=== PATIENT | female | born 1940 | race Hispanic/Latino ===

== ENCOUNTER 2017-07-02 14:25 | Inpatient (IN) | payer MEDICARE, BC ==
--- NOTE | 2017-07-02 15:01 | ED PDOC ---
Arrival/HPI - General Time Seen by Provider: 07/02/17 14:26 Historian: Patient, Family (brother), Caregiver - History of Present Illness Narrative History of Present Illness (Text): 07/02/17 14:45 Palma Oglesby is a 76 year old female, whose past medical history includes, CVA, COPD, diabetes, spinal stenosis, vascular dementia, and pulmonary sarcoidosis, presents to the emergency department, accompanied by visiting nurse and brother, with complaints of chest pain on the left side that radiates to the middle and has been intermittent. Caregiver reports that patient is currently on 2.5 liters of oxygen at home, but patient still feels shortness of breath and has mild coughing. Brother also reports patient needs support when ambulating due to her diabetes neuropathy. Patient denies headache, fever, chills, nausea, vomiting, diarrhea, diaphoresis, jaw pain, back pain, or other complaints. PMD: Dr. Walker Remedial Reading Teacher: Dr. Flores Symptom Onset: Sudden Symptom Course: Intermittent Modifying Factors (Text): chest pain is worse with deep breaths Context: Home Associated Symptoms (Text): shortness of breath and coughing Past Medical History - Provider Review Nursing Documentation Reviewed: Yes - Infectious Disease Hx of Infectious Diseases: None - Cardiac Hx Cardiac Disorders: Yes Hx Hypertension: Yes - Pulmonary Hx Chronic Obstructive Pulmonary Disease (COPD): Yes - Neurological HX Cerebrovascular Accident: Yes - HEENT Hx HEENT Disorder: Yes Hx Deafness: Yes Hx Macular Degeneration: Yes - Renal Hx Renal Disorder: No - Endocrine/Metabolic Hx Diabetes Mellitus Type 2: Yes - Hematological/Oncological Hx Blood Disorders: No - Integumentary Hx Dermatological Disorder: Yes (MASD UNDER THE BREAST FOLDS AND ABDOMINAL AREA) Hx Basal Cell Carcinoma: Yes Other/Comment: SARCOIDOSIS - Musculoskeletal/Rheumatological Hx Falls: Yes - Gastrointestinal Hx Gastrointestinal Disorders: Yes (GERD,RECTO VAGINAL FISTULA) - Genitourinary/Gynecological Hx Genitourinary Disorders: Yes (HYSTERECTOMY) Other/Comment: vaginal rectal fistula - Psychiatric Hx Psychophysiologic Disorder: Yes (INSOMNIA. H/O OF SMOKING CIGARETTES 2 PPD QUIT) Hx Anxiety: Yes Hx Depression: Yes Hx Substance Use: No - Surgical History Hx Hysterectomy: Yes Other/Comment: laparoscopic sx for sarcoidosis, pt was sched for sx to remove small growth to chin tomorrow - Anesthesia Hx Anesthesia: Yes Hx Anesthesia Reactions: No Hx Malignant Hyperthermia: No - Suicidal Assessment Feels Threatened In Home Enviroment: No Family/Social History - Physician Review Nursing Documentation Reviewed: Yes Family/Social History: Unknown Family HX Smoking Status: Never Smoked Hx Alcohol Use: No Hx Substance Use: No Hx Substance Use Treatment: No Allergies/Home Meds Allergies/Adverse Reactions: Allergies No Known Allergies Allergy (Verified 01/05/17 13:28) Home Medications: Home Meds Medication Instructions Recorded Confirmed Mirtazapine [Remeron] 30 mg PO HS 04/10/16 07/02/17 Zolpidem [Ambien] 10 mg PO HS 04/10/16 07/02/17 Gabapentin [Neurontin] 300 mg PO BID 08/21/16 07/02/17 Sitagliptin Phos/Metformin HCl 1 mg PO BID 08/21/16 07/02/17 [Janumet 50-500 mg Tablet] Albuterol HFA [Ventolin HFA 90 2 puff NEB Q4 PRN 01/05/17 07/02/17 mcg/actuation (8 g)] Aspirin [Aspirin EC] 325 mg PO DAILY 01/05/17 07/02/17 Acetaminophen [Tylenol 325mg tab] 325 mg PO QID PRN 07/02/17 07/02/17 Ergocalciferol (Vitamin D2) 125 mg PO QWK 07/02/17 07/02/17 [Vitamin D2] Fluticasone/Salmeterol 250/50 1 puff IH Q12 07/02/17 07/02/17 [Advair Diskus] LORazepam [Ativan] 1 mg PO TID 07/02/17 07/02/17 Lidocaine 5% [Lidoderm] 1 patch TOP DAILY 07/02/17 07/02/17 [place]-3/Dha/Epa/Fish Oil [Fish Oil 500 mg PO BID 07/02/17 07/02/17 500 mg Softgel] traMADol [Ultram] 50 mg PO DAILY 07/02/17 07/02/17 Review of Systems - Physician Review All systems were reviewed & negative as marked: Yes - Review of Systems Systems not reviewed;Unavailable: Dementia Constitutional: absent: Fevers 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) Respiratory: SOB, Cough Cardiovascular: Chest Pain Gastrointestinal: absent: Abdominal Pain Musculoskeletal: absent: Neck Pain Physical Exam Vital Signs Temp Pulse Pulse Resp BP BP Pulse Ox 07/02/17 18:16 98 H 26 H 150/77 86 L 07/02/17 18:13 150/77 07/02/17 15:42 85 137/71 07/02/17 14:26 98.6 F 90 17 137/71 89 L Temperature: Afebrile Blood Pressure: Normal Pulse: Regular Respiratory Rate: Normal Appearance: Positive for: Well-Appearing, Non-Toxic, Comfortable Pain Distress: None Mental Status: Positive for: other (Alert and Oriented X 2) - Systems Exam Head: Present: Atraumatic, Normocephalic Pupils: Present: PERRL Extroacular Muscles: Present: EOMI Conjunctiva: Present: Normal Mouth: Present: Moist Mucous Membranes Neck: Present: Normal Range of Motion Respiratory/Chest: Present: Other (crackles at base). No: Accessory Muscle Use Cardiovascular: Present: Regular Rate and Rhythm, Normal S1, S2. No: Murmurs Abdomen: Present: Normal Bowel Sounds. No: Tenderness, Distention, Peritoneal Signs Back: Present: Normal Inspection Upper Extremity: Present: Normal Inspection. No: Cyanosis, Edema Lower Extremity: Present: Other (Left leg is 4/5 strength ). No: Edema Neurological: Present: GCS=15, CN II-XII Intact, Speech Normal Skin: Present: Warm, Dry, Normal Color. No: Rashes Psychiatric: Present: Alert, Oriented x 3, Normal Insight, Normal Concentration Medical Decision Making ED Course and Treatment: 07/02/17 14:45 Impression: 76 year old female with chest pain and shortness of breath. Differential Diagnosis included but are not limited to: Plan: -- EKG -- Chest X-ray -- CT Chest -- Ultrasound -- Labs -- Urinalysis -- Xopenex, Atrovent, and Solumedrol -- Reassess and disposition Progress Notes: EKG: Ordered, reviewed, and independently interpreted the EKG. Rate : 97 BPM Rhythm : NSR Interpretation : No ST-segment elevations or depressions, no T-wave inversions, normal intervals, normal axis. 07/02/17 15:30 Chest X-ray: Creator: Kali Singh MD COMPARISON:01/09/2017 FINDINGS: LUNGS: Mild vascular and interstitial congestion unchanged PLEURA: No significant pleural effusion identified, no pneumothorax apparent. CARDIOVASCULAR: Normal. OSSEOUS STRUCTURES: No significant abnormalities. VISUALIZED UPPER ABDOMEN: Normal. OTHER FINDINGS: None. IMPRESSION: Mild vascular and interstitial congestion unchanged 07/02/17 16:24 Elderly patient with chest pain - will need further observation for cardiac assessment. Case was discussed with Dr. Moreno. 07/02/17 20:27 CTA of the chest showing no PE. - Lab Interpretations Lab Results: 07/02/17 15:30 07/02/17 15:30 Lab Results 07/02/17 15:30: Sodium 139, Potassium 4.1, Chloride 99, Carbon Dioxide 28, Anion Gap 16, BUN 22 H, Creatinine 0.9, Est GFR ( Amer) > 60, Est GFR ( Non-Af Amer) > 60, Random Glucose 146 H, Calcium 10.2, Magnesium 1.7, Total Bilirubin 0.5, AST 37, ALT 40, Alkaline Phosphatase 183 H, Lactate Dehydrogenase 468, Total Creatine Kinase 84, Troponin I < 0.01, NT-Pro-B Natriuret Pep 58.9, Total Protein 7.8, Albumin 4.1, Globulin 3.6, Albumin/ Globulin Ratio 1.1, Lipase 107 07/02/17 15:30: PT 11.4, INR 1.06, APTT 26.8, D-Dimer, Quantitative 1.42 H 07/02/17 15:30: WBC 9.5 D, RBC 4.46, Hgb 12.7, Hct 38.8, MCV 87.0, MCH 28.5, MCHC 32.7, RDW 15.4 H, Plt Count 311, MPV 9.8, Gran % 67.0, Lymph % (Auto) 21.0 L, [place] % (Auto) 8.3 H, Eos % (Auto) 3.4, Baso % (Auto) 0.3, Gran # 6.34, Lymph # 2.0, [place] # 0.8 H, Eos # 0.3, Baso # 0.03 I have reviewed the lab results: Yes - RAD Interpretation Radiology Orders: 07/02/17 15:00 CHEST PORTABLE [RAD] Stat Nurse School: Radiologist - EKG Interpretation Interpreted by ED Physician: Yes Type: 12 lead EKG - Medication Orders Current Medication Orders: Albuterol Sulfate (Albuterol 0.083% Inhal [place] (2.5 Mg/3 Ml) Ud) 2.5 mg IH [id number] PRN PRN Reason: COPD Albuterol/Ipratropium (Duoneb 3 Mg/0.5 Mg (3 Ml) Ud) 3 ml IH Q2H PRN PRN Reason: Shortness of Breath Albuterol/Ipratropium (Duoneb 3 Mg/0.5 Mg (3 Ml) Ud) 3 ml IH [id number] [facility] Last Admin: 07/02/17 20:15 Dose: 3 ml Amlodipine Besylate (Norvasc) 10 mg PO DAILY [facility] Arformoterol Tartrate (Brovana) 15 mcg IH [id number] [facility] Last Admin: 07/02/17 20:15 Dose: 15 mcg Aspirin (Ecotrin) 325 mg PO DAILY [facility] Atorvastatin Calcium (Lipitor) 40 mg PO HS [facility] Budesonide (Pulmicort Respules) 0.5 mg IH [id number] [facility] Last Admin: 07/02/17 20:15 Dose: 0.5 mg Gabapentin (Neurontin) 300 mg PO BID [facility] PRN Reason: Protocol Insulin Human Lispro (Humalog Med) 0 units SC ACHS [facility] PRN Reason: Protocol Lidocaine (Lidoderm) 1 ea TD DAILY [facility] Lorazepam (Ativan) 1 mg PO Q8H PRN; Protocol PRN Reason: Anxiety Mirtazapine (Remeron) 30 mg PO HS [facility] Tramadol HCl (Ultram) 25 mg PO Q12H PRN PRN Reason: Pain, moderate (4-7) Zolpidem Tartrate (Ambien) 10 mg PO HS [facility] PRN Reason: Protocol Discontinued Medications Albuterol (Ventolin Hfa 90 Mcg/Actuation (8 G)) 2 puff IH Q4 PRN PRN Reason: Shortness of Breath Aspirin (Aspirin Chewable) 324 mg PO STAT [facility] Stop: 07/02/17 16:22 Last Admin: 07/02/17 18:25 Dose: Furosemide (Lasix) 40 mg IVP STAT STA Stop: 07/02/17 17:47 Last Admin: 07/02/17 18:13 Dose: 40 mg Iohexol (Omnipaque 350 100 Ml) Confirm Administered Dose 350 mg .ROUTE .STK-MED ONE Stop: 07/02/17 18:59 Ipratropium Cooks (Atrovent) 0.5 mg IH STAT STA Stop: 07/02/17 15:06 Last Admin: 07/02/17 15:49 Dose: 0.5 mg Levalbuterol HCl (Xopenex) 1.25 mg IH STAT STA Stop: 07/02/17 15:06 Last Admin: 07/02/17 15:49 Dose: 1.25 mg Methylprednisolone (Solu-Medrol) 125 mg IVP STAT STA Stop: 07/02/17 15:06 Last Admin: 07/02/17 15:49 Dose: 125 mg Fluticasone/Salmeterol (Advair Diskus 250/50) 1 puff IH Q12 [facility] - Scribe Statement The provider has reviewed the documentation as recorded by the Scribe 07/02/2017 Tina Izquierdo Attestation: All medical record entries made by the Scribe were at my direction and personally dictated by me. I have reviewed the chart and agree that the record accurately reflects my personal performance of the history, physical exam, medical decision making, and the department course for this patient. I have also personally directed, reviewed, and agree with the discharge instructions and disposition. Disposition/Present on Arrival - Present on Arrival Any Indicators Present on Arrival: No History of DVT/PE: No History of Uncontrolled Diabetes: No Urinary Catheter: No History Surgical Site Infection Following: None - Disposition Have Diagnosis and Disposition been Completed?: Yes Diagnosis: Chest pain Disposition: HOSPITALIZED Disposition Time: 16:24 Patient Plan: Observation, Telemetry Condition: FAIR
[2017-07-02] MEDS ORDERED: Ipratropium 0.02% Inhal Soln (0.5 mg/2.5 ml) UD IH STA (15:05)
[2017-07-02] MEDS ORDERED: Levalbuterol 1.25 MG/3 ML Inhal Soln UD IH STA (15:05)
--- NOTE | 2017-07-02 15:26 | RAD ---
HISTORY: chest pain COMPARISON: 01/09/2017 FINDINGS: LUNGS: Mild vascular and interstitial congestion unchanged PLEURA: No significant pleural effusion identified, no pneumothorax apparent. CARDIOVASCULAR: Normal. OSSEOUS STRUCTURES: No significant abnormalities. VISUALIZED UPPER ABDOMEN: Normal. OTHER FINDINGS: None. IMPRESSION: Mild vascular and interstitial congestion unchanged
[2017-07-02 16:03] LABS: BASO # 0.03 K/mm3 (0.0-2.0); BASO % 0.3 % (0.0-3.0); EOS # 0.3 (0.0-0.7); EOS % 3.4 % (1.5-5.0); GRAN # 6.34 (1.4-6.5); HEMOGLOBIN 12.7 gm/dL (12.0-16.0); MEAN CORPUSCULAR HEMOGLOBIN 28.5 pg (25.0-35.0); MEAN CORPUSCULAR HGB CONC 32.7 g/dl (31.0-37.0); MEAN PLATELET VOLUME 9.8 fl (7.0-11.0); MONO # 0.8 (0.1-0.6); MONO % 8.3 % (1.0-6.0); PLATELET COUNT 311 10^3/uL (120.0-450.0); RBC 4.46 10^6/uL (3.5-6.1); RED CELL DISTRIBUTION WIDTH 15.4 % (11.5-14.5); WHITE BLOOD COUNT 9.5 10^3/ul (4.5-11.0)
[2017-07-02 16:06] LABS: ALB/GLOB RATIO 1.1 (1.1-1.8); ALBUMIN 4.1 g/dL (3.0-4.8); ALT/SGPT 40 U/L (7-56); AST/SGOT 37 U/L (15-39); BLOOD UREA NITROGEN 22 mg/dL (7-21); CALCIUM 10.2 mg/dL (8.4-10.5); GFR AFRICAN-AMERICAN > 60; GFR NON-AFRICAN AMERICAN > 60; LIPASE 107 U/L (23-300); MAGNESIUM 1.7 mg/dL (1.7-2.2)
[2017-07-02 16:16] LABS: B-TYPE NATRIURETIC PEPTIDE 58.9 pg/mL (0-450)
[2017-07-02 16:17] LABS: TROPONIN I < 0.01 ng/mL
[2017-07-02 16:50] LABS: INR 1.06 (0.93-1.08); PARTIAL THROMBOPLASTIN TIME 26.8 Seconds (23.7-30.8); PROTHROMBIN TIME 11.4 Seconds (9.9-11.8)
[2017-07-02 16:53] LABS: D DIMER 1.42 mg/L FEU (0-0.50)
[2017-07-02 17:24] LABS: PH,URINE 6.5 (4.7-8.0); URINE BILIRUBIN NEGATIVE (NEGATIVE); URINE BLOOD NEGATIVE (NEGATIVE); URINE GLUCOSE (UA) NEGATIVE (NEGATIVE); URINE LEUKOCYTE ESTERASE SMALL Leu/uL (NEGATIVE); URINE NITRATE NEGATIVE (NEGATIVE); URINE PROTEIN NEGATIVE mg/dL (<30 mg/dL); URINE UROBILINOGEN 0.2 E.U./dL (<1 E.U./dL)
[2017-07-02 17:26] LABS: URINE APPEARANCE CLEAR (CLEAR); URINE COLOR YELLOW (YELLOW)
[2017-07-02] MEDS ORDERED: Albuterol HFA 90 mcg/actuation (8 g) IH PRN (18:22)
[2017-07-02] MEDS ORDERED: Albuterol-Ipratrop 3 mg / 0.5 (3 ml) UD IH PRN (18:29)
[2017-07-02] MEDS ORDERED: Albuterol 0.083% Inhal Sol (2.5 mg/3 mL) UD IH PRN (18:41)
[2017-07-02] MEDS ORDERED: Iohexol 350 MG/100 ML VIAL ONE (18:58)
--- NOTE | 2017-07-02 19:49 | CP.PCM.HP ---
<Bennett Kumari - Last Filed: 07/02/17 20:23> History of Present Illness - History of Present Illness History of Present Illness: CC: Chest pain Patient is a 76 year old female with past medical history of CVA x2 in 1996, 2013, DM2, pulmonary sarcoidosis, COPD, multiple admissions for pneumonia, spinal stenosis and dementia who presents with chest pain for the past week. The patient is a poor historian as she reports varying time lengths of chest pain and reason for admission. She reports that over the past week she has developed progressively worsening chest pain. She indicates the pain is located at her left breast without radiation and described as a pressure sensation. She reports initial episodes of chest pain lasting 1 minute but in the past 24 hours the patient reports feeling more of a constant pain. She indicates the pain is without pattern occurring at rest and with exertion. The patient denies any previous episodes of chest pain. In the emergency department a chest xray was done showing mild vasuclar and interstitial congestion unchanged from previous xrays. An ekg was preformed showing normal sinus rhythm without ST elevation or depression or any T wave inversions. An initial troponin was negative. Patient does report shortness of breath for which she has a chronic history. She wears 2L NC O2 at night. She reports pain in her left leg for which she states is chronic and related to her neuropathy. A D-Dimer was done and noted to be elevated at 1.42. The patient is planned for a CT angiogram and doppler ultrasound of her lower extremities. PMH: CVA, PNA, DM2, Pulmonary sarcoidosis, depression, anxiety, neuropathy, spinal stenosis, arthritis, dementia PSH: Back surgery for pinched nerve, Hysterectomy FMH: - Mom: Heart disease with pacemaker placement, at 87 - Dad: ALS SocHx: Tobacco: former with 30 pack year history, EtOH: none, Drugs: none, Lives at home with a healthcare consultant. Ambulates with cane Meds: - Glimepiride 1mg - Janumet 50/500mg - Fish oil pearls 500mg - Tramadol 50mg Daily - Acetaminophen 325 Q4H prn - Albuterol 2 puff Q4H - Aspirin 325mg Daily - Atorvastatin 40mg - Fluticasone 1 puff BID - Lorazepam 1mg TID - Mirtazapine 30mg QHS - Norvasc 10mg QHS - Gabapentin 300 mg BID - Ambien 10mg QHS - Lidocaine 5% patches for feet - Vitamin D2 PCP: Dr. Manny Walker Pulm: Dr. Guevara Apartment Leasing Agent: None Present on Admission - Present on Admission Any Indicators Present on Admission: No History of DVT/PE: No History of Uncontrolled Diabetes: No Urinary Catheter: No Review of Systems - Constitutional Constitutional: Headache. absent: Chills, Fever, Night Sweats - Cardiovascular Cardiovascular: Chest Pain, Dyspnea. absent: Leg Edema, Orthopnea, Pedal Edema - Respiratory Respiratory: Dyspnea. absent: Cough, Hemoptysis, Dyspnea on Exertion, Wheezing - Gastrointestinal Gastrointestinal: absent: Abdominal Pain, Constipation, Diarrhea - Musculoskeletal Musculoskeletal: absent: Numbness - Neurological Neurological: absent: Dizziness, Focal Weakness - Psychiatric Psychiatric: As Per HPI Past Patient History - Infectious Disease Hx of Infectious Diseases: None - Past Social History Smoking Status: Never Smoked - CARDIAC Hx Cardiac Disorders: Yes Hx Hypertension: Yes - PULMONARY Hx Chronic Obstructive Pulmonary Disease (COPD): Yes - NEUROLOGICAL HX Cerebrovascular Accident: Yes - HEENT Hx HEENT Problems: Yes Hx Deafness: Yes Hx Macular Degeneration: Yes - RENAL Hx Chronic Kidney Disease: No - ENDOCRINE/METABOLIC Hx Diabetes Mellitus Type 2: Yes - HEMATOLOGICAL/ONCOLOGICAL Hx Blood Disorders: No - INTEGUMENTARY Hx Dermatological Problems: Yes (MASD UNDER THE BREAST FOLDS AND ABDOMINAL AREA) Hx Basil Cell: Yes Other/Comment: SARCOIDOSIS - MUSCULOSKELETAL/RHEUMATOLOGICAL Hx Falls: Yes - GASTROINTESTINAL Hx Gastrointestinal Disorders: Yes (GERD,RECTO VAGINAL FISTULA) - GENITOURINARY/GYNECOLOGICAL Hx Genitourinary Disorders: Yes (HYSTERECTOMY) Other/Comment: vaginal rectal fistula - PSYCHIATRIC Hx Psychophysiologic Disorder: Yes (INSOMNIA. H/O OF SMOKING CIGARETTES 2 PPD QUIT) Hx Anxiety: Yes Hx Depression: Yes Hx Substance Use: No - SURGICAL HISTORY Hx Hysterectomy: Yes Other/Comment: laparoscopic sx for sarcoidosis, pt was sched for sx to remove small growth to chin tomorrow - ANESTHESIA Hx Anesthesia: Yes Hx Anesthesia Reactions: No Hx Malignant Hyperthermia: No Meds Allergies/Adverse Reactions: Allergies Allergy/AdvReac Type Severity Reaction Status Date / Time No Known Allergies Allergy Verified 01/05/17 13:28 Physical Exam - Constitutional Appears: Well, No Acute Distress - Head Exam Head Exam: ATRAUMATIC, NORMAL INSPECTION - Eye Exam Eye Exam: EOMI, PERRL - ENT Exam ENT Exam: Mucous Membranes Moist, Normal Exam - Neck Exam Neck exam: Positive for: Normal Inspection - Respiratory Exam Additional comments: Crackles bilateral base with L>R - Cardiovascular Exam Cardiovascular Exam: REGULAR RHYTHM, +S1, +S2 - GI/Abdominal Exam GI & Abdominal Exam: Normal Bowel Sounds, Soft - Extremities Exam Extremities exam: Positive for: full ROM, normal inspection, tenderness (left side most likely 2/2 chronic pain). Negative for: pedal edema - Neurological Exam Neurological exam: Alert, CN II-XII Intact, Oriented x3 - Psychiatric Exam Psychiatric exam: Normal Affect, Normal Mood - Skin Skin Exam: Dry, Normal Color Results - Vital Signs Recent Vital Signs: Last Vital Signs Temp 98.6 F 07/02/17 14:26 Pulse 98 H 07/02/17 18:16 Resp 26 H 07/02/17 18:16 BP 150/77 07/02/17 18:16 Pulse Ox 86 L 07/02/17 18:16 - Labs Result Diagrams: 07/02/17 15:30 07/02/17 15:30 Labs: Laboratory Results - last 24 hr 07/02/17 17:15 Urine Color Yellow Urine Appearance Clear Urine pH 6.5 Ur Specific [place] 1.010 Urine Protein Negative Urine Glucose (UA) Negative Urine Ketones Negative Urine Blood Negative Urine Nitrate Negative Urine Bilirubin Negative Urine Urobilinogen 0.2 Ur Leukocyte Esterase Small H Urine RBC TEST NOT PERFORMED Urine WBC 5 - 10 Ur Epithelial Cells 6 - 8 Assessment & Plan - Assessment and Plan (Free Text) Assessment: Patient is a 76 year old female with past medical history of COPD, Pulmonary sarcoidosis, CVAx2 1996, 2013, history of multiple hospitilizations for pneumonia in recent past, spinal stenosis, DM2 who presents with chest pain for the past week. Plan: 1. Atypical Chest pain - EKG with no ST elevation or depression, No T wave inversion - Chest xray showing mild vascular and interstitial congestion unchanged from previous cxr - Initial troponin negative, plan for 2 more troponin level - Aspirin 325mg given today already, plan to continue - Atorvastatin 40mg, Norvasc 10mg - O2 NC 2L at home, continue during stay with pulse ox goal of >92% - Cardiology consult Dr. Bryson - Admit to telemetry for observation - Lipid panel - TSH 2. Elevated D-Dimer r/o DVT vs. PE - D-Dimer in ED noted to be elevated at 1.42 - CT angiogram of chest - Doppler U/S of lower extremity rule out DVT 3. Diabetes Mellitus type 2 - Humalog with ISS - ACHS accucheck 4. Hx of CVA - Aspirin - Atorvastatin 5. GI DVT ppx - Lovenox - Protonix 6. Hx of neuropathy - lidocaine - gabapentin 7. Hx of COPD - Duoneb Q2prn Q6 reggie - no wheezing, will reassess - O2 NC 2L 8. Hx of Insomnia - Ambien HS prn 9. Anxiety - Lorazepam TID PRN Seen, reviewed and discussed with attending - Date & Time Date: 07/02/17 Time: 20:27 <Michael Moreno - Last Filed: 07/03/17 06:55> Results - Vital Signs Recent Vital Signs: Last Vital Signs Temp 97.7 F 07/03/17 05:26 Pulse 105 H 07/03/17 05:26 Resp 19 07/03/17 05:26 BP 156/74 H 07/03/17 05:26 Pulse Ox 95 07/03/17 05:26 - Labs Result Diagrams: 07/03/17 05:10 07/03/17 05:10 Labs: Laboratory Results - last 24 hr 07/02/17 07/02/17 07/02/17 17:15 20:56 22:10 WBC RBC Hgb Hct MCV MCH MCHC RDW Plt Count MPV Gran % Lymph % (Auto) [place] % (Auto) Eos % (Auto) Baso % (Auto) Gran # Lymph # [place] # Eos # Baso # Sodium Potassium Chloride Carbon Dioxide Anion Gap BUN Creatinine Est GFR ( Amer) Est GFR (Non-Af Amer) POC Glucose (mg/dL) 281 H Random Glucose Calcium Total Bilirubin AST ALT Alkaline Phosphatase Lactate Dehydrogenase 465 Total Creatine Kinase 88 Troponin I < 0.01 Total Protein Albumin Globulin Albumin/Globulin Ratio Triglycerides 76 Cholesterol 109 L LDL Cholesterol Direct 46 HDL Cholesterol 37 TSH 3rd Generation Urine Color Yellow Urine Appearance Clear Urine pH 6.5 Ur Specific [place] 1.010 Urine Protein Negative Urine Glucose (UA) Negative Urine Ketones Negative Urine Blood Negative Urine Nitrate Negative Urine Bilirubin Negative Urine Urobilinogen 0.2 Ur Leukocyte Esterase Small H Urine RBC TEST NOT PERFORMED Urine WBC 5 - 10 Ur Epithelial Cells 6 - 8 0807/03/17 07/03/17 22:10 05:10 05:10 WBC 15.0 H D RBC 4.70 Hgb 13.3 Hct 40.4 MCV 86.0 MCH 28.3 MCHC 32.9 RDW 15.6 H Plt Count 339 MPV 9.7 Gran % 89.5 H Lymph % (Auto) 9.4 L [place] % (Auto) 1.1 Eos % (Auto) 0.0 L Baso % (Auto) 0.0 Gran # 13.41 H Lymph # 1.4 [place] # 0.2 Eos # 0.0 Baso # 0.00 Sodium 139 Potassium 4.4 Chloride 96 L Carbon Dioxide 23 Anion Gap 24 H BUN 29 H Creatinine 1.2 Est GFR ( Amer) 53 Est GFR (Non-Af Amer) 43 POC Glucose (mg/dL) Random Glucose 373 H* D Calcium 10.8 H Total Bilirubin 0.5 AST 36 ALT 39 Alkaline Phosphatase 187 H Lactate Dehydrogenase 413 Total Creatine Kinase 94 Troponin I < 0.01 Total Protein 8.1 Albumin 4.4 Globulin 3.7 Albumin/Globulin Ratio 1.2 Triglycerides Cholesterol LDL Cholesterol Direct HDL Cholesterol TSH 3rd Generation 4.02 Urine Color Urine Appearance Urine pH Ur Specific [place] Urine Protein Urine Glucose (UA) Urine Ketones Urine Blood Urine Nitrate Urine Bilirubin Urine Urobilinogen Ur Leukocyte Esterase Urine RBC Urine WBC Ur Epithelial Cells Attending/Attestation - Attestation I have personally seen and examined this patient.: Yes I have fully participated in the care of the patient.: Yes I have reviewed all pertinent clinical information: Yes Notes (Text): 07/02/17 76 year old female with past medical history of COPD, pulmonary sarcoidosis, diabetes, CVA and chronic back pain who presents with complaint of chest pain. Also reports chronic dyspnea, back pain and left leg pain. She was found to have elevated D-dimer and CXR findings showing mild vascular and interstitial congestion which is unchanged from prior study. Initial troponin was negative and pbnp is normal. She was given iv steroids in the ER. Will give dose of lasix as well. CT angio is ordered to rule out PE and LE dopplers to rule out DVT. Cardiology and pulmonary evaluation are requested. Brother is at bedside and questions were answered. Michael Moreno MD Hospitalist.
[2017-07-02] MEDS: Albuterol-Ipratrop 3 mg / 0.5 (3 ml) UD IH SCH ×2 (20:15→23:55)
[2017-07-02] MEDS: Budesonide 0.5 mg/2 ml Inhal Susp UD IH SCH (20:15)
[2017-07-02] MEDS: Arformoterol 15 mcg/2 ml Inh Sol IH SCH (20:15)
[2017-07-02 20:56] VITALS: BMI 26.4
[2017-07-02] MEDS ORDERED: Pneumococcal 23-Valent Vaccine IM ONE (20:57)
[2017-07-02] MEDS ORDERED: MIRTAZAPINE 30 MG PO SCH (22:00)
[2017-07-02] MEDS ORDERED: Fluticasone-Salmeterol 250-50mcg Diskus IH SCH (22:00)
[2017-07-02] MEDS: Insulin Lispro (humaLOG) MEDIUM Coverage SC SCH (22:25)
[2017-07-02 22:31] LABS: HDL CHOLESTEROL 37 mg/dL (29-60)
[2017-07-02 22:42] LABS: LDL CHOLESTEROL 46 mg/dL (0-129)
[2017-07-02 22:47] LABS: TROPONIN I < 0.01 ng/mL
[2017-07-03] MEDS: Albuterol-Ipratrop 3 mg / 0.5 (3 ml) UD IH SCH ×3 (04:30→11:27)
[2017-07-03 05:47] LABS: GRAN # 13.41 (1.4-6.5); GRAN % 89.5 % (50.0-68.0); HEMOGLOBIN 13.3 gm/dL (12.0-16.0); LYMPH # 1.4 (1.2-3.4); LYMPH % 9.4 % (22.0-35.0); MEAN CORPUSCULAR HEMOGLOBIN 28.3 pg (25.0-35.0); MEAN CORPUSCULAR HGB CONC 32.9 g/dl (31.0-37.0); MEAN PLATELET VOLUME 9.7 fl (7.0-11.0); MONO # 0.2 (0.1-0.6); MONO % 1.1 % (1.0-6.0); PLATELET COUNT 339 10^3/uL (120.0-450.0); RED CELL DISTRIBUTION WIDTH 15.6 % (11.5-14.5)
[2017-07-03 05:55] LABS: ALB/GLOB RATIO 1.2 (1.1-1.8); ALBUMIN 4.4 g/dL (3.0-4.8); ALT/SGPT 39 U/L (7-56); AST/SGOT 36 U/L (15-39); BLOOD UREA NITROGEN 29 mg/dL (7-21); CALCIUM 10.8 mg/dL (8.4-10.5); GFR AFRICAN-AMERICAN 53; GFR NON-AFRICAN AMERICAN 43
[2017-07-03 06:09] LABS: TROPONIN I < 0.01 ng/mL
--- NOTE | 2017-07-03 07:36 | CT ---
PROCEDURE: CT Chest with contrast (Pulmonary Angiogram) HISTORY: cp, sob COMPARISON: 01/06/2017 TECHNIQUE: Axial computed tomography images were obtained of the chest in the pulmonary arterial phase of enhancement. Coronal and sagittal reformatted images were created and reviewed. Intravenous contrast dose: 94 mL Omnipaque 350 Radiation dose: Total exam DLP = 711.16 mGy-cm. This CT exam was performed using one or more of the following dose reduction techniques: Automated exposure control, adjustment of the mA and/or kV according to patient size, and/or use of iterative reconstruction technique. FINDINGS: PULMONARY ARTERIES: Unremarkable. No pulmonary embolism. AORTA: No acute findings. No thoracic aortic aneurysm. LUNGS: Diffuse mosaic attenuation common nonspecific. This may represent air trapping but is not specific. Mild centrilobular pulmonary emphysema. Apical scarring and bronchiectasis. Probable tracheal malacia. No pulmonary infiltrate. Comparison to prior examination is limited due to the extensive motion artifact on the prior examination. PLEURAL SPACES: Unremarkable. No effusion or pneuomothorax. HEART: Unremarkable. No cardiomegaly. No significant pericardial effusion. LYMPH NODES: Mild mediastinal lymphadenopathy, without change from prior examination. Probable mild bilateral hilar lymphadenopathy. BONES, CHEST WALL: Unremarkable. No fracture or destructive lesion OTHER FINDINGS: Unremarkable. IMPRESSION: No evidence of pulmonary embolism. Centrilobular pulmonary emphysema. Mosaic attenuation of the lungs common nonspecific. Differential diagnosis includes chronic thromboembolism, air trapping, parenchymal disease, small airways disease. Mild mediastinal and bilateral hilar lymphadenopathy, nonspecific. No pulmonary infiltrate. Preliminary interpretation of this examination was reported by AC Holdco at 8:14 p.m. on 07/02/2017. There is concurrence of this report with the preliminary interpretation.
[2017-07-03] MEDS: Insulin Lispro (humaLOG) MEDIUM Coverage SC SCH ×4 (07:44→21:32)
[2017-07-03] MEDS: Arformoterol 15 mcg/2 ml Inh Sol IH SCH (07:44)
[2017-07-03] MEDS: Budesonide 0.5 mg/2 ml Inhal Susp UD IH SCH ×2 (07:44→20:33)
--- NOTE | 2017-07-03 07:52 | CON ---
DATE: 07/03/2017 REASON FOR CONSULTATION: Chronic obstructive pulmonary disease. REFERRING PHYSICIAN: Dr. Moreno. History is obtained via extensive discussion with the night nurse. The patient does not appear to be an adequate historian. HISTORY OF PRESENT ILLNESS: The patient is a chronically-ill 76-year-old female, with past medical history significant for advanced chronic obstructive pulmonary disease (on home oxygen), advanced interstitial lung disease (sarcoidosis), cerebrovascular accident in the past, diabetes mellitus, hypertension, who presents to [facility] with left-sided chest pain "on and off" for the past week. The patient is not short of breath at rest. She does have chronic dyspnea on exertion-which is not changed. There is no history of significant cough or sputum production. There is no history of coughing up of blood. There is no history of chest pain-made worse with deep respirations. There is no history of temperatures, chills or infectious exposure. There is no history of night sweats, weight loss or appetite change prior to the above events. No history of calf pains. No history of syncope or diaphoresis. No history of recent travel or trauma. REVIEW OF SYSTEMS: No history of nausea, vomiting or diarrhea. No acute urinary symptoms. No new neurological or musculoskeletal complaints. Rest of the review of systems is negative. ALLERGIES: NO KNOWN ALLERGIES. SOCIAL HISTORY: Positive for tobacco. Negative for alcohol. FAMILY HISTORY: No inheritable diseases. HOME MEDICATIONS: Include Ultram, Norvasc, Ambien, Janumet, Remeron, Ativan, Neurontin, Advair, Lipitor, aspirin. PHYSICAL EXAMINATION: GENERAL: The patient is not short of breath at rest. She is not using accessory muscles for breathing. VITALS: Temperature is 97.7, pulse on the monitor is 98, respiratory rate 19, blood pressure 156/74. Oxygen saturation on nasal cannula is 95%. HEENT: Normocephalic, atraumatic. No JVD. CARDIOVASCULAR: Systolic ejection murmur at the lower left sternal border. No S3 gallop. LUNGS: Chronic crackles at the bases. Minimal rhonchi. No wheezing. EXTREMITIES: No clubbing, cyanosis, or edema. Calves are nontender to palpation. GASTROINTESTINAL: Abdomen is soft, nontender, nondistended. Bowel sounds are positive. SKIN: No acute rash. NEUROLOGIC: Limited at the present time. CURRENT LABORATORY DATA: CAT scan of the chest was done yesterday as an angiogram protocol. There is no evidence of pulmonary embolism. There is significant interstitial lung disease and bronchiectasis noted-unchanged from the previous study. There is also mild mediastinal and bilateral hilar adenopathy-not significantly changed from the previous study. There are no official results on the chart as of yet. CBC: White count 15.0, hemoglobin 13.3, hematocrit 40.0, platelets of 339. Initial white count-9.5. Complete metabolic profile: Chloride 96, anion gap 24, BUN 29, glucose 373, calcium 10.8, alkaline phosphatase 187. Rest of the metabolic profiles are within normal limits. IMPRESSION: 1. Chest pain. 2. Advanced chronic obstructive pulmonary disease-on home oxygen. 3. Advanced interstitial lung disease-sarcoidosis. 4. Diabetes mellitus. PLAN: Again, I did discuss the case with the night nurse at length. The patient presents to [facility] with a one week history of left-sided chest pain "on and off" for the past week. There are no other new or significant pulmonary symptoms reported. On physical exam, there is only minimal bronchospasm noted. In addition, the oxygen saturation on nasal cannula is 95%. I will continue the current nebulizer treatments and inhaled steroids for now. I did review the CAT scan of the chest-as above. Again noted :there is extensive interstitial lung disease and bronchiectasis. These findings are not changed from the previous CAT scan. The patient does state to feeling better this morning, and denies chest pain. Cardiology evaluation of Dr. Ramon has been ordered. Additional pulmonary intervention will be based on the clinical status of the patient. I will discuss the above with Dr. Moreno. Thank you very much for this pulmonary consultation. Meet Alcaraz MD ADÁN
--- NOTE | 2017-07-03 08:31 | US ---
HISTORY: Leg pain and swelling. Evaluate for DVT PHYSICIAN(S): Andrae Rojas MD. TECHNIQUE: Duplex sonography and color-flow Doppler with graded compression were used to evaluate the deep venous systems of both lower extremities. FINDINGS: The visualized deep venous systems of both lower extremities are sonographically normal and compressible. Normal wave forms and augmentation are seen. There is no sonographic evidence for deep venous thrombosis in the visualized segments of both lower extremities. IMPRESSION: No sonographic evidence for deep venous thrombosis in the visualized segments of both lower extremities.
[2017-07-03] MEDS: Aspirin 325 mg EC Tablets PO SCH (09:35)
[2017-07-03] MEDS: Lidocaine 5% Patch TD SCH (09:36)
--- NOTE | 2017-07-03 09:49 | CARD ---
APPROVED REPORT EKG Measurement Heart [id number] <Conclusion> Normal sinus rhythm No change
--- NOTE | 2017-07-03 13:41 | CP.PCM.PN ---
Addendum entered and electronically signed by Jessika Arreola DO 07/03/17 18:19: Assessment: 76 year old female with past medical history of HTN, COPD, sarcoidosis, CVAx2 1996, 2013, history of multiple hospitilizations for pneumonia in recent past, spinal stenosis, DM2, Anxiety/depression who presents with chest pain for the past week. Original Note: <Jessika Arreola - Last Filed: 07/03/17 17:32> Subjective - Date & Time of Evaluation Date of Evaluation: 07/03/17 Time of Evaluation: 07:15 - Subjective Subjective: Patient seen and examined at bedside. Per nursing no acute events overnight. Patient c/o left foot pain which is chronic in nature. Chest pain has resolved. Patient is short of breath at baseline, reports no changes in breathing status. Denies headaches, dizziness, CP, abdominal pain, urinary symptoms, changes in bowel habit. Objective - Vital Signs/Intake and Output Vital Signs (last 24 hours): Temp Pulse Resp BP Pulse Ox 97.2 F L 120 H 22 171/78 H 95 07/03/17 12:00 07/03/17 12:00 07/03/17 12:00 07/03/17 12:00 07/03/17 05:26 Intake and Output: 07/03/17 07/03/17 06:59 18:59 Intake Total 240 Balance 240 - Medications Medications: Current Medications Albuterol Sulfate (Albuterol 0.083% Inhal Dolores (2.5 Mg/3 Ml) Ud) 2.5 mg IH [id number] PRN PRN Reason: COPD Albuterol/Ipratropium (Duoneb 3 Mg/0.5 Mg (3 Ml) Ud) 3 ml IH Q2H PRN PRN Reason: Shortness of Breath Albuterol/Ipratropium (Duoneb 3 Mg/0.5 Mg (3 Ml) Ud) 3 ml IH [id number] [facility] Last Admin: 07/03/17 11:27 Dose: 3 ml Amlodipine Besylate (Norvasc) 10 mg PO DAILY [facility] Last Admin: 07/03/17 09:35 Dose: 10 mg Arformoterol Tartrate (Brovana) 15 mcg IH [id number] [facility] Last Admin: 07/03/17 07:44 Dose: 15 mcg Aspirin (Ecotrin) 325 mg PO DAILY [facility] Last Admin: 07/03/17 09:35 Dose: 325 mg Atorvastatin Calcium (Lipitor) 40 mg PO HS [facility] Last Admin: 07/02/17 22:22 Dose: 40 mg Budesonide (Pulmicort Respules) 0.5 mg IH [id number] [facility] Last Admin: 07/03/17 07:44 Dose: 0.5 mg Enoxaparin Sodium (Lovenox) 30 mg SC DAILY [facility] PRN Reason: Protocol Gabapentin (Neurontin) 300 mg PO BID [facility] PRN Reason: Protocol Last Admin: 07/03/17 09:36 Dose: 300 mg Insulin Human Lispro (Humalog Med) 0 units SC ACHS [facility] PRN Reason: Protocol Last Admin: 07/03/17 11:47 Dose: 8 units Lidocaine (Lidoderm) 1 ea TD DAILY [facility] Last Admin: 07/03/17 09:36 Dose: 1 ea Lorazepam (Ativan) 1 mg PO Q8H PRN; Protocol PRN Reason: Anxiety Last Admin: 07/03/17 01:39 Dose: 1 mg Mirtazapine (Remeron) 30 mg PO HS [facility] Last Admin: 07/02/17 22:22 Dose: 30 mg Tramadol HCl (Ultram) 25 mg PO Q12H PRN PRN Reason: Pain, moderate (4-7) Last Admin: 07/02/17 22:23 Dose: 25 mg Zolpidem Tartrate (Ambien) 10 mg PO HS [facility] PRN Reason: Protocol Last Admin: 07/02/17 22:24 Dose: 10 mg - Labs Labs: 07/03/17 05:10 07/03/17 05:10 PT 11.4 Seconds (9.9-11.8) 07/02/17 15:30 INR 1.06 (0.93-1.08) 07/02/17 15:30 APTT 26.8 Seconds (23.7-30.8) 07/02/17 15:30 - Constitutional Appears: Non-toxic, No Acute Distress, Older Than Stated Age - Head Exam Head Exam: ATRAUMATIC, NORMAL INSPECTION - Eye Exam Eye Exam: EOMI, Normal appearance Pupil Exam: NORMAL ACCOMODATION - ENT Exam ENT Exam: Mucous Membranes Moist - Neck Exam Neck Exam: Full ROM - Respiratory Exam Respiratory Exam: Decreased Breath Sounds, Rhonchi. absent: Rales, Wheezes - Cardiovascular Exam Cardiovascular Exam: REGULAR RHYTHM, +S1, +S2 - GI/Abdominal Exam GI & Abdominal Exam: Soft, Normal Bowel Sounds. absent: Guarding, Rigid, Tenderness - Extremities Exam Extremities Exam: Full ROM, Normal Inspection - Back Exam Back Exam: NORMAL INSPECTION - Neurological Exam Neurological Exam: Alert, Awake, Oriented x3 - Psychiatric Exam Psychiatric exam: Normal Affect, Normal Mood - Skin Skin Exam: Normal Color, Warm Assessment and Plan - Assessment and Plan (Free Text) Assessment: Plan: 1. Atypical Chest pain, r/o ACS - Stable, afebrile - Monitor on Telemetry - EKG with no ST elevation or depression, No T wave inversion - Chest xray showing mild vascular and interstitial congestion unchanged from previous cxr - Troponin negative x 3 - Continue ASA, Atorvastatin 40mg - O2 NC 2L at home, continue during stay with pulse ox goal of >92% - Cardiology consult Dr. Bryson, f/u recommendations 2. Elevated D-Dimer, DVT and PE ruled out - D-Dimer in ED noted to be elevated at 1.42 - CT angiogram of chest- no evidence of PE, Centrilobular pulmonary emphysema. Mosaic attenuation of the lungs common nonspecific. Differential diagnosis includes chronic thromboembolism, air trapping, parenchymal disease, small airway disease. Mild mediastinal and bilateral hilar lymphadenopathy, non specific. No pulmonary infiltrate - Discussed patient status with transportation security screener who reviewed the CT chest, reports that patient has end stage sarcoidosis with chronic dyspnea; pt is not suffering from pulmonary embolic disease - LE Doppler negative for DVT 3. Diabetes Mellitus type 2, uncontrolled - CBGs ranging from 280-396 - F/U HgA1c - Added Sitagliptin 25mg PO BID and Glimeperide 1mg daily - Continue Medium dose ISS - ACHS accucheck 4. Leukocytosis - WBC 15 today likely 2/2 steroid administration - No overt signs of infections, afebrile - Will continue to monitor 5. Hypertension - BPs ranging from 150-171/71-87 - May be secondary to pain - Will continue Norvasc 10mg daily - Add Clonidine prn for BPs > 180 systolic - Continue to monitor 6. Hx of CVA - Continue Aspirin 325mg - Continue Atorvastatin 40mg 7. Hx of COPD, Hx of Sarcoidosis - Patient previously on duonebs, will switch to Xopenex as patient is tachycardic - Xopenex Q4H MARLEE, Xopenex Q4H prn SOB, O2 NC 2L - Received one dose of steroids in ED - Pulmonary on consult, f/u recommendations - Talked to patients brother at the bedside, reports that patients breathing status is at baseline - Due to end stage pulmonary disease Palliative care consulted to discuss code status with patient and family, will f/u recommendations 8. Hx of spinal stenosis and neuropathy - Lidocaine - Continue Gabapentin - Tramadol prn pain 9. Hx of Insomnia - Ambien HS prn 10. Anxiety/Depression - Lorazepam TID PRN - Continue Mirtazapine 11. GI DVT ppx - Lovenox - Protonix <Michael Moreno - Last Filed: 07/04/17 08:01> Objective - Vital Signs/Intake and Output Vital Signs (last 24 hours): Temp Pulse Resp BP Pulse Ox 98 F 101 H 20 144/77 96 07/03/17 22:25 07/03/17 22:25 07/03/17 22:25 07/03/17 22:25 07/03/17 22:25 Intake and Output: 07/04/17 07/04/17 06:59 18:59 Intake Total 120 Balance 120 - Medications Medications: Current Medications Amlodipine Besylate (Norvasc) 10 mg PO DAILY [facility] Last Admin: 07/03/17 09:35 Dose: 10 mg Aspirin (Ecotrin) 325 mg PO DAILY [facility] Last Admin: 07/03/17 09:35 Dose: 325 mg Atorvastatin Calcium (Lipitor) 40 mg PO HS [facility] Last Admin: 07/03/17 21:12 Dose: 40 mg Budesonide (Pulmicort Respules) 0.5 mg IH [id number] [facility] Last Admin: 07/03/17 20:33 Dose: 0.5 mg Docusate Sodium (Colace) 100 mg PO BID [facility] Last Admin: 07/03/17 19:19 Dose: 100 mg Enoxaparin Sodium (Lovenox) 30 mg SC DAILY [facility] PRN Reason: Protocol Last Admin: 07/03/17 14:12 Dose: 30 mg Gabapentin (Neurontin) 300 mg PO BID [facility] PRN Reason: Protocol Last Admin: 07/03/17 18:25 Dose: 300 mg Glimepiride (Amaryl) 1 mg PO DAILY [facility] Insulin Human Lispro (Humalog Med) 0 units SC ACHS [facility] PRN Reason: Protocol Last Admin: 07/03/17 21:32 Dose: Not Given Levalbuterol HCl (Xopenex) 0.63 mg IH [id number] [facility] Last Admin: 07/04/17 04:07 Dose: 0.63 mg Lidocaine (Lidoderm) 1 ea TD DAILY [facility] Last Admin: 07/03/17 09:36 Dose: 1 ea Lorazepam (Ativan) 1 mg PO Q8H PRN; Protocol PRN Reason: Anxiety Last Admin: 07/03/17 01:39 Dose: 1 mg Mirtazapine (Remeron) 30 mg PO HS [facility] Last Admin: 07/03/17 21:12 Dose: 30 mg Sitagliptin Phosphate (Januvia) 25 mg PO DAILY [facility] Tramadol HCl (Ultram) 25 mg PO Q12H PRN PRN Reason: Pain, moderate (4-7) Last Admin: 07/02/17 22:23 Dose: 25 mg Zolpidem Tartrate (Ambien) 10 mg PO HS [facility] PRN Reason: Protocol Last Admin: 07/03/17 21:12 Dose: 10 mg - Labs Labs: 07/04/17 06:15 07/04/17 06:15 PT 11.4 Seconds (9.9-11.8) 07/02/17 15:30 INR 1.06 (0.93-1.08) 07/02/17 15:30 APTT 26.8 Seconds (23.7-30.8) 07/02/17 15:30 Attending/Attestation - Attestation I have personally seen and examined this patient.: Yes I have fully participated in the care of the patient.: Yes I have reviewed all pertinent clinical information, including history, physical exam and plan: Yes Notes (Text): 07/03/17 76 year old female with past medical history of COPD, sarcoidosis, diabetes and chronic back pain who presented with complaint of chest pain, chronic dyspnea, back pain and left leg pain. Serial cardiac enzymes were negative and ACS has been ruled out. Cardiology evaluation was appreciated. She was also found to have elevated D dimer. LE doppler was negative. CT chest was negative for acute PE, showed centrilobular pulmonary emphysema, mosaic attenuation of the lungs common nonspecific. Findings were discussed with pulmonary. She is on xopenex and pulmicort. Continue with oxygen supplementation. Palliative care evaluation is requested. Continue with insulin ss, januvia and glimeperide for diabetes. Continue with norvasc for hypertension. Continue with aspirin and statin for history of CVA. For history of spinal stenosis and neuropathy she is on lidocaine, gabapentin and tramadol prn. PT evaluation was requested and pending. Michael Moreno MD Hospitalist.
[2017-07-03] MEDS ORDERED: Levalbuterol 0.63 MG/3 ML Inhal Soln UD IH PRN (14:11)
[2017-07-03] MEDS: Enoxaparin 30 mg Syringe SC SCH (14:12)
[2017-07-03] MEDS: Levalbuterol 0.63 MG/3 ML Inhal Soln UD IH SCH ×3 (14:48→23:39)
--- NOTE | 2017-07-03 22:23 | CON ---
REASON FOR CONSULTATION: Chest pain. HISTORY OF PRESENT ILLNESS: The patient is a 76-year-old white female, who has a history of chronic obstructive lung disease, on nasal O2 at home, has a history of pulmonary sarcoidosis, hypertension, diabetes mellitus, history of 2 strokes in the past. She was brought in by the caregiver because of chest pain on the left side. The patient denies any productive cough and is not aware of any fever or chills. Neither the patient nor the insulation board head saw operator are aware of any past cardiac history of a heart attack or coronary intervention. SOCIAL HISTORY: The patient is a former smoker. MEDICATIONS: Albuterol inhaler 2.5 mg p.r.n. q. 6 hours, Ambien 10 mg at bedtime, Ativan 1 mg p.o. q. 8 hours, Brovana 15 mcg inhalation q. 12 hours, aspirin 325 mg once a day, Lipitor 40 mg once a day, Neurontin 300 mg twice a day, amlodipine 10 mg once a day, Remeron 30 mg p.o. at bedtime, Ultram 25 mg p.o. q. 12 hours. REVIEW OF SYSTEMS: The patient is being bothered by left foot and left lower leg pain. PHYSICAL EXAMINATION: GENERAL: The patient is an elderly female who does not appear to be in acute distress. VITAL SIGNS: Blood pressure *------*, heart rate 120, temperature 97.2, respiration 22. HEENT: No pallor or icterus. NECK: No JVD. CHEST: Dry right basilar crackles and absent breath sounds over the left base. HEART: S1 and S2 regular. ABDOMEN: Soft. EXTREMITIES: No pedal edema. Good posterior tibial pulses. LABORATORY DATA: CBC: WBC is 15, hemoglobin 15.3, hematocrit 40.4, platelet count 339,000. SMA-7, Sodium 139, potassium 4.4, chloride 96, CO2 23, glucose 373, BUN 29, creatinine 1.2. Troponins are negative. Total cholesterol is 109. The rest of the lipid profile is within normal limits. TSH level is within normal limits. EKG revealed normal sinus rhythm at the rate of 97. Echocardiographic study performed in 01/2017 revealed [id number] concentric LVH with normal systolic function and reduced SSRI compliance, mild pulmonary hypertension. CT angio of the chest revealed no evidence of pulmonary embolus, centrilobular pulmonary emphysema. Possibility of chronic thromboembolism, air trapping, parenchymal disease, small airway disease should be considered. No pulmonary infiltrate. Venous Doppler of lower extremities, no DVT in the visualized segments. ASSESSMENT: 1. Chest pain, myocardial infarction ruled out. 2. Chronic obstructive lung disease. 3. Rule out pulmonary fibrosis or advanced interstitial lung disease. 4. Mild pulmonary hypertension. 5. Uncontrolled diabetes mellitus. 6. Uncontrolled systemic hypertension. 7. Consider peripheral diabetic neuropathy. CONDITIONS: Continue current bronchodilators. Continue aspirin 325 mg once a day, Lipitor at 40 mg once a day, Norvasc at 10 mg once a day. Start Pepcid at 20 mg p.o. twice a day and subcutaneous Lovenox at 30 mg once a day. Brady Ramon MD
[2017-07-04] MEDS: Levalbuterol 0.63 MG/3 ML Inhal Soln UD IH SCH ×4 (04:07→15:25)
[2017-07-04 07:03] LABS: BASO # 0.04 K/mm3 (0.0-2.0); BASO % 0.2 % (0.0-3.0); EOS # 0.3 (0.0-0.7); EOS % 1.6 % (1.5-5.0); GRAN % 73.5 % (50.0-68.0); HEMOGLOBIN 13.4 gm/dL (12.0-16.0); LYMPH % 16.7 % (22.0-35.0); MEAN CELL VOLUME 86.4 fL (80.0-105.0); MEAN CORPUSCULAR HGB CONC 32.4 g/dl (31.0-37.0); MEAN PLATELET VOLUME 10.1 fl (7.0-11.0); MONO # 1.4 (0.1-0.6); PLATELET COUNT 332 10^3/uL (120.0-450.0); RBC 4.78 10^6/uL (3.5-6.1); RED CELL DISTRIBUTION WIDTH 16.2 % (11.5-14.5)
[2017-07-04 07:36] LABS: ALB/GLOB RATIO 1.3 (1.1-1.8); ALBUMIN 4.4 g/dL (3.0-4.8); CALCIUM 9.7 mg/dL (8.4-10.5); MAGNESIUM 1.9 mg/dL (1.7-2.2)
[2017-07-04] MEDS: Budesonide 0.5 mg/2 ml Inhal Susp UD IH SCH (08:06)
--- NOTE | 2017-07-04 08:14 | RAD ---
HISTORY: SOB COMPARISON: 07/02/2017. FINDINGS: LUNGS: There is interval mild worsening of pulmonary venous congestion and interstitial pulmonary edema. There are confluent opacities in both lower lobes. PLEURA: Suspect small left pleural effusion. No large right pleural effusion. No pneumothorax CARDIOVASCULAR: Stable. OSSEOUS STRUCTURES: No significant abnormalities. VISUALIZED UPPER ABDOMEN: Normal. OTHER FINDINGS: None. IMPRESSION: Worsening congestive heart failure. Bibasilar atelectasis.
--- NOTE | 2017-07-04 11:03 | PN ---
PULMONARY PROGRESS NOTE DATE: 07/04/2017 SUBJECTIVE: The patient appears comfortable at rest. She is not short of breath. She does appear very anxious. PHYSICAL EXAMINATION VITAL SIGNS: Temperature is 98.0, pulse is 88, respirations are 18, and blood pressure is 144/77. Oxygen saturation on nasal cannula is 95%. HEENT: Normocephalic and atraumatic. NECK: No JVD. CARDIOVASCULAR: Systolic ejection murmur at the lower left sternal border. No S3 gallop. LUNGS: Chronic crackles at the bases. Minimal rhonchi. No wheezing. EXTREMITIES: No clubbing, cyanosis, or edema. Calves are nontender to palpation GASTROINTESTINAL: Abdomen is soft, nontender, and nondistended. Bowel sounds are positive. SKIN: No acute rash. NEUROLOGIC: Exam is limited at the present time. IMPRESSION: 1. Chest pain - resolved. 2. Advanced chronic obstructive pulmonary disease - on home oxygen. 3. Advanced interstitial lung diseases - sarcoidosis. 4. Diabetes mellitus. PLAN: The patient appears comfortable this morning. She is not short of breath at rest. She has no chest pain. She does state she is feeling much better overall and is asking to go home. On physical exam, there is no significant bronchospasm. In addition, there is no significant alveolar- arterial. I will continue with the current nebulizer treatments and inhaled steroids for now. Input by Dr. Ramon (cardiology) is noted. At this point in time, there is no evidence of acute myocardial infarction. Clinical status of the patient is improved. However, again, the overall status/prognosis of this patient - with advanced lung disease -- does remain guarded. I will discuss the above with Dr. Moreno this morning. . Meet Alcaraz MD MTDD
[2017-07-04] MEDS: Insulin Lispro (humaLOG) MEDIUM Coverage SC SCH ×2 (12:02→12:17)
[2017-07-04] MEDS: Lidocaine 5% Patch TD SCH (12:03)
[2017-07-04] MEDS: Enoxaparin 30 mg Syringe SC SCH (12:04)
[2017-07-04] MEDS: Aspirin 325 mg EC Tablets PO SCH (12:11)
--- NOTE | 2017-07-04 13:19 | CP.PCM.CON ---
History of Present Illness - History of Present Illness History of Present Illness: Palliative consult requested by Dr Salud Moreno Reason: Goals of care/advance care planning 76 years old female who presented with intermittent left sided chest pain, shortness of breath and non productive cough. She is oxygen dependent at home. She denied fever, chills, nausea, vomiting, jaw pain or diaphoresis. EKG was normal. CT of chest showed no evidence of PE, there is pulmonary emphysema,no pulmonary infiltrates, non specific mild mediastinal and bilateral hilar lymphadenopathy. PMHx: Vascular dementia, COPD,CVA X2, DM, spinal stenosis, pulmonary sarcoidosis, pneumonia, anxiety/depression. Social History:Former heavy smoker, no alcohol or drug use. Lives with stage settings painter care takers. Advance Care Planning: The patient has and advanced directive. Her brother Bhavin Edgar is health care proxy. She is DNR/DNI. Review of Systems: As per HPI, the patient is altered and poor historian, unable to answer questions. Past Patient History - Infectious Disease Hx of Infectious Diseases: None - Past Social History Smoking Status: Former Smoker - CARDIAC Hx Cardiac Disorders: Yes Hx Congestive Heart Failure: Yes Hx Hypercholesterolemia: Yes Hx Hypertension: Yes Hx Peripheral Vascular Disease: Yes - PULMONARY Hx Respiratory Disorders: (sarcoidosis, pulmonary fibrosis, home o2) Hx Chronic Obstructive Pulmonary Disease (COPD): Yes Hx Pneumonia: Yes - NEUROLOGICAL Hx Neurological Disorder: Yes (diabetic neuropathy feet lower legs) HX Cerebrovascular Accident: Yes Hx Migraine: Yes - HEENT Hx HEENT Problems: Yes Hx Deafness: Yes ([place]) Hx Macular Degeneration: Yes - RENAL Hx Chronic Kidney Disease: No - ENDOCRINE/METABOLIC Hx Diabetes Mellitus Type 2: Yes - HEMATOLOGICAL/ONCOLOGICAL Hx Blood Disorders: No - INTEGUMENTARY Hx Dermatological Problems: Yes Hx Basil Cell: Yes Other/Comment: SARCOIDOSIS - MUSCULOSKELETAL/RHEUMATOLOGICAL Hx Arthritis: Yes Hx Falls: Yes (past) Hx Herniated Disk: Yes (L4 L5 S1) Hx Osteoarthritis: Yes Hx Osteoporosis: Yes Hx Rhabdomyolysis: Yes Hx Unsteady Gait: (cane when out) - GASTROINTESTINAL Hx Gastrointestinal Disorders: Yes Hx Gastroesophageal Reflux: Yes - GENITOURINARY/GYNECOLOGICAL Hx Genitourinary Disorders: Yes (HYSTERECTOMY) Hx Incontinence: Yes (and uses bedpan) Other/Comment: vaginal rectal fistula repair - PSYCHIATRIC Hx Psychophysiologic Disorder: Yes (INSOMNIA. H/O OF SMOKING CIGARETTES 2 PPD QUIT) Hx Anxiety: Yes Hx Depression: Yes Hx Substance Use: No - SURGICAL HISTORY Hx Hysterectomy: Yes Other/Comment: laparoscopic sx for sarcoidosis, pt was sched for sx to remove small growth to chin - ANESTHESIA Hx Anesthesia: Yes Hx Anesthesia Reactions: No Hx Malignant Hyperthermia: No Meds Allergies/Adverse Reactions: Allergies Allergy/AdvReac Type Severity Reaction Status Date / Time No Known Allergies Allergy Verified 01/05/17 13:28 - Medications Medications: Current Medications Amlodipine Besylate (Norvasc) 10 mg PO DAILY [facility] Last Admin: 07/04/17 12:05 Dose: 10 mg Aspirin (Ecotrin) 325 mg PO DAILY [facility] Last Admin: 07/04/17 12:11 Dose: 325 mg Atorvastatin Calcium (Lipitor) 40 mg PO HS [facility] Last Admin: 07/03/17 21:12 Dose: 40 mg Budesonide (Pulmicort Respules) 0.5 mg IH [id number] [facility] Last Admin: 07/04/17 08:06 Dose: 0.5 mg Docusate Sodium (Colace) 100 mg PO BID [facility] Last Admin: 07/04/17 12:01 Dose: 100 mg Enoxaparin Sodium (Lovenox) 30 mg SC DAILY [facility] PRN Reason: Protocol Last Admin: 07/04/17 12:04 Dose: 30 mg Furosemide (Lasix) 40 mg IVP DAILY [facility] Gabapentin (Neurontin) 300 mg PO BID [facility] PRN Reason: Protocol Last Admin: 07/04/17 12:05 Dose: 300 mg Glimepiride (Amaryl) 1 mg PO DAILY [facility] Last Admin: 07/04/17 12:00 Dose: 1 mg Ciprofloxacin (Cipro 400mg/200ml Dsw) 400 mg in 200 mls @ 133.3 mls/hr IVPB Q12 [facility] PRN Reason: Protocol Stop: 07/04/17 23:31 Insulin Human Lispro (Humalog Med) 0 units SC ACHS [facility] PRN Reason: Protocol Last Admin: 07/04/17 12:17 Dose: 1 units Levalbuterol HCl (Xopenex) 0.63 mg IH [id number] [facility] Last Admin: 07/04/17 11:51 Dose: 0.63 mg Lidocaine (Lidoderm) 1 ea TD DAILY [facility] Last Admin: 07/04/17 12:03 Dose: 1 ea Lorazepam (Ativan) 1 mg PO Q8H PRN; Protocol PRN Reason: Anxiety Last Admin: 07/04/17 12:10 Dose: 1 mg Mirtazapine (Remeron) 30 mg PO HS [facility] Last Admin: 07/03/17 21:12 Dose: 30 mg Sitagliptin Phosphate (Januvia) 25 mg PO DAILY [facility] Last Admin: 07/04/17 12:03 Dose: 25 mg Tramadol HCl (Ultram) 25 mg PO Q12H PRN PRN Reason: Pain, moderate (4-7) Last Admin: 07/02/17 22:23 Dose: 25 mg Zolpidem Tartrate (Ambien) 10 mg PO HS [facility] PRN Reason: Protocol Last Admin: 07/03/17 21:12 Dose: 10 mg Physical Exam - Constitutional Appears: Chronically Ill - Head Exam Head Exam: NORMOCEPHALIC - Eye Exam Eye Exam: Normal appearance, PERRL - ENT Exam ENT Exam: Mucous Membranes Moist, Normal Oropharynx - Neck Exam Neck exam: Positive for: Normal Inspection - Respiratory Exam Respiratory Exam: Decreased Breath Sounds, Rhonchi Additional comments: dyspnea on exertion - Cardiovascular Exam Cardiovascular Exam: REGULAR RHYTHM, +S1, +S2 - GI/Abdominal Exam GI & Abdominal Exam: Distended, Normal Bowel Sounds - Extremities Exam Extremities exam: Positive for: pedal edema, pedal pulses present - Back Exam Back exam: vertebral tenderness - Neurological Exam Neurological exam: Altered - Skin Skin Exam: Dry, Pallor - Additional Findings Additional findings: Palliative performance scale rating 40 % Results - Vital Signs Recent Vital Signs: Last Vital Signs Temp 97.8 F 07/04/17 08:00 Pulse 97 H 07/04/17 08:00 Resp 24 07/04/17 08:00 BP 163/87 H 07/04/17 12:05 Pulse Ox 94 L 07/04/17 08:00 - Labs Result Diagrams: 07/04/17 06:15 07/04/17 06:15 Labs: Laboratory Results - last 24 hr 07/03/17 07/04/17 07/04/17 21:07 06:15 06:15 WBC 18.0 H RBC 4.78 Hgb 13.4 Hct 41.3 MCV 86.4 MCH 28.0 MCHC 32.4 RDW 16.2 H Plt Count 332 MPV 10.1 Gran % 73.5 H Lymph % (Auto) 16.7 L [place] % (Auto) 8.0 H Eos % (Auto) 1.6 Baso % (Auto) 0.2 Gran # 13.20 H Lymph # 3.0 [place] # 1.4 H Eos # 0.3 Baso # 0.04 Sodium 144 Potassium 4.1 Chloride 103 Carbon Dioxide 28 Anion Gap 17 BUN 31 H Creatinine 1.1 Est GFR ( Amer) 58 Est GFR (Non-Af Amer) 48 POC Glucose (mg/dL) 241 H Random Glucose 193 H Calcium 9.7 Phosphorus 3.0 Magnesium 1.9 Total Bilirubin 0.6 AST 41 H ALT 40 Alkaline Phosphatase 182 H Total Protein 7.8 Albumin 4.4 Globulin 3.4 Albumin/Globulin Ratio 1.3 Assessment & Plan - Assessment and Plan (Free Text) Assessment: 76 year old female with history of sarcoidosis, advanced COPD and vascular dementia who was admitted with chest pain, COPD exacerbation and leukocytosis. Patient is alert, confused.She is extremely anxious. She is oxygen dependent. She needs assistance with all ADL's. She has stage settings painter caretakers. They report no change in activity or appetite. She is always dyspneic on exertion. Patient brother at bedside. W He indicated that the patient has a Living Will and is DNR/DNI. I explained purpose of POLST. Brother is agreeable to completed POLST:DNR/DNI. Future goals of care discussed. Option for hospice care offered. The brother understands that his sister's lung disease is advanced will continue to worsen. Brother feels that patient is not ready for hospice at this time. Psychosocial support given. Time spent in discussion with brother regarding advance care planning and goals of care, 40 minutes Plan: POLST :DNR/DNI Advanced care planning
--- NOTE | 2017-07-04 14:59 | PN ---
DATE: SUBJECTIVE: The patient is experiencing mild shortness of breath and cough. She denies any associated chest pain. PHYSICAL EXAMINATION: VITAL SIGNS: Blood pressure 163/87, heart rate 97, temperature is 97.8, respiration 24. HEENT: Normocephalic. CHEST: Bilateral rhonchi and absent breath sounds over the left base. HEART: S1, S2 regular. ABDOMEN: Benign. EXTREMITIES: No edema. LABORATORY DATA: Hemoglobin and hematocrit are 13.4 and 41.3, white count and platelet count are 18.0 and 332,000. SMA-7 is within normal limits except for the glucose 193 and BUN of 31. ASSESSMENT: 1. Chest pain, myocardial infarction ruled out. 2. Exacerbation of chronic obstructive lung disease. 3. Consider underlying interstitial lung disease. 4. Mild pulmonary hypertension. 5. Systemic hypertension, diabetes mellitus. CONDITIONS: Continue current IV Cipro at 400 mg q. 12 hours. Change aspirin to 81 mg once a day. Change Lasix to 40 mg p.o. once a day. Continue Lipitor 40 mg once a day, subcutaneous Lovenox at 30 mg once a day, Norvasc 10 mg once a day. Brady Ramon MD
--- NOTE | 2017-07-04 16:06 | CP.PCM.DIS ---
<Jessika Arreola - Last Filed: 07/06/17 15:45> Provider - Provider Date of Admission: 07/03/17 17:46 Attending physician: Michael Moreno MD Primary care physician: Omer Walker MD Time Spent in preparation of Discharge (in minutes): 32 Diagnosis - Discharge Diagnosis (1) Chest pain Status: Acute (2) Hypoxia Status: Acute (3) Sarcoidosis Status: Acute (4) Chronic obstructive pulmonary disease Status: Chronic Priority: Medium (5) Dementia Status: Chronic Priority: Low Hospital Course - Lab Results Lab Results: Most Recent Lab Values WBC 18.0 10^3/ul (4.5-11.0) H 07/04/17 06:15 RBC 4.78 10^6/uL (3.5-6.1) 07/04/17 06:15 Hgb 13.4 gm/dL (12.0-16.0) 07/04/17 06:15 Hct 41.3 % (36.0-48.0) 07/04/17 06:15 MCV 86.4 fL (80.0-105.0) 07/04/17 06:15 MCH 28.0 pg (25.0-35.0) 07/04/17 06:15 MCHC 32.4 g/dl (31.0-37.0) 07/04/17 06:15 RDW 16.2 % (11.5-14.5) H 07/04/17 06:15 Plt Count 332 10^3/uL (120.0-450.0) 07/04/17 06:15 MPV 10.1 fl (7.0-11.0) 07/04/17 06:15 Gran % 73.5 % (50.0-68.0) H 07/04/17 06:15 Lymph % (Auto) 16.7 % (22.0-35.0) L 07/04/17 06:15 [place] % (Auto) 8.0 % (1.0-6.0) H 07/04/17 06:15 Eos % (Auto) 1.6 % (1.5-5.0) 07/04/17 06:15 Baso % (Auto) 0.2 % (0.0-3.0) 07/04/17 06:15 Gran # 13.20 (1.4-6.5) H 07/04/17 06:15 Lymph # 3.0 (1.2-3.4) 07/04/17 06:15 [place] # 1.4 (0.1-0.6) H 07/04/17 06:15 Eos # 0.3 (0.0-0.7) 07/04/17 06:15 Baso # 0.04 K/mm3 (0.0-2.0) 07/04/17 06:15 PT 11.4 Seconds (9.9-11.8) 07/02/17 15:30 INR 1.06 (0.93-1.08) 07/02/17 15:30 APTT 26.8 Seconds (23.7-30.8) 07/02/17 15:30 D-Dimer, Quantitative 1.42 mg/L FEU (0-0.50) H 07/02/17 15:30 Sodium 144 mmol/L (132-148) 07/04/17 06:15 Potassium 4.1 mmol/L (3.6-5.0) 07/04/17 06:15 Chloride 103 mmol/L (98-107) 07/04/17 06:15 Carbon Dioxide 28 mmol/L (21-33) 07/04/17 06:15 Anion Gap 17 (10-20) 07/04/17 06:15 BUN 31 mg/dL (7-21) H 07/04/17 06:15 Creatinine 1.1 mg/dL (0.5-1.4) 07/04/17 06:15 Est GFR ( Amer) 58 07/04/17 06:15 Est GFR (Non-Af Amer) 48 07/04/17 06:15 POC Glucose (mg/dL) 294 mg/dL (65-110) H 07/04/17 12:17 Random Glucose 193 mg/dL (70-110) H 07/04/17 06:15 Hemoglobin A1c 7.0 % (4.2-6.5) H 07/03/17 13:43 Calcium 9.7 mg/dL (8.4-10.5) 07/04/17 06:15 Phosphorus 3.0 mg/dL (2.5-4.5) 07/04/17 06:15 Magnesium 1.9 mg/dL (1.7-2.2) 07/04/17 06:15 Total Bilirubin 0.6 mg/dL (0.2-1.3) 07/04/17 06:15 AST 41 U/L (15-39) H 07/04/17 06:15 ALT 40 U/L (7-56) 07/04/17 06:15 Alkaline Phosphatase 182 U/L (38-133) H 07/04/17 06:15 Lactate Dehydrogenase 413 U/L (333-699) 07/03/17 05:10 Total Creatine Kinase 94 U/L (35-230) 07/03/17 05:10 Troponin I < 0.01 ng/mL 07/03/17 05:10 NT-Pro-B Natriuret Pep 58.9 pg/mL (0-450) 07/02/17 15:30 Total Protein 7.8 g/dL (5.8-8.3) 07/04/17 06:15 Albumin 4.4 g/dL (3.0-4.8) 07/04/17 06:15 Globulin 3.4 gm/dL 07/04/17 06:15 Albumin/Globulin Ratio 1.3 (1.1-1.8) 07/04/17 06:15 Triglycerides 76 mg/dL (35-160) 07/02/17 22:10 Cholesterol 109 mg/dL (130-200) L 07/02/17 22:10 LDL Cholesterol Direct 46 mg/dL (0-129) 07/02/17 22:10 HDL Cholesterol 37 mg/dL (29-60) 07/02/17 22:10 Lipase 107 U/L (23-300) 07/02/17 15:30 TSH 3rd Generation 4.02 mIU/mL (0.46-4.68) 07/02/17 22:10 Urine Color Yellow (YELLOW) 07/02/17 17:15 Urine Appearance Clear (CLEAR) 07/02/17 17:15 Urine pH 6.5 (4.7-8.0) 07/02/17 17:15 Ur Specific [place] 1.010 (1.005-1.035) 07/02/17 17:15 Urine Protein Negative mg/dL (<30 mg/dL) 07/02/17 17:15 Urine Glucose (UA) Negative mg/dL (NEGATIVE) 07/02/17 17:15 Urine Ketones Negative mg/dL (NEGATIVE) 07/02/17 17:15 Urine Blood Negative (NEGATIVE) 07/02/17 17:15 Urine Nitrate Negative (NEGATIVE) 07/02/17 17:15 Urine Bilirubin Negative (NEGATIVE) 07/02/17 17:15 Urine Urobilinogen 0.2 E.U./dL (<1 E.U./dL) 07/02/17 17:15 Ur Leukocyte Esterase Small Janes/uL (NEGATIVE) H 07/02/17 17:15 Urine RBC TEST NOT PERFORMED 07/02/17 17:15 Urine WBC 5 - 10 /hpf (0-6) 07/02/17 17:15 Ur Epithelial Cells 6 - 8 /hpf (0-5) 07/02/17 17:15 - Hospital Course Hospital Course: 76 year old female with past medical history of CVA x2 in 1996, 2013, DM2, pulmonary sarcoidosis, COPD, multiple admissions for pneumonia, spinal stenosis and dementia who presents with chest pain for the past week. The patient is a poor historian as she reports varying time lengths of chest pain and reason for admission. She reports that over the past week she has developed progressively worsening chest pain. She indicates the pain is located at her left breast without radiation and described as a pressure sensation. She reports initial episodes of chest pain lasting 1 minute but in the past 24 hours the patient reports feeling more of a constant pain. She indicates the pain is without pattern occurring at rest and with exertion. The patient denies any previous episodes of chest pain. In the emergency department a chest xray was done showing mild vasuclar and interstitial congestion unchanged from previous xrays. An ekg was preformed showing normal sinus rhythm without ST elevation or depression or any T wave inversions. An initial troponin was negative. Patient does report shortness of breath for which she has a chronic history. She wears 2L NC O2 at night. She reports pain in her left leg for which she states is chronic and related to her neuropathy. A D-Dimer was done and noted to be elevated at 1.42. The patient is planned for a CT angiogram and doppler ultrasound of her lower extremities. Patient was admitted for chest pain r/o ACS/PE. Patient was monitored on telemetry. LE dopplers were negative for DVT. Pulmonary was also consulted and on the case. CT chest showed no evidence of PE, centrilobular pulmonary emphysema, mosaic attenuation of the lungs common nonspecific. These findings were d/w pulm. Per pulm, patients sob was at baseline. For COPD patient was started on xopenex for breathing treatment with continued oxygen supplementation. CXR was repeated and showed worsening of congestive heart failure. Due to patients end-stage pulmonary disease, hospice was consulted. Patient was made DNR/DNI. Family did not wish to proceed with hospice at this time. Trops were negative x 3. Cardiology was consulted and on the case. Myocardial infarction was ruled out. Urine cx showed gram negative rods, patient was started on IV ciprofloxacin for the UTI. Patient was started on Januvia, Glimeperide, ISS for hx of diabetes, blood sugars were monitored. Patient also has a history of spinal stenosis and neuropathy, continued gabapentin, lidocain and tramadol prn. Patient was seen by PT who recommend HWS /AHMET. Patient was medically stable prior to discharge. Instructed to follow up with PMD, cardiology, pulmonology within 1 week. Patient was discharged with Levaquin and medrol dosepak. All questions and concerns were addressed. Discharge Exam - Head Exam Head Exam: ATRAUMATIC, NORMOCEPHALIC - Eye Exam Eye Exam: EOMI, Normal appearance Pupil Exam: NORMAL ACCOMODATION - ENT Exam ENT Exam: Mucous Membranes Moist - Neck Exam Neck exam: Full Rom - Respiratory Exam Respiratory Exam: Decreased Breath Sounds, Rhonchi, NORMAL BREATHING PATTERN. absent: Rales, Wheezes - Cardiovascular Exam Cardiovascular Exam: REGULAR RHYTHM, +S1, +S2 - GI/Abdominal Exam GI & Abdominal Exam: Normal Bowel Sounds, Soft. absent: Firm, Guarding, Tenderness - Extremities Exam Extremities exam: normal inspection, pedal pulses present - Neurological Exam Neurological exam: Alert, Altered - Psychiatric Exam Psychiatric exam: Normal Affect, Normal Mood - Skin Skin Exam: Normal Color, Warm Discharge Plan - Discharge Medications Prescriptions: Levofloxacin [Levaquin] 500 mg PO DAILY #10 tablet Methylprednisolone [Medrol Dose Pack (21 tabs)] 4 mg PO DAILY #21 mg - Follow Up Plan Condition: FAIR Disposition: HOME/ ROUTINE Instructions: Chest Pain (DC), Chest Pain (GEN), Dementia (GEN), Diabetes Mellitus Type 2 in Adults (DC), COPD (Chronic Obstructive Pulmonary Disease) (DC ), Chronic Hypertension (DC), Fall Prevention (DC) Additional Instructions: Discharge patient to home today. Follow up with Dr. Walker in the office next week. Report to the ED if your symptoms worsen. Referrals: Omer Walker MD [Primary Care Provider] - <Michael Moreno - Last Filed: 07/07/17 08:32> Provider - Provider Date of Admission: 07/03/17 17:46 Attending physician: Michael Moreno MD Primary care physician: Omer Walker MD Time Spent in preparation of Discharge (in minutes): 35 Hospital Course - Lab Results Lab Results: Most Recent Lab Values WBC 18.0 10^3/ul (4.5-11.0) H 07/04/17 06:15 RBC 4.78 10^6/uL (3.5-6.1) 07/04/17 06:15 Hgb 13.4 gm/dL (12.0-16.0) 07/04/17 06:15 Hct 41.3 % (36.0-48.0) 07/04/17 06:15 MCV 86.4 fL (80.0-105.0) 07/04/17 06:15 MCH 28.0 pg (25.0-35.0) 07/04/17 06:15 MCHC 32.4 g/dl (31.0-37.0) 07/04/17 06:15 RDW 16.2 % (11.5-14.5) H 07/04/17 06:15 Plt Count 332 10^3/uL (120.0-450.0) 07/04/17 06:15 MPV 10.1 fl (7.0-11.0) 07/04/17 06:15 Gran % 73.5 % (50.0-68.0) H 07/04/17 06:15 Lymph % (Auto) 16.7 % (22.0-35.0) L 07/04/17 06:15 [place] % (Auto) 8.0 % (1.0-6.0) H 07/04/17 06:15 Eos % (Auto) 1.6 % (1.5-5.0) 07/04/17 06:15 Baso % (Auto) 0.2 % (0.0-3.0) 07/04/17 06:15 Gran # 13.20 (1.4-6.5) H 07/04/17 06:15 Lymph # 3.0 (1.2-3.4) 07/04/17 06:15 [place] # 1.4 (0.1-0.6) H 07/04/17 06:15 Eos # 0.3 (0.0-0.7) 07/04/17 06:15 Baso # 0.04 K/mm3 (0.0-2.0) 07/04/17 06:15 PT 11.4 Seconds (9.9-11.8) 07/02/17 15:30 INR 1.06 (0.93-1.08) 07/02/17 15:30 APTT 26.8 Seconds (23.7-30.8) 07/02/17 15:30 D-Dimer, Quantitative 1.42 mg/L FEU (0-0.50) H 07/02/17 15:30 Sodium 144 mmol/L (132-148) 07/04/17 06:15 Potassium 4.1 mmol/L (3.6-5.0) 07/04/17 06:15 Chloride 103 mmol/L (98-107) 07/04/17 06:15 Carbon Dioxide 28 mmol/L (21-33) 07/04/17 06:15 Anion Gap 17 (10-20) 07/04/17 06:15 BUN 31 mg/dL (7-21) H 07/04/17 06:15 Creatinine 1.1 mg/dL (0.5-1.4) 07/04/17 06:15 Est GFR ( Amer) 58 07/04/17 06:15 Est GFR (Non-Af Amer) 48 07/04/17 06:15 POC Glucose (mg/dL) 155 mg/dL (65-110) H 07/04/17 16:24 Random Glucose 193 mg/dL (70-110) H 07/04/17 06:15 Hemoglobin A1c 7.0 % (4.2-6.5) H 07/03/17 13:43 Calcium 9.7 mg/dL (8.4-10.5) 07/04/17 06:15 Phosphorus 3.0 mg/dL (2.5-4.5) 07/04/17 06:15 Magnesium 1.9 mg/dL (1.7-2.2) 07/04/17 06:15 Total Bilirubin 0.6 mg/dL (0.2-1.3) 07/04/17 06:15 AST 41 U/L (15-39) H 07/04/17 06:15 ALT 40 U/L (7-56) 07/04/17 06:15 Alkaline Phosphatase 182 U/L (38-133) H 07/04/17 06:15 Lactate Dehydrogenase 413 U/L (333-699) 07/03/17 05:10 Total Creatine Kinase 94 U/L (35-230) 07/03/17 05:10 Troponin I < 0.01 ng/mL 07/03/17 05:10 NT-Pro-B Natriuret Pep 58.9 pg/mL (0-450) 07/02/17 15:30 Total Protein 7.8 g/dL (5.8-8.3) 07/04/17 06:15 Albumin 4.4 g/dL (3.0-4.8) 07/04/17 06:15 Globulin 3.4 gm/dL 07/04/17 06:15 Albumin/Globulin Ratio 1.3 (1.1-1.8) 07/04/17 06:15 Triglycerides 76 mg/dL (35-160) 07/02/17 22:10 Cholesterol 109 mg/dL (130-200) L 07/02/17 22:10 LDL Cholesterol Direct 46 mg/dL (0-129) 07/02/17 22:10 HDL Cholesterol 37 mg/dL (29-60) 07/02/17 22:10 Lipase 107 U/L (23-300) 07/02/17 15:30 TSH 3rd Generation 4.02 mIU/mL (0.46-4.68) 07/02/17 22:10 Urine Color Yellow (YELLOW) 07/02/17 17:15 Urine Appearance Clear (CLEAR) 07/02/17 17:15 Urine pH 6.5 (4.7-8.0) 07/02/17 17:15 Ur Specific [place] 1.010 (1.005-1.035) 07/02/17 17:15 Urine Protein Negative mg/dL (<30 mg/dL) 08/02/17 17:15 Urine Glucose (UA) Negative mg/dL (NEGATIVE) 07/02/17 17:15 Urine Ketones Negative mg/dL (NEGATIVE) 07/02/17 17:15 Urine Blood Negative (NEGATIVE) 07/02/17 17:15 Urine Nitrate Negative (NEGATIVE) 07/02/17 17:15 Urine Bilirubin Negative (NEGATIVE) 07/02/17 17:15 Urine Urobilinogen 0.2 E.U./dL (<1 E.U./dL) 07/02/17 17:15 Ur Leukocyte Esterase [place] Janes/uL (NEGATIVE) H 07/02/17 17:15 Urine RBC TEST NOT PERFORMED 07/02/17 17:15 Urine WBC 5 - 10 /hpf (0-6) 07/02/17 17:15 Ur Epithelial Cells 6 - 8 /hpf (0-5) 07/02/17 17:15 Attending/Attestation - Attestation I have personally seen and examined this patient.: Yes I have fully participated in the care of the patient.: Yes I have reviewed all pertinent clinical information, including history, physical exam and plan: Yes Notes (Text): 07/07/17 08:29 D/C summary for 07/04/17 76 year old female with past medical history of COPD, sarcoidosis, diabetes and chronic back pain who presented with complaint of chest pain, chronic dyspnea, back pain and left leg pain. Serial cardiac enzymes were negative and ACS has been ruled out. She was also found to have elevated D dimer. LE doppler was negative. CT chest was negative for acute PE, showed centrilobular pulmonary emphysema, mosaic attenuation of the lungs common nonspecific. CT and repeat CT findings were discussed with pulmonary who recommended medrol dosepack and antibiotics. She was also seen by palliative care services and cardiology. She was started on antibiotics for UTI. Continue with home medications for hypertension and diabetes. Overall her symptoms have improved. She and family are requesting to go home today. Patient is discharged home today to follow up with her pmd. 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 Michael Moreno MD Hospitalist.
[2017-07-04 16:20] VITALS: BP 156/81; PULSE 105; RESP 20; TEMP 97.7; O2SAT 97
[2017-07-04] MEDS ORDERED: Ciprofloxacin 400mg/200ml D5W 400 MG/200 ML BAG IVPB SCH (22:00)
--- NOTE | 2017-07-07 14:59 | PQF CHF ---
07/07/17 Dr. Moreno, Discharge summary documents "repeat chest x-ray shows worsening congestive heart failure." Please indicate type and severity of CHF, as listed below. Thank you. Clarification of your documentation is requested to better reflect the severity of illness and intensity of treatment of your patient. Indicators present [] Diagnosis of CHF and/or history of CHF [] BNP > 200 [] Imaging Finding of Pulmonary Edema /Pleural Effusions [] Fluid/Volume Overload [] Pitting edema [] Ejection Fraction < 40% (Indicative of Systolic Heart Failure) [] Ejection Fraction > 40% (Indicative of Diastolic Heart Failure) [] Dyspnea / Orthopenea / Paroxysmal Nocturnal Dyspnea [] Other: Location in the medical record that reflects the above clinical findings: [] Treatment Provided: [] PHYSICIAN'S RESPONSE Based on your medical judgment of the clinical indicators outlined above, are you treating this patient for a known or suspected: [] Acute CHF [] Systolic [] Diastolic [] Combined [] Chronic CHF [] Systolic [] Diastolic [] Combined [] Acute on Chronic CHF []Systolic [] Diastolic [] Combined [] CHF due hypertension [] Acute systolic []Chronic systolic [] Acute/ chronic systolic [x] Other, please indicate: [] chronic lung findings on exam and in comparison to prior CXR/CT [] If Unable to Determine, please check the box, sign and date. Present On Admission (POA) Indicator: [x] Present at the time of admission [] Not present at the time of admission [] Clinically Undetermined In responding to this query, please exercise your independent professional judgment. The fact that a question is asked does not imply that any particular answer is desired or expected. Thank you for your clarification on this documentation. If you have any questions please call:[ ] * Thank you, [ ] director payer ADÁN
== END 2017-07-04 18:49 | disposition home or self-care (01) | DRG 191 ==
LOC: ED 14:25 → ERH 16:24 → 2RSO 19:59 → OBSVTOIN 07-03 17:46 → 5RNO 07-03 22:23
PROVIDERS: ADMIT Internal Medicine; ATTEND Internal Medicine
DX: J44.1 Chronic obstructive pulmonary disease with (acute) exacerbation (principal); N39.0 Urinary tract infection, site not specified; I27.2 Other secondary pulmonary hypertension; I11.0 Hypertensive heart disease with heart failure; E11.41 Type 2 diabetes mellitus with diabetic mononeuropathy; E11.65 Type 2 diabetes mellitus with hyperglycemia; I50.9 Heart failure, unspecified; R07.89 Other chest pain; D86.9 Sarcoidosis, unspecified; E78.00 Pure hypercholesterolemia, unspecified; F01.50 Vascular dementia, unspecified severity, without behavioral disturbance, psychotic disturbance, mood disturbance, and anxiety; H35.30 Unspecified macular degeneration; H91.90 Unspecified hearing loss, unspecified ear; I73.9 Peripheral vascular disease, unspecified; J84.10 Pulmonary fibrosis, unspecified; K21.9 Gastro-esophageal reflux disease without esophagitis; M81.0 Age-related osteoporosis without current pathological fracture; R09.02 Hypoxemia; Z66 Do not resuscitate; Z79.82 Long term (current) use of aspirin; Z79.899 Other long term (current) drug therapy; Z82.49 Family history of ischemic heart disease and other diseases of the circulatory system; Z85.828 Personal history of other malignant neoplasm of skin; Z86.73 Personal history of transient ischemic attack (TIA), and cerebral infarction without residual deficits; Z87.01 Personal history of pneumonia (recurrent); Z87.891 Personal history of nicotine dependence; Z90.710 Acquired absence of both cervix and uterus; Z99.81 Dependence on supplemental oxygen; M48.00 Spinal stenosis, site unspecified; F32.89 Other specified depressive episodes; F41.9 Anxiety disorder, unspecified; G47.00 Insomnia, unspecified; M19.90 Unspecified osteoarthritis, unspecified site; R26.81 Unsteadiness on feet; R32 Unspecified urinary incontinence; Z87.39 Personal history of other diseases of the musculoskeletal system and connective tissue; B96.1 Klebsiella pneumoniae [K. pneumoniae] as the cause of diseases classified elsewhere

== ENCOUNTER 2018-02-26 14:58 | Inpatient (IN) | payer MEDICARE, BC ==
--- NOTE | 2018-02-26 15:37 | ED PDOC ---
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 Patient accompanied by brother who reports he has noticed increased cough and congestion for "two weeks". Patient reports intermittent chest discomfort. Denies headache. Denies hemoptysis. Denies abdominal pain. Denies vomiting or diarrhea. Time/Duration: Prior to Arrival Symptom Onset: Gradual Past Medical History - Infectious Disease Hx of Infectious Diseases: None - Cardiac Hx Cardiac Disorders: Yes Hx Congestive Heart Failure: Yes Hx Hypertension: Yes Hx Peripheral Vascular Disease: Yes - Pulmonary Hx Respiratory Disorders: (sarcoidosis, pulmonary fibrosis, home o2) Hx Chronic Obstructive Pulmonary Disease (COPD): Yes Hx Pneumonia: Yes - Neurological Hx Neurological Disorder: Yes (diabetic neuropathy feet lower legs) HX Cerebrovascular Accident: Yes Hx Migraine: Yes - HEENT Hx HEENT Disorder: Yes Hx Deafness: Yes ([place]) Hx Macular Degeneration: Yes - Renal Hx Renal Disorder: No - Endocrine/Metabolic Hx Diabetes Mellitus Type 2: Yes - Hematological/Oncological Hx Blood Disorders: No - Integumentary Hx Dermatological Disorder: Yes Hx Basal Cell Carcinoma: Yes Other/Comment: SARCOIDOSIS - Musculoskeletal/Rheumatological Hx Arthritis: Yes Hx Falls: Yes (past) Hx Herniated Disk: Yes (L4 L5 S1) Hx Osteoarthritis: Yes Hx Osteoporosis: Yes Hx Rhabdomyolysis: Yes Hx Unsteady Gait: (cane when out) - Gastrointestinal Hx Gastrointestinal Disorders: Yes Hx Gastroesophageal Reflux: Yes - Genitourinary/Gynecological Hx Genitourinary Disorders: Yes (HYSTERECTOMY) Hx Incontinence: Yes (and uses bedpan) Other/Comment: vaginal rectal fistula repair - Psychiatric Hx Psychophysiologic Disorder: Yes (INSOMNIA. H/O OF SMOKING CIGARETTES 2 PPD QUIT) Hx Anxiety: Yes Hx Depression: Yes Hx Substance Use: No - Surgical History Hx Hysterectomy: Yes Other/Comment: laparoscopic sx for sarcoidosis, pt was sched for sx to remove small growth to chin - Anesthesia Hx Anesthesia: Yes Hx Anesthesia Reactions: No Hx Malignant Hyperthermia: No - Suicidal Assessment Feels Threatened In Home Enviroment: No Family/Social History Family/Social History: Unknown Family HX Smoking Status: Former Smoker Hx Alcohol Use: No Hx Substance Use: No Hx Substance Use Treatment: No Allergies/Home Meds Allergies/Adverse Reactions: Allergies No Known Allergies Allergy (Verified 02/26/18 14:59) Home Medications: Home Meds Medication Instructions Recorded Confirmed Mirtazapine [Remeron] 30 mg PO HS 04/10/16 02/26/18 Zolpidem [Ambien] 10 mg PO HS 04/10/16 02/26/18 Gabapentin [Neurontin] 300 mg PO BID 08/21/16 02/26/18 Sitagliptin Phos/Metformin HCl 1 mg PO BID 08/21/16 02/26/18 [Janumet 50-500 mg Tablet] Albuterol HFA [Ventolin HFA 90 2 puff NEB Q4 PRN 01/05/17 02/26/18 mcg/actuation (8 g)] Aspirin [Aspirin EC] 325 mg PO DAILY 01/05/17 02/26/18 Acetaminophen [Tylenol 325mg tab] 325 mg PO QID PRN 07/02/17 02/26/18 Ergocalciferol (Vitamin D2) 125 mg PO QWK 07/02/17 02/26/18 [Vitamin D2] Fluticasone/Salmeterol 250/50 1 puff IH Q12 07/02/17 02/26/18 [Advair Diskus] LORazepam [Ativan] 1 mg PO TID 07/02/17 02/26/18 [place]-3/Dha/Epa/Fish Oil [Fish Oil 500 mg PO BID 07/02/17 02/26/18 500 mg Softgel] traMADol [Ultram] 50 mg PO DAILY 07/02/17 02/26/18 Review of Systems - Review of Systems Constitutional: Fatigue. absent: Fevers Eyes: absent: Vision Changes, Photophobia ENT: absent: Hearing Changes Respiratory: SOB, Cough, Wheezing. absent: Sputum Cardiovascular: MCKEON. absent: Chest Pain, Palpitations, Edema, Calf Pain, Orthopnea, Syncope Gastrointestinal: absent: Abdominal Pain, Diarrhea, Nausea, Vomiting Genitourinary Female: absent: Dysuria, Frequency, Hematuria Musculoskeletal: absent: Back Pain, Neck Pain Skin: absent: Rash Neurological: Other (prior history of stroke). absent: Headache Endocrine: absent: Polyuria Physical Exam Vital Signs Reviewed: Yes Vital Signs Temp Pulse Resp BP Pulse Ox 02/26/18 15:57 18 98 02/26/18 15:13 98.1 F 90 17 144/76 97 Temperature: Afebrile Respiratory Rate: Tachypneic Appearance: Positive for: Ill-Appearing Pain Distress: Moderate Mental Status: Positive for: other (at baseline) - Systems Exam Head: Present: Atraumatic, Normocephalic Extroacular Muscles: Present: EOMI Conjunctiva: No: Injected Ears: No: Erythema Mouth: Present: Moist Mucous Membranes Pharnyx: No: ERYTHEMA Neck: Present: Normal Range of Motion. No: Meningeal Signs Respiratory/Chest: Present: Wheezes, Decreased Breath Sounds, Rhonchi, Tachypneic. No: Tender to Palpation Cardiovascular: Present: Regular Rate and Rhythm, Murmurs Abdomen: No: Tenderness, Distention Back: No: CVA Tenderness Lower Extremity: Present: Edema, Neurovascularly Intact. No: CALF TENDERNESS Neurological: Present: Other (motor and sensory at baseline as per brother and county director welfare at bedside) Skin: Present: Warm Psychiatric: Present: Alert. No: Oriented x 3, Normal Insight, Normal Concentration Medical Decision Making ED Course and Treatment: 02/26/18 15:59 Patient seen and evaluated with brother at bedside. Patient reportedly on home oxygen nasal cannula. Has prior history of stroke. Reportedly brother states her breathing is near her baseline, slightly worse over past several days. Duonebs ordered. Solumedrol ordered. CXR, ekg, labs ordered. Initial treatment plan reviewed with patient and family. 02/26/18 19:05 On reexamination after multiple nebulizers, wheezing persistent. CXR interpretation by radiologist reviewed. Interstitial changes noted. No leg edema noted. BNP unremarkable. I communicated with patient's pulmonolgy team, Dr. Lissa north. ABG reviewed as well as exam. Will admit to telemetry for copd exacerbation, hypoxia, requiring multiple nebulizers. WBC elevated but afebrile. BP stable. Will initiate iv antibitoics. Requested wordpress developer consultation given persistent wheezing. Treatment plan reviewed with patient and family. Patient accepted for admission by hospitalist service. 02/26/18 20:00 Awaiting wordpress developer consultation. 02/26/18 20:10 Repeat lactate elevated. As WBC elevated with elevated lactate, code sepsis called. At this time blood pressure stable. Will continue iv antibiotics, at this time will review hydration with wordpress developer as possible component of chf as well. 02/26/18 20:18 - Lab Interpretations Lab Results: 02/26/18 15:48 02/26/18 15:48 Lab Results 02/26/18 16:30: Urine Color Light yellow, Urine Appearance Sl cloudy, Urine pH 7.5, Ur Specific [place] 1.015, Urine Protein 30 H, Urine Glucose (UA) Negative , Urine Ketones Negative, Urine Blood Trace-intact H, Urine Nitrate Negative, Urine Bilirubin Negative, Urine Urobilinogen 0.2, Ur Leukocyte Esterase Large H , Urine RBC 0 - 2, Urine WBC 20 - 25, Ur Epithelial Cells 0 - 2, Urine Bacteria Few 02/26/18 16:05: pCO2 35, pO2 53.0 L, HCO3 26.7, ABG pH 7.49 H, ABG Total CO2 27.8, ABG O2 Saturation 91.4 L, ABG Base Excess 3.5 H, ABG Potassium 4.0, Sodium 139.0, Chloride 105.0, Glucose 88, Lactate 2.2 H, FiO2 21.0, Arterial Blood Potassium 4.0 02/26/18 16:02: Influenza Typ A,B (EIA) Negative for flu a/b 02/26/18 15:48: Phosphorus 3.2, Magnesium 1.8 02/26/18 15:48: Sodium 142, Chloride 102, Potassium 4.2, Carbon Dioxide 26, Anion Gap 18, BUN 18, Creatinine 0.8, Est GFR ( Amer) > 60, Est GFR (Non- Af Amer) > 60, Random Glucose 93, Calcium 10.2, Total Bilirubin 0.3, AST 30, ALT 38, Alkaline Phosphatase 186 H, Lactate Dehydrogenase 506, Total Creatine Kinase 84, Troponin I < 0.01, NT-Pro-B Natriuret Pep 110, Total Protein 7.7, Albumin 4.1, Globulin 3.6, Albumin/Globulin Ratio 1.2 02/26/18 15:48: pO2 114 H, VBG pH 7.37, VBG pCO2 49.0, VBG HCO3 28.3 H, VBG Total CO2 29.8 H, VBG O2 Sat (Calc) 99.2 H, VBG Base Excess 2.2 H, VBG Potassium 4.2, Sodium 138.0, Chloride 105.0, Glucose 90, Lactate 2.5 H, FiO2 21.0, Venous Blood Potassium 4.2 02/26/18 15:48: PT 11.5, INR 1.01, APTT 31.6 02/26/18 15:48: WBC 14.1 H, RBC 4.68, Hgb 12.7, Hct 40.4, MCV 86.3, MCH 27.1, MCHC 31.4, RDW 17.5 H, Plt Count 355, MPV 9.7, Gran % 72.3 H, Lymph % (Auto) 18.3 L, [place] % (Auto) 6.7 H, Eos % (Auto) 2.3, Baso % (Auto) 0.4, Gran # 10.19 H , Lymph # (Auto) 2.6, [place] # (Auto) 0.9 H, Eos # (Auto) 0.3, Baso # (Auto) 0.05 02/26/18 15:34: POC Glucose (mg/dL) 97 - RAD Interpretation Radiology Orders: 02/26/18 15:19 CHEST PORTABLE [RAD] Stat - Medication Orders Current Medication Orders: Albuterol/Ipratropium (Duoneb 3 Mg/0.5 Mg (3 Ml) Ud) 3 ml IH [id number] [facility] Last Admin: 02/27/18 04:32 Dose: 3 ml Amlodipine Besylate (Norvasc) 10 mg PO DAILY [facility] Aspirin (Ecotrin) 325 mg PO DAILY [facility] Atorvastatin Calcium (Lipitor) 40 mg PO HS [facility] Budesonide (Pulmicort Respules) 0.5 mg IH [id number] [facility] Gabapentin (Neurontin) 300 mg PO BID [facility] PRN Reason: Protocol Heparin Sodium (Porcine) (Heparin) 5,000 units SC Q8 [facility] PRN Reason: Protocol Last Admin: 02/27/18 06:28 Dose: 5,000 units Subcutaneous Administrations Document 02/27/18 06:28 CHRISTIANE (Rec: 02/27/18 06:28 [id number] Injection Site MAR Injection Site Right Abdomen Charges for Administration # of Subcutaneous Administrations 1 Ceftriaxone Sodium (Rocephin 2 Gm Ivpb) 2 gm in 100 mls @ 100 mls/hr IVPB DAILY [facility] PRN Reason: Protocol Azithromycin (Zithromax 500mg In Ns) 500 mg in 250 mls @ 167 mls/hr IVPB DAILY [facility] PRN Reason: Protocol Insulin Human Regular (Humulin R High) 0 units SC ACHS [facility] PRN Reason: Protocol Methylprednisolone (Solu-Medrol) 40 mg IVP Q12 [facility] Ondansetron HCl (Zofran Inj) 4 mg IVP Q4H PRN PRN Reason: Nausea/Vomiting Pantoprazole Sodium (Protonix Ec Tab) 40 mg PO 0600 [facility] Last Admin: 02/27/18 06:28 Dose: 40 mg Discontinued Medications Albuterol/Ipratropium (Duoneb 3 Mg/0.5 Mg (3 Ml) Ud) 3 ml IH Q15M MARLEE Stop: 02/26/18 16:01 Last Admin: 02/26/18 16:15 Dose: 3 ml Ceftriaxone Sodium (Rocephin 1 Gram Ivpb) 1 gm in 100 mls @ 200 mls/hr IVPB ONCE STA PRN Reason: Protocol Stop: 02/26/18 18:54 Last Admin: 02/26/18 18:43 Dose: 200 mls/hr eMAR Start Stop Document 02/26/18 18:43 MS (Rec: 02/26/18 18:44 [id number]) Intravenous Solution Start Date 02/26/18 Start Time 18:44 End Date 02/26/18 End time 19:14 Total Infusion Time 30 Azithromycin (Zithromax 500mg In Ns) 500 mg in 250 mls @ 166.667 mls/hr IVPB STAT STA PRN Reason: Protocol Stop: 02/26/18 21:50 Last Admin: 02/26/18 20:36 Dose: 166.667 mls/hr eMAR Start Stop Document 02/26/18 20:36 MS (Rec: 02/26/18 20:36 MS [id number]) Intravenous Solution Start Date 02/26/18 Start Time 20:36 End Date 02/26/18 End time 22:06 Total Infusion Time 90 Lorazepam (Ativan) 1 mg PO ONCE ONE PRN Reason: Protocol Stop: 02/26/18 18:25 Last Admin: 02/26/18 18:39 Dose: 1 mg Methylprednisolone (Solu-Medrol) 125 mg IVP STAT STA Stop: 02/26/18 15:22 Last Admin: 02/26/18 15:48 Dose: 125 mg IVP Administration Document 02/26/18 15:48 MS (Rec: 02/26/18 15:55 MS [facility] [place] [facility] [id number] Charges for Administration # of IVP Administrations 1 Disposition/Present on Arrival - Present on Arrival Any Indicators Present on Arrival: No History of DVT/PE: No History of Uncontrolled Diabetes: No Urinary Catheter: No History of Decub. Ulcer: No History Surgical Site Infection Following: None - Disposition Have Diagnosis and Disposition been Completed?: Yes Diagnosis: COPD exacerbation, Leukocytosis, UTI (urinary tract infection), Sepsis Disposition: HOSPITALIZED Disposition Time: 17:00 Patient Plan: Admission, Telemetry Patient Problems: Current Active Problems Problem Status Onset COPD exacerbation Acute Leukocytosis Acute Sepsis Acute UTI (urinary tract infection) Acute Condition: SERIOUS
[2018-02-26] MEDS: Albuterol-Ipratrop 3 mg / 0.5 (3 ml) UD IH SCH ×3 (15:47→16:15)
--- NOTE | 2018-02-26 15:47 | RAD ---
HISTORY: sob COMPARISON: 07/04/2017 FINDINGS: LUNGS: No active pulmonary disease. PLEURA: No significant pleural effusion identified, no pneumothorax apparent. CARDIOVASCULAR: There is mild cardiomegaly and mild vascular congestion. There is no focal consolidation OSSEOUS STRUCTURES: No significant abnormalities. VISUALIZED UPPER ABDOMEN: Normal. OTHER FINDINGS: None. IMPRESSION: There is mild cardiomegaly and mild vascular congestion. There is no focal consolidation
[2018-02-26 16:07] LABS: VENOUS BLOOD GAS BASE EXCESS 2.2 mmol/L (0.0-2.0); VENOUS BLOOD GAS PO2 114 mm/Hg (30-55); VENOUS BLOOD PH 7.37 (7.32-7.43)
[2018-02-26 16:12] LABS: BASO # 0.05 K/mm3 (0.0-2.0); BASO % 0.4 % (0.0-3.0); EOS # 0.3 (0.0-0.7); EOS % 2.3 % (1.5-5.0); GRAN # 10.19 (1.4-6.5); GRAN % 72.3 % (50.0-68.0); HEMOGLOBIN 12.7 g/dL (12.0-16.0); LYMPH # 2.6 (1.2-3.4); LYMPH % 18.3 % (22.0-35.0); MEAN CELL VOLUME 86.3 fl (80.0-105.0); MEAN CORPUSCULAR HEMOGLOBIN 27.1 pg (25.0-35.0); MEAN CORPUSCULAR HGB CONC 31.4 g/dl (31.0-37.0); MEAN PLATELET VOLUME 9.7 fl (7.0-11.0); MONO # 0.9 (0.1-0.6); MONO % 6.7 % (1.0-6.0); RBC 4.68 10^6/uL (3.5-6.1); RED CELL DISTRIBUTION WIDTH 17.5 % (11.5-14.5); WHITE BLOOD COUNT 14.1 10^3/ul (4.5-11.0)
[2018-02-26 16:12] LABS: ARTERIAL BLOOD GAS HCO3 26.7 mmol/L (21-28); ARTERIAL BLOOD GAS O2 SAT 91.4 % (95-98); ARTERIAL BLOOD GAS PCO2 35 mm/Hg (35-45); ARTERIAL BLOOD GAS PH 7.49 (7.35-7.45); ARTERIAL BLOOD GAS TCO2 27.8 mmol.L (22-28)
[2018-02-26 16:18] LABS: ALB/GLOB RATIO 1.2 (1.1-1.8); ALBUMIN 4.1 g/dL (3.0-4.8); ALT/SGPT 38 U/L (7-56); AST/SGOT 30 U/L (14-36); BLOOD UREA NITROGEN 18 mg/dL (7-21); CALCIUM 10.2 mg/dL (8.4-10.5); GFR AFRICAN-AMERICAN > 60; GFR NON-AFRICAN AMERICAN > 60; INR 1.01 (0.93-1.08); PARTIAL THROMBOPLASTIN TIME 31.6 Seconds (25.1-36.5); PROTHROMBIN TIME 11.5 SECONDS (9.4-12.5)
[2018-02-26 16:30] LABS: B-TYPE NATRIURETIC PEPTIDE 110 pg/mL (0-450); TROPONIN I < 0.01 ng/mL
[2018-02-26 16:45] LABS: PH,URINE 7.5 (4.7-8.0); URINE BILIRUBIN NEGATIVE (NEGATIVE); URINE BLOOD TRACE-INTACT (NEGATIVE); URINE GLUCOSE (UA) NEGATIVE (NEGATIVE); URINE LEUKOCYTE ESTERASE LARGE Leu/uL (NEGATIVE); URINE PROTEIN 30 mg/dL (<30 mg/dL); URINE UROBILINOGEN 0.2 E.U./dL (<1 E.U./dL)
[2018-02-26 16:46] LABS: URINE APPEARANCE SL CLOUDY (CLEAR); URINE COLOR LIGHT YELLOW (YELLOW)
[2018-02-26 16:56] LABS: URINE BACTERIA FEW (NEG); URINE EPITHELIAL CELLS 0 - 2 /hpf (0-5); URINE RBC 0 - 2 /hpf (0-2); URINE WBC 20 - 25 /hpf (0-6)
--- NOTE | 2018-02-26 18:11 | CARD ---
APPROVED REPORT EKG Measurement Heart [id number] <Conclusion> Normal sinus rhythm Normal ECG
[2018-02-26] MEDS ORDERED: cefTRIAXone 1 gm 1 GM/100 ML BAG IVPB STA (18:25)
[2018-02-26 20:00] LABS: VENOUS BLOOD GAS BASE EXCESS -0.7 mmol/L (0.0-2.0); VENOUS BLOOD GAS PO2 115 mm/Hg (30-55); VENOUS BLOOD PH 7.42 (7.32-7.43)
[2018-02-26] MEDS ORDERED: levoFLOXacin 750 mg in D5W 750 MG/150 ML BAG IVPB STA (20:12)
[2018-02-26] MEDS ORDERED: Azithromycin 500MG/NS 250ml 500 MG/250 ML BAG IVPB STA (20:21)
[2018-02-26] MEDS ORDERED: Iohexol 350 MG/100 ML VIAL ONE (21:36)
--- NOTE | 2018-02-26 23:02 | CT ---
EXAM: CT Angiography Chest With Intravenous Contrast EXAM DATE/TIME: 02/26/2018 8:56 PM CLINICAL HISTORY: 77 years old, female; Signs and symptoms; Shortness of breath; Prior surgery; Surgery type: Laparoscopic SX for sarcoidosis; Additional info: SOB TECHNIQUE: Axial computed tomographic angiography images of the chest with intravenous contrast using pulmonary embolism protocol. All CT scans at this facility use one or more dose reduction techniques, viz.: automated exposure control; ma/kV adjustment per patient size (including targeted exams where dose is matched to indication; i.e. head); or iterative reconstruction technique. MIP reconstructed images were created and reviewed. Coronal and sagittal reformatted images were created and reviewed. CONTRAST: 94 mL of OMNI 350 administered intravenously. COMPARISON: CT - ANGIO CHEST PE PROTOCOL 2017-07-02 19:14 FINDINGS: No pulmonary embolism. There are atherosclerotic changes of the aorta. No aortic dissection or aneurysm. No pleural or pericardial effussions. Again seen are mediastinal lymph nodes not significantly changed. Again seen is mosaic attenuation of the lungs bilaterally. Again seen is centrilobular emphysema. Again seen are blebs, bronchiectasis, scarring in the apices. IMPRESSION: Findings similar to prior study consisting of diffuse bilateral mosaic attenuation, emphysema, mediastinal lymph nodes. Possible etiologies for the mosaic attenuation include obstructive small airway disease, occlusive vascular disease, parenchymal disease.
--- NOTE | 2018-02-26 23:40 | CP.PCM.HP ---
<JulienmickiLevon - Last Filed: 02/26/18 23:34> History of Present Illness - History of Present Illness History of Present Illness: 77 year old female with past medical history of CVA, PNA, DM2, Pulmonary sarcoidosis, depression, anxiety, neuropathy, spinal stenosis, arthritis, dementia presents to the hospital for shortness of breath. Patient is accompanied by her brother at bedside who provides medical history. Patient is a poor historian due to severe dementia. Patient began having increased cough and congestion over the last 2 weeks. Patient had minimal sputum production. Patient also had intermittent, nonradiating chest pain during this time. Patient went to her bed maker, Dr. Guevara, and and he advised her to come to the hospital for further medical care. Patient denies current chest pain , nausea, vomiting, diarrhea, fever, syncope, dysuria. PMD: Dr. Walker Pulm: Dr. Guevara PMH: CVA, PNA, DM2, Pulmonary sarcoidosis, depression, anxiety, neuropathy, spinal stenosis, arthritis, dementia PSH: Back surgery for pinched nerve, Hysterectomy FMH: CAD, ALS SocHx: Tobacco: former with 30 pack year history, Denies alcohol or illicit drug use. Meds: Reviewed, as per MAR Present on Admission - Present on Admission Any Indicators Present on Admission: No Review of Systems - Review of Systems Systems not reviewed;Unavailable: Dementia Past Patient History - Infectious Disease Hx of Infectious Diseases: None - Past Social History Smoking Status: Former Smoker - CARDIAC Hx Cardiac Disorders: Yes Hx Congestive Heart Failure: Yes Hx Hypertension: Yes Hx Peripheral Vascular Disease: Yes - PULMONARY Hx Respiratory Disorders: (sarcoidosis, pulmonary fibrosis, home o2) Hx Chronic Obstructive Pulmonary Disease (COPD): Yes Hx Pneumonia: Yes - NEUROLOGICAL Hx Neurological Disorder: Yes (diabetic neuropathy feet lower legs) HX Cerebrovascular Accident: Yes Hx Migraine: Yes - HEENT Hx HEENT Problems: Yes Hx Deafness: Yes ([place]) Hx Macular Degeneration: Yes - RENAL Hx Chronic Kidney Disease: No - ENDOCRINE/METABOLIC Hx Diabetes Mellitus Type 2: Yes - HEMATOLOGICAL/ONCOLOGICAL Hx Blood Disorders: No - INTEGUMENTARY Hx Dermatological Problems: Yes Hx Basil Cell: Yes Other/Comment: SARCOIDOSIS - MUSCULOSKELETAL/RHEUMATOLOGICAL Hx Arthritis: Yes Hx Falls: Yes (past) Hx Herniated Disk: Yes (L4 L5 S1) Hx Osteoarthritis: Yes Hx Osteoporosis: Yes Hx Rhabdomyolysis: Yes Hx Unsteady Gait: (cane when out) - GASTROINTESTINAL Hx Gastrointestinal Disorders: Yes Hx Gastroesophageal Reflux: Yes - GENITOURINARY/GYNECOLOGICAL Hx Genitourinary Disorders: Yes (HYSTERECTOMY) Hx Incontinence: Yes (and uses bedpan) Other/Comment: vaginal rectal fistula repair - PSYCHIATRIC Hx Psychophysiologic Disorder: Yes (INSOMNIA. H/O OF SMOKING CIGARETTES 2 PPD QUIT) Hx Anxiety: Yes Hx Depression: Yes Hx Substance Use: No - SURGICAL HISTORY Hx Hysterectomy: Yes Other/Comment: laparoscopic sx for sarcoidosis, pt was sched for sx to remove small growth to chin - ANESTHESIA Hx Anesthesia: Yes Hx Anesthesia Reactions: No Hx Malignant Hyperthermia: No Meds Allergies/Adverse Reactions: Allergies Allergy/AdvReac Type Severity Reaction Status Date / Time No Known Allergies Allergy Verified 02/26/18 14:59 Physical Exam - Constitutional Appears: Non-toxic, No Acute Distress - Head Exam Head Exam: ATRAUMATIC, NORMAL INSPECTION, NORMOCEPHALIC - ENT Exam ENT Exam: Mucous Membranes Dry - Respiratory Exam Respiratory Exam: Decreased Breath Sounds, Rales. absent: Rhonchi, Wheezes - Cardiovascular Exam Cardiovascular Exam: Tachycardia, +S1, +S2 - GI/Abdominal Exam GI & Abdominal Exam: Normal Bowel Sounds, Soft. absent: Tenderness - Extremities Exam Extremities exam: Positive for: normal inspection. Negative for: calf tenderness, pedal edema - Neurological Exam Neurological exam: Alert - Skin Skin Exam: Dry, Normal Color, Warm Results - Vital Signs Recent Vital Signs: Last Vital Signs Temp 98.1 F 02/26/18 15:13 Pulse 90 02/26/18 15:13 Resp 18 02/26/18 15:57 BP 144/76 02/26/18 15:13 Pulse Ox 98 02/26/18 15:57 - Labs Result Diagrams: 02/26/18 15:48 02/26/18 15:48 Labs: Laboratory Results - last 24 hr 02/26/18 19:25 pO2 115 H VBG pH 7.42 VBG pCO2 36.0 L VBG HCO3 23.4 VBG Total CO2 24.5 VBG O2 Sat (Calc) 99.7 H VBG Base Excess -0.7 L VBG Potassium 4.0 Sodium 140.0 Chloride 104.0 Glucose 256 H Lactate 2.9 H FiO2 21.0 Venous Blood Potassium 4.0 Assessment & Plan - Assessment and Plan (Free Text) Plan: 77 year old female with past medical history of CVA, PNA, DM2, Pulmonary sarcoidosis, depression, anxiety, neuropathy, spinal stenosis, arthritis, dementia presents with COPD exacerbation in the setting of community acquired pneumonia. Patient will be started on broad spectrum antibiotics along with steroids. We will consult pulmonology and follow closely. Neuro: Alert Hx of dementia Cardio: Hemodynamically stable Maintain MAP > 65 Continue antihypertensives Pulm: Maintain O2 sat >90% Solumedrol 40 q12 Azithromycin and Rocephin Renal: Rocephin for UTI Replenish electrolytes as needed Maintain euvolemia GI: Protonix CCD Endo: ISS HgA1c Maintain euglycemia Heme/ID: Afebrile, leukocytosis Azithromycin and Rocephin Procal Follow cultures Heparin for DVT PPX Gus, PGY-2 <Yecenia POWELL,Dony - Last Filed: 02/27/18 10:11> Results - Vital Signs Recent Vital Signs: Last Vital Signs Temp 98.0 F 02/27/18 06:00 Pulse 96 H 02/27/18 08:39 Resp 17 02/27/18 06:00 BP 153/75 H 02/27/18 08:39 Pulse Ox 94 L 02/27/18 08:39 - Labs Result Diagrams: 02/27/18 05:30 02/27/18 05:30 Labs: Laboratory Results - last 24 hr 02/26/18 02/27/18 02/27/18 19:25 04:44 05:30 WBC 15.1 H RBC 4.66 Hgb 12.5 Hct 38.9 MCV 83.5 MCH 26.8 MCHC 32.1 RDW 17.5 H Plt Count 357 MPV 9.9 pCO2 27 L pO2 115 H 61.0 L HCO3 22.6 ABG pH 7.53 H ABG Total CO2 23.4 ABG O2 Saturation 95.2 ABG O2 Content 15.8 ABG Base Excess 0.9 ABG Hemoglobin 12.1 ABG Carboxyhemoglobin 1.9 H POC ABG HHb (Measured) 4.7 ABG Methemoglobin 0.8 ABG O2 Capacity 16.6 VBG pH 7.42 VBG pCO2 36.0 L VBG HCO3 23.4 VBG Total CO2 24.5 VBG O2 Sat (Calc) 99.7 H VBG Base Excess -0.7 L VBG Potassium 4.0 Hgb O2 Saturation 92.6 L Sodium 140.0 Chloride 104.0 Glucose 256 H Lactate 2.9 H FiO2 21.0 40.0 Potassium Carbon Dioxide Anion Gap BUN Creatinine Est GFR ( Amer) Est GFR (Non-Af Amer) Random Glucose Calcium Total Bilirubin AST ALT Alkaline Phosphatase Total Protein Albumin Globulin Albumin/Globulin Ratio Venous Blood Potassium 4.0 02/27/18 05:30 WBC RBC Hgb Hct MCV MCH MCHC RDW Plt Count MPV pCO2 pO2 HCO3 ABG pH ABG Total CO2 ABG O2 Saturation ABG O2 Content ABG Base Excess ABG Hemoglobin ABG Carboxyhemoglobin POC ABG HHb (Measured) ABG Methemoglobin ABG O2 Capacity VBG pH VBG pCO2 VBG HCO3 VBG Total CO2 VBG O2 Sat (Calc) VBG Base Excess VBG Potassium Hgb O2 Saturation Sodium 142 Chloride 104 Glucose Lactate FiO2 Potassium 4.3 Carbon Dioxide 24 Anion Gap 18 BUN 16 Creatinine 0.7 Est GFR ( Amer) > 60 Est GFR (Non-Af Amer) > 60 Random Glucose 286 H Calcium 10.0 Total Bilirubin 0.3 AST 24 ALT 37 Alkaline Phosphatase 183 H Total Protein 7.0 Albumin 3.8 Globulin 3.2 Albumin/Globulin Ratio 1.2 Venous Blood Potassium Attending/Attestation - Attestation I have personally seen and examined this patient.: Yes I have fully participated in the care of the patient.: Yes I have reviewed all pertinent clinical information: Yes Notes (Text): -I agree with the above H&P completed by the resident physician with the following additions and/or changes: -The patient is a 77 year old woman with a 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 Although the initial plan was for patient to be observed in the ICU overnight, she was quickly downgraded overnight to telemetry after several hours of stable vital signs and after it was revealed ( by her family via phone) that she is DNR/DNI. She will receive Duo-nebs, IV Steroids, O2 via NC to keep sats > 90% and empiric antibiotics for treatment of CAP. Will check repeat ABG with AM labs. Pulmonary has already by consulted by the ED physician. CT-PA has ruled out acute PE.
--- NOTE | 2018-02-27 01:12 | PCM.SEPTIC ---
<Bennett Zavala - Last Filed: 02/27/18 01:11> Sepsis Progress Note - Reassessment Type Date of Evaluation: 02/27/18 Time of Evaluation: 01:12 Reassessment Type: Non-invasive reassessment - Non Invasive Reassessment Were the most recent vital sign reviewed: Yes Vital Sign (Latest): Temp Pulse Resp BP Pulse Ox 97.9 F 100 H 18 130/77 91 L 02/26/18 23:39 02/26/18 23:39 02/26/18 23:39 02/26/18 23:39 02/26/18 23:39 Cardiovascular: Yes: Regular Rate, Rhythm. No: Edema, Gallop, Murmur, Irregularly Irregular Respiratory: Yes: Normal Breath Sounds. No: Crackles, Rales, Rhonchi, Wheezing Capillary Refill: Normal (Less than 2 sec) Pulses: Normal Radial, Normal Dorsalis Pedis, Normal Posterior Tibialis Skin: Normal Color, Warm, Dry - Invasive Reassessment (complete 2 of 4) Was a Central Venous Pressure Measurement obtained within 6 Hours after the presentation of septic shock: No Was a central venous oxygen measurement obtained within 6 hours after the presentation of septic shock: No Was a bedside cardiovascular ultrasound performed within 6 hours after the presentation of septic shock: No Was a passive leg raise performed or was a fluid challenge performed within 6 hrs of the initial fluid bolus: No <Lai Martin - Last Filed: 03/05/18 05:30> Sepsis Progress Note - Non Invasive Reassessment Vital Sign (Latest): Temp Pulse Resp BP Pulse Ox 98 F 93 H 20 159/86 H 98 03/02/18 14:00 03/02/18 14:00 03/02/18 14:00 03/02/18 14:00 03/02/18 14:00 Attending/Attestation - Attestation I have personally seen and examined this patient.: No I have fully participated in the care of the patient.: Yes I have reviewed all pertinent clinical information, including history, physical exam and plan: Yes Notes (Text): 03/05/18 05:29 Agree with note.
[2018-02-27 01:25] VITALS: BMI 25.7
[2018-02-27] MEDS: Albuterol-Ipratrop 3 mg / 0.5 (3 ml) UD IH SCH ×6 (04:32→23:59)
[2018-02-27 04:47] LABS: ARTERIAL BLOOD GAS HCO3 22.6 mmol/L (21-28); ARTERIAL BLOOD GAS HEMOGLOBIN 12.1 g/dL (11.7-17.4); ARTERIAL BLOOD GAS O2 CAPACITY 16.6 mL/dl (16-24); ARTERIAL BLOOD GAS O2 CONTENT 15.8 ML/dl (15-23); ARTERIAL BLOOD GAS O2 SAT 95.2 % (95-98); ARTERIAL BLOOD GAS PCO2 27 mm/Hg (35-45); ARTERIAL BLOOD GAS PH 7.53 (7.35-7.45); ARTERIAL BLOOD GAS TCO2 23.4 mmol.L (22-28)
[2018-02-27 06:27] LABS: HEMOGLOBIN 12.5 g/dL (12.0-16.0); MEAN CELL VOLUME 83.5 fl (80.0-105.0); MEAN CORPUSCULAR HEMOGLOBIN 26.8 pg (25.0-35.0); MEAN CORPUSCULAR HGB CONC 32.1 g/dl (31.0-37.0); MEAN PLATELET VOLUME 9.9 fl (7.0-11.0); RBC 4.66 10^6/uL (3.5-6.1); RED CELL DISTRIBUTION WIDTH 17.5 % (11.5-14.5); WHITE BLOOD COUNT 15.1 10^3/ul (4.5-11.0)
[2018-02-27] MEDS: Pantoprazole 40 mg EC Tab PO SCH (06:28)
[2018-02-27 06:55] LABS: ALB/GLOB RATIO 1.2 (1.1-1.8); ALBUMIN 3.8 g/dL (3.0-4.8); ALT/SGPT 37 U/L (7-56); AST/SGOT 24 U/L (14-36); BLOOD UREA NITROGEN 16 mg/dL (7-21); GFR AFRICAN-AMERICAN > 60; GFR NON-AFRICAN AMERICAN > 60
--- NOTE | 2018-02-27 07:58 | CON ---
obstructive pulmonary disease. REFERRING PHYSICIAN: Dr. Pinedo. 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 There is no history of chest pain, coughing up of blood, or chest pain - made worse with deep respirations. There is no history of temperatures, chills or infectious exposure. There is no history of night sweats, weight loss or appetite change prior to the above events. No history of leg or calf pains. No history of syncope or diaphoresis. No history of recent travel or trauma. REVIEW OF SYSTEMS No history of nausea, vomiting or diarrhea. No acute urinary symptoms. No new neurologic or musculoskeletal complaints. Rest of the review of systems is negative. ALLERGIES: NO KNOWN ALLERGIES. SOCIAL HISTORY: Positive for tobacco and negative for alcohol. FAMILY HISTORY No inheritable diseases. HOME MEDICATIONS: Include Advair, albuterol, Tylenol, Ativan, Neurontin, Lipitor, Remeron, Medrol, Norvasc, Ambien, Janumet, Ultram. PHYSICAL EXAMINATION GENERAL: The patient appears comfortable this morning. She is not short of breath at rest. She is not using accessory muscles for breathing. VITAL SIGNS: Temperature is 98, pulse 95, respirations 17, blood pressure 151/76. Oxygen saturation on nasal cannula is 95%. HEENT: Normocephalic, atraumatic. NECK: No JVD. CARDIOVASCULAR: Systolic ejection murmur at the lower left sternal border. No S3 gallop. LUNGS: Chronic crackles at both bases. Mild bilateral rhonchi. A few wheezes also appreciated. EXTREMITIES: Mild edema. No cyanosis or clubbing. Calves are nontender to palpation. GASTROINTESTINAL: Abdomen is soft, nontender and nondistended. Bowel sounds are positive. SKIN: No acute rash. NEUROLOGIC: Exam limited at the present time. PERTINENT LABORATORY DATA: Chest x-ray was done this morning and reviewed. It is not significantly changed from the previous films. CAT scan of the chest was also done-- as an angiogram protocol. There is no pulmonary embolism seen. There are chronic extensive changes noted - similar to previous CT scans. CBC: White count 15.1, hemoglobin 12.5, hematocrit 38.9, platelets of 357,000. Arterial blood gas was done on nasal cannula. Results are pH 7.53, pCO2 27, pO2 of 61. IMPRESSION 1. Recurrent bronchitis. 2. Advanced chronic obstructive pulmonary disease - on home oxygen. 3. 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 4. Hypoxemia. 5. Diabetes mellitus. PLAN: The patient presents to [facility] with a 10-day history of worsening pulmonary symptoms. I did review the chest x-ray ---as above. There are no new significant changes from the previous films. I have also reviewed the present/previous CAT scans - as above. On physical exam, there is [id number] bronchospasm noted. I will continue with the DuoNeb treatments and add inhaled Pulmicort this morning. The patient is also on low-dose intravenous steroids, which I will continue for now. The patient has also been placed on antibiotic therapy. There are no temperatures noted. There is a mild leukocytosis. Keep in mind, the patient is on Medrol as an outpatient.. Procalcitonin has been ordered. The patient does feel better and is clinically improved this morning. Additional pulmonary intervention will be based on the clinical status of the patient. I will discuss the above with the attending physician this morning. Thank you very much for this pulmonary consultation. Meet Alcaraz MD ADÁN
[2018-02-27] MEDS: Insulin Reg-HIGH-Coverage SC SCH ×4 (08:37→22:00)
[2018-02-27] MEDS: Budesonide 0.5 mg/2 ml Inhal Susp UD IH SCH ×2 (08:58→19:19)
--- NOTE | 2018-02-27 09:21 | RAD ---
HISTORY: Acute COPD exacerbation COMPARISON: February 26, 2018. Single-view chest. February 26, 2018. CT pulmonary angiogram FINDINGS: LUNGS: Stable pulmonary parenchymal findings/infiltrates. PLEURA: Stable apical pleural thickening. CARDIOVASCULAR: Normal. OSSEOUS STRUCTURES: No significant abnormalities. VISUALIZED UPPER ABDOMEN: Normal. OTHER FINDINGS: None. IMPRESSION: No significant interval change compared to the prior examination(s).
[2018-02-27] MEDS: Azithromycin 500MG/NS 250ml 500 MG/250 ML BAG IVPB SCH (10:14)
[2018-02-27] MEDS: Aspirin 325 mg EC Tablets PO SCH (10:14)
[2018-02-27] MEDS: MethylPREDNISolone 40 mg Vial IVP SCH ×2 (10:14→21:48)
[2018-02-27] MEDS: cefTRIAXone 2 GM IN NS 2 GM/100 ML BAG IVPB SCH (12:03)
--- NOTE | 2018-02-27 17:12 | CP.PCM.PN ---
<StantonMatthew - Last Filed: 02/27/18 17:09> Subjective - Date & Time of Evaluation Date of Evaluation: 02/27/18 Time of Evaluation: 17:09 - Subjective Subjective: Medicine progress note: Dr. Luanne Pinedo Patient seen and examined at bedside. Patient's photo finisher is by bedside. Patient herself states that she feels a little anxious but does not comment on worsening shortness of breath. Clinical Team Lead states that she takes ativan at home, twice a day. Patient denies any new complaints Objective - Vital Signs/Intake and Output Vital Signs (last 24 hours): Temp Pulse Resp BP Pulse Ox 98.2 F 99 H 18 134/72 94 L 02/27/18 12:00 02/27/18 14:00 02/27/18 12:00 02/27/18 12:00 02/27/18 08:39 Intake and Output: 02/27/18 02/27/18 06:59 18:59 Intake Total 50 720 Output Total 500 600 Balance -450 120 - Medications Medications: Current Medications Albuterol/Ipratropium (Duoneb 3 Mg/0.5 Mg (3 Ml) Ud) 3 ml IH [id number] [facility] Last Admin: 02/27/18 11:52 Dose: 3 ml Amlodipine Besylate (Norvasc) 10 mg PO DAILY [facility] Last Admin: 02/27/18 10:13 Dose: 10 mg Aspirin (Ecotrin) 325 mg PO DAILY [facility] Last Admin: 02/27/18 10:14 Dose: 325 mg Atorvastatin Calcium (Lipitor) 40 mg PO HS [facility] Budesonide (Pulmicort Respules) 0.5 mg IH [id number] [facility] Last Admin: 02/27/18 08:58 Dose: 0.5 mg Gabapentin (Neurontin) 300 mg PO BID [facility] PRN Reason: Protocol Last Admin: 02/27/18 10:13 Dose: 300 mg Heparin Sodium (Porcine) (Heparin) 5,000 units SC Q8 [facility] PRN Reason: Protocol Last Admin: 02/27/18 14:15 Dose: 5,000 units Ceftriaxone Sodium (Rocephin 2 Gm Ivpb) 2 gm in 100 mls @ 100 mls/hr IVPB DAILY [facility] PRN Reason: Protocol Last Admin: 02/27/18 12:03 Dose: 100 mls/hr Azithromycin (Zithromax 500mg In Ns) 500 mg in 250 mls @ 167 mls/hr IVPB DAILY [facility] PRN Reason: Protocol Last Admin: 02/27/18 10:14 Dose: 167 mls/hr Insulin Human Regular (Humulin R High) 0 units SC ACHS [facility] PRN Reason: Protocol Last Admin: 02/27/18 12:03 Dose: 4 units Lorazepam (Ativan) 1 mg PO TID PRN; Protocol PRN Reason: Anxiety Last Admin: 02/27/18 12:04 Dose: 1 mg Methylprednisolone (Solu-Medrol) 40 mg IVP Q12 [facility] Last Admin: 02/27/18 10:14 Dose: 40 mg Mirtazapine (Remeron) 30 mg PO HS [facility] Ondansetron HCl (Zofran Inj) 4 mg IVP Q4H PRN PRN Reason: Nausea/Vomiting Pantoprazole Sodium (Protonix Ec Tab) 40 mg PO 0600 [facility] Last Admin: 02/27/18 06:28 Dose: 40 mg Tramadol HCl (Ultram) 50 mg PO DAILY PRN PRN Reason: Pain, moderate (4-7) Zolpidem Tartrate (Ambien) 5 mg PO HS [facility] - Labs Labs: 02/27/18 05:30 02/27/18 05:30 PT 11.5 SECONDS (9.4-12.5) 02/26/18 15:48 INR 1.01 (0.93-1.08) 02/26/18 15:48 APTT 31.6 Seconds (25.1-36.5) 02/26/18 15:48 - Constitutional Appears: Non-toxic, No Acute Distress, Chronically Ill - Head Exam Head Exam: ATRAUMATIC, NORMAL INSPECTION, NORMOCEPHALIC - Eye Exam Eye Exam: EOMI, Normal appearance, PERRL Pupil Exam: NORMAL ACCOMODATION, PERRL - ENT Exam ENT Exam: Mucous Membranes Moist, Normal Exam - Neck Exam Neck Exam: Full ROM, Normal Inspection. absent: Lymphadenopathy - Respiratory Exam Respiratory Exam: Clear to Ausculation Bilateral, NORMAL BREATHING PATTERN - Cardiovascular Exam Cardiovascular Exam: REGULAR RHYTHM, +S1, +S2. absent: Murmur - GI/Abdominal Exam GI & Abdominal Exam: Soft, Normal Bowel Sounds. absent: Tenderness - Extremities Exam Extremities Exam: Full ROM, Normal Capillary Refill, Normal Inspection. absent : Joint Swelling, Pedal Edema - Back Exam Back Exam: NORMAL INSPECTION - Neurological Exam Neurological Exam: Alert, Awake, CN II-XII Intact, Normal Gait, Oriented x3 - Psychiatric Exam Psychiatric exam: Normal Affect, Normal Mood - Skin Skin Exam: Dry, Intact, Normal Color, Warm Assessment and Plan - Assessment and Plan (Free Text) Assessment: Assessment and Plan Patient is a 76 year old female with past medical history of COPD, Pulmonary sarcoidosis, CVAx2 1996, 2013, history of multiple hospitilizations for pneumonia in recent past, spinal stenosis, and DM2 who presents with shortness of breath from [employer]. Possible Severe Urosepsis - Patient has tachycardia and leukocytosis with an elevated lactate, but apparently leukocytosis is chronic for her - Solumedrol, Azithromycin, Rocephin - Procal negative - Blood cultures: negative; Urine cultures: Gram Negative Jeremy Dyspnea, likely 2/2 COPD Exacerbation - Most likely not Pneumonia - Solumedrol 40 q12; keep O2 sats > 90% - Azithro and Rocephin - Duoneb HTN - Norvasc UTI - Rocephin - Replenish electrolytes as needed Diabetes Mellitus type 2 - Humalog with ISS - high - ACHS accucheck Hx of CVA - Aspirin - Atorvastatin Hx of neuropathy - Gabapentin Hx of COPD - Duoneb Q2prn Q6 reggie - no wheezing, will reassess - O2 NC 2L Hx of Insomnia - Ambien HS [facility] Anxiety - Lorazepam TID PRN GI DVT ppx - Lovenox - Protonix <Valerie Pinedo - Last Filed: 02/28/18 18:43> Objective - Vital Signs/Intake and Output Vital Signs (last 24 hours): Temp Pulse Resp BP Pulse Ox 97.6 F 102 H 102 H 148/70 95 02/28/18 14:00 02/28/18 14:00 02/28/18 14:00 02/28/18 14:00 02/28/18 14:00 Intake and Output: 02/28/18 02/28/18 06:59 18:59 Intake Total 120 240 Output Total 500 Balance -380 240 - Medications Medications: Current Medications Albuterol/Ipratropium (Duoneb 3 Mg/0.5 Mg (3 Ml) Ud) 3 ml IH [id number] [facility] Last Admin: 02/28/18 11:47 Dose: 3 ml Amlodipine Besylate (Norvasc) 10 mg PO DAILY [facility] Last Admin: 02/28/18 11:03 Dose: 10 mg Aspirin (Ecotrin) 325 mg PO DAILY [facility] Last Admin: 02/28/18 11:02 Dose: 325 mg Atorvastatin Calcium (Lipitor) 40 mg PO HS [facility] Last Admin: 02/27/18 21:47 Dose: 40 mg Budesonide (Pulmicort Respules) 0.5 mg IH [id number] [facility] Last Admin: 02/28/18 08:21 Dose: 0.5 mg Gabapentin (Neurontin) 300 mg PO BID [facility] PRN Reason: Protocol Last Admin: 02/28/18 11:03 Dose: 300 mg Heparin Sodium (Porcine) (Heparin) 5,000 units SC Q8 [facility] PRN Reason: Protocol Last Admin: 02/28/18 05:49 Dose: 5,000 units Levofloxacin/Dextrose (Levaquin 500mg) 500 mg in 100 mls @ 100 mls/hr IVPB DAILY [facility] PRN Reason: Protocol Insulin Human Regular (Humulin R High) 0 units SC ACHS [facility] PRN Reason: Protocol Last Admin: 02/28/18 08:32 Dose: 7 units Insulin Human Regular (Humulin R Low) 0 units SC ACHS [facility] PRN Reason: Protocol Lorazepam (Ativan) 1 mg PO TID PRN; Protocol PRN Reason: Anxiety Last Admin: 02/27/18 21:59 Dose: 1 mg Metformin HCl (Glucophage) 500 mg PO BID [facility] Methylprednisolone (Solu-Medrol) 30 mg IVP Q12 [facility] Last Admin: 02/28/18 11:07 Dose: 30 mg Mirtazapine (Remeron) 30 mg PO HS [facility] Last Admin: 02/27/18 21:47 Dose: 30 mg Mupirocin (Bactroban Ointment) 0 gm NS BID [facility] Stop: 03/05/18 10:01 Ondansetron HCl (Zofran Inj) 4 mg IVP Q4H PRN PRN Reason: Nausea/Vomiting Pantoprazole Sodium (Protonix Ec Tab) 40 mg PO 0600 [facility] Last Admin: 02/28/18 05:51 Dose: 40 mg Sitagliptin Phosphate (Januvia) 50 mg PO BID [facility] Tramadol HCl (Ultram) 50 mg PO DAILY PRN PRN Reason: Pain, moderate (4-7) Zolpidem Tartrate (Ambien) 5 mg PO HS [facility] Last Admin: 02/27/18 21:47 Dose: 5 mg - Labs Labs: 02/28/18 05:30 02/28/18 05:30 PT 11.5 SECONDS (9.4-12.5) 02/26/18 15:48 INR 1.01 (0.93-1.08) 02/26/18 15:48 APTT 31.6 Seconds (25.1-36.5) 02/26/18 15:48 Attending/Attestation - Attestation I have personally seen and examined this patient.: Yes I have fully participated in the care of the patient.: Yes I have reviewed all pertinent clinical information, including history, physical exam and plan: Yes Notes (Text): I have seen and examined the patient at bedside. Agree with the above note with the following additions/ exceptions: Briefly this is 76 year old female with past medical history of COPD, Pulmonary sarcoidosis, CVAx2, history of multiple hospitilizations for pneumonia in recent past, spinal stenosis, and DM2 who was sent from pulmonologists office for evaluation of dyspnea due to COPD exacerbation. Continue solumedrol, duonebs and antibiotics. She also has UTI. Urine cultures are growing GNR. Blood cultures are pending. Continue ISS. Patients photo finisher is at the bedside. Patient needs assistance at home with ADLs and IADL's. She walks at home with walker. Patient appears very anxious however she does not have dyspnea. Will give her home dose of ativan. Patient is DNR/ DNI. Upon discharge patient will follow up with Dr Keenan. Dr Valerie Pinedo
[2018-02-27] MEDS ORDERED: MIRTAZAPINE 30 MG PO SCH (22:00)
[2018-02-28] MEDS: Pantoprazole 40 mg EC Tab PO SCH (05:51)
[2018-02-28 06:33] LABS: HEMOGLOBIN 12.5 g/dL (12.0-16.0); MEAN CELL VOLUME 84.4 fl (80.0-105.0); MEAN CORPUSCULAR HEMOGLOBIN 27.1 pg (25.0-35.0); MEAN CORPUSCULAR HGB CONC 32.1 g/dl (31.0-37.0); MEAN PLATELET VOLUME 10.1 fl (7.0-11.0); RBC 4.62 10^6/uL (3.5-6.1); RED CELL DISTRIBUTION WIDTH 17.8 % (11.5-14.5); WHITE BLOOD COUNT 23.3 10^3/ul (4.5-11.0)
[2018-02-28 06:59] LABS: ALB/GLOB RATIO 1.1 (1.1-1.8); ALBUMIN 3.9 g/dL (3.0-4.8); ALT/SGPT 38 U/L (7-56); AST/SGOT 29 U/L (14-36); BLOOD UREA NITROGEN 28 mg/dL (7-21); CALCIUM 9.7 mg/dL (8.4-10.5); GFR AFRICAN-AMERICAN > 60; GFR NON-AFRICAN AMERICAN > 60
--- NOTE | 2018-02-28 07:54 | PN ---
DATE: 02/28/2018 PULMONARY NOTE SUBJECTIVE: The patient appears comfortable this morning. She is not short of breath at rest. PHYSICAL EXAMINATION VITALS: Temperature is 98.5, pulse 93, respirations 18, blood pressure 151/85. Oxygen saturation on nasal cannula is 97-99%. HEENT: Normocephalic, atraumatic. No JVD. CARDIOVASCULAR: Systolic ejection murmur at the lower left sternal border. No S3 gallop. LUNGS: Chronic crackles at both bases. Less rhonchi. No wheezing this morning. EXTREMITIES: Mild edema. No cyanosis, no clubbing. Calves are nontender to palpation. GI: Abdomen is soft, nontender and nondistended. Bowel sounds are positive. SKIN: No acute rash. NEUROLOGIC: Limited at the present time. IMPRESSION: 1. Recurrent bronchitis. 2. Advanced chronic obstructive pulmonary disease. 3. 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 4. Hypoxemia. 5. Diabetes mellitus. PLAN: The patient appears very comfortable this morning. She is not short of breath at rest. She does state to feeling much better overall. On physical exam, her bronchospasm is certainly less. In addition, the oxygen saturation on nasal cannula is now 97-99%. I will continue the current nebulizer treatments and decrease the intravenous steroids this morning. The patient remains on intravenous antibiotics. Procalcitonin is negative. We can probably taper down the antibiotic coverage at this point in time. Repeat a.m. labs are pending. Clinical status of the patient is certainly improved - compared to the initial presentation. However, her future status/prognosis remains very guarded at best. I will discuss the above with the Medical team this morning. Meet Alcaraz MD ADÁN
[2018-02-28] MEDS: Albuterol-Ipratrop 3 mg / 0.5 (3 ml) UD IH SCH ×4 (08:21→22:54)
[2018-02-28] MEDS: Budesonide 0.5 mg/2 ml Inhal Susp UD IH SCH ×2 (08:21→22:54)
[2018-02-28] MEDS: Insulin Reg-HIGH-Coverage SC SCH ×4 (08:32→21:33)
[2018-02-28] MEDS: Aspirin 325 mg EC Tablets PO SCH (11:02)
[2018-02-28] MEDS: MethylPREDNISolone 40 mg Vial IVP SCH ×2 (11:07→21:33)
[2018-02-28] MEDS: cefTRIAXone 2 GM IN NS 2 GM/100 ML BAG IVPB SCH (11:07)
[2018-02-28] MEDS: Azithromycin 500MG/NS 250ml 500 MG/250 ML BAG IVPB SCH (11:08)
--- NOTE | 2018-02-28 13:39 | CP.PCM.PN ---
<Matthew Eid Alex - Last Filed: 02/28/18 14:24> Subjective - Date & Time of Evaluation Date of Evaluation: 02/28/18 Time of Evaluation: 13:39 - Subjective Subjective: Medicine progress note: Dr. Luanne Pinedo Patient seen and examined at bedside. No acute complaints right now. 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 Objective - Vital Signs/Intake and Output Vital Signs (last 24 hours): Temp Pulse Resp BP Pulse Ox 98.5 F 93 H 18 136/68 97 02/28/18 06:00 02/28/18 06:00 02/28/18 06:00 02/28/18 11:03 02/28/18 06:00 Intake and Output: 02/28/18 02/28/18 06:59 18:59 Intake Total 120 Output Total 500 Balance -380 - Medications Medications: Current Medications Albuterol/Ipratropium (Duoneb 3 Mg/0.5 Mg (3 Ml) Ud) 3 ml IH [id number] [facility] Last Admin: 02/28/18 11:47 Dose: 3 ml Amlodipine Besylate (Norvasc) 10 mg PO DAILY [facility] Last Admin: 02/28/18 11:03 Dose: 10 mg Aspirin (Ecotrin) 325 mg PO DAILY [facility] Last Admin: 02/28/18 11:02 Dose: 325 mg Atorvastatin Calcium (Lipitor) 40 mg PO HS [facility] Last Admin: 02/27/18 21:47 Dose: 40 mg Budesonide (Pulmicort Respules) 0.5 mg IH [id number] [facility] Last Admin: 02/28/18 08:21 Dose: 0.5 mg Gabapentin (Neurontin) 300 mg PO BID [facility] PRN Reason: Protocol Last Admin: 02/28/18 11:03 Dose: 300 mg Heparin Sodium (Porcine) (Heparin) 5,000 units SC Q8 [facility] PRN Reason: Protocol Last Admin: 02/28/18 05:49 Dose: 5,000 units Ceftriaxone Sodium (Rocephin 2 Gm Ivpb) 2 gm in 100 mls @ 100 mls/hr IVPB DAILY [facility] PRN Reason: Protocol Last Admin: 02/28/18 11:07 Dose: 100 mls/hr Azithromycin (Zithromax 500mg In Ns) 500 mg in 250 mls @ 167 mls/hr IVPB DAILY [facility] PRN Reason: Protocol Last Admin: 02/28/18 11:08 Dose: 167 mls/hr Insulin Human Regular (Humulin R High) 0 units SC ACHS [facility] PRN Reason: Protocol Last Admin: 02/28/18 08:32 Dose: 7 units Insulin Human Regular (Humulin R Low) 0 units SC ACHS [facility] PRN Reason: Protocol Lorazepam (Ativan) 1 mg PO TID PRN; Protocol PRN Reason: Anxiety Last Admin: 02/27/18 21:59 Dose: 1 mg Metformin HCl (Glucophage) 1,000 mg PO BID [facility] Methylprednisolone (Solu-Medrol) 30 mg IVP Q12 [facility] Last Admin: 02/28/18 11:07 Dose: 30 mg Mirtazapine (Remeron) 30 mg PO HS [facility] Last Admin: 02/27/18 21:47 Dose: 30 mg Mupirocin (Bactroban Ointment) 0 gm NS BID [facility] Stop: 03/05/18 10:01 Ondansetron HCl (Zofran Inj) 4 mg IVP Q4H PRN PRN Reason: Nausea/Vomiting Pantoprazole Sodium (Protonix Ec Tab) 40 mg PO 0600 [facility] Last Admin: 02/28/18 05:51 Dose: 40 mg Sitagliptin Phosphate (Januvia) 100 mg PO DAILY [facility] Tramadol HCl (Ultram) 50 mg PO DAILY PRN PRN Reason: Pain, moderate (4-7) Zolpidem Tartrate (Ambien) 5 mg PO HS [facility] Last Admin: 02/27/18 21:47 Dose: 5 mg - Labs Labs: 02/28/18 05:30 02/28/18 05:30 PT 11.5 SECONDS (9.4-12.5) 02/26/18 15:48 INR 1.01 (0.93-1.08) 02/26/18 15:48 APTT 31.6 Seconds (25.1-36.5) 02/26/18 15:48 - Constitutional Appears: Well - Head Exam Head Exam: ATRAUMATIC, NORMAL INSPECTION, NORMOCEPHALIC - Eye Exam Eye Exam: EOMI, Normal appearance, PERRL Pupil Exam: NORMAL ACCOMODATION, PERRL - ENT Exam ENT Exam: Mucous Membranes Moist, Normal Exam - Neck Exam Neck Exam: Full ROM, Normal Inspection. absent: Lymphadenopathy - Respiratory Exam Respiratory Exam: Clear to Ausculation Bilateral, NORMAL BREATHING PATTERN - Cardiovascular Exam Cardiovascular Exam: REGULAR RHYTHM, +S1, +S2. absent: Murmur - GI/Abdominal Exam GI & Abdominal Exam: Soft, Normal Bowel Sounds. absent: Tenderness - Extremities Exam Extremities Exam: Full ROM, Normal Capillary Refill, Normal Inspection. absent : Joint Swelling, Pedal Edema - Back Exam Back Exam: NORMAL INSPECTION - Neurological Exam Neurological Exam: Alert, Awake, CN II-XII Intact, Normal Gait, Oriented x3 - Psychiatric Exam Psychiatric exam: Normal Affect, Normal Mood - Skin Skin Exam: Dry, Intact, Normal Color, Warm Assessment and Plan - Assessment and Plan (Free Text) Assessment: Assessment and Plan Patient is a 76 year old female with past medical history of COPD, Pulmonary sarcoidosis, CVAx2 1996, 2013, history of multiple hospitalizations for pneumonia in recent past, spinal stenosis, and DM2 who presents with shortness of breath from senior drafter office. Possible Severe Urosepsis - Patient has tachycardia and leukocytosis with an elevated lactate, but apparently leukocytosis is chronic for her - Solumedrol, Levaquin - Procal negative - Blood cultures: negative; Urine cultures: Proteus, sensitive to Cipro - PT Eval appreciated: Patient will benefit from PT while here, has impaired gait and decreased endurance with functional activities Infection of Nares (MRSA) - Bactroban - Isolation precautions Dyspnea, likely 2/2 COPD Exacerbation - Most likely not Pneumonia - Solumedrol tapered to 30 q12 - Azithro and Rocephin - Duoneb HTN - Norvasc UTI - Levaquin - Replenish electrolytes as needed Diabetes Mellitus type 2 - Humalog with ISS - high - ACHS accucheck - Starting tomorrow, patient will commence home regimen Januvia: 50 bid Metformin: 500 bid For coverage, will start on RISS - low Hx of CVA - Aspirin - Atorvastatin Hx of neuropathy - Gabapentin Hx of COPD - Duoneb Q2prn Q6 reggie - no wheezing, will reassess - O2 NC 2L Hx of Insomnia - Ambien HS [facility] Anxiety - Lorazepam TID PRN GI DVT ppx - Lovenox - Protonix <Valerie Pinedo B - Last Filed: 02/28/18 18:52> Objective - Vital Signs/Intake and Output Vital Signs (last 24 hours): Temp Pulse Resp BP Pulse Ox 97.6 F 102 H 102 H 148/70 95 02/28/18 14:00 02/28/18 14:00 02/28/18 14:00 02/28/18 14:00 02/28/18 14:00 Intake and Output: 02/28/18 02/28/18 06:59 18:59 Intake Total 120 240 Output Total 500 Balance -380 240 - Medications Medications: Current Medications Albuterol/Ipratropium (Duoneb 3 Mg/0.5 Mg (3 Ml) Ud) 3 ml IH [id number] [facility] Last Admin: 02/28/18 11:47 Dose: 3 ml Amlodipine Besylate (Norvasc) 10 mg PO DAILY [facility] Last Admin: 02/28/18 11:03 Dose: 10 mg Aspirin (Ecotrin) 325 mg PO DAILY [facility] Last Admin: 02/28/18 11:02 Dose: 325 mg Atorvastatin Calcium (Lipitor) 40 mg PO HS [facility] Last Admin: 02/27/18 21:47 Dose: 40 mg Budesonide (Pulmicort Respules) 0.5 mg IH [id number] [facility] Last Admin: 02/28/18 08:21 Dose: 0.5 mg Gabapentin (Neurontin) 300 mg PO BID [facility] PRN Reason: Protocol Last Admin: 02/28/18 11:03 Dose: 300 mg Heparin Sodium (Porcine) (Heparin) 5,000 units SC Q8 [facility] PRN Reason: Protocol Last Admin: 02/28/18 05:49 Dose: 5,000 units Levofloxacin/Dextrose (Levaquin 500mg) 500 mg in 100 mls @ 100 mls/hr IVPB DAILY [facility] PRN Reason: Protocol Insulin Human Regular (Humulin R High) 0 units SC ACHS [facility] PRN Reason: Protocol Last Admin: 02/28/18 08:32 Dose: 7 units Insulin Human Regular (Humulin R Low) 0 units SC ACHS [facility] PRN Reason: Protocol Lorazepam (Ativan) 1 mg PO TID PRN; Protocol PRN Reason: Anxiety Last Admin: 02/27/18 21:59 Dose: 1 mg Metformin HCl (Glucophage) 500 mg PO BID [facility] Methylprednisolone (Solu-Medrol) 30 mg IVP Q12 [facility] Last Admin: 02/28/18 11:07 Dose: 30 mg Mirtazapine (Remeron) 30 mg PO HS [facility] Last Admin: 02/27/18 21:47 Dose: 30 mg Mupirocin (Bactroban Ointment) 0 gm NS BID [facility] Stop: 03/05/18 10:01 Ondansetron HCl (Zofran Inj) 4 mg IVP Q4H PRN PRN Reason: Nausea/Vomiting Pantoprazole Sodium (Protonix Ec Tab) 40 mg PO 0600 [facility] Last Admin: 02/28/18 05:51 Dose: 40 mg Sitagliptin Phosphate (Januvia) 50 mg PO BID [facility] Tramadol HCl (Ultram) 50 mg PO DAILY PRN PRN Reason: Pain, moderate (4-7) Zolpidem Tartrate (Ambien) 5 mg PO [facility] Last Admin: 02/27/18 21:47 Dose: 5 mg - Labs Labs: 02/28/18 05:30 02/28/18 05:30 PT 11.5 SECONDS (9.4-12.5) 02/26/18 15:48 INR 1.01 (0.93-1.08) 02/26/18 15:48 APTT 31.6 Seconds (25.1-36.5) 02/26/18 15:48 Attending/Attestation - Attestation I have personally seen and examined this patient.: Yes I have fully participated in the care of the patient.: Yes I have reviewed all pertinent clinical information, including history, physical exam and plan: Yes Notes (Text): I have seen and examined the patient at bedside. Agree with the above note with the following additions/ exceptions: Briefly this is 76 year old female with past medical history of COPD, Pulmonary sarcoidosis, CVAx2, history of multiple hospitalizations for pneumonia in recent past, spinal stenosis, and DM2 who was sent from pulmonologists office for evaluation of dyspnea due to COPD exacerbation. She feels much better today. Continue solumedrol taper, duonebs and antibiotics. She also has UTI. Urine cultures are growing proteus. Blood cultures are negative. Continue ISS and start janumet. Patient needs assistance at home with ADLs and IADL's. She walks at home with walker. PT eval pending. Patient is DNR/ DNI. Upon discharge patient will follow up with Dr Keenan. Dr Valerie Pinedo
[2018-02-28] MEDS: levoFLOXacin 500 mg in D5W 500 MG/100 ML BAG IVPB SCH (17:33)
[2018-03-01] MEDS: Albuterol-Ipratrop 3 mg / 0.5 (3 ml) UD IH SCH ×6 (03:10→21:05)
[2018-03-01] MEDS: Pantoprazole 40 mg EC Tab PO SCH (06:06)
[2018-03-01 08:10] LABS: HEMOGLOBIN 12.9 g/dL (12.0-16.0); MEAN CORPUSCULAR HEMOGLOBIN 27.2 pg (25.0-35.0); MEAN PLATELET VOLUME 10.3 fl (7.0-11.0); RBC 4.74 10^6/uL (3.5-6.1); RED CELL DISTRIBUTION WIDTH 17.5 % (11.5-14.5); WHITE BLOOD COUNT 21.2 10^3/ul (4.5-11.0)
[2018-03-01 08:13] LABS: ALB/GLOB RATIO 1.1 (1.1-1.8); ALBUMIN 3.8 g/dL (3.0-4.8); ALT/SGPT 34 U/L (7-56); AST/SGOT 26 U/L (14-36); BLOOD UREA NITROGEN 29 mg/dL (7-21); CALCIUM 9.5 mg/dL (8.4-10.5); GFR AFRICAN-AMERICAN > 60; GFR NON-AFRICAN AMERICAN > 60
[2018-03-01] MEDS: Budesonide 0.5 mg/2 ml Inhal Susp UD IH SCH ×2 (08:35→21:05)
[2018-03-01] MEDS: Insulin Reg-LOW-Coverage SC SCH ×4 (08:43→21:21)
[2018-03-01] MEDS: Aspirin 325 mg EC Tablets PO SCH (09:51)
[2018-03-01] MEDS: levoFLOXacin 500 mg in D5W 500 MG/100 ML BAG IVPB SCH (09:52)
[2018-03-01] MEDS: Insulin Reg-HIGH-Coverage SC SCH ×4 (09:52→21:22)
[2018-03-01] MEDS: MethylPREDNISolone 40 mg Vial IVP SCH (09:56)
--- NOTE | 2018-03-01 12:32 | PN ---
DATE: 03/01/2018 PULMONARY PROGRESS NOTE SUBJECTIVE: The patient was seen and examined. She is sitting on the edge of the bed. She is not in respiratory distress. She is receiving currently her inhalation therapy viz. DuoNeb and added budesonide. PHYSICAL EXAMINATION VITAL SIGNS: Her temperature is 98, pulse 84, respirations 20, pulse oximetry is 98 on nasal cannula, blood pressure 130/78. HEAD, EARS, NOSE, AND THROAT: Within normal limits. NECK: Supple with no jugular vein distention. CHEST: Symmetrical. HEART: S1 and S2. No S3. Regular. LUNGS: Diffuse crackles, a few rhonchi, no wheezing. GASTROINTESTINAL: Soft, nontender. No organomegaly. EXTREMITIES: No pedal edema. SKIN: No acute skin rash. NEUROLOGIC: Limited at the present time. LABORATORY DATA: I reviewed her laboratory data. WBC is elevated at 21,000, blood sugar is elevated between 328 and 282 and her electrolytes are normal. IMPRESSION 1. Recurrent bronchitis. 2. Advanced chronic obstructive pulmonary disease. 3. 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 4. Hypoxia. PLAN: The patient continues to improve. I discussed her condition with hospitalist. We can switch from intravenous steroids to oral steroids in preparation for the patient's discharge. Her procalcitonin is negative. She is ready for discharge and she has home oxygen. Jann Sanchez MD
--- NOTE | 2018-03-01 18:36 | CP.PCM.PN ---
Subjective - Date & Time of Evaluation Date of Evaluation: 03/01/18 Time of Evaluation: 18:30 - Subjective Subjective: Medicine progress note: Dr. Luanne Pinedo Patient seen and examined at bedside. Patient denies any new complaints and there were no acute events overnight. Patient would like to go home. Objective - Vital Signs/Intake and Output Vital Signs (last 24 hours): Temp Pulse Resp BP Pulse Ox 97.3 F L 108 H 22 172/74 H 96 03/01/18 14:00 03/01/18 14:00 03/01/18 14:00 03/01/18 14:00 03/01/18 14:00 Intake and Output: 03/01/18 03/01/18 06:59 18:59 Intake Total 460 480 Balance 460 480 - Medications Medications: Current Medications Albuterol/Ipratropium (Duoneb 3 Mg/0.5 Mg (3 Ml) Ud) 3 ml IH [id number] [facility] Last Admin: 03/01/18 16:37 Dose: Not Given Amlodipine Besylate (Norvasc) 10 mg PO DAILY [facility] Last Admin: 03/01/18 09:55 Dose: 10 mg Aspirin (Ecotrin) 325 mg PO DAILY [facility] Last Admin: 03/01/18 09:51 Dose: 325 mg Atorvastatin Calcium (Lipitor) 40 mg PO HS [facility] Last Admin: 02/28/18 21:34 Dose: 40 mg Budesonide (Pulmicort Respules) 0.5 mg IH [id number] [facility] Last Admin: 03/01/18 08:35 Dose: 0.5 mg Gabapentin (Neurontin) 300 mg PO BID [facility] PRN Reason: Protocol Last Admin: 03/01/18 18:02 Dose: 300 mg Heparin Sodium (Porcine) (Heparin) 5,000 units SC Q8 [facility] PRN Reason: Protocol Last Admin: 03/01/18 15:38 Dose: 5,000 units Levofloxacin/Dextrose (Levaquin 500mg) 500 mg in 100 mls @ 100 mls/hr IVPB DAILY [facility] PRN Reason: Protocol Last Admin: 03/01/18 09:52 Dose: 100 mls/hr Insulin Human Regular (Humulin R High) 0 units SC ACHS [facility] PRN Reason: Protocol Last Admin: 03/01/18 18:01 Dose: Not Given Insulin Human Regular (Humulin R Low) 0 units SC ACHS [facility] PRN Reason: Protocol Last Admin: 03/01/18 18:02 Dose: 3 units Lorazepam (Ativan) 1 mg PO TID PRN; Protocol PRN Reason: Anxiety Last Admin: 03/01/18 15:38 Dose: 1 mg Metformin HCl (Glucophage) 500 mg PO BID [facility] Last Admin: 03/01/18 18:01 Dose: 500 mg Methylprednisolone (Solu-Medrol) 30 mg IVP Q12 [facility] Last Admin: 03/01/18 09:56 Dose: 30 mg Mirtazapine (Remeron) 30 mg PO [facility] Last Admin: 02/28/18 21:33 Dose: 30 mg Mupirocin (Bactroban Ointment) 0 gm NS BID [facility] Stop: 03/05/18 10:01 Last Admin: 03/01/18 18:01 Dose: 1 applic Ondansetron HCl (Zofran Inj) 4 mg IVP Q4H PRN PRN Reason: Nausea/Vomiting Pantoprazole Sodium (Protonix Ec Tab) 40 mg PO 0600 [facility] Last Admin: 03/01/18 06:06 Dose: 40 mg Sitagliptin Phosphate (Januvia) 50 mg PO BID [facility] Last Admin: 03/01/18 18:02 Dose: 50 mg Tramadol HCl (Ultram) 50 mg PO DAILY PRN PRN Reason: Pain, moderate (4-7) Zolpidem Tartrate (Ambien) 5 mg PO [facility] Last Admin: 02/28/18 21:34 Dose: 5 mg - Labs Labs: 03/01/18 07:00 03/01/18 07:00 PT 11.5 SECONDS (9.4-12.5) 02/26/18 15:48 INR 1.01 (0.93-1.08) 02/26/18 15:48 APTT 31.6 Seconds (25.1-36.5) 02/26/18 15:48 - Constitutional Appears: Well - Head Exam Head Exam: ATRAUMATIC, NORMAL INSPECTION, NORMOCEPHALIC - Eye Exam Eye Exam: EOMI, Normal appearance, PERRL Pupil Exam: NORMAL ACCOMODATION, PERRL - ENT Exam ENT Exam: Mucous Membranes Moist, Normal Exam - Neck Exam Neck Exam: Full ROM, Normal Inspection. absent: Lymphadenopathy - Respiratory Exam Respiratory Exam: Clear to Ausculation Bilateral, NORMAL BREATHING PATTERN - Cardiovascular Exam Cardiovascular Exam: REGULAR RHYTHM, +S1, +S2. absent: Murmur - GI/Abdominal Exam GI & Abdominal Exam: Soft, Normal Bowel Sounds. absent: Tenderness - Extremities Exam Extremities Exam: Full ROM, Normal Capillary Refill, Normal Inspection. absent : Joint Swelling, Pedal Edema - Back Exam Back Exam: NORMAL INSPECTION - Neurological Exam Neurological Exam: Alert, Awake, CN II-XII Intact, Normal Gait, Oriented x3 - Psychiatric Exam Psychiatric exam: Normal Affect, Normal Mood - Skin Skin Exam: Dry, Intact, Normal Color, Warm Assessment and Plan - Assessment and Plan (Free Text) Assessment: Assessment and Plan Patient is a 76 year old female with past medical history of COPD, Pulmonary sarcoidosis, CVAx2 1996, 2013, history of multiple hospitalizations for pneumonia in recent past, spinal stenosis, and DM2 who presents with shortness of breath from service attendant office. Possible Severe Urosepsis - Patient has tachycardia and leukocytosis with an elevated lactate, but apparently leukocytosis is chronic for her - Solumedrol, Levaquin - Procal negative - Blood cultures: negative; Urine cultures: Proteus, sensitive to Cipro - PT Eval appreciated: Patient will benefit from PT while here, has impaired gait and decreased endurance with functional activities Patient will need further PT before discharge Infection of Nares (MRSA) - Bactroban - Isolation precautions Dyspnea, likely 2/2 COPD Exacerbation - Most likely not Pneumonia - Solumedrol tapered to 20 q12 - Azithro and Rocephin - Duoneb HTN - Norvasc UTI - Levaquin - Replenish electrolytes as needed Diabetes Mellitus type 2 Januvia: 50 bid Metformin: 500 bid For coverage, will start on RISS - low Hx of CVA - Aspirin - Atorvastatin Hx of neuropathy - Gabapentin Hx of COPD - Duoneb Q2prn Q6 reggie - no wheezing, will reassess - O2 NC 2L Hx of Insomnia - Ambien HS [facility] Anxiety - Lorazepam TID PRN GI DVT ppx - Lovenox - Protonix Dispo: Patient will need further PT before discharge. Will discuss PT services at home with SW tomorrow.
[2018-03-01 21:56] VITALS: RESP 20
[2018-03-01] MEDS ORDERED: MethylPREDNISolone 40 mg Vial IVP SCH (22:00)
[2018-03-02] MEDS: Albuterol-Ipratrop 3 mg / 0.5 (3 ml) UD IH SCH ×5 (01:50→15:44)
[2018-03-02] MEDS: Pantoprazole 40 mg EC Tab PO SCH (05:47)
[2018-03-02] MEDS: Budesonide 0.5 mg/2 ml Inhal Susp UD IH SCH (07:39)
[2018-03-02] MEDS ORDERED: MethylPREDNISolone 40 mg Vial IVP SCH (07:53)
[2018-03-02] MEDS: Insulin Reg-LOW-Coverage SC SCH ×3 (08:12→16:30)
--- NOTE | 2018-03-02 08:46 | PN ---
DATE: 03/02/2018 PULMONARY NOTE SUBJECTIVE: The patient appears comfortable this morning. She is not short of breath at rest. PHYSICAL EXAMINATION: VITAL SIGNS: Last temperature recorded is 97.2, pulse this morning is approximately 88, respiratory rate 18, blood pressure 129/70. Oxygen saturation on nasal cannula is 95-96%. HEENT: Normocephalic, atraumatic. No JVD. CARDIOVASCULAR: Systolic ejection murmur at the lower left sternal border. No S3 gallop. LUNGS: Chronic crackles at both bases. Much less rhonchi. No wheezing. EXTREMITIES: Mild edema. No cyanosis. No clubbing. Calves are nontender to palpation. GI: Abdomen is soft, nontender and nondistended. Bowel sounds are positive. SKIN: No acute rash. NEUROLOGIC: Limited at the present time. IMPRESSION: 1. Recurrent bronchitis. 2. Advanced chronic obstructive pulmonary disease. 3. 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 4. Hypoxemia - resolving. 5. Diabetes mellitus. PLAN: The patient appears comfortable this morning. She is not short of breath at rest. She does state to feeling much, much better overall. On physical exam, her bronchospasm continues to resolve. In addition, the alveolar arterial gradient also continues to resolve. I will continue with the current nebulizer treatments and low-dose intravenous steroids (decreased yesterday) for now. The patient remains on antibiotic therapy. There are no temperatures noted. There is a leukocytosis - which is at least partly due to the steroids. The clinical status of this patient is significantly improved - compared to the initial presentation. However, her future status/prognosis remains very guarded at best/poor. I will discuss the above with the attending physician. Meet Alcaraz MD ADÁN
[2018-03-02] MEDS: Aspirin 325 mg EC Tablets PO SCH (10:07)
[2018-03-02] MEDS: levoFLOXacin 500 mg in D5W 500 MG/100 ML BAG IVPB SCH (10:09)
--- NOTE | 2018-03-02 13:18 | PQF SEPSIS ---
This form is a permanent part of the medical record Dr. Pinedo/Dr. Eid, This query is addressed to you as co-signer of Progress Notes by Dr. Eid on 02/28/18: Please clarify use of the term "urosepsis" to indicate systemic infection ( sepsis) vs localized UTI. Clarification of your documentation is requested to better reflect the severity of illness and intensity of treatment of your patient. Indicators present [] Temp < 96.8 or > 100.4 [x] WBC count > 12,000/mm3 or <000/mm3 or 10% immature neutrophils [x] Heart Rate > 90 [x] Respiratory Rate > 20 [] Fever or hypothermia [] Chills [] Positive blood cultures [] Hypotension [] Metabolic acidosis (Elevated lactate level, anion gap or reduced blood pH) [] Acute confusion /Altered Mental Status [] Shock [] Other: [] Location in the medical record that reflects the above clinical findings: [] Treatment Provided: [] PHYSICIAN'S RESPONSE Based on your medical judgment of the clinical indicators outlined above, are you treating this patient for a known or suspected: [X] Sepsis / Septicemia Please specify organism if known [] [] SIRS (Systemic Inflammatory Response Syndrome) [] Severe Sepsis (Sepsis with Associated Organ Dysfunction) [] Fever of Unknown Origin [] Other, please indicate: [] [] If Unable to Determine, please check the box, sign and date. Present On Admission (POA) Indicator: [X] Present at the time of admission [] Not present at the time of admission [] Clinically Undetermined In response to the inquiry - Patient was admitted with leukocytosis, tachycardia , tachypnea, hypoxia, elevated lactate, positive urine culture. Even without the leukocytosis, the patient still had two sirs criteria with a UTI (source of infection), which met the criteria of sepsis. She further had an elevated lactate which met the criteria of severe sepsis. She also had a code sepsis called in the ER. Therefore, this patient was treated as having severe sepsis secondary to a UTI. In responding to this query, please exercise your independent professional judgment. The fact that a question is asked does not imply that any particular answer is desired or expected. Thank you for your clarification on this documentation. If you have any questions please call:[ ] * Thank you, [ ]Ulysses Ruiz CDS #[id number] editor book ADÁN
[2018-03-02] MEDS: Insulin Reg-HIGH-Coverage SC SCH (14:26)
--- NOTE | 2018-03-02 14:33 | CP.PCM.DIS ---
<Matthew Eid - Last Filed: 03/02/18 18:32> Provider - Provider Date of Admission: 02/26/18 17:53 Attending physician: Ha Sterling MD Primary care physician: Omer Walker MD Time Spent in preparation of Discharge (in minutes): 45 Hospital Course - Lab Results Lab Results: Micro Results 02/27/18 02:40 Naris MRSA Culture (Admit) - Final MRSA DETECTED Most Recent Lab Values WBC 21.2 10^3/ul (4.5-11.0) H 03/01/18 07:00 RBC 4.74 10^6/uL (3.5-6.1) 03/01/18 07:00 Hgb 12.9 g/dL (12.0-16.0) 03/01/18 07:00 Hct 40.3 % (36.0-48.0) 03/01/18 07:00 MCV 85.0 fl (80.0-105.0) 03/01/18 07:00 MCH 27.2 pg (25.0-35.0) 03/01/18 07:00 MCHC 32.0 g/dl (31.0-37.0) 03/01/18 07:00 RDW 17.5 % (11.5-14.5) H 03/01/18 07:00 Plt Count 371 10^3/uL (120.0-450.0) 03/01/18 07:00 MPV 10.3 fl (7.0-11.0) 03/01/18 07:00 Gran % 72.3 % (50.0-68.0) H 02/26/18 15:48 Lymph % (Auto) 18.3 % (22.0-35.0) L 02/26/18 15:48 [place] % (Auto) 6.7 % (1.0-6.0) H 02/26/18 15:48 Eos % (Auto) 2.3 % (1.5-5.0) 02/26/18 15:48 Baso % (Auto) 0.4 % (0.0-3.0) 02/26/18 15:48 Gran # 10.19 (1.4-6.5) H 02/26/18 15:48 Lymph # (Auto) 2.6 (1.2-3.4) 02/26/18 15:48 [place] # (Auto) 0.9 (0.1-0.6) H 02/26/18 15:48 Eos # (Auto) 0.3 (0.0-0.7) 02/26/18 15:48 Baso # (Auto) 0.05 K/mm3 (0.0-2.0) 02/26/18 15:48 PT 11.5 SECONDS (9.4-12.5) 02/26/18 15:48 INR 1.01 (0.93-1.08) 02/26/18 15:48 APTT 31.6 Seconds (25.1-36.5) 02/26/18 15:48 pCO2 27 mm/Hg (35-45) L 02/27/18 04:44 pO2 61.0 mm/Hg (80-100) L 02/27/18 04:44 HCO3 22.6 mmol/L (21-28) 02/27/18 04:44 ABG pH 7.53 (7.35-7.45) H 02/27/18 04:44 ABG Total CO2 23.4 mmol.L (22-28) 02/27/18 04:44 ABG O2 Saturation 95.2 % (95-98) 02/27/18 04:44 ABG O2 Content 15.8 ML/dl (15-23) 02/27/18 04:44 ABG Base Excess 0.9 mmol/L (-2.0-3.0) 02/27/18 04:44 ABG Hemoglobin 12.1 g/dL (11.7-17.4) 02/27/18 04:44 ABG Carboxyhemoglobin 1.9 % (0.5-1.5) H 02/27/18 04:44 POC ABG HHb (Measured) 4.7 % (0-5) 02/27/18 04:44 ABG Methemoglobin 0.8 % (0.0-3.0) 02/27/18 04:44 ABG O2 Capacity 16.6 mL/dl (16-24) 02/27/18 04:44 ABG Potassium 4.0 mmol/L (3.6-5.2) 02/26/18 16:05 VBG pH 7.42 (7.32-7.43) 02/26/18 19:25 VBG pCO2 36.0 (40-60) L 02/26/18 19:25 VBG HCO3 23.4 mmol/l (21-28) 02/26/18 19:25 VBG Total CO2 24.5 mmol.L (22-28) 02/26/18 19:25 VBG O2 Sat (Calc) 99.7 % (40-65) H 02/26/18 19:25 VBG Base Excess -0.7 mmol/L (0.0-2.0) L 02/26/18 19:25 VBG Potassium 4.0 mmol/L (3.6-5.2) 02/26/18 19:25 Hgb O2 Saturation 92.6 % (95.0-98.0) L 02/27/18 04:44 Sodium 140.0 mmol/L (132-148) 02/26/18 19:25 Chloride 104.0 mmol/L (98-107) 02/26/18 19:25 Glucose 256 mg/dl (65-105) H 02/26/18 19:25 Lactate 2.9 mmol/L (0.7-2.1) H 02/26/18 19:25 FiO2 40.0 % 02/27/18 04:44 Sodium 142 mmol/L (132-148) 03/01/18 07:00 Potassium 4.3 mmol/L (3.6-5.0) 03/01/18 07:00 Chloride 106 mmol/L (98-107) 03/01/18 07:00 Carbon Dioxide 23 mmol/L (21-33) 03/01/18 07:00 Anion Gap 18 (10-20) 03/01/18 07:00 BUN 29 mg/dL (7-21) H 03/01/18 07:00 Creatinine 0.8 mg/dl (0.7-1.2) 03/01/18 07:00 Est GFR ( Amer) > 60 03/01/18 07:00 Est GFR (Non-Af Amer) > 60 03/01/18 07:00 POC Glucose (mg/dL) 281 mg/dL (65-110) H 03/02/18 11:27 Random Glucose 307 mg/dL (70-110) H* 03/01/18 07:00 Calcium 9.5 mg/dL (8.4-10.5) 03/01/18 07:00 Phosphorus 3.2 mg/dL (2.5-4.5) 02/26/18 15:48 Magnesium 1.8 mg/dL (1.7-2.2) 02/26/18 15:48 Total Bilirubin 0.3 mg/dL (0.2-1.3) 03/01/18 07:00 AST 26 U/L (14-36) 03/01/18 07:00 ALT 34 U/L (7-56) 03/01/18 07:00 Alkaline Phosphatase 159 U/L (38-126) H 03/01/18 07:00 Lactate Dehydrogenase 506 U/L (333-699) 02/26/18 15:48 Total Creatine Kinase 84 U/L (35-230) 02/26/18 15:48 Troponin I < 0.01 ng/mL 02/26/18 15:48 NT-Pro-B Natriuret Pep 110 pg/mL (0-450) 02/26/18 15:48 Total Protein 7.2 g/dL (5.8-8.3) 03/01/18 07:00 Albumin 3.8 g/dL (3.0-4.8) 03/01/18 07:00 Globulin 3.4 gm/dL 03/01/18 07:00 Albumin/Globulin Ratio 1.1 (1.1-1.8) 03/01/18 07:00 Procalcitonin < 0.05 NG/ML (0.19-0.49) L 02/26/18 15:18 Arterial Blood Potassium 4.0 mmol/L (3.6-5.2) 02/26/18 16:05 Venous Blood Potassium 4.0 mmol/L (3.6-5.2) 02/26/18 19:25 Urine Color Light yellow (YELLOW) 02/26/18 16:30 Urine Appearance Sl cloudy (CLEAR) 02/26/18 16:30 Urine pH 7.5 (4.7-8.0) 02/26/18 16:30 Ur Specific [place] 1.015 (1.005-1.035) 02/26/18 16:30 Urine Protein 30 mg/dL (<30 mg/dL) H 02/26/18 16:30 Urine Glucose (UA) Negative mg/dL (NEGATIVE) 02/26/18 16:30 Urine Ketones Negative mg/dL (NEGATIVE) 02/26/18 16:30 Urine Blood Trace-intact (NEGATIVE) H 02/26/18 16:30 Urine Nitrate Negative (NEGATIVE) 02/26/18 16:30 Urine Bilirubin Negative (NEGATIVE) 02/26/18 16:30 Urine Urobilinogen 0.2 E.U./dL (<1 E.U./dL) 02/26/18 16:30 Ur Leukocyte Esterase Large Janes/uL (NEGATIVE) H 02/26/18 16:30 Urine RBC 0 - 2 /hpf (0-2) 02/26/18 16:30 Urine WBC 20 - 25 /hpf (0-6) 02/26/18 16:30 Ur Epithelial Cells 0 - 2 /hpf (0-5) 02/26/18 16:30 Urine Bacteria Few (NEG) 02/26/18 16:30 Influenza Typ A,B (EIA) Negative for flu a/b (NEGATIVE) 02/26/18 16:02 - Hospital Course Hospital Course: 77 year old female with past medical history of CVA, PNA, DM2, Pulmonary sarcoidosis, depression, anxiety, neuropathy, spinal stenosis, arthritis, dementia presents to the hospital for shortness of breath. Patient is accompanied by her brother at bedside who provides medical history. Patient is a poor historian due to severe dementia. Patient began having increased cough and congestion over the last 2 weeks. Patient had minimal sputum production. Patient also had intermittent, nonradiating chest pain during this time. Patient went to her driller's offsider, Dr. Guevara, and and he advised her to come to the hospital for further medical care. Patient denies current chest pain , nausea, vomiting, diarrhea, fever, syncope, dysuria. Throughout her course in the hospital, patient was started on steroids and prophylactically on azithro/rocephin initially, then put on just levaquin for her UTI. Patient was slowly tapered off steroids. 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 Upon discharge, patient was provided home with PT services and was discharged on a tapering dose of steroids, bactroban, and Vantin. Discharge Exam - Head Exam Head Exam: ATRAUMATIC, NORMAL INSPECTION, NORMOCEPHALIC - Eye Exam Eye Exam: EOMI, Normal appearance, PERRL Pupil Exam: NORMAL ACCOMODATION, PERRL - Respiratory Exam Respiratory Exam: Clear to PA & Lateral, NORMAL BREATHING PATTERN, UNREMARKABLE - Cardiovascular Exam Cardiovascular Exam: REGULAR RHYTHM - GI/Abdominal Exam GI & Abdominal Exam: Normal Bowel Sounds - Neurological Exam Neurological exam: Alert, CN II-XII Intact, Normal Gait, Oriented x3, Reflexes Normal - Psychiatric Exam Psychiatric exam: Normal Affect, Normal Mood - Skin Skin Exam: Dry, Intact, Normal Color, Warm Discharge Plan - Discharge Medications Prescriptions: Cefpodoxime [Vantin] 100 mg PO BID #20 tab predniSONE [Prednisone] 10 mg PO DAILY #3 tab predniSONE [Prednisone] 20 mg PO DAILY #3 tab - Follow Up Plan Condition: SERIOUS Disposition: HOME/ ROUTINE Instructions: Sepsis in Adults, Methicillin-Resistant Staphylococcus aureus ( MRSA), Exacerbation of COPD (DC), Urinary Tract Infection in Women (DC), Leukocytosis (DC), Dysuria (GEN) Additional Instructions: Please take your medications as prescribed: you will take 20 mg of the steroids by mouth today, tomorrow, and the day after; you will then take the 10 mg tablets for three days starting on 03/05/2018, with the last dose being on 03/07/18 If your symptoms persist please return to the ED [facility] Please follow up with your primary care doctor, Dr. Walker Referrals: Omer Walker MD [Primary Care Provider] - <Ha Sterling - Last Filed: 03/03/18 07:42> Provider - Provider Date of Admission: 02/26/18 17:53 Attending physician: Ha Sterling MD Primary care physician: Omer Walker MD Hospital Course - Lab Results Lab Results: Micro Results 02/27/18 02:40 Naris MRSA Culture (Admit) - Final MRSA DETECTED Most Recent Lab Values WBC 21.2 10^3/ul (4.5-11.0) H 03/01/18 07:00 RBC 4.74 10^6/uL (3.5-6.1) 03/01/18 07:00 Hgb 12.9 g/dL (12.0-16.0) 03/01/18 07:00 Hct 40.3 % (36.0-48.0) 03/01/18 07:00 MCV 85.0 fl (80.0-105.0) 03/01/18 07:00 MCH 27.2 pg (25.0-35.0) 03/01/18 07:00 MCHC 32.0 g/dl (31.0-37.0) 03/01/18 07:00 RDW 17.5 % (11.5-14.5) H 03/01/18 07:00 Plt Count 371 10^3/uL (120.0-450.0) 03/01/18 07:00 MPV 10.3 fl (7.0-11.0) 03/01/18 07:00 Gran % 72.3 % (50.0-68.0) H 02/26/18 15:48 Lymph % (Auto) 18.3 % (22.0-35.0) L 02/26/18 15:48 [place] % (Auto) 6.7 % (1.0-6.0) H 02/26/18 15:48 Eos % (Auto) 2.3 % (1.5-5.0) 02/26/18 15:48 Baso % (Auto) 0.4 % (0.0-3.0) 02/26/18 15:48 Gran # 10.19 (1.4-6.5) H 02/26/18 15:48 Lymph # (Auto) 2.6 (1.2-3.4) 02/26/18 15:48 [place] # (Auto) 0.9 (0.1-0.6) H 02/26/18 15:48 Eos # (Auto) 0.3 (0.0-0.7) 02/26/18 15:48 Baso # (Auto) 0.05 K/mm3 (0.0-2.0) 02/26/18 15:48 PT 11.5 SECONDS (9.4-12.5) 02/26/18 15:48 INR 1.01 (0.93-1.08) 02/26/18 15:48 APTT 31.6 Seconds (25.1-36.5) 02/26/18 15:48 pCO2 27 mm/Hg (35-45) L 02/27/18 04:44 pO2 61.0 mm/Hg (80-100) L 02/27/18 04:44 HCO3 22.6 mmol/L (21-28) 02/27/18 04:44 ABG pH 7.53 (7.35-7.45) H 02/27/18 04:44 ABG Total CO2 23.4 mmol.L (22-28) 02/27/18 04:44 ABG O2 Saturation 95.2 % (95-98) 02/27/18 04:44 ABG O2 Content 15.8 ML/dl (15-23) 02/27/18 04:44 ABG Base Excess 0.9 mmol/L (-2.0-3.0) 02/27/18 04:44 ABG Hemoglobin 12.1 g/dL (11.7-17.4) 02/27/18 04:44 ABG Carboxyhemoglobin 1.9 % (0.5-1.5) H 02/27/18 04:44 POC ABG HHb (Measured) 4.7 % (0-5) 02/27/18 04:44 ABG Methemoglobin 0.8 % (0.0-3.0) 02/27/18 04:44 ABG O2 Capacity 16.6 mL/dl (16-24) 02/27/18 04:44 ABG Potassium 4.0 mmol/L (3.6-5.2) 02/26/18 16:05 VBG pH 7.42 (7.32-7.43) 02/26/18 19:25 VBG pCO2 36.0 (40-60) L 02/26/18 19:25 VBG HCO3 23.4 mmol/l (21-28) 02/26/18 19:25 VBG Total CO2 24.5 mmol.L (22-28) 02/26/18 19:25 VBG O2 Sat (Calc) 99.7 % (40-65) H 02/26/18 19:25 VBG Base Excess -0.7 mmol/L (0.0-2.0) L 02/26/18 19:25 VBG Potassium 4.0 mmol/L (3.6-5.2) 02/26/18 19:25 Hgb O2 Saturation 92.6 % (95.0-98.0) L 02/27/18 04:44 Sodium 140.0 mmol/L (132-148) 02/26/18 19:25 Chloride 104.0 mmol/L (98-107) 02/26/18 19:25 Glucose 256 mg/dl (65-105) H 02/26/18 19:25 Lactate 2.9 mmol/L (0.7-2.1) H 02/26/18 19:25 FiO2 40.0 % 02/27/18 04:44 Sodium 142 mmol/L (132-148) 03/01/18 07:00 Potassium 4.3 mmol/L (3.6-5.0) 03/01/18 07:00 Chloride 106 mmol/L (98-107) 03/01/18 07:00 Carbon Dioxide 23 mmol/L (21-33) 03/01/18 07:00 Anion Gap 18 (10-20) 03/01/18 07:00 BUN 29 mg/dL (7-21) H 03/01/18 07:00 Creatinine 0.8 mg/dl (0.7-1.2) 03/01/18 07:00 Est GFR ( Amer) > 60 03/01/18 07:00 Est GFR (Non-Af Amer) > 60 03/01/18 07:00 POC Glucose (mg/dL) 101 mg/dL (65-110) 03/02/18 16:28 Random Glucose 307 mg/dL (70-110) H* 03/01/18 07:00 Calcium 9.5 mg/dL (8.4-10.5) 03/01/18 07:00 Phosphorus 3.2 mg/dL (2.5-4.5) 02/26/18 15:48 Magnesium 1.8 mg/dL (1.7-2.2) 02/26/18 15:48 Total Bilirubin 0.3 mg/dL (0.2-1.3) 03/01/18 07:00 AST 26 U/L (14-36) 03/01/18 07:00 ALT 34 U/L (7-56) 03/01/18 07:00 Alkaline Phosphatase 159 U/L (38-126) H 03/01/18 07:00 Lactate Dehydrogenase 506 U/L (333-699) 03/29/18 15:48 Total Creatine Kinase 84 U/L (35-230) 02/26/18 15:48 Troponin I < 0.01 ng/mL 02/26/18 15:48 NT-Pro-B Natriuret Pep 110 pg/mL (0-450) 02/26/18 15:48 Total Protein 7.2 g/dL (5.8-8.3) 03/01/18 07:00 Albumin 3.8 g/dL (3.0-4.8) 03/01/18 07:00 Globulin 3.4 gm/dL 03/01/18 07:00 Albumin/Globulin Ratio 1.1 (1.1-1.8) 03/01/18 07:00 Procalcitonin < 0.05 NG/ML (0.19-0.49) L 02/26/18 15:18 Arterial Blood Potassium 4.0 mmol/L (3.6-5.2) 02/26/18 16:05 Venous Blood Potassium 4.0 mmol/L (3.6-5.2) 02/26/18 19:25 Urine Color Light yellow (YELLOW) 02/26/18 16:30 Urine Appearance Sl cloudy (CLEAR) 02/26/18 16:30 Urine pH 7.5 (4.7-8.0) 02/26/18 16:30 Ur Specific [place] 1.015 (1.005-1.035) 02/26/18 16:30 Urine Protein 30 mg/dL (<30 mg/dL) H 02/26/18 16:30 Urine Glucose (UA) Negative mg/dL (NEGATIVE) 02/26/18 16:30 Urine Ketones Negative mg/dL (NEGATIVE) 02/26/18 16:30 Urine Blood Trace-intact (NEGATIVE) H 02/26/18 16:30 Urine Nitrate Negative (NEGATIVE) 02/26/18 16:30 Urine Bilirubin Negative (NEGATIVE) 02/26/18 16:30 Urine Urobilinogen 0.2 E.U./dL (<1 E.U./dL) 02/26/18 16:30 Ur Leukocyte Esterase Large Janes/uL (NEGATIVE) H 02/26/18 16:30 Urine RBC 0 - 2 /hpf (0-2) 02/26/18 16:30 Urine WBC 20 - 25 /hpf (0-6) 02/26/18 16:30 Ur Epithelial Cells 0 - 2 /hpf (0-5) 02/26/18 16:30 Urine Bacteria Few (NEG) 02/26/18 16:30 Influenza Typ A,B (EIA) Negative for flu a/b (NEGATIVE) 02/26/18 16:02 Attending/Attestation - Attestation I have personally seen and examined this patient.: Yes I have fully participated in the care of the patient.: Yes I have reviewed all pertinent clinical information, including history, physical exam and plan: Yes Notes (Text): 03/03/18 07:36 Attending note; Patient seen and examined with resident. Patient is a 76 year old female with past medical history of COPD, Pulmonary sarcoidosis, CVA, history of multiple hospitalizations for pneumonia in recent past, spinal stenosis, and DM2 who was sent from pulmonologists office for evaluation of dyspnea due to COPD exacerbation. She feels much better today. Treated with solumedrol taper, duonebs and antibiotics. Patient is on home oxygen . Patient has 24 hour care . Proteus UTI ; treated with IV levofloxacin. Blood cultures are negative. Patient needs assistance at home with ADLs and IADL's. She walks at home with walker. PT evaluation appreciated. Home services arranged. Patient was cleared by pulmonology for discharge. Patient is DNR/ DNI. Upon discharge patient will follow up with Dr Keenan and pulmonary . Diagnosis; COPD exacerbation Pulmonary sarcoidosis Oxygen dependent History of CVA UTI
[2018-03-02 16:33] VITALS: BP 159/86; PULSE 93; TEMP 98; O2SAT 98
== END 2018-03-02 17:34 | disposition home health service (06) | DRG 872 ==
LOC: ED 14:58 → ERH 17:53 → ICU 23:32 → 2RNO 02-27 03:26 → 5RSO 02-28 09:00
PROVIDERS: ADMIT Hospitalist; ATTEND Internal Medicine
DX: A41.9 Sepsis, unspecified organism (principal); J44.1 Chronic obstructive pulmonary disease with (acute) exacerbation; N39.0 Urinary tract infection, site not specified; R65.20 Severe sepsis without septic shock; F41.9 Anxiety disorder, unspecified; G47.00 Insomnia, unspecified; D86.0 Sarcoidosis of lung; M48.00 Spinal stenosis, site unspecified; J84.10 Pulmonary fibrosis, unspecified; Z66 Do not resuscitate; R09.02 Hypoxemia; B96.4 Proteus (mirabilis) (morganii) as the cause of diseases classified elsewhere; I11.0 Hypertensive heart disease with heart failure; I50.9 Heart failure, unspecified; E11.40 Type 2 diabetes mellitus with diabetic neuropathy, unspecified; F03.90 Unspecified dementia, unspecified severity, without behavioral disturbance, psychotic disturbance, mood disturbance, and anxiety; E11.51 Type 2 diabetes mellitus with diabetic peripheral angiopathy without gangrene; H35.30 Unspecified macular degeneration; Z87.01 Personal history of pneumonia (recurrent); Z99.81 Dependence on supplemental oxygen; Z87.891 Personal history of nicotine dependence; Z79.84 Long term (current) use of oral hypoglycemic drugs; Z86.73 Personal history of transient ischemic attack (TIA), and cerebral infarction without residual deficits; Z22.322 Carrier or suspected carrier of Methicillin resistant Staphylococcus aureus

== ENCOUNTER 2018-03-05 11:43 | Emergency (ER) | payer MEDICARE, BC ==
[2018-03-05 11:44] VITALS: BMI 25.7
[2018-03-05 12:00] VITALS: RESP 18; TEMP 98.2
[2018-03-05] MEDS ORDERED: Albuterol-Ipratrop 3 mg / 0.5 (3 ml) UD IH STA (12:29)
--- NOTE | 2018-03-05 12:39 | ED PDOC ---
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 Patient was recently discharged from hospital after treatment for UTI. Patient's family member reports patient's shortness of breath is baseline, however according to viscosity inspector it was worse last night than usual. Patient normally takes 3 L of O2 23/06, oxygen level 95 at baseline. Here in the ER, patient's level is now 91 with 2 L of O2. Patient notes feeling mucous build up in nostrils and also experiencing sore throat. Also, viscosity inspector mentions patient was not eating yesterday and witnessed patient experiencing weakness and difficulty ambulating last night. Patient denies any fever, diarrhea, dysuria, hematuria, or any other complaints at this time. PMD: Dr. Walker Pulmonolgist: Dr. Conklin Past Medical History - Provider Review Nursing Documentation Reviewed: Yes - Infectious Disease Hx of Infectious Diseases: None - Cardiac Hx Cardiac Disorders: Yes Hx Congestive Heart Failure: Yes Hx Hypertension: Yes Hx Peripheral Vascular Disease: Yes - Pulmonary Hx Respiratory Disorders: Yes (sarcoidosis, pulmonary fibrosis, home o2) Hx Chronic Obstructive Pulmonary Disease (COPD): Yes Hx Pneumonia: Yes - Neurological Hx Neurological Disorder: Yes HX Cerebrovascular Accident: Yes - HEENT Hx HEENT Disorder: Yes Hx Deafness: Yes ([place]) Hx Macular Degeneration: Yes - Renal Hx Renal Disorder: No - Endocrine/Metabolic Hx Endocrine Disorders: Yes Hx Diabetes Mellitus Type 2: Yes - Hematological/Oncological Hx Blood Disorders: No - Integumentary Hx Dermatological Disorder: Yes Hx Basal Cell Carcinoma: Yes Other/Comment: SARCOIDOSIS - Musculoskeletal/Rheumatological Hx Arthritis: Yes Hx Falls: Yes Hx Herniated Disk: Yes (L4 L5 S1) Hx Osteoarthritis: Yes Hx Osteoporosis: Yes Hx Rhabdomyolysis: Yes Hx Unsteady Gait: (cane when out) - Gastrointestinal Hx Gastrointestinal Disorders: Yes Hx Gastroesophageal Reflux: Yes - Genitourinary/Gynecological Hx Genitourinary Disorders: Yes (HYSTERECTOMY) Hx Incontinence: Yes Other/Comment: vaginal rectal fistula repair - Psychiatric Hx Psychophysiologic Disorder: Yes Hx Anxiety: Yes Hx Depression: Yes Hx Substance Use: No - Surgical History Hx Hysterectomy: Yes - Anesthesia Hx Anesthesia: Yes Hx Anesthesia Reactions: No Hx Malignant Hyperthermia: No - Suicidal Assessment Feels Threatened In Home Enviroment: No Family/Social History - Physician Review Nursing Documentation Reviewed: Yes Family/Social History: No Known Family HX Smoking Status: Former Smoker Hx Alcohol Use: No Hx Substance Use: No Hx Substance Use Treatment: No Allergies/Home Meds Allergies/Adverse Reactions: Allergies No Known Allergies Allergy (Verified 03/05/18 11:51) Home Medications: Home Meds Medication Instructions Recorded Confirmed Mirtazapine [Remeron] 30 mg PO HS 04/10/16 03/05/18 Zolpidem [Ambien] 10 mg PO HS 04/10/16 03/05/18 Gabapentin [Neurontin] 300 mg PO BID 08/21/16 03/05/18 Sitagliptin Phos/Metformin HCl 1 mg PO BID 08/21/16 03/05/18 [Janumet 50-500 mg Tablet] Albuterol HFA [Ventolin HFA 90 2 puff NEB Q4 PRN 01/05/17 03/05/18 mcg/actuation (8 g)] Aspirin [Aspirin EC] 325 mg PO DAILY 01/05/17 03/05/18 Acetaminophen [Tylenol 325mg tab] 325 mg PO QID PRN 07/02/17 03/05/18 Fluticasone/Salmeterol 250/50 1 puff IH Q12 07/02/17 03/05/18 [Advair Diskus 250/50] LORazepam [Ativan] 1 mg PO TID 07/02/17 03/05/18 [place]-3/Dha/Epa/Fish Oil [Fish Oil 500 mg PO BID 07/02/17 03/05/18 500 mg Softgel] traMADol [Ultram] 50 mg PO DAILY 07/02/17 03/05/18 Review of Systems - Physician Review All systems were reviewed & negative as marked: Yes - Review of Systems Constitutional: Other (weakness). absent: Fevers ENT: Sore Throat Respiratory: SOB (baseline however last night was worse than usual) Gastrointestinal: absent: Diarrhea Genitourinary Female: absent: Dysuria, Hematuria Physical Exam Vital Signs Reviewed: Yes Vital Signs Temp Pulse Resp BP Pulse Ox 03/05/18 13:07 86 18 121/68 98 03/05/18 12:29 20 03/05/18 11:52 98.2 F 97 H 18 119/66 94 L Temperature: Afebrile Blood Pressure: Normal Pulse: Regular Respiratory Rate: Normal Appearance: Positive for: Well-Appearing Pain Distress: None Mental Status: Positive for: Alert and Oriented X 3 - Systems Exam Head: Present: Atraumatic, Normocephalic Pupils: Present: PERRL Extroacular Muscles: Present: EOMI Conjunctiva: Present: Normal Ears: Present: Normal, NORMAL TM Mouth: Present: Moist Mucous Membranes Pharnyx: Present: Normal. No: ERYTHEMA, EXUDATE Nose (External): Present: Atraumatic Nose (Internal): Present: Normal Inspection, Moist Neck: Present: Normal Range of Motion. No: JVD Respiratory/Chest: Present: Clear to Auscultation, Accessory Muscle Use, Retracting. No: Good Air Exchange, Respiratory Distress, Wheezes, Decreased Breath Sounds, Rales, Rhonchi Cardiovascular: Present: Regular Rate and Rhythm, Normal S1, S2. No: Murmurs Abdomen: No: Tenderness, Distention, Peritoneal Signs Back: Present: Normal Inspection Upper Extremity: Present: Normal Inspection. No: Cyanosis, Edema Lower Extremity: Present: Normal Inspection. No: Edema Neurological: Present: GCS=15, CN II-XII Intact, Speech Normal Skin: Present: Warm, Dry, Normal Color. No: Rashes Psychiatric: Present: Alert, Oriented x 3, Normal Insight, Normal Concentration Medical Decision Making ED Course and Treatment: 03/05/18 12:29 Impression: 77 year old female with shortness of breath r/o COPD exacerbation r/ o PNA Plan: -- EKG -- Chest X-ray -- Labs -- Duoneb -- SOLU-Medrol -- Blood Culture -- Urine Culture -- Venous Blood Gas -- Urinalysis -- Nasal Cannula O2 -- Reassess and disposition Prior Visits: Notes and results from previous visits were reviewed. Patient was last seen in the emergency department on 02/26/2018 for cough and worsening shortness of breath. Patient was admitted. Progress Notes: 03/05/2018 13:19 Chest X-ray IMPRESSION: Chronic perihilar infiltrates. Dictator: Kali Weber MD 03/05/18 14:58 Lab and Chest X-ray results discussed with patient, , and viscosity inspector. CXR unchanged from previous. WBC elevated at same level as several lab results previously. Patient's lungs are clear, patient is still tachypneic but breathing is patient's baseline as per pt, and viscosity inspector. O2 stat is currently at 88%, which viscosity inspector and state is because patient was exercising her legs and thats when this happens but it goes right back up. Patient, , and viscosity inspector do not want to remain in hospital. States patient is still taking antibiotic Vantin, which patient will continue to take. Will return if condition worsens. Patient and state they will sign for AMA. 03/05/18 15:04 Leaving Against Medical Advice (AMA): The patient is choosing to leave against medical advice. I have personally explained to the patient that choosing to do so may result in permanent bodily harm or . I have discussed at great length that without further evaluation and monitoring there may be unforeseen circumstances and/or deterioration causing permanent bodily harm or as a result of their choice. The patient is alert, oriented, and shows the mental capacity to make clear decisions regarding the patients health care at this time. The patient continues to wish to leave against medical advice. In light of the patients decision to leave against medical advice, follow-up has been arranged and the patient is aware of the importance to following up as instructed. The patient has been advised that they should return to the emergency room immediately if they change their mind at any time, or if their condition begins to change or worsen in any way. - Lab Interpretations Lab Results: 03/05/18 12:50 03/05/18 12:50 Lab Results 03/05/18 12:50: Sodium 136, Chloride 100, Potassium 4.1, Carbon Dioxide 26, Anion Gap 14, BUN 18, Creatinine 0.7, Est GFR ( Amer) > 60, Est GFR (Non- Af Amer) > 60, Random Glucose 249 H, Calcium 9.5, Lactate Dehydrogenase 424, Total Creatine Kinase 33 L, Troponin I < 0.01, NT-Pro-B Natriuret Pep 158 03/05/18 12:50: pO2 36, VBG pH 7.38, VBG pCO2 42.0, VBG HCO3 24.8, VBG Total CO2 26.1, VBG O2 Sat (Calc) 73.9 H, VBG Base Excess -0.4 L, VBG Potassium 4.3, Sodium 135.0, Chloride 101.0, Glucose 275 H, Lactate 2.1, FiO2 21.0, Venous Blood Potassium 4.3 03/05/18 12:50: WBC 20.2 H, RBC 4.50, Hgb 12.3, Hct 38.4, MCV 85.3, MCH 27.3, MCHC 32.0, RDW 17.7 H, Plt Count 224, MPV 10.1, Gran % 85.4 H, Lymph % (Auto) 7.2 L, [place] % (Auto) 6.5 H, Eos % (Auto) 0.8 L, Baso % (Auto) 0.1, Gran # 17.23 H, Lymph # (Auto) 1.5, [place] # (Auto) 1.3 H, Eos # (Auto) 0.2, Baso # (Auto) 0.02 I have reviewed the lab results: Yes - RAD Interpretation Radiology Orders: 03/05/18 12:29 CHEST PORTABLE [RAD] Stat - Medication Orders Current Medication Orders: Discontinued Medications Albuterol/Ipratropium (Duoneb 3 Mg/0.5 Mg (3 Ml) Ud) 3 ml IH STAT STA Stop: 03/05/18 12:30 Last Admin: 03/05/18 12:30 Dose: 3 ml Methylprednisolone (Solu-Medrol) 125 mg IVP STAT STA Stop: 03/05/18 12:30 Last Admin: 03/05/18 12:50 Dose: 125 mg IVP Administration Document 03/05/18 12:50 HI (Rec: 03/05/18 13:47 HI [id number]) Charges for Administration # of IVP Administrations 1 - Scribe Statement The provider has reviewed the documentation as recorded by the Scribe Zara Bernal Provider Scribe Attestation: All medical record entries made by the Scribe were at my direction and personally dictated by me. I have reviewed the chart and agree that the record accurately reflects my personal performance of the history, physical exam, medical decision making, and the department course for this patient. I have also personally directed, reviewed, and agree with the discharge instructions and disposition. Disposition/Present on Arrival - Present on Arrival Any Indicators Present on Arrival: Yes History of DVT/PE: No History of Uncontrolled Diabetes: Yes Urinary Catheter: No History of Decub. Ulcer: No History Surgical Site Infection Following: None - Disposition Have Diagnosis and Disposition been Completed?: Yes Diagnosis: COPD (chronic obstructive pulmonary disease), Weakness Disposition: AGAINST MEDICAL ADVICE Disposition Time: 15:30 Patient Plan: Discharge Condition: IMPROVED Discharge Instructions (ExitCare): Chronic Obstructive Pulmonary Disease (COPD) , Including Emphysema, Weakness (ED) Additional Instructions: Ms Juarez, thank you for letting us take care of you today. Your provider was Dr. Dorsey. You were treated for COPD, Leukocytosis. The emergency medical care you received today was directed at your acute symptoms. If you were prescribed any medication, please fill it and take as directed. It may take several days for your symptoms to resolve. Return to the Emergency Department if your symptoms worsen, do not improve, or if you have any other problems. Please contact your doctor or call one of the physicians/clinics you have been referred to that are listed on the Patient Visit Information form that is included in your discharge packet. Bring any paperwork you were given at discharge with you along with any medications you are taking to your follow up visit. Our treatment cannot replace ongoing medical care by a primary care provider (PCP) outside of the emergency department. Thank you for allowing the [facility] team to be part of your care today. If you had an X-Ray or CT scan: A Radiologist will review the ED reading if any change in treatment is needed we will contact you. If you had a blood, urine, or wound culture: It will take several days for the results, if any change in treatment is needed we will contact you. If you had an STI test: It will take 48 hours for the results. Please call after 1 week if you have not heard back. Prescriptions: predniSONE [predniSONE Tab] 40 mg PO DAILY #8 tab Referrals: Juan Carlos Guevara MD [Staff Provider] - Follow up with primary Omer Walker MD [Staff Provider] - Follow up with primary Forms: [employer] (Macedonian)
[2018-03-05 13:08] VITALS: BP 121/68; PULSE 86; O2SAT 98
--- NOTE | 2018-03-05 13:20 | RAD ---
HISTORY: sob COMPARISON: 02/27/2018 FINDINGS: LUNGS: Chronic perihilar infiltrates PLEURA: No significant pleural effusion identified, no pneumothorax apparent. CARDIOVASCULAR: Normal. OSSEOUS STRUCTURES: No significant abnormalities. VISUALIZED UPPER ABDOMEN: Normal. OTHER FINDINGS: None. IMPRESSION: Chronic perihilar infiltrates
[2018-03-05 13:29] LABS: VENOUS BLOOD GAS BASE EXCESS -0.4 mmol/L (0.0-2.0); VENOUS BLOOD GAS PO2 36 mm/Hg (30-55); VENOUS BLOOD PH 7.38 (7.32-7.43)
[2018-03-05 13:33] LABS: BASO # 0.02 K/mm3 (0.0-2.0); BASO % 0.1 % (0.0-3.0); EOS # 0.2 (0.0-0.7); EOS % 0.8 % (1.5-5.0); GRAN # 17.23 (1.4-6.5); GRAN % 85.4 % (50.0-68.0); HEMOGLOBIN 12.3 g/dL (12.0-16.0); LYMPH # 1.5 (1.2-3.4); LYMPH % 7.2 % (22.0-35.0); MEAN CELL VOLUME 85.3 fl (80.0-105.0); MEAN CORPUSCULAR HEMOGLOBIN 27.3 pg (25.0-35.0); MEAN PLATELET VOLUME 10.1 fl (7.0-11.0); MONO # 1.3 (0.1-0.6); MONO % 6.5 % (1.0-6.0); RBC 4.5 10^6/uL (3.5-6.1); RED CELL DISTRIBUTION WIDTH 17.7 % (11.5-14.5); WHITE BLOOD COUNT 20.2 10^3/ul (4.5-11.0)
[2018-03-05 13:38] LABS: BLOOD UREA NITROGEN 18 mg/dL (7-21); CALCIUM 9.5 mg/dL (8.4-10.5); GFR AFRICAN-AMERICAN > 60; GFR NON-AFRICAN AMERICAN > 60
[2018-03-05 13:48] LABS: B-TYPE NATRIURETIC PEPTIDE 158 pg/mL (0-450); TROPONIN I < 0.01 ng/mL
--- NOTE | 2018-03-05 19:11 | CARD ---
APPROVED REPORT EKG Measurement Heart [id number] <Conclusion> Normal sinus rhythm Nonspecific ST and T wave abnormality Abnormal ECG
== END 2018-03-05 15:30 | disposition left against medical advice (07) ==
LOC: ED 11:43
DX: J44.9 Chronic obstructive pulmonary disease, unspecified (principal); R53.1 Weakness; I11.0 Hypertensive heart disease with heart failure; I50.9 Heart failure, unspecified; E11.9 Type 2 diabetes mellitus without complications; K21.9 Gastro-esophageal reflux disease without esophagitis; Z86.73 Personal history of transient ischemic attack (TIA), and cerebral infarction without residual deficits; Z87.891 Personal history of nicotine dependence
CPT/HCPCS: 71045; 80048; 82550; 82803; 83615; 83880; 84484; 85025; 87040; 93005; 94640; 96374; 99285; J2930

== ENCOUNTER 2018-08-27 11:01 | Inpatient (IN) | payer MEDICARE, BC ==
[2018-08-27] MEDS ORDERED: Albuterol-Ipratrop 3 mg / 0.5 (3 ml) UD IH STA ×2 (11:25→12:50)
--- NOTE | 2018-08-27 11:41 | ED PDOC ---
Arrival/HPI - General Time Seen by Provider: 08/27/18 11:06 Historian: Patient - History of Present Illness Narrative History of Present Illness (Text): 08/27/18 11:24 77 year old female with past medical history of CVA with residual right eye blindness, DM2, pulmonary sarcoidosis, depression, anxiety, neuropathy, spinal stenosis, arthritis, and dementia presents to the Emergency Department accompanied by brother complaining of non-productive cough, nasal congestion and transient episodes of shortness of breath since 1 week. Patient informs visiting her PMD Dr. Walker on Friday who started her on antibiotics, and had a chest X-ray performed yesterday with positive findings for increasing pneumonia. Dr. Walker subsequently referred her to the Emergency Department for further medical intervention for pneumonia. Patient states she is currently on 3L home oxygen and nebulizer treatment, however her oxygen saturation has been in the high 80%s for the past 2-3 months. Patient informs taking her nebulizer treatments with improvement to symptoms. Patient informs associated intermittent chest pain ongoing for past 2-3 months but none currently. Patient denies any fever, chills, nausea, vomiting, diarrhea, abdominal pain, leg swelling, neck pain, back pain, headache, dizziness or any other complaints. Patient informs compliance with diet and her medications. PMD: Dr. Walker Time/Duration: 1 week Symptom Onset: Gradual Symptom Course: Unchanged Activities at Onset: Light Context: Other (Referred by Dr. Walker) Past Medical History - Provider Review Nursing Documentation Reviewed: Yes - Infectious Disease Hx of Infectious Diseases: None - Cardiac Hx Cardiac Disorders: Yes Hx Congestive Heart Failure: Yes Hx Hypertension: Yes Hx Peripheral Vascular Disease: Yes - Pulmonary Hx Respiratory Disorders: Yes (sarcoidosis, pulmonary fibrosis, home o2) Hx Chronic Obstructive Pulmonary Disease (COPD): Yes Hx Pneumonia: Yes - Neurological Hx Neurological Disorder: Yes HX Cerebrovascular Accident: Yes - HEENT Hx HEENT Disorder: Yes Hx Deafness: Yes ([place]) Hx Macular Degeneration: Yes - Renal Hx Renal Disorder: No - Endocrine/Metabolic Hx Endocrine Disorders: Yes Hx Diabetes Mellitus Type 2: Yes - Hematological/Oncological Hx Blood Disorders: No - Integumentary Hx Dermatological Disorder: Yes Hx Basal Cell Carcinoma: Yes Other/Comment: SARCOIDOSIS - Musculoskeletal/Rheumatological Hx Arthritis: Yes Hx Falls: Yes Hx Herniated Disk: Yes (L4 L5 S1) Hx Osteoarthritis: Yes Hx Osteoporosis: Yes Hx Rhabdomyolysis: Yes Hx Unsteady Gait: (cane when out) - Gastrointestinal Hx Gastrointestinal Disorders: Yes Hx Gastroesophageal Reflux: Yes - Genitourinary/Gynecological Hx Genitourinary Disorders: Yes (HYSTERECTOMY) Hx Incontinence: Yes Other/Comment: vaginal rectal fistula repair - Psychiatric Hx Psychophysiologic Disorder: Yes Hx Anxiety: Yes Hx Depression: Yes Hx Substance Use: No - Surgical History Hx Hysterectomy: Yes - Anesthesia Hx Anesthesia: Yes Hx Anesthesia Reactions: No Hx Malignant Hyperthermia: No - Suicidal Assessment Feels Threatened In Home Enviroment: No Family/Social History - Physician Review Nursing Documentation Reviewed: Yes Family/Social History: No Known Family HX Smoking Status: Former Smoker Hx Alcohol Use: No Hx Substance Use: No Hx Substance Use Treatment: No Allergies/Home Meds Allergies/Adverse Reactions: Allergies No Known Allergies Allergy (Verified 08/27/18 11:24) Home Medications: Home Meds Medication Instructions Recorded Confirmed Mirtazapine [Remeron] 30 mg PO HS 04/10/16 03/05/18 Zolpidem [Ambien] 10 mg PO HS 04/10/16 03/05/18 Gabapentin [Neurontin] 300 mg PO BID 08/21/16 03/05/18 Sitagliptin Phos/Metformin HCl 1 mg PO BID 08/21/16 03/05/18 [Janumet 50-500 mg Tablet] Albuterol HFA [Ventolin HFA 90 2 puff NEB Q4 PRN 01/05/17 03/05/18 mcg/actuation (8 g)] Aspirin [Aspirin EC] 325 mg PO DAILY 01/05/17 03/05/18 Acetaminophen [Tylenol 325mg tab] 325 mg PO QID PRN 07/02/17 03/05/18 Fluticasone/Salmeterol 250/50 1 puff IH Q12 07/02/17 03/05/18 [Advair Diskus 250/50] LORazepam [Ativan] 1 mg PO TID 07/02/17 03/05/18 [place]-3/Dha/Epa/Fish Oil [Fish Oil 500 mg PO BID 07/02/17 03/05/18 500 mg Softgel] traMADol [Ultram] 50 mg PO DAILY 07/02/17 03/05/18 Review of Systems - Physician Review All systems were reviewed & negative as marked: Yes - Review of Systems Constitutional: absent: Fevers ENT: Sinus Congestion. absent: Sore Throat Respiratory: SOB, Cough Cardiovascular: absent: Chest Pain Gastrointestinal: absent: Abdominal Pain, Diarrhea, Nausea, Vomiting Musculoskeletal: absent: Back Pain, Neck Pain Neurological: absent: Headache, Dizziness Physical Exam Vital Signs Reviewed: Yes Temperature: Afebrile Blood Pressure: Normal Pulse: Regular Respiratory Rate: Normal Appearance: Positive for: Well-Appearing, Non-Toxic, Comfortable Pain Distress: None Mental Status: Positive for: Alert and Oriented X 3 - Systems Exam Head: Present: Atraumatic, Normocephalic Pupils: Present: PERRL Extroacular Muscles: Present: EOMI Conjunctiva: Present: Normal Mouth: Present: Moist Mucous Membranes Neck: Present: Normal Range of Motion Respiratory/Chest: Present: Rhonchi (bilaterally in all lung glass), Tachypneic (mild). No: Respiratory Distress, Accessory Muscle Use Cardiovascular: Present: Regular Rate and Rhythm, Normal S1, S2. No: Murmurs Abdomen: No: Tenderness, Distention, Peritoneal Signs Back: Present: Normal Inspection Upper Extremity: Present: Normal Inspection. No: Cyanosis, Edema Lower Extremity: Present: Normal Inspection. No: Edema Neurological: Present: GCS=15, CN II-XII Intact, Speech Normal Skin: Present: Warm, Dry, Normal Color. No: Rashes Psychiatric: Present: Alert, Oriented x 3, Normal Insight, Normal Concentration Medical Decision Making ED Course and Treatment: 08/27/18 11:30 Impression: 77 year old female presents to the Emergency Department for evaluation of pneumonia. Differential Diagnosis included but are not limited to: Pneumonia Plan: -- VBG -- EKG -- Labs -- Chest X-ray -- Albuterol -- Solumedrol -- Blood Culture -- UA -- Procalcitonin -- Reassess and disposition Prior Visits: Notes and results from previous visits were reviewed. Progress Notes: 08/27/18 11:40 Patient's Chest X-ray performed on 08/26/18 reviewed, showed " Progressive/worsening consolidative changes bilaterally." 08/27/18 11:59 EKG: Ordered, reviewed, and independently interpreted the EKG. Rate : 86 BPM Rhythm : NSR Interpretation : No ST-segment elevations or depressions, no T-wave inversions, normal intervals. 08/27/18 12:04 Chest X-ray reviewed by radiologist, shows: IMPRESSION: Bilateral multifocal infiltrates. Interstitial prominence may reflect infection or edema. Bilateral pleural thickening. Emphysema. Cardiomegaly. 08/27/18 12:48 CODE SEPSIS ACTIVATED. Treated with Cefepime IV. 08/27/18 13:[address] Moreno, who is aware and agrees with Emergency Department, accepts patient admission to Telemetry since patient has multiple comorbidites with oxygen saturation of 87% on 3L oxygen. Placed consult for Dr. Guevara, patient's Prize Fighter. - Critical Care Critical Care Minutes: 30 minutes - EKG Interpretation Interpreted by ED Physician: Yes Type: 12 lead EKG - Scribe Statement The provider has reviewed the documentation as recorded by the Scribe Nathan Yu. All medical record entries made by the Scribe were at my direction and personally dictated by me. I have reviewed the chart and agree that the record accurately reflects my personal performance of the history, physical exam, medical decision making, and the department course for this patient. I have also personally directed, reviewed, and agree with the discharge instructions and disposition. Disposition/Present on Arrival - Present on Arrival Any Indicators Present on Arrival: Yes History of DVT/PE: No History of Uncontrolled Diabetes: Yes Urinary Catheter: No History Surgical Site Infection Following: None - Disposition Have Diagnosis and Disposition been Completed?: Yes Diagnosis: COPD exacerbation, Pneumonia Disposition Time: 13:17 Patient Plan: Admission Condition: GUARDED Discharge Instructions (ExitCare): Pneumonia in Adults, Chronic Obstructive Pulmonary Disease (COPD), Including Emphysema Referrals: Omer Walker MD [Primary Care Provider] - Follow up with primary
--- NOTE | 2018-08-27 11:59 | RAD ---
HISTORY: Sepsis Patient COMPARISON: Chest x-ray performed 08/26/18 TECHNIQUE: Chest, one view. FINDINGS: Examination limited by habitus. The patient's chin obscures evaluation of the right lung apex. LUNGS: Bilateral multifocal infiltrates. Interstitial prominence may reflect infection or edema. Bilateral pleural thickening. Increased lucencies especially within the bilateral upper lung glass compatible with underlying emphysema. Please note that chest x-ray has limited sensitivity for the detection of pulmonary masses. PLEURA: No significant pleural effusion identified. No definite pneumothorax . CARDIOVASCULAR: Cardiomegaly. OSSEOUS STRUCTURES: Degenerative changes. Osseous demineralization. VISUALIZED UPPER ABDOMEN: Unremarkable. OTHER FINDINGS: None. IMPRESSION: Bilateral multifocal infiltrates. Interstitial prominence may reflect infection or edema. Bilateral pleural thickening. Emphysema. Cardiomegaly.
[2018-08-27] MEDS ORDERED: Cefepime IV 2 gm in NS 2 GM/100 ML BAG IVPB STA (12:18)
[2018-08-27 12:29] LABS: VENOUS BLOOD GAS BASE EXCESS 1.5 mmol/L (0.0-2.0); VENOUS BLOOD GAS PO2 57 mm/Hg (30-55); VENOUS BLOOD PH 7.38 (7.32-7.43)
[2018-08-27 12:38] LABS: ALB/GLOB RATIO 1.2 (1.1-1.8); ALBUMIN 4.1 g/dL (3.0-4.8); ALT/SGPT 31 U/L (7-56); AST/SGOT 32 U/L (14-36); BLOOD UREA NITROGEN 19 mg/dL (7-21); GFR NON-AFRICAN AMERICAN > 60
[2018-08-27 12:41] LABS: BASO # 0.03 K/mm3 (0.0-2.0); BASO % 0.2 % (0.0-3.0); EOS # 0.2 (0.0-0.7); EOS % 1.4 % (1.5-5.0); GRAN # 12.36 (1.4-6.5); LYMPH # 2.6 (1.2-3.4); LYMPH % 15.5 % (22.0-35.0); MEAN CORPUSCULAR HEMOGLOBIN 24.3 pg (25.0-35.0); MEAN PLATELET VOLUME 9.7 fl (7.0-11.0); MONO # 1.5 (0.1-0.6); MONO % 8.9 % (1.0-6.0); RBC 4.53 10^6/uL (3.5-6.1); RED CELL DISTRIBUTION WIDTH 17.3 % (11.5-14.5); WHITE BLOOD COUNT 16.7 10^3/ul (4.5-11.0)
[2018-08-27 12:45] LABS: INR 1.01; PARTIAL THROMBOPLASTIN TIME 24.7 Seconds (25.1-36.5); PROTHROMBIN TIME 11.6 SECONDS (9.4-12.5)
[2018-08-27 12:50] LABS: B-TYPE NATRIURETIC PEPTIDE 178 pg/mL (0-450); TROPONIN I < 0.01 ng/mL
[2018-08-27 13:50] LABS: PH,URINE 6.5 (4.7-8.0); URINE BILIRUBIN NEGATIVE (NEGATIVE); URINE BLOOD NEGATIVE (NEGATIVE); URINE GLUCOSE (UA) NEGATIVE (NEGATIVE); URINE LEUKOCYTE ESTERASE TRACE Leu/uL (NEGATIVE); URINE PROTEIN TRACE mg/dL (<30 mg/dL); URINE UROBILINOGEN 0.2 E.U./dL (<1 E.U./dL)
[2018-08-27 13:51] LABS: URINE APPEARANCE CLEAR (CLEAR); URINE COLOR YELLOW (YELLOW)
[2018-08-27] MEDS ORDERED: Dextrose 50% SYRINGE Inj (50 ml) IV PRN (14:14)
[2018-08-27 14:15] LABS: URINE BACTERIA FEW (NEG); URINE RBC 0 - 2 /hpf (0-2)
--- NOTE | 2018-08-27 15:19 | CARD ---
APPROVED REPORT Date of service: 08/27/2018 EKG Measurement Heart [id number] <Conclusion> Normal sinus rhythm PRWP LVH by voltage NSSTW changes
--- NOTE | 2018-08-27 16:47 | CP.PCM.HP ---
<Radha Gao - Last Filed: 08/27/18 18:08> History of Present Illness - History of Present Illness History of Present Illness: PGY-1 Radha Gao D.O. H&P for Dr. 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 Patient is accompanied by her brother and at-homebirth midwife who help provide the history as well. Patient saw her PCP Dr. Walker on Friday who sent her for an outpatient CXR and started her on Cefuroxime 500mg twice a day and Tessalon perles. Patient had the CXR yesterday, and received a call with the results advising her to go to the ED for further evaluation and treatment. This CXR showed worsening b/l infiltrates suggestive of infectious/inflammatory etiology. Patient denies chest pain, fevers, chills, abdominal pain, nausea, vomiting, diarrhea, headaches, dysuria. She complains of shortness of breath and nasal congestion, which is chronic, and bilateral leg pain secondary to peripheral neuropathy, also chronic. Per brother, patient has 4 episodes of pneumonia in the past 5 years. 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 Aide does not note any significant change of patient's health/condition. She uses a cane to ambulate when she leaves home. While in the ED, code sepsis was called. The patient was given cefepime IV 2 gm. 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 Walker Counter Tender: Dr. Guevara Neurologist: Dr. Wright Present on Admission - Present on Admission Any Indicators Present on Admission: No History of DVT/PE: No History of Uncontrolled Diabetes: No Urinary Catheter: No Decubitus Ulcer Present: No History Surgical Site Infection Following: None Review of Systems - Constitutional Constitutional: absent: Chills, Fever, Frequent Falls, Headache - EENT Eyes: Other (chronic poor vision of right eye). absent: Change in Vision Ears: Decreased Hearing (chronic) Nose/Mouth/Throat: Nasal Congestion, Nasal Discharge. absent: Sinus Pain, Sore Throat - Cardiovascular Cardiovascular: Dyspnea (chronic). absent: Chest Pain, Palpitations, Pedal Edema - Respiratory Respiratory: Cough, Dyspnea (chronic), Chest Congestion. absent: Hemoptysis, Wheezing, Stridor - Gastrointestinal Gastrointestinal: absent: Abdominal Pain, Constipation, Diarrhea, Nausea, Vomiting - Genitourinary Genitourinary: absent: Difficulty Urinating, Dysuria, Hematuria - Reproductive: Female Reproductive:Female: S/P Hysterectomy, Post Menopausal - Menstruation Menstruation: S/P Hysterectomy, Post Menopausal - Musculoskeletal Musculoskeletal: Arthralgias (chronic) - Integumentary Integumentary: absent: Lesions, Rash - Neurological Neurological: Paresthesias (chronic- LE peripheral neuropathy). absent: Dizziness, Tremor - Psychiatric Psychiatric: Anxiety, Depression - Endocrine Endocrine: Fatigue. absent: Palpitations - Hematologic/Lymphatic Hematologic: absent: Easy Bleeding, Easy Bruising, Lymphadenopathy Past Patient History - Infectious Disease Hx of Infectious Diseases: None - Tetanus Immunizations Tetanus Immunization: Unknown - Past Medical History & Family History Past Medical History?: Yes Past Family History: Reviewed and not pertinent - Past Social History Smoking Status: Former Smoker Chewing Tobacco Use: No Cigar Use: No Alcohol: None Drugs: Denies Home Situation {Lives}: Other (with home health aide) - CARDIAC Hx Cardiac Disorders: Yes Hx Congestive Heart Failure: Yes Hx Hypertension: Yes Hx Peripheral Vascular Disease: Yes - PULMONARY Hx Respiratory Disorders: Yes (sarcoidosis, pulmonary fibrosis, home o2) Hx Chronic Obstructive Pulmonary Disease (COPD): Yes Hx Pneumonia: Yes - NEUROLOGICAL Hx Neurological Disorder: Yes HX Cerebrovascular Accident: Yes - HEENT Hx HEENT Problems: Yes Hx Deafness: Yes (ute) Hx Macular Degeneration: Yes - RENAL Hx Chronic Kidney Disease: No - ENDOCRINE/METABOLIC Hx Endocrine Disorders: Yes Hx Diabetes Mellitus Type 2: Yes - HEMATOLOGICAL/ONCOLOGICAL Hx Blood Disorders: No - INTEGUMENTARY Hx Dermatological Problems: Yes Hx Basil Cell: Yes Other/Comment: SARCOIDOSIS - MUSCULOSKELETAL/RHEUMATOLOGICAL Hx Arthritis: Yes Hx Falls: Yes Hx Herniated Disk: Yes (L4 L5 S1) Hx Osteoarthritis: Yes Hx Osteoporosis: Yes Hx Rhabdomyolysis: Yes Hx Unsteady Gait: (cane when out) - GASTROINTESTINAL Hx Gastrointestinal Disorders: Yes Hx Gastroesophageal Reflux: Yes - GENITOURINARY/GYNECOLOGICAL Hx Genitourinary Disorders: Yes (HYSTERECTOMY) Hx Incontinence: Yes Other/Comment: vaginal rectal fistula repair - PSYCHIATRIC Hx Psychophysiologic Disorder: Yes Hx Anxiety: Yes Hx Depression: Yes Hx Substance Use: No - SURGICAL HISTORY Hx Hysterectomy: Yes - ANESTHESIA Hx Anesthesia: Yes Hx Anesthesia Reactions: No Hx Malignant Hyperthermia: No Meds Allergies/Adverse Reactions: Allergies Allergy/AdvReac Type Severity Reaction Status Date / Time No Known Allergies Allergy Verified 08/27/18 11:24 Physical Exam - Head Exam Head Exam: ATRAUMATIC, NORMAL INSPECTION - Eye Exam Eye Exam: EOMI, Normal appearance, PERRL - ENT Exam ENT Exam: Mucous Membranes Moist, Normal Exam, Normal Oropharynx - Neck Exam Neck exam: Positive for: Normal Inspection. Negative for: Lymphadenopathy - Respiratory Exam Respiratory Exam: Decreased Breath Sounds, Wheezes. absent: Accessory Muscle Use, Respiratory Distress, Stridor Additional comments: NC O2 @ 3L - Cardiovascular Exam Cardiovascular Exam: REGULAR RHYTHM, +S1, +S2 - GI/Abdominal Exam GI & Abdominal Exam: Normal Bowel Sounds, Soft. absent: Tenderness - Rectal Exam Rectal Exam: Deferred - Extremities Exam Extremities exam: Positive for: normal inspection, pedal pulses present. Negati ve for: pedal edema - Back Exam Back exam: NORMAL INSPECTION - Neurological Exam Neurological exam: Alert, CN II-XII Intact, Oriented x3 - Psychiatric Exam Psychiatric exam: Normal Affect, Normal Mood - Skin Skin Exam: Dry, Intact, Normal Color, Warm Results - Vital Signs Recent Vital Signs: Last Vital Signs Temp 98.5 F 08/27/18 15:12 Pulse 86 08/27/18 15:54 Resp 18 08/27/18 15:54 BP 134/70 08/27/18 15:54 Pulse Ox 92 L 08/27/18 15:54 - Labs Result Diagrams: 08/27/18 12:15 08/27/18 12:15 Labs: Laboratory Results - last 24 hr 08/27/18 08/27/18 08/27/18 12:15 12:15 12:15 WBC 16.7 H RBC 4.53 Hgb 11.0 L Hct 36.7 MCV 81.0 D MCH 24.3 L MCHC 30.0 L RDW 17.3 H Plt Count 370 MPV 9.7 Gran % 74.0 H Lymph % (Auto) 15.5 L Bracken % (Auto) 8.9 H Eos % (Auto) 1.4 L Baso % (Auto) 0.2 Gran # 12.36 H Lymph # (Auto) 2.6 Bracken # (Auto) 1.5 H Eos # (Auto) 0.2 Baso # (Auto) 0.03 PT 11.6 INR 1.01 APTT 24.7 L pO2 57 H VBG pH 7.38 VBG pCO2 46.0 VBG HCO3 27.2 VBG Total CO2 28.6 H VBG O2 Sat (Calc) 90.9 H VBG Base Excess 1.5 VBG Potassium 3.6 Sodium 138.0 Chloride 106.0 Glucose 170 H Lactate 2.2 H FiO2 21.0 Potassium Carbon Dioxide Anion Gap BUN Creatinine Est GFR ( Amer) Est GFR (Non-Af Amer) Random Glucose Calcium Phosphorus Magnesium Total Bilirubin AST ALT Alkaline Phosphatase Lactate Dehydrogenase Total Creatine Kinase Troponin I NT-Pro-B Natriuret Pep Total Protein Albumin Globulin Albumin/Globulin Ratio Venous Blood Potassium 3.6 Urine Color Urine Appearance Urine pH Ur Specific [place] Urine Protein Urine Glucose (UA) Urine Ketones Urine Blood Urine Nitrate Urine Bilirubin Urine Urobilinogen Ur Leukocyte Esterase Urine RBC Urine WBC Ur Epithelial Cells Urine Bacteria 08/27/18 08/27/18 12:15 13:45 WBC RBC Hgb Hct MCV MCH MCHC RDW Plt Count MPV Gran % Lymph % (Auto) Bracken % (Auto) Eos % (Auto) Baso % (Auto) Gran # Lymph # (Auto) Bracken # (Auto) Eos # (Auto) Baso # (Auto) PT INR APTT pO2 VBG pH VBG pCO2 VBG HCO3 VBG Total CO2 VBG O2 Sat (Calc) VBG Base Excess VBG Potassium Sodium 140 Chloride 104 Glucose Lactate FiO2 Potassium 3.7 Carbon Dioxide 25 Anion Gap 14 BUN 19 Creatinine 0.7 Est GFR ( Amer) > 60 Est GFR (Non-Af Amer) > 60 Random Glucose 158 H Calcium 9.0 Phosphorus 2.2 L Magnesium 1.8 Total Bilirubin 0.4 AST 32 ALT 31 Alkaline Phosphatase 147 H Lactate Dehydrogenase 549 Total Creatine Kinase 110 Troponin I < 0.01 NT-Pro-B Natriuret Pep 178 Total Protein 7.5 Albumin 4.1 Globulin 3.4 Albumin/Globulin Ratio 1.2 Venous Blood Potassium Urine Color Yellow Urine Appearance Clear Urine pH 6.5 Ur Specific [place] 1.010 Urine Protein Trace H Urine Glucose (UA) Negative Urine Ketones Negative Urine Blood Negative Urine Nitrate Negative Urine Bilirubin Negative Urine Urobilinogen 0.2 Ur Leukocyte Esterase Trace H Urine RBC 0 - 2 Urine WBC 2 - 5 Ur Epithelial Cells 4 - 5 Urine Bacteria Few - EKG Data EKG Interpreted by: ER Physician EKG shows normal: Sinus rhythm Rate: Normal Assessment & Plan - Assessment and Plan (Free Text) Assessment: Patient is a 77 yo female with a history of COPD and pulmonary sarcoidosis on home O2 who presents with increased SOB and cough. Patient will be treated for possible PNA. Awaiting pulmonology recs. Plan: Cough, acute, nonproductive- underlying chronic respiratory failure 2/2 COPD and sarcodosis, possible PNA - Code sepsis- lactate 2.2 - F/u repeat - Procal <0.5 - Leukocytosis (16.7)- chronic 2/2 prolonged exogenous steroid use - Afebrile - CXR 08/26:Worsening multifocal infiltrates compared to the prior study (03/2018). There is both interstitial and confluent alveolar consolidative change. Findings suggest infectious/inflammatory etiology. - CXR 08/27: Bilateral multifocal infiltrates. Interstitial prominence may reflect infection or edema. Bilateral pleural thickening. Emphysema. Cardiomegaly. - Continue home prednisolone 4 mg PO QHS - NS @ 75 mL/hr - Mucinex 600 mg PO BID - Duoneb Q6H MARLEE, Q2H PRN - Azithromycin 500 mg IV daily - Rocephin 1 g IV daily - Supplemental O2- titrate 88-92 (patient on 3L at home) - Pulmonology consulted (Lissa) T2DM, chronic - Accuchecks ACHS - ISS lispro low - Hypoglycemia protocol - Continue home gabapentin 300 mg PO BID for peripheral neuropathy - Tramadol 50 mg PO BID PRN leg pain HTN, chronic - Continue home amlodipine 10 mg PO daily H/o CVAs- residual R eye blindness - Continue home ASA 325 mg PO daily Anxiety - Continue home Ativan 1 mg PO TID Depression - Continue home Remeron 30 mg QHS IVF: NS @ 75 Diet: heart healthy GI ppx: not indicated VTE ppx: SCDs Code status: DNR/DNI- brother completed POLST with patient on previous admission Case discussed with attending, Dr. Hernandez. <Beckie Hernandez R - Last Filed: 08/28/18 18:08> Results - Vital Signs Recent Vital Signs: Last Vital Signs Temp 97.7 F 08/28/18 12:00 Pulse 92 H 08/28/18 12:00 Resp 20 08/28/18 12:00 BP 140/71 08/28/18 12:00 Pulse Ox 93 L 08/28/18 09:00 - Labs Result Diagrams: 08/28/18 06:30 08/28/18 06:30 Labs: Laboratory Results - last 24 hr 08/27/18 08/27/18 08/27/18 18:39 21:00 21:30 WBC RBC Hgb Hct MCV MCH MCHC RDW Plt Count MPV Gran % Lymph % (Auto) Bracken % (Auto) Eos % (Auto) Baso % (Auto) Gran # Lymph # (Auto) Bracken # (Auto) Eos # (Auto) Baso # (Auto) pO2 111 H VBG pH 7.42 VBG pCO2 34.0 L VBG HCO3 22.1 VBG Total CO2 23.1 VBG O2 Sat (Calc) 98.9 H VBG Base Excess -1.7 L VBG Potassium 4.6 Sodium 137.0 Chloride 105.0 Glucose 359 H Lactate 4.9 H* FiO2 21.0 Potassium Carbon Dioxide Anion Gap BUN Creatinine Est GFR ( Amer) Est GFR (Non-Af Amer) POC Glucose (mg/dL) 307 H Random Glucose Lactic Acid 6.0 H* Calcium Phosphorus Magnesium Total Bilirubin AST ALT Alkaline Phosphatase Total Protein Albumin Globulin Albumin/Globulin Ratio Venous Blood Potassium 4.6 Mycoplasma pneumon IgM 08/28/18 08/28/1818 00:10 06:30 06:30 WBC 18.9 H RBC 4.76 Hgb 11.8 L Hct 38.2 MCV 80.3 MCH 24.8 L MCHC 30.9 L RDW 17.2 H Plt Count 379 MPV 9.7 Gran % 85.7 H Lymph % (Auto) 9.0 L Bracken % (Auto) 5.3 Eos % (Auto) 0.0 L Baso % (Auto) 0.0 Gran # 16.19 H Lymph # (Auto) 1.7 Bracken # (Auto) 1.0 H Eos # (Auto) 0.0 Baso # (Auto) 0.00 pO2 60 H VBG pH 7.40 VBG pCO2 35.0 L VBG HCO3 21.7 VBG Total CO2 22.8 VBG O2 Sat (Calc) 92.5 H VBG Base Excess -2.5 L VBG Potassium 4.2 Sodium 139.0 Chloride 105.0 Glucose 293 H Lactate 4.3 H* FiO2 21.0 Potassium Carbon Dioxide Anion Gap BUN Creatinine Est GFR ( Amer) Est GFR (Non-Af Amer) POC Glucose (mg/dL) Random Glucose Lactic Acid Calcium Phosphorus Magnesium Total Bilirubin AST ALT Alkaline Phosphatase Total Protein Albumin Globulin Albumin/Globulin Ratio Venous Blood Potassium 4.2 Mycoplasma pneumon IgM Positive H 08/28/18 08/28/18 08/28/18 06:30 07:26 11:25 WBC RBC Hgb Hct MCV MCH MCHC RDW Plt Count MPV Gran % Lymph % (Auto) Bracken % (Auto) Eos % (Auto) Baso % (Auto) Gran # Lymph # (Auto) Bracken # (Auto) Eos # (Auto) Baso # (Auto) pO2 VBG pH VBG pCO2 VBG HCO3 VBG Total CO2 VBG O2 Sat (Calc) VBG Base Excess VBG Potassium Sodium 142 Chloride 108 H Glucose Lactate FiO2 Potassium 4.2 Carbon Dioxide 23 Anion Gap 15 BUN 18 Creatinine 0.7 Est GFR ( Amer) > 60 Est GFR (Non-Af Amer) > 60 POC Glucose (mg/dL) 212 H 206 H Random Glucose 209 H Lactic Acid Calcium 9.3 Phosphorus 2.7 Magnesium 2.0 Total Bilirubin 0.4 AST 27 ALT 27 Alkaline Phosphatase 153 H Total Protein 7.9 Albumin 4.3 Globulin 3.6 Albumin/Globulin Ratio 1.2 Venous Blood Potassium Mycoplasma pneumon IgM 08/28/18 16:31 WBC RBC Hgb Hct MCV MCH MCHC RDW Plt Count MPV Gran % Lymph % (Auto) Bracken % (Auto) Eos % (Auto) Baso % (Auto) Gran # Lymph # (Auto) Bracken # (Auto) Eos # (Auto) Baso # (Auto) pO2 VBG pH VBG pCO2 VBG HCO3 VBG Total CO2 VBG O2 Sat (Calc) VBG Base Excess VBG Potassium Sodium Chloride Glucose Lactate FiO2 Potassium Carbon Dioxide Anion Gap BUN Creatinine Est GFR ( Amer) Est GFR (Non-Af Amer) POC Glucose (mg/dL) 306 H Random Glucose Lactic Acid Calcium Phosphorus Magnesium Total Bilirubin AST ALT Alkaline Phosphatase Total Protein Albumin Globulin Albumin/Globulin Ratio Venous Blood Potassium Mycoplasma pneumon IgM Attending/Attestation - Attestation I have personally seen and examined this patient.: Yes I have fully participated in the care of the patient.: Yes I have reviewed all pertinent clinical information: Yes Notes (Text): Patient seen and examined by me at 4PM with resident 08/27/18. Case including HPI, physical exam, and assessment and plan discussed with resident. Agree with above with following additions/corrections. Patient is a 77-year-old female with past medical history significant for pulmonary sarcoidosis, COPD on home oxygen, chronic respiratory failure secondary to COPD and sarcoidosis, CVA with residual cognitive impairment, type 2 diabetes with peripheral neuropathy, hypertension, depression and anxiety, and spinal stenosis that presented to the emergency room with a nonproductive cough for one week. Patient's brother at bedside. Per patient's brother patient was having a cough and runny nose for approximately a week. Patient's brother deci ded to take patient to her primary care doctor on 08/24/2018. Patient did have a chest x-ray done and patient was called by primary care doctor today to come into the emergency room for pneumonia. Patient states she is feeling okay. Patient does have dementia and unsure if review of systems are accurate. Patient states that she has a cough but it is very "mild." Patient complains of bilateral lower extremity pain and states that the pain is chronic and there all the time. She uses a cane and/or walker to ambulate when leaving the home. Patient is on 3 L of home oxygen. She denies any chest pain. She does have shortness of breath but states that it is chronic. No fevers or chills. No nausea, vomiting, or abdominal pain. Diarrhea or constipation. No dysuria. Patient is denying any neck pain or back pain. Physical exam: General: Awake and alert lying in bed in no acute distress HEENT: Normocephalic atraumatic. Pupils equal reactive. No scleral icterus. Oropharynx is pink and moist. No pharyngeal erythema or exudate appreciated. Neck is supple. Cardiovascular: Normal rhythm. Normal S1, S2. Positive systolic murmur. No rubs or gallops appreciated Pulmonary: Normal respiratory effort. Decreased breath sounds. Coarse breath sounds throughout. No rales or wheezing appreciated. Gastrointestinal: Soft, nondistended. Nontender. Positive bowel sounds all 4 quadrants, no guarding. Musculoskeletal: Moves all extremities, no calf tenderness, no edema appreciated. Bilateral lower extremity tenderness. Central nervous system: Awake and alert. Dermatologic: Skin warm and dry. Assessement and Plan: Patient is a 77-year-old female with past medical history significant for pulmonary sarcoidosis, COPD on home oxygen, chronic respiratory failure secondary to COPD and sarcoidosis, CVA with residual cognitive impairment, type 2 diabetes with peripheral neuropathy, hypertension, depression and anxiety, and spinal stenosis that presented to the emergency room with a nonproductive cough for one week. 1. Cough. Possible pneumonia. Code sepsis was called in the ED. Patient given Cefepime. Patient continued on Rocephin and Zithromax. Chest xray per radiologist shows bilateral multifocal infiltrates, interstitial prominence may reflect infection or edema, bilateral pleural thickening, emphysema, and cardiomegaly. Continue home prednisolone. Will place on mucinex, nebulizer treatments. Continue with O2 via nasal cannula. Pulmonology consulted, follow up recommendations. Elevated lactate at 2.2. Follow up repeat Lactate. Leukocytosis chronic likely secondary to chronic steroid use. Follow-up urine for Legionella. Follow-up mycoplasma IgM. 2. Leukocytosis. Likely secondary to chronic steroid use. Patient appears to have leukocytosis chronically. Continue to monitor. Follow-up blood cultures and urine culture. 3. Type 2 diabetes with peripheral neuropathy. Placed on insulin sliding scale. Monitor Accu-Cheks. Continue home gabapentin and tramadol. 4. Bilateral lower extremity pain. Chronic. Secondary to neuropathy. Continue gabapentin and tramadol. 5. Essential hypertension. Continue home amlodipine. 6. History of CVAs. With residual right eye visual defect. Continue aspirin. Patient is not on a statin. 7. Depression and anxiety. Continue home Remeron and Ativan. 8. Advanced directive. Patient is a DNR/DNI Case was discussed in detail with the patient and patient's brother at bedside regarding current diagnosis and treatment plan. All questions answered.
--- NOTE | 2018-08-27 17:26 | PCM.SEPTIC ---
Sepsis Progress Note - Reassessment Type Date of Evaluation: 08/27/18 Time of Evaluation: 15:30 Reassessment Type: Non-invasive reassessment - Non Invasive Reassessment Were the most recent vital sign reviewed: Yes Vital Sign (Latest): Temp Pulse Resp BP Pulse Ox 98.5 F 86 18 134/70 92 L 08/27/18 15:12 08/27/18 15:54 08/27/18 15:54 08/27/18 15:54 08/27/18 15:54 Cardiovascular: Yes: Regular Rate, Rhythm Respiratory: Yes: Decreased Breath Sounds, Crackles. No: Accessory Muscle Use, Respiratory Distress Capillary Refill: Normal (Less than 2 sec) Pulses: Normal Radial, Normal Dorsalis Pedis, Normal Posterior Tibialis Skin: Normal Color, Warm, Dry
[2018-08-27] MEDS ORDERED: Albuterol-Ipratrop 3 mg / 0.5 (3 ml) UD IH PRN (17:42)
[2018-08-27] MEDS: Insulin Lispro (humaLOG) LOW Coverage SC SCH ×2 (17:58→22:27)
[2018-08-27] MEDS: guaiFENesin 600 mg ER Tab PO SCH (17:59)
[2018-08-27] MEDS: Sodium Chloride 0.9% 1,000 ML IV SCH (18:00)
[2018-08-27] MEDS: Albuterol-Ipratrop 3 mg / 0.5 (3 ml) UD IH SCH (20:38)
[2018-08-27 21:05] LABS: VENOUS BLOOD GAS BASE EXCESS -1.7 mmol/L (0.0-2.0); VENOUS BLOOD GAS PO2 111 mm/Hg (30-55); VENOUS BLOOD PH 7.42 (7.32-7.43)
[2018-08-27 21:37] VITALS: BMI 27.9
[2018-08-27] MEDS ORDERED: Pneumococcal 23-Valent Vaccine IM ONE (21:37)
[2018-08-27] MEDS ORDERED: Influenza Vaccine 60 mcg/0.5 mL SYR (4YR UP) IM ONE (21:37)
[2018-08-27] MEDS: PrednisoLONE 15 mg/5 ml Oral Syrup (240 ml) PO SCH (22:28)
[2018-08-28 00:46] LABS: VENOUS BLOOD GAS BASE EXCESS -2.5 mmol/L (0.0-2.0); VENOUS BLOOD GAS PO2 60 mm/Hg (30-55)
[2018-08-28] MEDS: Albuterol-Ipratrop 3 mg / 0.5 (3 ml) UD IH SCH ×4 (02:34→20:42)
[2018-08-28] MEDS: Sodium Chloride 0.9% 1,000 ML IV SCH (05:50)
[2018-08-28 07:41] LABS: GRAN # 16.19 (1.4-6.5); GRAN % 85.7 % (50.0-68.0); HEMOGLOBIN 11.8 g/dL (12.0-16.0); LYMPH # 1.7 (1.2-3.4); MEAN CELL VOLUME 80.3 fl (80.0-105.0); MEAN CORPUSCULAR HEMOGLOBIN 24.8 pg (25.0-35.0); MEAN CORPUSCULAR HGB CONC 30.9 g/dl (31.0-37.0); MEAN PLATELET VOLUME 9.7 fl (7.0-11.0); MONO % 5.3 % (1.0-6.0); RBC 4.76 10^6/uL (3.5-6.1); RED CELL DISTRIBUTION WIDTH 17.2 % (11.5-14.5); WHITE BLOOD COUNT 18.9 10^3/ul (4.5-11.0)
[2018-08-28 08:02] LABS: ALB/GLOB RATIO 1.2 (1.1-1.8); ALBUMIN 4.3 g/dL (3.0-4.8); ALT/SGPT 27 U/L (7-56); AST/SGOT 27 U/L (14-36); BLOOD UREA NITROGEN 18 mg/dL (7-21); CALCIUM 9.3 mg/dL (8.4-10.5); GFR NON-AFRICAN AMERICAN > 60
[2018-08-28] MEDS: Budesonide 0.5 mg/2 ml Inhal Susp UD IH SCH ×2 (08:22→20:43)
--- NOTE | 2018-08-28 08:41 | CON ---
DATE: 08/28/2018 PULMONARY CONSULTATION DICTATION REASON FOR CONSULTATION: Rule out pneumonia. REFERRING PHYSICIAN: Dr. Moreno HISTORY OF PRESENT ILLNESS: History is obtained via extensive discussion with the night nurse. I have also reviewed the chart at length and discussed case with the patient at length. The patient is a chronically-ill 77-year-old female, with past medical history significant for advanced chronic obstructive pulmonary disease, on home oxygen, advanced interstitial lung disease secondary to sarcoidosis, diabetes mellitus, who presents to [facility] with a 1-week history of worsening shortness of breath at rest, dyspnea on exertion, cough, and sputum production. There is no history of chest pain, coughing up of blood, or chest pain - made worse with deep respirations. There is no history of temperatures, chills or infectious exposure. There is no history of night sweats, weight loss or appetite change prior to the above events. No history of leg or calf pains. No history of syncope or diaphoresis. No history of recent travel or trauma. REVIEW OF SYSTEMS: No history of nausea, vomiting or diarrhea. No acute urinary symptoms. No new musculoskeletal complaints. Rest of the review of systems is negative. ALLERGIES: NO KNOWN ALLERGIES. SOCIAL HISTORY: Positive for former tobacco usage. No alcohol. FAMILY HISTORY: No inheritable diseases. HOME MEDICATIONS: Include Ultram, Norvasc, Ambien, Remeron, lidocaine, Ativan, Neurontin, Advair Diskus, Tessalon and Ventolin HFA. PHYSICAL EXAMINATION: GENERAL: The patient is not short of breath at rest. She is not using accessory muscles for breathing. VITAL SIGNS: Temperature is 97.4, pulse 95, respirations 18, blood pressure 153/81. Oxygen saturation on nasal cannula is 95%. HEENT: Normocephalic, atraumatic. No JVD. CARDIOVASCULAR: Systolic ejection murmur at the lower left sternal border. No S3 gallop. LUNGS: Chronic crackles at both bases. Mild bilateral rhonchi. No wheezing. EXTREMITIES: Mild edema. No cyanosis, no clubbing. Calves are nontender to palpation. GI: Abdomen is soft, nontender and nondistended. Bowel sounds are positive. SKIN: No acute rash. NEUROLOGIC: Exam limited at the present time. PERTINENT LABORATORY DATA: Chest x-ray was done yesterday and reviewed. There are extensive chronic changes noted - seen on multiple previous films. I do not appreciate any new significant infiltrates in the most recent x-ray, but underlying pneumonia cannot be ruled out in this patient. CBC: White count 16.7K, hemoglobin 11, hematocrit 36.7, platelets of 370,000. Complete metabolic profile: Glucose 158, phosphorus 2.2, alkaline phosphatase 147. Rest of the metabolic profile is within normal limits. Procalcitonin--negative. IMPRESSION: 1. Recurrent bronchitis. 2. Advanced chronic obstructive pulmonary disease. 3. Advanced interstitial lung disease. 4. Rule out underlying pneumonia. 5. Mild anemia. PLAN: Again, I did discuss the case with the night nurse at length. I have also reviewed the chart at length, and discussed the case with the patient at length. The patient presents with a one week history of worsening symptoms. I did review the chest x-ray as above. Again, there are chronic extensive changes noted. I do not appreciate any new significant infiltrates, but again, underlying pneumonia cannot be ruled out. There is no history of fevers. In addition, the procalcitonin is negative. However,the patient did present with a mild leukocytosis, and I would continue with the current antibiotic therapy for now. On physical exam, there is mild bronchospasm noted. In addition, there is an increase in the alveolar-arterial gradient. I will continue with the current nebulizer treatments and add inhaled Pulmicort. In addition, I will start the patient on low-dose intravenous steroids this morning. Cultures are pending. Clinical status of the patient does appear somewhat improved - compared to the initial presentation. However, the future status/prognosis for this chronically-ill patient remains very guarded at best/poor. I will discuss the above with the attending physician. Thank you very much for this pulmonary consultation. Meet Alcaraz MD ADÁN
[2018-08-28] MEDS: Insulin Lispro (humaLOG) LOW Coverage SC SCH ×4 (08:49→22:00)
[2018-08-28] MEDS: cefTRIAXone 1 gm 1 GM/100 ML BAG IVPB SCH (10:13)
[2018-08-28] MEDS: guaiFENesin 600 mg ER Tab PO SCH ×2 (10:22→17:36)
[2018-08-28] MEDS: MethylPREDNISolone 40 mg Vial IVP SCH ×2 (10:23→21:40)
[2018-08-28] MEDS: Aspirin 325 mg EC Tablets PO SCH (10:45)
[2018-08-28] MEDS: Azithromycin 500MG/NS 250ml 500 MG/250 ML BAG IVPB SCH (11:21)
--- NOTE | 2018-08-28 17:02 | CP.PCM.PN ---
<Radha Gao - Last Filed: 08/28/18 16:59> Subjective - Date & Time of Evaluation Date of Evaluation: 08/28/18 Time of Evaluation: 08:00 - Subjective Subjective: PGY-1 Radha Gao D.O. Medicine progress note for Dr. Hernandez's service: Patient was seen and examined this morning. No over night events reported. Patient continues to have SOB, but this is chronic. Her cough is intermittent. Patient is fixated on her dentures and leg pain rather than her respiratory issues. Patient needs to pause to catch her breath between every few words. Patient also complains of insomnia. Objective - Vital Signs/Intake and Output Vital Signs (last 24 hours): Temp Pulse Resp BP Pulse Ox 97.7 F 92 H 20 140/71 93 L 08/28/18 12:00 08/28/18 12:00 08/28/18 12:00 08/28/18 12:00 08/28/18 09:00 Intake and Output: 08/28/18 08/28/18 06:59 18:59 Intake Total 1020 Balance 1020 - Medications Medications: Current Medications Albuterol/Ipratropium (Duoneb 3 Mg/0.5 Mg (3 Ml) Ud) 3 ml IH [id number] [facility] Last Admin: 08/28/18 14:19 Dose: 3 ml Albuterol/Ipratropium (Duoneb 3 Mg/0.5 Mg (3 Ml) Ud) 3 ml IH Q2H PRN PRN Reason: Shortness of Breath Amlodipine Besylate (Norvasc) 10 mg PO DAILY [facility] Last Admin: 08/28/18 10:19 Dose: 10 mg Aspirin (Ecotrin) 325 mg PO DAILY [facility] Last Admin: 08/28/18 10:45 Dose: 325 mg Budesonide (Pulmicort Respules) 0.5 mg IH [id number] [facility] Last Admin: 08/28/18 08:22 Dose: 0.5 mg Dextrose (Dextrose 50% Inj) 0 ml IV STAT PRN; Protocol PRN Reason: Hypoglycemia Protocol Gabapentin (Neurontin) 300 mg PO BID [facility]; Protocol Last Admin: 08/28/18 10:22 Dose: 300 mg Guaifenesin (Mucinex La) 600 mg PO BID [facility] Last Admin: 08/28/18 10:22 Dose: 600 mg Dextrose (Dextrose 5% In Water 1000 Ml) 1,000 mls @ 0 mls/hr IV .Q0M PRN; Pr otocol PRN Reason: Hypoglycemia Protocol Ceftriaxone Sodium (Rocephin 1 Gram Ivpb) 1 gm in 100 mls @ 100 mls/hr IVPB DAILY [facility]; Protocol Last Admin: 08/28/18 10:13 Dose: 100 mls/hr Azithromycin (Zithromax 500mg In Ns) 500 mg in 250 mls @ 167 mls/hr IVPB DAILY [facility]; Protocol Last Admin: 08/28/18 11:21 Dose: 167 mls/hr Insulin Human Lispro (Humalog Low) 0 units SC ACHS [facility]; Protocol Last Admin: 08/28/18 12:06 Dose: 2 units Lorazepam (Ativan) 1 mg PO 0900,1600,2100 [facility]; Protocol Last Admin: 08/28/18 16:07 Dose: 1 mg Methylprednisolone (Solu-Medrol) 30 mg IVP Q12 [facility] Last Admin: 08/28/18 10:23 Dose: 30 mg Mirtazapine (Remeron) 30 mg PO HS [facility] Last Admin: 08/27/18 22:26 Dose: 30 mg Prednisolone (Prednisolone Oral Soln) 4 mg PO HS [facility] Last Admin: 08/27/18 22:28 Dose: 4 mg Tramadol HCl (Ultram) 50 mg PO BID PRN PRN Reason: Pain, severe (8-10) Last Admin: 08/28/18 12:54 Dose: 50 mg Zolpidem Tartrate (Ambien) 5 mg PO HS PRN; Protocol PRN Reason: Insomnia - Labs Labs: 08/28/18 06:30 08/28/18 06:30 PT 11.6 SECONDS (9.4-12.5) 08/27/18 12:15 INR 1.01 08/27/18 12:15 APTT 24.7 Seconds (25.1-36.5) L 08/27/18 12:15 - Constitutional Appears: Non-toxic, No Acute Distress - Head Exam Head Exam: ATRAUMATIC, NORMAL INSPECTION - Eye Exam Eye Exam: EOMI, Normal appearance - ENT Exam ENT Exam: Mucous Membranes Moist - Neck Exam Neck Exam: Normal Inspection - Respiratory Exam Respiratory Exam: Decreased Breath Sounds, Wheezes Additional comments: O2 [address] via [address] in [address] patient taking deep breaths in between every few words, unable to complete a full sentence - Cardiovascular Exam Cardiovascular Exam: Tachycardia, REGULAR RHYTHM, +S1, +S2, Murmur - GI/Abdominal Exam GI & Abdominal Exam: Soft, Normal Bowel Sounds. absent: Tenderness - Rectal Exam Rectal Exam: Deferred - Extremities Exam Extremities Exam: Normal Inspection, Tenderness. absent: Pedal Edema - Back Exam Back Exam: NORMAL INSPECTION. 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 CXR shows interval change from March and is suggestive of possible infectious etiology b/l. Plan: Mycoplama pneumoniae infection- patient with nonproductive cough, underlying chronic respiratory failure 2/2 COPD and sarcodosis - Mycoplasma pneumoniae IgM positive - Code sepsis- lactate 2.2->4.9->4.3 - Procal <0.5 - Leukocytosis stable- chronic 2/2 prolonged exogenous steroid use - Afebrile - CXR 08/26:Worsening multifocal infiltrates compared to the prior study (2017). There is both interstitial and confluent alveolar consolidative change. Findings suggest infectious/inflammatory etiology. - CXR 08/27: Bilateral multifocal infiltrates. Interstitial prominence may reflect infection or edema. Bilateral pleural thickening. Emphysema. Cardiomegaly. - Continue home prednisolone 4 mg PO QHS - Start Solu-medrol 30 mg IV BID - Mucinex 600 mg PO BID - Duoneb Q6H [facility], Q2H PRN - Pulmicort Q12H - Azithromycin 500 mg IV daily - Rocephin 1 g IV daily - Supplemental O2- titrate 88-92 (patient on 3L at home) - Pulmonology consulted (Travonleticia) - ID consulted (Go) T2DM, chronic- BG elevated also 2/2 steroid use - Accuchecks ACHS - ISS lispro low - Hypoglycemia protocol - Gabapentin 300 mg PO BID for peripheral neuropathy - Tramadol 50 mg PO BID PRN leg pain HTN, chronic - Continue home amlodipine 10 mg PO daily H/o CVAs- residual R eye blindness - Continue home ASA 325 mg PO daily Anxiety - Continue home Ativan 1 mg PO TID PRN Depression - Continue home Remeron 30 mg QHS Insomnia - Continue home Ambien at decreased dose, 5 mg PO QHS PRN IVF: not indicated Diet: heart healthy GI ppx: Protonix 40 mg PO daily VTE ppx: SCDs Code status: DNR/DNI- brother completed POLST with patient on previous admission Case discussed with attending, Dr. Hernandez. <Beckie Hernandez - Last Filed: 08/31/18 15:47> Objective - Vital Signs/Intake and Output Vital Signs (last 24 hours): Temp Pulse Resp BP Pulse Ox 97.8 F 85 20 148/80 94 L 08/31/18 06:00 08/31/18 06:00 08/31/18 06:00 08/31/18 09:48 08/31/18 06:00 Intake and Output: 08/31/18 08/31/18 06:59 18:59 Intake Total 590 Balance 590 - Medications Medications: Current Medications Albuterol/Ipratropium (Duoneb 3 Mg/0.5 Mg (3 Ml) Ud) 3 ml IH [id number] [facility] Last Admin: 08/31/18 13:40 Dose: 3 ml Albuterol/Ipratropium (Duoneb 3 Mg/0.5 Mg (3 Ml) Ud) 3 ml IH Q2H PRN PRN Reason: Shortness of Breath Amlodipine Besylate (Norvasc) 10 mg PO DAILY [facility] Last Admin: 08/31/18 09:48 Dose: 10 mg Aspirin (Ecotrin) 325 mg PO DAILY [facility] Last Admin: 08/31/18 10:06 Dose: Not Given Budesonide (Pulmicort Respules) 0.5 mg IH [id number] [facility] Last Admin: 08/30/18 20:27 Dose: 0.5 mg Dextrose (Dextrose 50% Inj) 0 ml IV STAT PRN; Protocol PRN Reason: Hypoglycemia Protocol Gabapentin (Neurontin) 300 mg PO BID [facility]; Protocol Last Admin: 08/31/18 09:48 Dose: 300 mg Guaifenesin (Mucinex La) 600 mg PO BID [facility] Last Admin: 08/31/18 09:48 Dose: 600 mg Dextrose (Dextrose 5% In Water 1000 Ml) 1,000 mls @ 0 mls/hr IV .Q0M PRN; Protocol PRN Reason: Hypoglycemia Protocol Ceftriaxone Sodium (Rocephin 1 Gram Ivpb) 1 gm in 100 mls @ 100 mls/hr IVPB DA [facility]; Protocol Last Admin: 08/31/18 09:49 Dose: 100 mls/hr Azithromycin (Zithromax 500mg In Ns) 500 mg in 250 mls @ 167 mls/hr IVPB DAILY [facility]; Protocol Last Admin: 08/31/18 09:49 Dose: 167 mls/hr Insulin Human Lispro (Humalog Low) 0 units SC ACHS [facility]; Protocol Last Admin: 08/31/18 12:06 Dose: 2 units Lorazepam (Ativan) 1 mg PO 0900,1600,2100 PRN; Protocol PRN Reason: Anxiety Last Admin: 08/30/18 12:38 Dose: 1 mg Mirtazapine (Remeron) 30 mg PO HS [facility] Last Admin: 08/30/18 21:31 Dose: 30 mg Pantoprazole Sodium (Protonix Ec Tab) 40 mg PO 0600 [facility] Last Admin: 08/31/18 05:44 Dose: 40 mg Prednisone (Prednisone Tab) 30 mg PO DAILY [facility] Last Admin: 08/31/18 09:49 Dose: 30 mg Tramadol HCl (Ultram) 50 mg PO BID PRN PRN Reason: Pain, severe (8-10) Last Admin: 08/28/18 12:54 Dose: 50 mg Zolpidem Tartrate (Ambien) 5 mg PO HS PRN; Protocol PRN Reason: Insomnia Last Admin: 08/30/18 21:30 Dose: 5 mg - Labs Labs: 08/31/18 06:45 08/31/18 06:45 PT 11.6 SECONDS (9.4-12.5) 08/27/18 12:15 INR 1.01 08/27/18 12:15 APTT 24.7 Seconds (25.1-36.5) L 08/27/18 12:15 Attending/Attestation - Attestation I have personally seen and examined this patient.: Yes I have fully participated in the care of the patient.: Yes I have reviewed all pertinent clinical information, including history, physical exam and plan: Yes Notes (Text): Patient seen and examined by me at 11:10 AM with resident 08/28/18. Case inc luding HPI, physical exam, andassessment and plan discussed with resident. Agree with above with following additions/corrections. Patient is a 77-year-old female with past medical history significant for pulmonary sarcoidosis, COPD on home oxygen, chronic respiratory failure secondary to COPD and sarcoidosis, CVA with residual cognitive impairment, type 2 diabetes with peripheral neuropathy, hypertension, depression and anxiety, and spinal stenosis that presented to the emergency room with a nonproductive cough for one week. Patient states she is feeling ok. Patient with dementia. Unclear if review of systems are accurate. Patient states she is coughing a little. Denies any sputum. Complains of bilateral lower extremity pain and states it is chronic. Also with chronic shortness of breath. No chest pain or palpitations. No nausea, vomiting, or abdominal pain. No headaches or dizziness. No fevers or chills. No dysuria. Physical exam: General: Awake and alert lying in bed in no acute distress HEENT: Normocephalic atraumatic. Pupils equal reactive. No scleral icterus. Oropharynx is pink and moist. No pharyngeal erythema or exudate appreciated. Neck is supple. Cardiovascular: Normal rhythm. Normal S1, S2. Positive systolic murmur. No rubs or gallops appreciated Pulmonary: Normal respiratory effort. Decreased breath sounds. Coarse breath sounds throughout. Rabia or wheezing appreciated. Gastrointestinal: Soft, nondistended. Nontender. Positive bowel sounds all 4 quadrants, no guarding. Musculoskeletal: Moves all extremities, no calf tenderness, no edema appreciated. Bilateral lower extremity tenderness. Central nervous system: Awake and alert. Dermatologic: Skin warm and dry. Assessement and Plan: Patient is a 77-year-old female with past medical history significant for pulmonary sarcoidosis, COPD on home oxygen, chronic respiratory failure secondary to COPD and sarcoidosis, CVA with residual cognitive impairment, type 2 diabetes with peripheral neuropathy, hypertension, depression and anxiety, and spinal stenosis that presented to the emergency room with a nonproductive cough for one week. 1. Mycoplasma pneumonia. Code sepsis was called in the ED. Continue Rocephin and Zithromax. Continue mucinex and nebulizer treatments. Chest xray per radiologist shows bilateral multifocal infiltrates, interstitial prominence may reflect infection or edema, bilateral pleural thickening, emphysema, and cardiomegaly. Continue with O2 via nasal cannula. Pulmonology following, recommendations appreciated. Continue solu-medrol. Elevated lactate at 2.2. Repeat lactate 4.9, then 4.3. Blood cultures negative. 2. Leukocytosis. Likely secondary to chronic steroid use and now pneumonia. Also on solu-medrol now. Blood cultures negative so far. Continue to monitor 3. Type 2 diabetes with peripheral neuropathy. Continue insulin sliding scale. Continue to monitor Accu-Cheks. Continue home gabapentin and tramadol. 4. Bilateral lower extremity pain. Chronic. Secondary to neuropathy. Continue gabapentin and tramadol. 5. Essential hypertension. Continue amlodipine. 6. History of CVAs. With residual right eye visual defect. Continue aspirin. Patient is not on a statin. 7. Depression and anxiety. Continue Remeron and Ativan. 8. Advanced directive. Patient is a DNR/DNI Case was discussed in detail with the patient and patient's airline pilot/first officer at bedside regarding current diagnosis and treatment plan. All questions answered.
[2018-08-29] MEDS: PrednisoLONE 15 mg/5 ml Oral Syrup (240 ml) PO SCH (01:05)
[2018-08-29] MEDS: Albuterol-Ipratrop 3 mg / 0.5 (3 ml) UD IH SCH ×4 (01:33→21:27)
[2018-08-29] MEDS: Pantoprazole 40 mg EC Tab PO SCH (06:08)
--- NOTE | 2018-08-29 08:18 | PN ---
DATE: 08/29/2018 PULMONARY NOTE SUBJECTIVE: The patient appears comfortable this morning. She is not short of breath at rest. PHYSICAL EXAMINATION: VITAL SIGNS: (Last noted in the computer): Temperature is 98, pulse 92, respirations 16, blood pressure 141/69. Oxygen saturation on nasal cannula is 96%. HEENT: Normocephalic, atraumatic. No JVD. CARDIOVASCULAR: Systolic ejection murmur at the lower left sternal border. No S3 gallop. LUNGS: Chronic crackles at both bases. Minimal/less rhonchi. No wheezing. EXTREMITIES: Mild edema. No cyanosis, no clubbing. Calves are nontender to palpation. GASTROINTESTINAL: Abdomen is soft, nontender, and nondistended. Bowel sounds are positive. SKIN: No acute rash. NEUROLOGIC: Limited at the present time. IMPRESSION: 1. Recurrent bronchitis. 2. Advanced chronic obstructive pulmonary disease. 3. Advanced interstitial lung disease. 4. Rule out underlying pneumonia. 5. Mild anemia. PLAN: The patient appears comfortable this morning. She is not short of breath at rest. She does state to feeling much better overall. On physical exam, her bronchospasm is less. In addition, the alveolar-arterial gradient is also less. I will continue with the current nebulizer treatments and decrease the intravenous steroids this morning. The patient remains on antibiotic therapy. Cultures are so far negative. There are no temperatures noted. There is a leukocytosis - probably partly due to the steroids. Clinical status of the patient is certainly improved - compared to a few days ago. However, again, the future status/prognosis for this chronically ill, elderly patient does remain poor. I will discuss the above with the attending physician. Meet Alcaraz MD ADÁN
[2018-08-29] MEDS: Insulin Lispro (humaLOG) LOW Coverage SC SCH ×4 (08:31→22:00)
[2018-08-29 08:54] LABS: GRAN % 86.4 % (50.0-68.0); HEMOGLOBIN 12.7 g/dL (12.0-16.0); LYMPH # 1.9 (1.2-3.4); LYMPH % 8.2 % (22.0-35.0); MEAN CELL VOLUME 80.2 fl (80.0-105.0); MEAN CORPUSCULAR HEMOGLOBIN 24.6 pg (25.0-35.0); MEAN CORPUSCULAR HGB CONC 30.7 g/dl (31.0-37.0); MONO # 1.3 (0.1-0.6); MONO % 5.4 % (1.0-6.0); RBC 5.16 10^6/uL (3.5-6.1); RED CELL DISTRIBUTION WIDTH 17.5 % (11.5-14.5); WHITE BLOOD COUNT 23.2 10^3/ul (4.5-11.0)
[2018-08-29] MEDS: cefTRIAXone 1 gm 1 GM/100 ML BAG IVPB SCH (08:59)
[2018-08-29] MEDS: guaiFENesin 600 mg ER Tab PO SCH ×2 (09:00→17:29)
[2018-08-29] MEDS: MethylPREDNISolone 40 mg Vial IVP SCH ×2 (09:00→21:15)
[2018-08-29 09:28] LABS: ALB/GLOB RATIO 1.3 (1.1-1.8); ALBUMIN 4.6 g/dL (3.0-4.8); ALT/SGPT 27 U/L (7-56); AST/SGOT 29 U/L (14-36); BLOOD UREA NITROGEN 23 mg/dL (7-21); CALCIUM 9.8 mg/dL (8.4-10.5); GFR NON-AFRICAN AMERICAN > 60
[2018-08-29] MEDS: Budesonide 0.5 mg/2 ml Inhal Susp UD IH SCH ×2 (09:47→21:27)
[2018-08-29] MEDS: Azithromycin 500MG/NS 250ml 500 MG/250 ML BAG IVPB SCH (10:08)
[2018-08-29] MEDS: Aspirin 325 mg EC Tablets PO SCH (12:10)
--- NOTE | 2018-08-29 17:42 | CP.PCM.CON ---
History of Present Illness - History of Present Illness History of Present Illness: Infectious Disease Consultation: August 29, 2018 77 yo female with extensive past medical history that includes sarcoidosis, CVA, HTN, DM, and COPD presenting with prolonged nonproductive cough for 1 week. Given Cefuroxime for treatment as an outpatient. Outpatient chest X-ray showed worsening bilateral pulmonary infiltrates (patient has a history of chronic persistent pulmonary infiltrates.). Patient is visibly short of breath. She also has multiple chronic aches and pains. PMHx: Sarcoidosis, CVA, HTN, DM Type II, COPD, Migraine headaches, macular degenerati on, arthritis, vaginal fistula, anxiety, depression, blindness in right eye, Residual cognitive impairment, Spinal Stenosis, Peripheral neuropathy. PSHx: Hysterectomy, Recto-Vaginal Fistula repair. Social Hx: No EtOH or illicit drugs Former tobacco use history. Allergies: NKDA Active Medications Albuterol/Ipratropium (Duoneb 3 Mg/0.5 Mg (3 Ml) Ud) 3 ml IH [id number] [facility] Last Admin: 08/29/18 13:37 Dose: 3 ml Albuterol/Ipratropium (Duoneb 3 Mg/0.5 Mg (3 Ml) Ud) 3 ml IH Q2H PRN PRN Reason: Shortness of Breath Amlodipine Besylate (Norvasc) 10 mg PO DAILY [facility] Last Admin: 08/29/18 09:00 Dose: 10 mg Aspirin (Ecotrin) 325 mg PO DAILY [facility] Last Admin: 08/29/18 12:10 Dose: 325 mg Budesonide (Pulmicort Respules) 0.5 mg IH [id number] [facility] Last Admin: 08/29/18 09:47 Dose: 0.5 mg Dextrose (Dextrose 50% Inj) 0 ml IV STAT PRN; Protocol PRN Reason: Hypoglycemia Protocol Gabapentin (Neurontin) 300 mg PO BID [facility]; Protocol Last Admin: 08/29/18 09:00 Dose: 300 mg Guaifenesin (Mucinex La) 600 mg PO BID [facility] Last Admin: 08/29/18 09:00 Dose: 600 mg Dextrose (Dextrose 5% In Water 1000 Ml) 1,000 mls @ 0 mls/hr IV .Q0M PRN; Protocol PRN Reason: Hypoglycemia Protocol Ceftriaxone Sodium (Rocephin 1 Gram Ivpb) 1 gm in 100 mls @ 100 mls/hr IVPB DAILY [facility]; Protocol Last Admin: 08/29/18 08:59 Dose: 100 mls/hr Azithromycin (Zithromax 500mg In Ns) 500 mg in 250 mls @ 167 mls/hr IVPB DAILY [facility]; Protocol Last Admin: 08/29/18 10:08 Dose: 167 mls/hr Insulin Human Lispro (Humalog Low) 0 units SC ACHS [facility]; Protocol Last Admin: 08/29/18 12:10 Dose: 2 units Lorazepam (Ativan) 1 mg PO 0900,1600,2100 PRN; Protocol PRN Reason: Anxiety Methylprednisolone (Solu-Medrol) 20 mg IVP Q12 [facility] Last Admin: 08/29/18 09:00 Dose: 20 mg Mirtazapine (Remeron) 30 mg PO HS [facility] Last Admin: 08/28/18 21:40 Dose: 30 mg Pantoprazole Sodium (Protonix Ec Tab) 40 mg PO 0600 [facility] Last Admin: 08/29/18 06:08 Dose: 40 mg Tramadol HCl (Ultram) 50 mg PO BID PRN PRN Reason: Pain, severe (8-10) Last Admin: 08/28/18 12:54 Dose: 50 mg Zolpidem Tartrate (Ambien) 5 mg PO HS PRN; Protocol PRN Reason: Insomnia Last Admin: 08/28/18 21:41 Dose: 5 mg Family Hx: none given ROS: general weakness, shortness of breath. right eye vision loss (chronic). Cognitive impairment. No melena, hematuria, hematemesis, hematochezia. No hearing loss. No loss of consciousness. No chest pain. No abdominal pain. No diarrhea. History of depression and anxiety. Past Patient History - Infectious Disease Hx of Infectious Diseases: None - Tetanus Immunizations Tetanus Immunization: Unknown - Past Medical History & Family History Past Medical History?: Yes Past Family History: Reviewed and not pertinent - Past Social History Smoking Status: Former Smoker - CARDIAC Hx Cardiac Disorders: Yes Hx Congestive Heart Failure: Yes Hx Hypercholesterolemia: Yes Hx Hypertension: Yes Hx Peripheral Vascular Disease: Yes - PULMONARY Hx Chronic Obstructive Pulmonary Disease (COPD): Yes - NEUROLOGICAL HX Cerebrovascular Accident: Yes - HEENT Hx HEENT Problems: Yes (eyeglasses) 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 (tribal) Hx Macular Degeneration: Yes - RENAL Hx Chronic Kidney Disease: No - ENDOCRINE/METABOLIC Hx Endocrine Disorders: Yes Hx Diabetes Mellitus Type 2: Yes - HEMATOLOGICAL/ONCOLOGICAL Hx Blood Disorders: Yes Hx Cancer: Yes (basal cell) - INTEGUMENTARY Hx Dermatological Problems: Yes Hx Basil Cell: Yes Other/Comment: SARCOIDOSIS, b/l arm skin discolorations, rle round 2cm purple skin discoloration - MUSCULOSKELETAL/RHEUMATOLOGICAL Hx Musculoskeletal Disorders: Yes Hx Arthritis: Yes Hx Falls: Yes (past) Hx Herniated Disk: Yes (L4 L5 S1) Hx Osteoarthritis: Yes Hx Osteoporosis: Yes Hx Rhabdomyolysis: Yes Hx Spinal Stenosis: Yes Hx Unsteady Gait: Yes (cane when out) Other/Comment: chronic right hip pain constant - GASTROINTESTINAL Hx Gastrointestinal Disorders: Yes Hx Gastroesophageal Reflux: Yes - GENITOURINARY/GYNECOLOGICAL Hx Genitourinary Disorders: Yes (HYSTERECTOMY) Hx Incontinence: (denies uses commode at home) Other/Comment: vaginal rectal fistula repair - PSYCHIATRIC Hx Psychophysiologic Disorder: Yes Hx Anxiety: Yes Hx Depression: Yes Hx Substance Use: No - SURGICAL HISTORY Hx Surgeries: Yes Hx Hysterectomy: Yes Other/Comment: laparoscopic sx to dx sarcoidosis - ANESTHESIA Hx Anesthesia: Yes Hx Anesthesia Reactions: No Hx Malignant Hyperthermia: No Meds Allergies/Adverse Reactions: Allergies Allergy/AdvReac Type Severity Reaction Status Date / Time No Known Allergies Allergy Verified 08/27/18 11:24 - Medications Medications: Current Medications Albuterol/Ipratropium (Duoneb 3 Mg/0.5 Mg (3 Ml) Ud) 3 ml IH [id number] [facility] Last Admin: 08/29/18 13:37 Dose: 3 ml Albuterol/Ipratropium (Duoneb 3 Mg/0.5 Mg (3 Ml) Ud) 3 ml IH Q2H PRN PRN Reason: Shortness of Breath Amlodipine Besylate (Norvasc) 10 mg PO DAILY [facility] Last Admin: 08/29/18 09:00 Dose: 10 mg Aspirin (Ecotrin) 325 mg PO DAILY [facility] Last Admin: 08/29/18 12:10 Dose: 325 mg Budesonide (Pulmicort Respules) 0.5 mg IH [id number] [facility] Last Admin: 08/29/18 09:47 Dose: 0.5 mg Dextrose (Dextrose 50% Inj) 0 ml IV STAT PRN; Protocol PRN Reason: Hypoglycemia Protocol Gabapentin (Neurontin) 300 mg PO BID [facility]; Protocol Last Admin: 08/29/18 09:00 Dose: 300 mg Guaifenesin (Mucinex La) 600 mg PO BID [facility] Last Admin: 08/29/18 09:00 Dose: 600 mg Dextrose (Dextrose 5% In Water 1000 Ml) 1,000 mls @ 0 mls/hr IV .Q0M PRN; Protocol PRN Reason: Hypoglycemia Protocol Ceftriaxone Sodium (Rocephin 1 Gram Ivpb) 1 gm in 100 mls @ 100 mls/hr IVPB DAILY [facility]; Protocol Last Admin: 08/29/18 08:59 Dose: 100 mls/hr Azithromycin (Zithromax 500mg In Ns) 500 mg in 250 mls @ 167 mls/hr IVPB DAILY [facility]; Protocol Last Admin: 08/29/18 10:08 Dose: 167 mls/hr Insulin Human Lispro (Humalog Low) 0 units SC ACHS [facility]; Protocol Last Admin: 08/29/18 12:10 Dose: 2 units Lorazepam (Ativan) 1 mg PO 0900,1600,2100 PRN; Protocol PRN Reason: Anxiety Methylprednisolone (Solu-Medrol) 20 mg IVP Q12 [facility] Last Admin: 08/29/18 09:00 Dose: 20 mg Mirtazapine (Remeron) 30 mg PO HS [facility] Last Admin: 08/28/18 21:40 Dose: 30 mg Pantoprazole Sodium (Protonix Ec Tab) 40 mg PO 0600 [facility] Last Admin: 08/29/18 06:08 Dose: 40 mg Tramadol HCl (Ultram) 50 mg PO BID PRN PRN Reason: Pain, severe (8-10) Last Admin: 08/28/18 12:54 Dose: 50 mg Zolpidem Tartrate (Ambien) 5 mg PO HS PRN; Protocol PRN Reason: Insomnia Last Admin: 08/28/18 21:41 Dose: 5 mg Physical Exam - Constitutional Appears: In Acute Distress, Chronically Ill Additional comments: short of breath - Head Exam Head Exam: ATRAUMATIC, NORMOCEPHALIC - Eye Exam Eye Exam: EOMI, PERRL Pupil Exam: NORMAL ACCOMODATION, PERRL - ENT Exam ENT Exam: Mucous Membranes Moist, Normal External Ear Exam, TM's Normal Bilaterally - Neck Exam Neck exam: Positive for: Full Rom, Normal Inspection - Respiratory Exam Respiratory Exam: Decreased Breath Sounds, Wheezes. absent: Rales, Rhonchi, Respiratory Distress, Stridor - Cardiovascular Exam Cardiovascular Exam: REGULAR RHYTHM, RRR, +S1, +S2 - GI/Abdominal Exam GI & Abdominal Exam: Normal Bowel Sounds, Soft. absent: Distended, Tenderness - Extremities Exam Extremities exam: Positive for: full ROM, normal inspection - Neurological Exam Neurological exam: Alert, CN II-XII Intact, Oriented x3 - Psychiatric Exam Psychiatric exam: Normal Affect, Normal Mood - Skin Skin Exam: Intact, Normal Color Results - Vital Signs Recent Vital Signs: Last Vital Signs Temp 98.5 F 08/29/18 14:00 Pulse 102 H 08/29/18 14:00 Resp 18 08/29/18 14:00 BP 158/81 H 08/29/18 14:00 Pulse Ox 96 08/29/18 14:00 - Labs Result Diagrams: 08/29/18 07:00 08/29/18 07:00 Labs: Laboratory Results - last 24 hr 08/29/18 08/29/18 08/29/18 03:56 06:54 07:00 WBC 23.2 H D RBC 5.16 Hgb 12.7 Hct 41.4 MCV 80.2 MCH 24.6 L MCHC 30.7 L RDW 17.5 H Plt Count 407 MPV 10.0 Gran % 86.4 H Lymph % (Auto) 8.2 L Prentiss % (Auto) 5.4 Eos % (Auto) 0.0 L Baso % (Auto) 0.0 Gran # 20.00 H Lymph # (Auto) 1.9 Prentiss # (Auto) 1.3 H Eos # (Auto) 0.0 Baso # (Auto) 0.00 Sodium Potassium Chloride Carbon Dioxide Anion Gap BUN Creatinine Est GFR ( Amer) Est GFR (Non-Af Amer) POC Glucose (mg/dL) 306 H 243 H Random Glucose Calcium Phosphorus Magnesium Total Bilirubin AST ALT Alkaline Phosphatase Total Protein Albumin Globulin Albumin/Globulin Ratio Ur L.pneumophila Ag 08/29/18 08/29/18 08/29/18 07:00 11:16 11:52 WBC RBC Hgb Hct MCV MCH MCHC RDW Plt Count MPV Gran % Lymph % (Auto) Prentiss % (Auto) Eos % (Auto) Baso % (Auto) Gran # Lymph # (Auto) Prentiss # (Auto) Eos # (Auto) Baso # (Auto) Sodium 143 Potassium 4.7 Chloride 106 Carbon Dioxide 25 Anion Gap 18 BUN 23 H Creatinine 0.7 Est GFR ( Amer) > 60 Est GFR (Non-Af Amer) > 60 POC Glucose (mg/dL) 229 H Random Glucose 264 H Calcium 9.8 Phosphorus 3.3 Magnesium 2.3 H Total Bilirubin 0.5 AST 29 ALT 27 Alkaline Phosphatase 166 H Total Protein 8.1 Albumin 4.6 Globulin 3.5 Albumin/Globulin Ratio 1.3 Ur L.pneumophila Ag Negative 08/29/18 16:30 WBC RBC Hgb Hct MCV MCH MCHC RDW Plt Count MPV Gran % Lymph % (Auto) Prentiss % (Auto) Eos % (Auto) Baso % (Auto) Gran # Lymph # (Auto) Prentiss # (Auto) Eos # (Auto) Baso # (Auto) Sodium Potassium Chloride Carbon Dioxide Anion Gap BUN Creatinine Est GFR ( Amer) Est GFR (Non-Af Amer) POC Glucose (mg/dL) 316 H Random Glucose Calcium Phosphorus Magnesium Total Bilirubin AST ALT Alkaline Phosphatase Total Protein Albumin Globulin Albumin/Globulin Ratio Ur L.pneumophila Ag Assessment & Plan - Assessment and Plan (Free Text) Assessment: 77 yo female known to me from previous hospitalizations who is displaying SOB in setting of pulmonary sarcoidosis, COPD, chronic respiratory failure, and persistent acute cough (cough starting 1 week ago). A procalcitonin value of <0.05 would argue strongly against a bacterial pneumonia. Currently on Rocephin and Azithromycin for antibiotic treatment. Initial leukocytosis of 23.2 that has improved to 16.7. Would consider up to 7 days of antibiotic treatment especially completion of Azithomycin for the patient. The patient may benefit from a prolonged course of Azithromycin orally. Thank you for allowing me to participate in the care of the patient, we will follow with you.
--- NOTE | 2018-08-29 17:42 | CP.PCM.PN ---
<Maxime De Anda - Last Filed: 08/29/18 17:38> Subjective - Date & Time of Evaluation Date of Evaluation: 08/29/18 Time of Evaluation: 17:38 - Subjective Subjective: Internal Medicine Progress Note(Hospitalist Service): Bella PGY2 Patient seen and assessed at bedside. No overnight events noted by patient or nursing staff. Patient reports that her breathing has gotten better since admission but that her chronic SOB is still present. Patient denies any complaints at this time including fevers, chills, headache, chest pain, wheezing, abdominal pain, N/V/D/C, changes in urine output or skin changes. Objective - Vital Signs/Intake and Output Vital Signs (last 24 hours): Temp Pulse Resp BP Pulse Ox 98.5 F 102 H 18 158/81 H 96 08/29/18 14:00 08/29/18 14:00 08/29/18 14:00 08/29/18 14:00 08/29/18 14:00 - Medications Medications: Current Medications Albuterol/Ipratropium (Duoneb 3 Mg/0.5 Mg (3 Ml) Ud) 3 ml IH [id number] [facility] Last Admin: 08/29/18 13:37 Dose: 3 ml Albuterol/Ipratropium (Duoneb 3 Mg/0.5 Mg (3 Ml) Ud) 3 ml IH Q2H PRN PRN Reason: Shortness of Breath Amlodipine Besylate (Norvasc) 10 mg PO DAILY [facility] Last Admin: 08/29/18 09:00 Dose: 10 mg Aspirin (Ecotrin) 325 mg PO DAILY [facility] Last Admin: 08/29/18 12:10 Dose: 325 mg Budesonide (Pulmicort Respules) 0.5 mg IH [id number] [facility] Last Admin: 08/29/18 09:47 Dose: 0.5 mg Dextrose (Dextrose 50% Inj) 0 ml IV STAT PRN; Protocol PRN Reason: Hypoglycemia Protocol Gabapentin (Neurontin) 300 mg PO BID [facility]; Protocol Last Admin: 08/29/18 17:29 Dose: 300 mg Guaifenesin (Mucinex La) 600 mg PO BID [facility] Last Admin: 08/29/18 17:29 Dose: 600 mg Dextrose (Dextrose 5% In Water 1000 Ml) 1,000 mls @ 0 mls/hr IV .Q0M PRN; Protocol PRN Reason: Hypoglycemia Protocol Ceftriaxone Sodium (Rocephin 1 Gram Ivpb) 1 gm in 100 mls @ 100 mls/hr IVPB DAILY [facility]; Protocol Last Admin: 08/29/18 08:59 Dose: 100 mls/hr Azithromycin (Zithromax 500mg In Ns) 500 mg in 250 mls @ 167 mls/hr IVPB DAILY [facility]; Protocol Last Admin: 08/29/18 10:08 Dose: 167 mls/hr Insulin Human Lispro (Humalog Low) 0 units SC ACHS [facility]; Protocol Last Admin: 08/29/18 17:29 Dose: 4 units Lorazepam (Ativan) 1 mg PO 0900,1600,2100 PRN; Protocol PRN Reason: Anxiety Methylprednisolone (Solu-Medrol) 20 mg IVP Q12 [facility] Last Admin: 08/29/18 09:00 Dose: 20 mg Mirtazapine (Remeron) 30 mg PO HS [facility] Last Admin: 08/28/18 21:40 Dose: 30 mg Pantoprazole Sodium (Protonix Ec Tab) 40 mg PO 0600 [facility] Last Admin: 08/29/18 06:08 Dose: 40 mg Tramadol HCl (Ultram) 50 mg PO BID PRN PRN Reason: Pain, severe (8-10) Last Admin: 08/28/18 12:54 Dose: 50 mg Zolpidem Tartrate (Ambien) 5 mg PO HS PRN; Protocol PRN Reason: Insomnia Last Admin: 08/28/18 21:41 Dose: 5 mg - Labs Labs: 08/29/18 07:00 08/29/18 07:00 PT 11.6 SECONDS (9.4-12.5) 08/27/18 12:15 INR 1.01 08/27/18 12:15 APTT 24.7 Seconds (25.1-36.5) L 08/27/18 12:15 - Constitutional Appears: Non-toxic, No Acute Distress - Head Exam Head Exam: ATRAUMATIC, NORMOCEPHALIC - Eye Exam Eye Exam: EOMI, Normal appearance - ENT Exam ENT Exam: Mucous Membranes Moist - Neck Exam Neck Exam: Full ROM - Respiratory Exam Respiratory Exam: Wheezes (Mild diffuse; Interval improvement noted), NORMAL BREATHING PATTERN. absent: Accessory Muscle Use, Clear to Ausculation Bilateral, Rales, Rhonchi, Respiratory Distress - Cardiovascular Exam Cardiovascular Exam: REGULAR RHYTHM, RRR, +S1, +S2. absent: Bradycardia, Tachycardia, Clicks, Diastolic murmur, Gallop, Irregular Rhythm, JVD, Rubs, +S4, Murmur - GI/Abdominal Exam GI & Abdominal Exam: Soft, Normal Bowel Sounds. absent: Tenderness - Extremities Exam Extremities Exam: absent: Calf Tenderness - Neurological Exam Neurological Exam: Alert, Awake, Oriented x3 - Psychiatric Exam Psychiatric exam: Normal Affect, Normal Mood - Skin Skin Exam: Dry, Intact, Normal Color, Warm Assessment and Plan - Assessment and Plan (Free Text) Assessment: 77 year old female with past medical history significant for pulmonary sarcoidosis, COPD, two prior CVA's with residual cognitive impairment and diminished vision in right eye who presented with a nonproductive cough for one week. Plan: 1. Mycoplasma Pneumonia -Mycoplasma pneumoniae IgM positive -Chest X-Ray showed bilateral multifocal infiltrates, interstitial prominence which may reflect infection or edema, bilateral pleural thickening, emphysema, and cardiomegaly -Continue home Prednisolone 4 mg PO QHS -Tapered Solu-Medrol to 20 mg IVP Q12 -Continue Mucinex 600 mg PO BID -Continue Duoneb Q6H [facility], Q2H PRN -Continue Pulmicort Q12H -Continue Azithromycin 500 mg IV daily and Rocephin 1 gm IV daily -Continue Supplemental O2- titrate 88-92% oxygen saturation (patient on 3L at home) -Pulmonology and ID consulted, all recommendations appreciated 2. History of DM2 -ISS-Low and Accuchecks ACHS 3. History of Bilateral LE Pain -Continue home Gabapentin and Tramadol 4. History of HTN -Continue home Norvasc 5. History of CVA's -Continue ASA 325 6. History of Depression/Anxiety -Continue Remeron and Ativan 7. Insomnia -Continue home Ambien GI Prophylaxis: Protonix DVT Prophylaxis: SCD's Patient seen and case discussed with attending, Dr. Beckie Hernandez. <Beckie Hernandez R - Last Filed: 08/31/18 15:56> Objective - Vital Signs/Intake and Output Vital Signs (last 24 hours): Temp Pulse Resp BP Pulse Ox 97.8 F 85 20 148/80 94 L 08/31/18 06:00 08/31/18 06:00 08/31/18 06:00 08/31/18 09:48 08/31/18 06:00 Intake and Output: 08/31/18 08/31/18 06:59 18:59 Intake Total 590 Balance 590 - Medications Medications: Current Medications Albuterol/Ipratropium (Duoneb 3 Mg/0.5 Mg (3 Ml) Ud) 3 ml IH [id number] [facility] Last Admin: 08/31/18 13:40 Dose: 3 ml Albuterol/Ipratropium (Duoneb 3 Mg/0.5 Mg (3 Ml) Ud) 3 ml IH Q2H PRN PRN Reason: Shortness of Breath Amlodipine Besylate (Norvasc) 10 mg PO DAILY [facility] Last Admin: 08/31/18 09:48 Dose: 10 mg Aspirin (Ecotrin) 325 mg PO DAILY [facility] Last Admin: 08/31/18 10:06 Dose: Not Given Budesonide (Pulmicort Respules) 0.5 mg IH [id number] [facility] Last Admin: 08/30/18 20:27 Dose: 0.5 mg Dextrose (Dextrose 50% Inj) 0 ml IV STAT PRN; Protocol PRN Reason: Hypoglycemia Protocol Gabapentin (Neurontin) 300 mg PO BID [facility]; Protocol Last Admin: 08/31/18 09:48 Dose: 300 mg Guaifenesin (Mucinex La) 600 mg PO BID [facility] Last Admin: 08/31/18 09:48 Dose: 600 mg Dextrose (Dextrose 5% In Water 1000 Ml) 1,000 mls @ 0 mls/hr IV .Q0M PRN; Protocol PRN Reason: Hypoglycemia Protocol Ceftriaxone Sodium (Rocephin 1 Gram Ivpb) 1 gm in 100 mls @ 100 mls/hr IVPB DAILY [facility]; Protocol Last Admin: 08/31/18 09:49 Dose: 100 mls/hr Azithromycin (Zithromax 500mg In Ns) 500 mg in 250 mls @ 167 mls/hr IVPB DAILY [facility]; Protocol Last Admin: 08/31/18 09:49 Dose: 167 mls/hr Insulin Human Lispro (Humalog Low) 0 units SC ACHS [facility]; Protocol Last Admin: 08/31/18 12:06 Dose: 2 units Lorazepam (Ativan) 1 mg PO 0900,1600,2100 PRN; Protocol PRN Reason: Anxiety Last Admin: 08/30/18 12:38 Dose: 1 mg Mirtazapine (Remeron) 30 mg PO HS [facility] Last Admin: 08/30/18 21:31 Dose: 30 mg Pantoprazole Sodium (Protonix Ec Tab) 40 mg PO 0600 [facility] Last Admin: 08/31/18 05:44 Dose: 40 mg Prednisone (Prednisone Tab) 30 mg PO DAILY [facility] Last Admin: 08/31/18 09:49 Dose: 30 mg Tramadol HCl (Ultram) 50 mg PO BID PRN PRN Reason: Pain, severe (8-10) Last Admin: 08/28/18 12:54 Dose: 50 mg Zolpidem Tartrate (Ambien) 5 mg PO HS PRN; Protocol PRN Reason: Insomnia Last Admin: 08/30/18 21:30 Dose: 5 mg - Labs Labs: 08/31/18 06:45 08/31/18 06:45 PT 11.6 SECONDS (9.4-12.5) 08/27/18 12:15 INR 1.01 08/27/18 12:15 APTT 24.7 Seconds (25.1-36.5) L 08/27/18 12:15 Attending/Attestation - Attestation I have personally seen and examined this patient.: Yes I have fully participated in the care of the patient.: Yes I have reviewed all pertinent clinical information, including history, physical exam and plan: Yes Notes (Text): Patient seen and examined by me at 10:30 AM with resident 08/29/18. Case including HPI, physical exam, andassessment and plan discussed with resident. Agree with above with following additions/corrections. Patient is a 77-year-old female with past medical history significant for pulmonary sarcoidosis, COPD on home oxygen, chronic respiratory failure secondary to COPD and sarcoidosis, CVA with residual cognitive impairment, type 2 diabetes with peripheral neuropathy, hypertension, depression and anxiety, and spinal stenosis that presented to the emergency room with a nonproductive cough for one week. Patient states she is feeling that great. She states she is not sleeping. Patient with dementia. Unclear if review of systems are accurate. Cough is "mild" per patient. Complains of bilateral lower extremity pain and states it is chronic. Also with chronic shortness of breath. O2 via nasal cannula helps. No chest pain or palpitations. No nausea, vomiting, or abdominal pain. No headaches or dizziness. No fevers or chills. No dysuria. Physical exam: General: Awake and alert lying in bed in no acute distress HEENT: Normocephalic atraumatic. Pupils equal reactive. No scleral icterus. Oropharynx is pink and moist. No pharyngeal erythema or exudate appreciated. Neck is supple. Cardiovascular: Normal rhythm. Normal S1, S2. Positive systolic murmur. No rubs or gallops appreciated Pulmonary: Normal respiratory effort. Decreased breath sounds. No rhonchi,rales, or wheezing appreciated. Gastrointestinal: Soft, nondistended. Nontender. Positive bowel sounds all 4 quadrants, no guarding. Musculoskeletal: Moves all extremities, no calf tenderness, no edema appreciated. Bilateral lower extremity tenderness. Central nervous system: Awake and alert. Dermatologic: Skin warm and dry. Assessement and Plan: Patient is a 77-year-old female with past medical history significant for pulmonary sarcoidosis, COPD on home oxygen, chronic respiratory failure secondary to COPD and sarcoidosis, CVA with residual cognitive impairment, type 2 diabetes with peripheral neuropathy, hypertension, depression and anxiety, and spinal stenosis that presented to the emergency room with a no nproductive cough for one week. 1. Mycoplasma pneumonia. Code sepsis was called in the ED. Sepsis clinically resolving. Continue Rocephin and Zithromax. Continue mucinex and nebulizer treatments. Continue solu-medrol. Chest xray per radiologist shows bilateral multifocal infiltrates, interstitial prominence may reflect infection or edema, bilateral pleural thickening, emphysema, and cardiomegaly. Continue with O2 via nasal cannula. Pulmonology following, recommendations appreciated. Elevated lactate at 2.2. Repeat lactate 4.9, then 4.3. Blood cultures negative. 2. Leukocytosis. Likely secondary to chronic steroid use and now pneumonia. Also on solu-medrol . Blood cultures negative so far. Continue to monitor 3. Type 2 diabetes with peripheral neuropathy. Continue insulin sliding scale. Continue to monitor Accu-Cheks. Continue home gabapentin and tramadol. 4. Bilateral lower extremity pain. Chronic. Secondary to neuropathy. Continue gabapentin and tramadol. PT eval and treat. 5. Essential hypertension. Continue amlodipine. 6. History of CVAs. With residual right eye visual defect. Continue aspirin. Patient is not on a statin. 7. Depression and anxiety. Continue Remeron and Ativan. 8. Advanced directive. Patient is a DNR/DNI Case was discussed in detail with the patient and patient's caretaker resort at bedside regarding current diagnosis and treatment plan. All questions answered.
[2018-08-30] MEDS: Albuterol-Ipratrop 3 mg / 0.5 (3 ml) UD IH SCH ×4 (02:42→20:22)
[2018-08-30] MEDS: Pantoprazole 40 mg EC Tab PO SCH (05:54)
--- NOTE | 2018-08-30 08:27 | PN ---
DATE: 08/30/2018 PULMONARY NOTE DICTATION SUBJECTIVE: The patient appears very comfortable this morning. She is not short of breath at rest. PHYSICAL EXAMINATION: VITAL SIGNS: Last temperature recorded is 98.5, pulse this morning is 88, respiratory rate 18, blood pressure 158/81. Oxygen saturation on nasal cannula is 96%. HEENT: Normocephalic, atraumatic. No JVD. CARDIOVASCULAR: Systolic ejection murmur at the lower left sternal border. No S3 gallop. LUNGS: Crackles at both bases - chronic. Minimal/less rhonchi. No wheezing. EXTREMITIES: Mild edema. No cyanosis, no clubbing. Calves are nontender to palpation. GI: Abdomen is soft, nontender and nondistended. Bowel sounds are positive. SKIN: No acute rash. NEUROLOGIC: Exam limited at the present time. IMPRESSION: 1. Recurrent bronchitis. 2. Advanced chronic obstructive pulmonary disease. 3. Advanced interstitial lung disease. 4. Rule out underlying pneumonia. 5. Mild anemia. PLAN: The patient appears very comfortable this morning. She is not short of breath at rest. She does state to feeling much better overall. On physical exam, her bronchospasm is certainly less. In addition, the alveolar-arterial gradient is also less. I will continue the current nebulizer treatments and low-dose intravenous steroids (decreased yesterday) for now. The patient remains on antibiotic therapy. Input by Infectious Disease (Dr. Garcia) is noted. There are no temperatures noted. Repeat a.m. labs are pending. Clinical status of the patient does appear improved - compared to the initial presentation. However, again, unfortunately, the future status/prognosis for this chronically ill elderly patient does remain poor. I will discuss the above with the attending physician. Meet Alcaraz MD ADÁN
[2018-08-30] MEDS: Insulin Lispro (humaLOG) LOW Coverage SC SCH ×4 (08:29→23:03)
[2018-08-30] MEDS: Budesonide 0.5 mg/2 ml Inhal Susp UD IH SCH ×2 (08:30→20:27)
[2018-08-30 08:35] LABS: GRAN # 17.98 (1.4-6.5); GRAN % 85.4 % (50.0-68.0); HEMOGLOBIN 12.4 g/dL (12.0-16.0); LYMPH # 1.7 (1.2-3.4); LYMPH % 8.2 % (22.0-35.0); MEAN CELL VOLUME 80.4 fl (80.0-105.0); MEAN CORPUSCULAR HEMOGLOBIN 24.4 pg (25.0-35.0); MEAN CORPUSCULAR HGB CONC 30.3 g/dl (31.0-37.0); MONO # 1.3 (0.1-0.6); MONO % 6.4 % (1.0-6.0); RBC 5.09 10^6/uL (3.5-6.1); RED CELL DISTRIBUTION WIDTH 17.4 % (11.5-14.5)
[2018-08-30 08:54] LABS: ALB/GLOB RATIO 1.1 (1.1-1.8); ALT/SGPT 29 U/L (7-56); AST/SGOT 24 U/L (14-36); BLOOD UREA NITROGEN 26 mg/dL (7-21); CALCIUM 9.3 mg/dL (8.4-10.5); GFR NON-AFRICAN AMERICAN > 60
[2018-08-30] MEDS: cefTRIAXone 1 gm 1 GM/100 ML BAG IVPB SCH (09:46)
[2018-08-30] MEDS: MethylPREDNISolone 40 mg Vial IVP SCH ×2 (09:46→21:31)
[2018-08-30] MEDS: guaiFENesin 600 mg ER Tab PO SCH ×2 (09:46→17:29)
[2018-08-30] MEDS: Aspirin 325 mg EC Tablets PO SCH (11:17)
[2018-08-30] MEDS: Azithromycin 500MG/NS 250ml 500 MG/250 ML BAG IVPB SCH (11:17)
--- NOTE | 2018-08-30 14:06 | CP.PCM.PN ---
Subjective - Date & Time of Evaluation Date of Evaluation: 08/30/18 Time of Evaluation: 13:15 - Subjective Subjective: Infectious Disease Follow Up: August 30, 2018 77 yo female with extensive past medical history that includes sarcoidosis, CVA, HTN, DM, and COPD presenting with prolonged nonproductive cough for 1 week. Given Cefuroxime for treatment as an outpatient. Outpatient chest X-ray showed worsening bilateral pulmonary infiltrates (patient has a history of chronic persistent pulmonary infiltrates.). Patient is visibly short of breath. She also has multiple chronic aches and pains. SOB appears to be slightly less than yesterday. Objective - Vital Signs/Intake and Output Vital Signs (last 24 hours): Temp Pulse Resp BP Pulse Ox 98.4 F 83 18 136/68 94 L 08/30/18 06:00 08/30/18 06:00 08/30/18 06:00 08/30/18 09:47 08/30/18 06:00 Intake and Output: 08/30/18 08/30/18 06:59 18:59 Intake Total 120 Balance 120 - Medications Medications: Current Medications Albuterol/Ipratropium (Duoneb 3 Mg/0.5 Mg (3 Ml) Ud) 3 ml IH [id number] [facility] Last Admin: 08/30/18 08:28 Dose: 3 ml Albuterol/Ipratropium (Duoneb 3 Mg/0.5 Mg (3 Ml) Ud) 3 ml IH Q2H PRN PRN Reason: Shortness of Breath Amlodipine Besylate (Norvasc) 10 mg PO DAILY [facility] Last Admin: 08/30/18 09:47 Dose: 10 mg Aspirin (Ecotrin) 325 mg PO DAILY [facility] Last Admin: 08/30/18 11:17 Dose: 325 mg Budesonide (Pulmicort Respules) 0.5 mg IH [id number] [facility] Last Admin: 08/30/18 08:30 Dose: 0.5 mg Dextrose (Dextrose 50% Inj) 0 ml IV STAT PRN; Protocol PRN Reason: Hypoglycemia Protocol Gabapentin (Neurontin) 300 mg PO BID [facility]; Protocol Last Admin: 08/30/18 09:46 Dose: 300 mg Guaifenesin (Mucinex La) 600 mg PO BID [facility] Last Admin: 08/30/18 09:46 Dose: 600 mg Dextrose (Dextrose 5% In Water 1000 Ml) 1,000 mls @ 0 mls/hr IV .Q0M PRN; Protocol PRN Reason: Hypoglycemia Protocol Ceftriaxone Sodium (Rocephin 1 Gram Ivpb) 1 gm in 100 mls @ 100 mls/hr IVPB DAILY [facility]; Protocol Last Admin: 08/30/18 09:46 Dose: 100 mls/hr Azithromycin (Zithromax 500mg In Ns) 500 mg in 250 mls @ 167 mls/hr IVPB DAILY [facility]; Protocol Last Admin: 08/30/18 11:17 Dose: 167 mls/hr Insulin Human Lispro (Humalog Low) 0 units SC ACHS [facility]; Protocol Last Admin: 08/30/18 12:38 Dose: 2 units Lorazepam (Ativan) 1 mg PO 0900,1600,2100 PRN; Protocol PRN Reason: Anxiety Last Admin: 08/30/18 12:38 Dose: 1 mg Methylprednisolone (Solu-Medrol) 20 mg IVP Q12 [facility] Last Admin: 08/30/18 09:46 Dose: 20 mg Mirtazapine (Remeron) 30 mg PO HS [facility] Last Admin: 08/29/18 21:15 Dose: 30 mg Pantoprazole Sodium (Protonix Ec Tab) 40 mg PO 0600 [facility] Last Admin: 08/30/18 05:54 Dose: 40 mg Tramadol HCl (Ultram) 50 mg PO BID PRN PRN Reason: Pain, severe (8-10) Last Admin: 08/28/18 12:54 Dose: 50 mg Zolpidem Tartrate (Ambien) 5 mg PO HS PRN; Protocol PRN Reason: Insomnia Last Admin: 08/29/18 21:15 Dose: 5 mg - Labs Labs: 08/30/18 07:00 08/30/18 07:00 PT 11.6 SECONDS (9.4-12.5) 08/27/18 12:15 INR 1.01 08/27/18 12:15 APTT 24.7 Seconds (25.1-36.5) L 08/27/18 12:15 - Constitutional Appears: Non-toxic, No Acute Distress, Chronically Ill - Head Exam Head Exam: ATRAUMATIC, NORMOCEPHALIC - Eye Exam Eye Exam: EOMI, PERRL Pupil Exam: NORMAL ACCOMODATION, PERRL - ENT Exam ENT Exam: Mucous Membranes Moist, Normal External Ear Exam, TM's Normal Bilaterally - Neck Exam Neck Exam: Full ROM, Normal Inspection - Respiratory Exam Respiratory Exam: Decreased Breath Sounds, NORMAL BREATHING PATTERN. absent: Rales, Rhonchi, Wheezes Additional comments: SOB - Cardiovascular Exam Cardiovascular Exam: REGULAR RHYTHM, RRR, +S1, +S2 - GI/Abdominal Exam GI & Abdominal Exam: Soft, Normal Bowel Sounds. absent: Distended, Tenderness - Extremities Exam Extremities Exam: Full ROM, Normal Inspection - Neurological Exam Neurological Exam: Alert, Awake, CN II-XII Intact, Oriented x3 - Psychiatric Exam Psychiatric exam: Normal Affect, Normal Mood - Skin Skin Exam: Intact, Normal Color Assessment and Plan - Assessment and Plan (Free Text) Assessment: 77 yo female known to me from previous hospitalizations who is displaying SOB in setting of pulmonary sarcoidosis, COPD, chronic respiratory failure, and persistent acute cough (cough starting 1 week ago). A procalcitonin value of <0.05 would argue strongly against a bacterial pneumonia. Currently on Rocephin and Azithromycin for antibiotic treatment. Initial leukocytosis of 23.2 that has improved to 16.7. Would consider up to 7 days of antibiotic treatment especially completion of Azithomycin for the patient. The patient may benefit from a prolonged course of Azithromycin orally. Has improved slightly compared to yesterday. Thank you for allowing me to participate in the care of the patient, we will follow with you.
--- NOTE | 2018-08-30 15:33 | CP.PCM.PN ---
<Maxime De Anda - Last Filed: 08/30/18 15:29> Subjective - Date & Time of Evaluation Date of Evaluation: 08/30/18 Time of Evaluation: 15:29 - Subjective Subjective: Internal Medicine Progress Note(Hospitalist Service): Bella PGY2 Patient seen and assessed at bedside. No overnight events noted by patient or nursing staff. Patient reports that her cough and SOB have improved. Patient denies any complaints at this time including fevers, chills, headache, chest pain, wheezing, abdominal pain, N/V/D/C, changes in urine output or skin changes. Objective - Vital Signs/Intake and Output Vital Signs (last 24 hours): Temp Pulse Resp BP Pulse Ox 98.3 F 89 18 154/79 H 94 L 08/30/18 14:39 08/30/18 14:39 08/30/18 14:39 08/30/18 14:39 08/30/18 14:39 Intake and Output: 08/30/18 08/30/18 06:59 18:59 Intake Total 120 Balance 120 - Medications Medications: Current Medications Albuterol/Ipratropium (Duoneb 3 Mg/0.5 Mg (3 Ml) Ud) 3 ml IH [id number] [facility] Last Admin: 08/30/18 08:28 Dose: 3 ml Albuterol/Ipratropium (Duoneb 3 Mg/0.5 Mg (3 Ml) Ud) 3 ml IH Q2H PRN PRN Reason: Shortness of Breath Amlodipine Besylate (Norvasc) 10 mg PO DAILY [facility] Last Admin: 08/30/18 09:47 Dose: 10 mg Aspirin (Ecotrin) 325 mg PO DAILY [facility] Last Admin: 08/30/18 11:17 Dose: 325 mg Budesonide (Pulmicort Respules) 0.5 mg IH [id number] [facility] Last Admin: 08/30/18 08:30 Dose: 0.5 mg Dextrose (Dextrose 50% Inj) 0 ml IV STAT PRN; Protocol PRN Reason: Hypoglycemia Protocol Gabapentin (Neurontin) 300 mg PO BID [facility]; Protocol Last Admin: 08/30/18 09:46 Dose: 300 mg Guaifenesin (Mucinex La) 600 mg PO BID [facility] Last Admin: 08/30/18 09:46 Dose: 600 mg Dextrose (Dextrose 5% In Water 1000 Ml) 1,000 mls @ 0 mls/hr IV .Q0M PRN; Protocol PRN Reason: Hypoglycemia Protocol Ceftriaxone Sodium (Rocephin 1 Gram Ivpb) 1 gm in 100 mls @ 100 mls/hr IVPB DAILY [facility]; Protocol Last Admin: 08/30/18 09:46 Dose: 100 mls/hr Azithromycin (Zithromax 500mg In Ns) 500 mg in 250 mls @ 167 mls/hr IVPB DAILY [facility]; Protocol Last Admin: 08/30/18 11:17 Dose: 167 mls/hr Insulin Human Lispro (Humalog Low) 0 units SC ACHS [facility]; Protocol Last Admin: 08/30/18 12:38 Dose: 2 units Lorazepam (Ativan) 1 mg PO 0900,1600,2100 PRN; Protocol PRN Reason: Anxiety Last Admin: 08/30/18 12:38 Dose: 1 mg Methylprednisolone (Solu-Medrol) 20 mg IVP Q12 [facility] Last Admin: 08/30/18 09:46 Dose: 20 mg Mirtazapine (Remeron) 30 mg PO HS [facility] Last Admin: 08/29/18 21:15 Dose: 30 mg Pantoprazole Sodium (Protonix Ec Tab) 40 mg PO 0600 [facility] Last Admin: 08/30/18 05:54 Dose: 40 mg Tramadol HCl (Ultram) 50 mg PO BID PRN PRN Reason: Pain, severe (8-10) Last Admin: 08/28/18 12:54 Dose: 50 mg Zolpidem Tartrate (Ambien) 5 mg PO HS PRN; Protocol PRN Reason: Insomnia Last Admin: 08/29/18 21:15 Dose: 5 mg - Labs Labs: 08/30/18 07:00 08/30/18 07:00 PT 11.6 SECONDS (9.4-12.5) 08/27/18 12:15 INR 1.01 08/27/18 12:15 APTT 24.7 Seconds (25.1-36.5) L 08/27/18 12:15 - Constitutional Appears: Non-toxic, No Acute Distress - Head Exam Head Exam: ATRAUMATIC, NORMOCEPHALIC - Eye Exam Eye Exam: EOMI, Normal appearance - ENT Exam ENT Exam: Mucous Membranes Moist - Neck Exam Neck Exam: Full ROM - Respiratory Exam Respiratory Exam: Wheezes (Mild upper lung), NORMAL BREATHING PATTERN. absent: Accessory Muscle Use, Chest Wall Tenderness, Decreased Breath Sounds, Clear to Ausculation Bilateral, Prolonged Expiratory Phase, Rales, Rhonchi, Respiratory Distress, Stridor (Mild; interval improvement noted) - Cardiovascular Exam Cardiovascular Exam: REGULAR RHYTHM, RRR, +S1, +S2. absent: Bradycardia, Tachycardia, Clicks, Diastolic murmur, Gallop, Irregular Rhythm, JVD, Rubs, +S4, Murmur - GI/Abdominal Exam GI & Abdominal Exam: Soft, Normal Bowel Sounds. 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 Plan: 1. Mycoplasma Pneumonia -Mycoplasma pneumoniae IgM positive -Chest X-Ray showed bilateral multifocal infiltrates, interstitial prominence which may reflect infection or edema, bilateral pleural thickening, emphysema, and cardiomegaly -Continue home Prednisolone 4 mg PO QHS -Continue Solu-Medrol to 20 mg IVP Q12 -Continue Mucinex 600 mg PO BID -Continue Duoneb Q6H [facility], Q2H PRN -Continue Pulmicort Q12H -Continue Azithromycin 500 mg IV daily and Rocephin 1 gm IV daily -Continue Supplemental O2- titrate 88-92% oxygen saturation (patient on 3L at home) -Pulmonology and ID consulted, all recommendations appreciated 2. History of DM2 -ISS-Low and Accuchecks ACHS 3. History of Bilateral LE Pain -Continue home Gabapentin and Tramadol 4. History of HTN -Continue home Norvasc 5. History of CVA's -Continue ASA 325 6. History of Depression/Anxiety -Continue Remeron and Ativan 7. Insomnia -Continue home Ambien GI Prophylaxis: Protonix DVT Prophylaxis: SCD's Disposition: PT recommending TCU upon discharge. Will obtain TCU evaluation and plan discharge accordingly. Patient seen and case discussed with attending, Dr. Beckie Hernandez. <Beckie Hernandez R - Last Filed: 08/31/18 16:02> Objective - Vital Signs/Intake and Output Vital Signs (last 24 hours): Temp Pulse Resp BP Pulse Ox 97.8 F 85 20 148/80 94 L 08/31/18 06:00 08/31/18 06:00 08/31/18 06:00 08/31/18 09:48 08/31/18 06:00 Intake and Output: 08/31/18 08/31/18 06:59 18:59 Intake Total 590 Balance 590 - Medications Medications: Current Medications Albuterol/Ipratropium (Duoneb 3 Mg/0.5 Mg (3 Ml) Ud) 3 ml IH [id number] [facility] Last Admin: 08/31/18 13:40 Dose: 3 ml Albuterol/Ipratropium (Duoneb 3 Mg/0.5 Mg (3 Ml) Ud) 3 ml IH Q2H PRN PRN Reason: Shortness of Breath Amlodipine Besylate (Norvasc) 10 mg PO DAILY [facility] Last Admin: 08/31/18 09:48 Dose: 10 mg Aspirin (Ecotrin) 325 mg PO DAILY [facility] Last Admin: 08/31/18 10:06 Dose: Not Given Budesonide (Pulmicort Respules) 0.5 mg IH [id number] [facility] Last Admin: 08/30/18 20:27 Dose: 0.5 mg Dextrose (Dextrose 50% Inj) 0 ml IV STAT PRN; Protocol PRN Reason: Hypoglycemia Protocol Gabapentin (Neurontin) 300 mg PO BID [facility]; Protocol Last Admin: 08/31/18 09:48 Dose: 300 mg Guaifenesin (Mucinex La) 600 mg PO BID [facility] Last Admin: 08/31/18 09:48 Dose: 600 mg Dextrose (Dextrose 5% In Water 1000 Ml) 1,000 mls @ 0 mls/hr IV .Q0M PRN; Protocol PRN Reason: Hypoglycemia Protocol Ceftriaxone Sodium (Rocephin 1 Gram Ivpb) 1 gm in 100 mls @ 100 mls/hr IVPB DAILY [facility]; Protocol Last Admin: 08/31/18 09:49 Dose: 100 mls/hr Azithromycin (Zithromax 500mg In Ns) 500 mg in 250 mls @ 167 mls/hr IVPB DAILY [facility]; Protocol Last Admin: 08/31/18 09:49 Dose: 167 mls/hr Insulin Human Lispro (Humalog Low) 0 units SC ACHS [facility]; Protocol Last Admin: 08/31/18 12:06 Dose: 2 units Lorazepam (Ativan) 1 mg PO 0900,1600,2100 PRN; Protocol PRN Reason: Anxiety Last Admin: 08/30/18 12:38 Dose: 1 mg Mirtazapine (Remeron) 30 mg PO HS [facility] Last Admin: 08/30/18 21:31 Dose: 30 mg Pantoprazole Sodium (Protonix Ec Tab) 40 mg PO 0600 [facility] Last Admin: 08/31/18 05:44 Dose: 40 mg Prednisone (Prednisone Tab) 30 mg PO DAILY [facility] Last Admin: 08/31/18 09:49 Dose: 30 mg Tramadol HCl (Ultram) 50 mg PO BID PRN PRN Reason: Pain, severe (8-10) Last Admin: 08/28/18 12:54 Dose: 50 mg Zolpidem Tartrate (Ambien) 5 mg PO HS PRN; Protocol PRN Reason: Insomnia Last Admin: 08/30/18 21:30 Dose: 5 mg - Labs Labs: 08/31/18 06:45 08/31/18 06:45 PT 11.6 SECONDS (9.4-12.5) 08/27/18 12:15 INR 1.01 08/27/18 12:15 APTT 24.7 Seconds (25.1-36.5) L 08/27/18 12:15 Attending/Attestation - Attestation I have personally seen and examined this patient.: Yes I have fully participated in the care of the patient.: Yes I have reviewed all pertinent clinical information, including history, physical exam and plan: Yes Notes (Text): Patient seen and examined by me at 10:50 AM with resident 08/30/18. Case including HPI, physical exam, andassessment and plan discussed with resident. Agree with above with following additions/corrections. Patient is a 77-year-old female with past medical history significant for pulmonary sarcoidosis, COPD on home oxygen, chronic respiratory failure secondary to COPD and sarcoidosis, CVA with residual cognitive impairment, type 2 diabetes with peripheral neuropathy, hypertension, depression and anxiety, and spinal stenosis that presented to the emergency room with a nonproductive cough for one week. Patient states she is not feeling too good. Feels she is still not getting sleep. Feels sleepy now. Patient with dementia. Unclear if review of systems are accurate. Cough is "mild" per patient. Continues to complain of bilateral lower extremity pain and states it is chronic from neuropathy. Also with chronic shortness of breath, patient is on home O2. O2 via nasal cannula helps. No chest pain or palpitations. No nausea, vomiting, or abdominal pain. No headaches or dizziness. No fevers or chills. No dysuria. Physical exam: General: Awake and alert lying in bed in no acute distress HEENT: Normocephalic atraumatic. Pupils equal reactive. No scleral icterus. Oropharynx is pink and moist. No pharyngeal erythema or exudate appreciated. Neck is supple. Cardiovascular: Normal rhythm. Normal S1, S2. Positive systolic murmur. No rubs or gallops appreciated Pulmonary: Normal respiratory effort. Improved breath sounds. No rhonchi,rales, or wheezing appreciated. Gastrointestinal: Soft, nondistended. Nontender. Positive bowel sounds all 4 quadrants, no guarding. Musculoskeletal: Moves all extremities, no calf tenderness, no edema appreciated. Bilateral lower extremity tenderness. Central nervous system: Awake and alert. Dermatologic: Skin warm and dry. Assessement and Plan: Patient is a 77-year-old female with past medical history significant for pulmonary sarcoidosis, COPD on home oxygen, chronic respiratory failure secondary to COPD and sarcoidosis, CVA with residual cognitive impairment, type 2 diabetes with peripheral neuropathy, hypertension, depression and anxiety, and spinal stenosis that presented to the emergency room with a nonproductive cough for one week. 1. Pneumonia secondary to Mycoplasma. Mycoplasma pneumoniae IgM positive. Cough. Continue Rocephin and Zithromax. ID following, recommendations appreciated. Continue Mucinex and nebulizer treatments. Leukocytosis downtrending. Urine for Legionella negative. Blood cultures with no growth. Sepsis resolved. Architecture Professor following, recommendations appreciated. Chest xray per radiologist shows bilateral multifocal infiltrates, interstitial prominence may reflect infection or edema, bilateral pleural thickening, emphysema, and cardiomegaly. 2. Leukocytosis. Downtrending. Has leukocytosis at baseline which may be secondary to steroid use. Continue to monitor. Blood and urine cultures with no growth. 3. Chronic respiratory failure on home oxygen. COPD. Sarcoidosis. Pulmonary following, recommendations appreciated. Continue nebulizer treatments. Continue O2 via nasal cannula. Continue IV steroids. And tinea Pulmicort. 4. Type 2 diabetes with peripheral neuropathy. Continue insulin sliding scale. Continue to monitor Accu-Cheks. Continue home gabapentin and tramadol. 5. Bilateral lower extremity pain. Chronic. Secondary to neuropathy. Continue gabapentin and tramadol. PT recommends TCU. 6. Essential hypertension. Continue amlodipine. 7. History of CVAs. With residual right eye visual defect. Continue aspirin. Patient is not on a statin. 8. Depression and anxiety. Continue home Remeron and Ativan. 9. Advanced directive. Patient is a DNR/DNI Case was discussed in detail with the patient and patient's microbiology coordinator at bedside regarding current diagnosis and treatment plan. All questions answered.
[2018-08-31] MEDS: Albuterol-Ipratrop 3 mg / 0.5 (3 ml) UD IH SCH ×4 (05:02→21:05)
[2018-08-31] MEDS: Pantoprazole 40 mg EC Tab PO SCH (05:44)
[2018-08-31 07:25] LABS: GRAN # 14.75 (1.4-6.5); GRAN % 84.2 % (50.0-68.0); HEMOGLOBIN 12.6 g/dL (12.0-16.0); LYMPH # 1.7 (1.2-3.4); LYMPH % 9.8 % (22.0-35.0); MEAN CELL VOLUME 79.3 fl (80.0-105.0); MEAN CORPUSCULAR HEMOGLOBIN 24.4 pg (25.0-35.0); MEAN CORPUSCULAR HGB CONC 30.7 g/dl (31.0-37.0); MEAN PLATELET VOLUME 9.5 fl (7.0-11.0); MONO # 1.1 (0.1-0.6); RBC 5.17 10^6/uL (3.5-6.1); RED CELL DISTRIBUTION WIDTH 17.3 % (11.5-14.5); WHITE BLOOD COUNT 17.5 10^3/ul (4.5-11.0)
[2018-08-31 07:50] LABS: ALB/GLOB RATIO 1.1 (1.1-1.8); ALT/SGPT 30 U/L (7-56); AST/SGOT 27 U/L (14-36); BLOOD UREA NITROGEN 25 mg/dL (7-21); GFR NON-AFRICAN AMERICAN > 60
--- NOTE | 2018-08-31 07:57 | PN ---
DATE: 08/31/2018 PULMONARY NOTE SUBJECTIVE: The patient appears very comfortable this morning. She is not short of breath at rest. OBJECTIVE: VITAL SIGNS (last noted in the computer): Temperature is 98.1, pulse 94, respirations 18, blood pressure 154/72. Oxygen saturation on nasal cannula is 94%. HEENT: Normocephalic, atraumatic. No JVD. Cardiovascular: Systolic ejection murmur at the lower left sternal border. No S3 gallop. LUNGS: Crackles at both bases - chronic. Much less/minimal rhonchi. No wheezing. EXTREMITIES: Mild edema. No cyanosis, no clubbing. Calves are nontender to palpation. GI: Abdomen is soft, nontender and nondistended. Bowel sounds are positive. SKIN: No acute rash. NEUROLOGIC: Exam limited at the present time. IMPRESSION: 1. Recurrent bronchitis. 2. Advanced chronic obstructive pulmonary disease. 3. Advanced interstitial lung disease. 4. Rule out underlying pneumonia. 5. Mild anemia. PLAN: The patient appears very comfortable this morning. She is not short of breath at rest. She does state to feeling much better overall. On physical exam, her bronchospasm continues to slowly resolve. In addition, there is no significant alveolar-arterial gradient. I will continue with the current nebulizer treatments and change to oral steroids this morning. The patient remains on antibiotic therapy - as per Infectious Disease. Input by Dr. Garcia is noted. Clinical status of the patient is certainly improved - compared to the initial presentation. However, again, the future status/prognosis for this chronically ill patient-- with advanced lung disease does-- remain very guarded at best/poor. I will discuss the above with the attending physician. Meet Alcaraz MD ADÁN
[2018-08-31] MEDS: Insulin Lispro (humaLOG) LOW Coverage SC SCH ×4 (08:00→21:35)
[2018-08-31] MEDS: guaiFENesin 600 mg ER Tab PO SCH ×2 (09:48→18:26)
[2018-08-31] MEDS: Azithromycin 500MG/NS 250ml 500 MG/250 ML BAG IVPB SCH (09:49)
[2018-08-31] MEDS: cefTRIAXone 1 gm 1 GM/100 ML BAG IVPB SCH (09:49)
[2018-08-31] MEDS: Aspirin 325 mg EC Tablets PO SCH ×2 (09:57→10:06)
[2018-08-31] MEDS ORDERED: Eptifibatide 20 mg/10mL Inj IVP ONE (17:41)
--- NOTE | 2018-08-31 18:46 | CP.PCM.PN ---
<Radha Gao - Last Filed: 08/31/18 19:09> Subjective - Date & Time of Evaluation Date of Evaluation: 08/31/18 Time of Evaluation: 09:00 - Subjective Subjective: PGY-1 Radha Gao D.O. Medicine progress note for Dr. Sterling's service: Patient was seen and examined this morning. No over night events reported. Vivi hancock's SOB is improving- she is able to complete full sentences without needing to pause for breaths. She reports her cough is intermittent. She denies chest pain, abdominal pain, fever, and chills. Patient was recommended for TCU. After discussion, with patient's brother, he would prefer patient be sent home with PT services when medically optimized. Objective - Vital Signs/Intake and Output Vital Signs (last 24 hours): Temp Pulse Resp BP Pulse Ox 98.1 F 90 20 135/97 H 97 08/31/18 14:00 08/31/18 14:00 08/31/18 14:00 08/31/18 14:00 08/31/18 14:00 Intake and Output: 08/31/18 08/31/18 06:59 18:59 Intake Total 590 Balance 590 - Medications Medications: Current Medications Albuterol/Ipratropium (Duoneb 3 Mg/0.5 Mg (3 Ml) Ud) 3 ml IH [id number] [facility] Last Admin: 08/31/18 13:40 Dose: 3 ml Albuterol/Ipratropium (Duoneb 3 Mg/0.5 Mg (3 Ml) Ud) 3 ml IH Q2H PRN PRN Reason: Shortness of Breath Amlodipine Besylate (Norvasc) 10 mg PO DAILY [facility] Last Admin: 08/31/18 09:48 Dose: 10 mg Aspirin (Ecotrin) 325 mg PO DAILY [facility] Last Admin: 08/31/18 10:06 Dose: Not Given Budesonide (Pulmicort Respules) 0.5 mg IH [id number] [facility] Last Admin: 08/30/18 20:27 Dose: 0.5 mg Dextrose (Dextrose 50% Inj) 0 ml IV STAT PRN; Protocol PRN Reason: Hypoglycemia Protocol Gabapentin (Neurontin) 300 mg PO BID [facility]; Protocol Last Admin: 08/31/18 18:26 Dose: 300 mg Guaifenesin (Mucinex La) 600 mg PO BID [facility] Last Admin: 08/31/18 18:26 Dose: 600 mg Dextrose (Dextrose 5% In Water 1000 Ml) 1,000 mls @ 0 mls/hr IV .Q0M PRN; Protocol PRN Reason: Hypoglycemia Protocol Ceftriaxone Sodium (Rocephin 1 Gram Ivpb) 1 gm in 100 mls @ 100 mls/hr IVPB DAILY [facility]; Protocol Last Admin: 08/31/18 09:49 Dose: 100 mls/hr Azithromycin (Zithromax 500mg In Ns) 500 mg in 250 mls @ 167 mls/hr IVPB DAILY [facility]; Protocol Last Admin: 08/31/18 09:49 Dose: 167 mls/hr Insulin Human Lispro (Humalog Low) 0 units SC ACHS [facility]; Protocol Last Admin: 08/31/18 16:46 Dose: 4 units Lorazepam (Ativan) 1 mg PO 0900,1600,2100 PRN; Protocol PRN Reason: Anxiety Last Admin: 08/30/18 12:38 Dose: 1 mg Mirtazapine (Remeron) 30 mg PO HS [facility] Last Admin: 08/30/18 21:31 Dose: 30 mg Pantoprazole Sodium (Protonix Ec Tab) 40 mg PO 0600 [facility] Last Admin: 08/31/18 05:44 Dose: 40 mg Prednisone (Prednisone Tab) 30 mg PO DAILY [facility] Last Admin: 08/31/18 09:49 Dose: 30 mg Tramadol HCl (Ultram) 50 mg PO BID PRN PRN Reason: Pain, severe (8-10) Last Admin: 08/28/18 12:54 Dose: 50 mg Zolpidem Tartrate (Ambien) 5 mg PO HS PRN; Protocol PRN Reason: Insomnia Last Admin: 08/30/18 21:30 Dose: 5 mg - Labs Labs: 08/31/18 06:45 08/31/18 06:45 PT 11.6 SECONDS (9.4-12.5) 08/27/18 12:15 INR 1.01 08/27/18 12:15 APTT 24.7 Seconds (25.1-36.5) L 08/27/18 12:15 - Constitutional Appears: No Acute Distress - Head Exam Head Exam: ATRAUMATIC, NORMAL INSPECTION - Eye Exam Eye Exam: EOMI, Normal appearance - ENT Exam ENT Exam: Mucous Membranes Moist, Normal Exam - Neck Exam Neck Exam: Normal Inspection - Respiratory Exam Respiratory Exam: Decreased Breath Sounds, NORMAL BREATHING PATTERN. absent: Respiratory Distress Additional comments: O2 3L via NC - Cardiovascular Exam Cardiovascular Exam: REGULAR RHYTHM, +S1, +S2 - GI/Abdominal Exam GI & Abdominal Exam: Soft, Normal Bowel Sounds. absent: Tenderness - Rectal Exam Rectal Exam: Deferred - Extremities Exam Extremities Exam: Normal Inspection. 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 CXR shows interval change from March and is suggestive of possible infectious etiology b/l. Plan: Mycoplama pneumoniae infection- patient with nonproductive cough, underlying chronic respiratory failure 2/2 COPD and sarcodosis - Mycoplasma pneumoniae IgM positive - Code sepsis- lactate 2.2->4.9->4.3 - Procal <0.5 - Leukocytosis stable- chronic 2/2 prolonged exogenous steroid use - Afebrile - CXR 08/26:Worsening multifocal infiltrates compared to the prior study (03/2018). There is both interstitial and confluent alveolar consolidative change. Findings suggest infectious/inflammatory etiology. - CXR 08/27: Bilateral multifocal infiltrates. Interstitial prominence may reflect infection or edema. Bilateral pleural thickening. Emphysema. Cardiomegaly. - Prednisone 30 mg PO daily - Mucinex 600 mg PO BID - Duoneb Q6H [facility], Q2H PRN - Pulmicort Q12H - Azithromycin 500 mg IV daily (started 08/28) - Rocephin 1 g IV daily (started 08/28) - Supplemental O2- titrate 88-92 (patient on 3L at home) - Pulmonology consulted (Travonleticia)- change steroids from IV to oral - ID consulted (Go)- at least 7 days azithromycin T2DM, chronic- BG elevated also 2/2 steroid use - Accuchecks ACHS - ISS lispro low - Hypoglycemia protocol - Gabapentin 300 mg PO BID for peripheral neuropathy - Tramadol 50 mg PO BID PRN leg pain HTN, chronic - Continue home amlodipine 10 mg PO daily H/o CVAs- residual R eye blindness - Continue home ASA 325 mg PO daily Anxiety - Continue home Ativan 1 mg PO TID PRN Depression - Continue home Remeron 30 mg QHS Insomnia - Continue home Ambien at decreased dose, 5 mg PO QHS PRN IVF: not indicated Diet: heart healthy GI ppx: Protonix 40 mg PO daily VTE ppx: SCDs Code status: DNR/DNI- brother completed POLST with patient on previous admission Case discussed with attending, Dr. Sterling. <Ha Sterling - Last Filed: 09/02/18 18:33> Objective - Vital Signs/Intake and Output Vital Signs (last 24 hours): Temp Pulse Resp BP Pulse Ox 98 F 85 18 134/76 94 L 09/02/18 07:34 09/02/18 07:34 09/02/18 07:34 09/02/18 09:08 09/02/18 07:34 - Labs Labs: 09/02/18 06:30 09/02/18 06:30 PT 11.6 SECONDS (9.4-12.5) 08/27/18 12:15 INR 1.01 08/27/18 12:15 APTT 24.7 Seconds (25.1-36.5) L 08/27/18 12:15 Attending/Attestation - Attestation I have personally seen and examined this patient.: Yes I have fully participated in the care of the patient.: Yes I have reviewed all pertinent clinical information, including history, physical exam and plan: Yes Notes (Text): 09/02/18 18:31 attending note; Patient seen and examined with resident. Patient's brother by the bedside. Patient's attendant by the bedside. Patient is on oxygen nasal cannula. Not in any acute distress. Needs assistance with meals. Patient is a 77-year-old female with past medical history significant for pulmonary sarcoidosis, COPD on home oxygen, chronic respiratory failure secondary to COPD and sarcoidosis, CVA with residual cognitive impairment, type 2 diabetes with peripheral neuropathy, hypertension, depression and anxiety, and spinal stenosis that presented to the emergency room with a nonproductive cough for one week. 1. Pneumonia secondary to Mycoplasma. Continue Rocephin and Zithromax. Pulmonary evaluation appreciated. Continue oxygen. Monitor respiratory status closely. Continue Mucinex and nebulizer treatments. Leukocytosis downtrending. Urine for Legionella negative. Blood cultures with no growth. 2. Leukocytosis. Downtrending. Has leukocytosis at baseline which may be secondary to steroid use. Continue to monitor. Blood and urine cultures with no growth. 3. Chronic respiratory failure on home oxygen. COPD. Sarcoidosis. O2 via nasal cannula. Continue IV steroids. 4. Type 2 diabetes with peripheral neuropathy. Continue insulin sliding scale. Continue to monitor Accu-Cheks. Continue home gabapentin and tramadol. 5. Bilateral lower extremity pain. Chronic. Secondary to neuropathy. Continue ga bapentin and tramadol. PT recommends TCU. Patient refused TCU admission. 6. Essential hypertension. Continue amlodipine. 7. History of CVAs. With residual right eye visual defect. Continue aspirin. 8. Depression and anxiety. Continue home Remeron and Ativan. 9. Advanced directive. Patient is a DNR/DNI case discussed with patient's brother in detail. Case was discussed in detail with the patient and patient's manager hydraulic at bedside regarding current diagnosis and treatment plan. All questions answered.
--- NOTE | 2018-08-31 19:31 | CP.PCM.PN ---
Subjective - Date & Time of Evaluation Date of Evaluation: 08/31/18 Time of Evaluation: 18:45 - Subjective Subjective: Infectious Disease Follow Up: August 31, 2018 77 yo female with extensive past medical history that includes sarcoidosis, CVA, HTN, DM, and COPD presenting with prolonged nonproductive cough for 1 week. Given Cefuroxime for treatment as an outpatient. Outpatient chest X-ray showed worsening bilateral pulmonary infiltrates (patient has a history of chronic persistent pulmonary infiltrates.). Patient is visibly short of breath. She also has multiple chronic aches and pains. SOB appears to be improved compared to yesterday. She is able to complete full sentences without catching her breath today. Objective - Vital Signs/Intake and Output Vital Signs (last 24 hours): Temp Pulse Resp BP Pulse Ox 98.1 F 90 20 135/97 H 97 08/31/18 14:00 08/31/18 14:00 08/31/18 14:00 08/31/18 14:00 08/31/18 14:00 Intake and Output: 08/31/18 09/01/18 18:59 06:59 Intake Total 540 Balance 540 - Medications Medications: Current Medications Albuterol/Ipratropium (Duoneb 3 Mg/0.5 Mg (3 Ml) Ud) 3 ml IH [id number] [facility] Last Admin: 08/31/18 13:40 Dose: 3 ml Albuterol/Ipratropium (Duoneb 3 Mg/0.5 Mg (3 Ml) Ud) 3 ml IH Q2H PRN PRN Reason: Shortness of Breath Amlodipine Besylate (Norvasc) 10 mg PO DAILY [facility] Last Admin: 08/31/18 09:48 Dose: 10 mg Aspirin (Ecotrin) 325 mg PO DAILY [facility] Last Admin: 08/31/18 10:06 Dose: Not Given Budesonide (Pulmicort Respules) 0.5 mg IH [id number] [facility] Last Admin: 08/30/18 20:27 Dose: 0.5 mg Dextrose (Dextrose 50% Inj) 0 ml IV STAT PRN; Protocol PRN Reason: Hypoglycemia Protocol Gabapentin (Neurontin) 300 mg PO BID [facility]; Protocol Last Admin: 08/31/18 18:26 Dose: 300 mg Guaifenesin (Mucinex La) 600 mg PO BID [facility] Last Admin: 08/31/18 18:26 Dose: 600 mg Dextrose (Dextrose 5% In Water 1000 Ml) 1,000 mls @ 0 mls/hr IV .Q0M PRN; Protocol PRN Reason: Hypoglycemia Protocol Ceftriaxone Sodium (Rocephin 1 Gram Ivpb) 1 gm in 100 mls @ 100 mls/hr IVPB DAILY [facility]; Protocol Last Admin: 08/31/18 09:49 Dose: 100 mls/hr Azithromycin (Zithromax 500mg In Ns) 500 mg in 250 mls @ 167 mls/hr IVPB DAILY [facility]; Protocol Last Admin: 08/31/18 09:49 Dose: 167 mls/hr Insulin Human Lispro (Humalog Low) 0 units SC ACHS [facility]; Protocol Last Admin: 08/31/18 16:46 Dose: 4 units Lorazepam (Ativan) 1 mg PO 0900,1600,2100 PRN; Protocol PRN Reason: Anxiety Last Admin: 08/30/18 12:38 Dose: 1 mg Mirtazapine (Remeron) 30 mg PO HS [facility] Last Admin: 08/30/18 21:31 Dose: 30 mg Pantoprazole Sodium (Protonix Ec Tab) 40 mg PO 0600 [facility] Last Admin: 08/31/18 05:44 Dose: 40 mg Prednisone (Prednisone Tab) 30 mg PO DAILY [facility] Last Admin: 08/31/18 09:49 Dose: 30 mg Tramadol HCl (Ultram) 50 mg PO BID PRN PRN Reason: Pain, severe (8-10) Last Admin: 08/28/18 12:54 Dose: 50 mg Zolpidem Tartrate (Ambien) 5 mg PO HS PRN; Protocol PRN Reason: Insomnia Last Admin: 08/30/18 21:30 Dose: 5 mg - Labs Labs: 08/31/18 06:45 08/31/18 06:45 PT 11.6 SECONDS (9.4-12.5) 08/27/18 12:15 INR 1.01 08/27/18 12:15 APTT 24.7 Seconds (25.1-36.5) L 08/27/18 12:15 - Constitutional Appears: No Acute Distress, Chronically Ill - Head Exam Head Exam: ATRAUMATIC, NORMOCEPHALIC - Eye Exam Eye Exam: EOMI, PERRL Pupil Exam: NORMAL ACCOMODATION, PERRL - ENT Exam ENT Exam: Mucous Membranes Moist, Normal External Ear Exam, TM's Normal Bilaterally - Neck Exam Neck Exam: Full ROM, Normal Inspection - Respiratory Exam Respiratory Exam: Decreased Breath Sounds, NORMAL BREATHING PATTERN. absent: Rales, Rhonchi, Wheezes Additional comments: less SOB today. - Cardiovascular Exam Cardiovascular Exam: REGULAR RHYTHM, RRR, +S1, +S2 - GI/Abdominal Exam GI & Abdominal Exam: Soft, Normal Bowel Sounds. absent: Distended, Tenderness - Extremities Exam Extremities Exam: Full ROM, Normal Inspection - Neurological Exam Neurological Exam: Alert, Awake, CN II-XII Intact, Oriented x3 - Psychiatric Exam Psychiatric exam: Normal Affect, Normal Mood - Skin Skin Exam: Intact, Normal Color Assessment and Plan - Assessment and Plan (Free Text) Assessment: 77 yo female known to me from previous hospitalizations who is displaying SOB in setting of pulmonary sarcoidosis, COPD, chronic respiratory failure, and persistent acute cough (cough starting 1 week ago). A procalcitonin value of <0.05 would argue strongly against a bacterial pneumonia. Currently on Rocephin and Azithromycin for antibiotic treatment. Initial leukocytosis of 23.2 that has improved to 16.7. Would consider up to 7 days of antibiotic treatment especially completion of Azithomycin for the patient. The patient may benefit from a prolonged course of Azithromycin orally. Has improved compared to yesterday. Patient feeling comfortable at this time. Patient is less short of breath today. Thank you for allowing me to participate in the care of the patient, we will follow with you.
[2018-08-31] MEDS: Budesonide 0.5 mg/2 ml Inhal Susp UD IH SCH (21:06)
[2018-09-01] MEDS: Albuterol-Ipratrop 3 mg / 0.5 (3 ml) UD IH SCH ×4 (05:22→20:09)
--- NOTE | 2018-09-01 06:23 | CP.PCM.PN ---
<Radha Gao - Last Filed: 09/01/18 14:02> Subjective - Date & Time of Evaluation Date of Evaluation: 09/01/18 Time of Evaluation: 07:00 - Subjective Subjective: PGY-1 Radha Gao D.O. Medicine progress note for Dr. Sterling's service: Patient was seen and examined this morning. No over night events reported. Vivi hancock continues to be oriented only to person and states that she wants to go home. She says her cough is improved. Her SOB persists, but this is chronic. No acute complaints. Discussed with patient's brother that she will get one more day of IV abx and then be discharged with home services. Objective - Vital Signs/Intake and Output Vital Signs (last 24 hours): Temp Pulse Resp BP Pulse Ox 98.3 F 84 18 148/84 94 L 08/31/18 23:15 08/31/18 23:15 08/31/18 23:15 08/31/18 23:15 08/31/18 23:15 Intake and Output: 08/31/18 09/01/18 18:59 06:59 Intake Total 540 Balance 540 - Medications Medications: Current Medications Albuterol/Ipratropium (Duoneb 3 Mg/0.5 Mg (3 Ml) Ud) 3 ml IH [id number] [facility] Last Admin: 09/01/18 05:22 Dose: Not Given Albuterol/Ipratropium (Duoneb 3 Mg/0.5 Mg (3 Ml) Ud) 3 ml IH Q2H PRN PRN Reason: Shortness of Breath Amlodipine Besylate (Norvasc) 10 mg PO DAILY [facility] Last Admin: 08/31/18 09:48 Dose: 10 mg Aspirin (Ecotrin) 325 mg PO DAILY [facility] Last Admin: 08/31/18 10:06 Dose: Not Given Budesonide (Pulmicort Respules) 0.5 mg IH [id number] [facility] Last Admin: 08/31/18 21:06 Dose: 0.5 mg Dextrose (Dextrose 50% Inj) 0 ml IV STAT PRN; Protocol PRN Reason: Hypoglycemia Protocol Gabapentin (Neurontin) 300 mg PO BID [facility]; Protocol Last Admin: 08/31/18 18:26 Dose: 300 mg Guaifenesin (Mucinex La) 600 mg PO BID [facility] Last Admin: 08/31/18 18:26 Dose: 600 mg Dextrose (Dextrose 5% In Water 1000 Ml) 1,000 mls @ 0 mls/hr IV .Q0M PRN; Protocol PRN Reason: Hypoglycemia Protocol Ceftriaxone Sodium (Rocephin 1 Gram Ivpb) 1 gm in 100 mls @ 100 mls/hr IVPB DAILY [facility]; Protocol Last Admin: 08/31/18 09:49 Dose: 100 mls/hr Azithromycin (Zithromax 500mg In Ns) 500 mg in 250 mls @ 167 mls/hr IVPB DAILY [facility]; Protocol Last Admin: 08/31/18 09:49 Dose: 167 mls/hr Insulin Human Lispro (Humalog Low) 0 units SC ACHS [facility]; Protocol Last Admin: 08/31/18 21:35 Dose: Not Given Lorazepam (Ativan) 1 mg PO 0900,1600,2100 PRN; Protocol PRN Reason: Anxiety Last Admin: 08/30/18 12:38 Dose: 1 mg Mirtazapine (Remeron) 30 mg PO HS [facility] Last Admin: 08/31/18 21:36 Dose: 30 mg Pantoprazole Sodium (Protonix Ec Tab) 40 mg PO 0600 [facility] Last Admin: 08/31/18 05:44 Dose: 40 mg Prednisone (Prednisone Tab) 30 mg PO DAILY [facility] Last Admin: 08/31/18 09:49 Dose: 30 mg Tramadol HCl (Ultram) 50 mg PO BID PRN PRN Reason: Pain, severe (8-10) Last Admin: 08/28/18 12:54 Dose: 50 mg Zolpidem Tartrate (Ambien) 5 mg PO HS PRN; Protocol PRN Reason: Insomnia Last Admin: 08/31/18 21:35 Dose: 5 mg - Labs Labs: 08/31/18 06:45 08/31/18 06:45 PT 11.6 SECONDS (9.4-12.5) 08/27/18 12:15 INR 1.01 08/27/18 12:15 APTT 24.7 Seconds (25.1-36.5) L 08/27/18 12:15 - Constitutional Appears: Non-toxic, No Acute Distress - Head Exam Head Exam: ATRAUMATIC, NORMAL INSPECTION - Eye Exam Eye Exam: EOMI, Normal appearance - ENT Exam ENT Exam: Mucous Membranes Moist, Normal Exam - Neck Exam Neck Exam: Normal Inspection - Respiratory Exam Respiratory Exam: Decreased Breath Sounds, NORMAL BREATHING PATTERN. absent: Respiratory Distress Additional comments: O2 3L via NC - Cardiovascular Exam Cardiovascular Exam: REGULAR RHYTHM, +S1, +S2 - GI/Abdominal Exam GI & Abdominal Exam: Soft, Normal Bowel Sounds. absent: Tenderness - Rectal Exam Rectal Exam: Deferred - Extremities Exam Extremities Exam: Normal Inspection. absent: Pedal Edema - Back Exam Back Exam: NORMAL INSPECTION - Neurological Exam Neurological Exam: Alert, Awake, CN II-XII Intact. 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 CXR shows interval change from March and is suggestive of possible infectious etiology b/l. Patient was positive for mycoplasma pneumoniae. Plan: Mycoplama pneumoniae infection- patient with nonproductive cough, underlying chronic respiratory failure 2/2 COPD and sarcodosis - Mycoplasma pneumoniae IgM positive - Code sepsis- lactate 2.2->4.9->4.3 - Procal <0.5 - Leukocytosis stable- chronic 2/2 prolonged exogenous steroid use - Afebrile - Blood Cx negative - CXR 08/26:Worsening multifocal infiltrates compared to the prior study (03/2018). There is both interstitial and confluent alveolar consolidative change. Findings suggest infectious/inflammatory etiology. - CXR 08/27: Bilateral multifocal infiltrates. Interstitial prominence may reflect infection or edema. Bilateral pleural thickening. Emphysema. Cardiomegaly. - Prednisone 30 mg PO daily- taper upon discharge (patient on 4 mg maintenance) - Mucinex 600 mg PO BID - Duoneb Q6H [facility], Q2H PRN - Pulmicort Q12H - Azithromycin 500 mg PO daily (started 08/28) - Rocephin 1 g IV daily (started 08/28) - Supplemental O2- titrate 88-92 (patient on 3L at home) - Pulmonology consulted (Lissa)- change steroids from IV to oral, 7 days of azithromycin - ID consulted ()- at least 7 days azithromycin T2DM, chronic- BG elevated also 2/2 steroid use - Accuchecks ACHS - ISS lispro low - Hypoglycemia protocol - Gabapentin 300 mg PO BID for peripheral neuropathy - Tramadol 50 mg PO BID PRN leg pain HTN, chronic - Continue home amlodipine 10 mg PO daily H/o CVAs- residual R eye blindness - Continue home ASA 325 mg PO daily Anxiety - Continue home Ativan 1 mg PO TID PRN Depression - Continue home Remeron 30 mg QHS Insomnia - Continue home Ambien at decreased dose, 5 mg PO QHS PRN Dispo: home tomorrow with [facility] IVF: not indicated Diet: heart healthy GI ppx: Protonix 40 mg PO daily VTE ppx: SCDs Code status: DNR/DNI- brother completed POLST with patient on previous admission Case discussed with attending, Dr. Sterling. <Ha Sterling - Last Filed: 09/02/18 18:35> Objective - Vital Signs/Intake and Output Vital Signs (last 24 hours): Temp Pulse Resp BP Pulse Ox 98 F 85 18 134/76 94 L 09/02/18 07:34 09/02/18 07:34 09/02/18 07:34 09/02/18 09:08 09/02/18 07:34 - Labs Labs: 09/02/18 06:30 09/02/18 06:30 PT 11.6 SECONDS (9.4-12.5) 08/27/18 12:15 INR 1.01 08/27/18 12:15 APTT 24.7 Seconds (25.1-36.5) L 08/27/18 12:15 Attending/Attestation - Attestation I have personally seen and examined this patient.: Yes I have fully participated in the care of the patient.: Yes I have reviewed all pertinent clinical information, including history, physical exam and plan: Yes Notes (Text): 09/02/18 18:34 attending note; Patient seen and examined with resident. Patient's attendant by the bedside. Patient is on oxygen nasal cannula. Not in any acute distress. Needs assistance with meals. Patient wants to go home. Patient is a 77-year-old female with past medical history significant for pulmonary sarcoidosis, COPD on home oxygen, chronic respiratory failure secondary to COPD and sarcoidosis, CVA with residual cognitive impairment, type 2 diabetes with peripheral neuropathy, hypertension, depression and anxiety, and spinal stenosis that presented to the emergency room with a nonproductive cough for one week. 1. Pneumonia secondary to Mycoplasma. Continue Rocephin and Zithromax. Pulmonary evaluation appreciated. Continue oxygen. Monitor respiratory status closely. Continue Mucinex and nebulizer treatments. Leukocytosis downtrending. Urine for Legionella negative. Blood cultures with no growth. 2. Leukocytosis. Downtrending. Has leukocytosis at baseline which may be secondary to steroid use. Continue to monitor. Blood and urine cultures with no growth. 3. Chronic respiratory failure on home oxygen. COPD. Sarcoidosis. O2 via nasal cannula. Continue IV steroids. 4. Type 2 diabetes with peripheral neuropathy. Continue insulin sliding scale. Continue to monitor Accu-Cheks. Continue home gabapentin and tramadol. 5. Bilateral lower extremity pain. Chronic. Secondary to neuropathy. Continue gabapentin and tramadol. PT recommends TCU. Patient refused TCU admission. 6. Essential hypertension. Continue amlodipine. 7. History of CVAs. With residual right eye visual defect. Continue aspirin. 8. Depression and anxiety. Continue home Remeron and Ativan. 9. Advanced directive. Patient is a DNR/DNI case discussed with patient's brother in detail. possible discharge home tomorrow. Case discussed with pillowcase folder in detail. Continue home services. Follow-up with PMD . Follow-up with pulmonary .
[2018-09-01] MEDS: Pantoprazole 40 mg EC Tab PO SCH (06:43)
[2018-09-01] MEDS: Budesonide 0.5 mg/2 ml Inhal Susp UD IH SCH ×2 (07:38→20:09)
--- NOTE | 2018-09-01 07:52 | PN ---
DATE: 09/01/2018 PULMONARY NOTE SUBJECTIVE: The patient appears comfortable this morning. She is not short of breath at rest. PHYSICAL EXAMINATION: VITAL SIGNS: (Last noted in the computer): Temperature is 98.3, pulse 84, respirations 18, blood pressure 148/84. Oxygen saturation on nasal cannula is 94-97%. HEENT: Normocephalic, atraumatic. No JVD. CARDIOVASCULAR: Systolic ejection murmur at the lower left sternal border. No S3 gallop. LUNGS: Chronic crackles at both bases. Very minimal/less rhonchi. No wheezing. EXTREMITIES: Mild edema. No cyanosis. No clubbing. Calves are nontender to palpation. GI: Abdomen is soft, nontender and nondistended. Bowel sounds are positive. SKIN: No acute rash. NEUROLOGIC: Limited at the present time. IMPRESSION; 1. Recurrent bronchitis. 2. Advanced chronic obstructive pulmonary disease. 3. Advanced interstitial lung disease. 4. Rule out underlying pneumonia. 5. Mild anemia. PLAN: The patient appears very comfortable this morning. She is not short of breath at rest. She does state to feeling much better overall. On physical exam, her bronchospasm continues to resolve. In addition, the alveolar-arterial gradient is also much less. I will continue with the current nebulizer treatments and low-dose oral steroids (changed yesterday) for now. The patient remains on antibiotic therapy. There are no temperatures noted. The leukocytosis is resolving. Clinical status of the patient is certainly improved - compared to the initial presentation. However, again, the future status/prognosis for this chronically ill elderly patient does remain poor. I will discuss the above with the attending physician. Meet Alcaraz MD ADÁN
[2018-09-01 08:00] LABS: BASO # 0.01 K/mm3 (0.0-2.0); BASO % 0.1 % (0.0-3.0); EOS # 0.1 (0.0-0.7); EOS % 0.8 % (1.5-5.0); GRAN # 10.05 (1.4-6.5); GRAN % 68.6 % (50.0-68.0); HEMOGLOBIN 12.2 g/dL (12.0-16.0); LYMPH # 3.5 (1.2-3.4); LYMPH % 23.6 % (22.0-35.0); MEAN CELL VOLUME 80.4 fl (80.0-105.0); MEAN CORPUSCULAR HEMOGLOBIN 24.6 pg (25.0-35.0); MEAN CORPUSCULAR HGB CONC 30.6 g/dl (31.0-37.0); MEAN PLATELET VOLUME 9.9 fl (7.0-11.0); MONO % 6.9 % (1.0-6.0); RBC 4.96 10^6/uL (3.5-6.1); RED CELL DISTRIBUTION WIDTH 17.2 % (11.5-14.5); WHITE BLOOD COUNT 14.6 10^3/ul (4.5-11.0)
[2018-09-01] MEDS: Insulin Lispro (humaLOG) LOW Coverage SC SCH ×4 (08:01→22:24)
[2018-09-01 08:10] LABS: ALB/GLOB RATIO 1.1 (1.1-1.8); ALBUMIN 3.5 g/dL (3.0-4.8); ALT/SGPT 33 U/L (7-56); AST/SGOT 29 U/L (14-36); BLOOD UREA NITROGEN 29 mg/dL (7-21); CALCIUM 8.5 mg/dL (8.4-10.5); GFR NON-AFRICAN AMERICAN > 60
[2018-09-01] MEDS: guaiFENesin 600 mg ER Tab PO SCH ×2 (09:48→17:22)
[2018-09-01] MEDS: Aspirin 325 mg EC Tablets PO SCH (09:48)
[2018-09-01] MEDS: Azithromycin 500MG/NS 250ml 500 MG/250 ML BAG IVPB SCH (09:49)
[2018-09-01] MEDS: cefTRIAXone 1 gm 1 GM/100 ML BAG IVPB SCH (09:49)
[2018-09-01 15:46] VITALS: RESP 18
--- NOTE | 2018-09-01 16:17 | PQF ---
PROVIDER RESPONSE TEXT: Patient Mycoplasma pneumonia. Patient has elevated lactic acid level. However, sepsis criteria not me t. Patient afebrile, no tachycardia, No increased respiratory rate. REVIEWER QUERY TEXT: Rule Out Sepsis Clarification Rule out Sepsis is documented in the Medical Record. Please clarify whether: -- Patient has sepsis - Please document confirmed, suspected or probable causative organism - Please document confirmed, suspected or probable localized infection - Please clarify if sepsis is related to a device - Please clarify if sepsis was present on admission -- Sepsis was ruled out (include corresponding diagnosis for patient?s clinical picture and treatment ) -- Patient had sepsis which is resolved -- Other, please specify The patient's Clinical Indicators include: Patient admitted with mycoplasma pneumonia, chronic respiratory failure. Lactate elevated to 4.9 on a dmission and Code sepsis called. Leukocytosis present but patient also on steroids. Patient has been afebrile entire admission. Treated with multiple antibiotics. You entered a progress note on 08/31 noting that "sepsis clinically resolving". Please clarify if seps is POA since this diagnosis was not clearly established or documented in the record, not mentioned in ID consult or subsequent documentation. Query created by: Savanna Ruiz on 09/01/2018 2:46 PM Electronically signed by: Beckie Hernandez DO 09/01/2018 4:14 PM
--- NOTE | 2018-09-01 17:37 | CP.PCM.PN ---
Subjective - Date & Time of Evaluation Date of Evaluation: 09/01/18 Time of Evaluation: 17:00 - Subjective Subjective: Infectious Disease Follow Up: September 01, 2018 77 yo female with extensive past medical history that includes sarcoidosis, CVA, HTN, DM, and COPD presenting with prolonged nonproductive cough for 1 week. Given Cefuroxime for treatment as an outpatient. Outpatient chest X-ray showed worsening bilateral pulmonary infiltrates (patient has a history of chronic persistent pulmonary infiltrates.). Patient is visibly short of breath. She also has multiple chronic aches and pains. SOB appears to be improved compared to yesterday. She is able to complete full sentences without catching her breath today. Overall improvement. Objective - Vital Signs/Intake and Output Vital Signs (last 24 hours): Temp Pulse Resp BP Pulse Ox 99 F 84 18 134/72 93 L 09/01/18 14:00 09/01/18 14:00 09/01/18 14:00 09/01/18 14:00 09/01/18 14:00 Intake and Output: 09/01/18 09/01/18 06:59 18:59 Intake Total 350 240 Balance 350 240 - Medications Medications: Current Medications Albuterol/Ipratropium (Duoneb 3 Mg/0.5 Mg (3 Ml) Ud) 3 ml IH [id number] [facility] Last Admin: 09/01/18 14:40 Dose: 3 ml Albuterol/Ipratropium (Duoneb 3 Mg/0.5 Mg (3 Ml) Ud) 3 ml IH Q2H PRN PRN Reason: Shortness of Breath Amlodipine Besylate (Norvasc) 10 mg PO DAILY [facility] Last Admin: 09/01/18 09:48 Dose: 10 mg Aspirin (Ecotrin) 325 mg PO DAILY [facility] Last Admin: 09/01/18 09:48 Dose: 325 mg Azithromycin (Zithromax) 500 mg PO DAILY [facility] Budesonide (Pulmicort Respules) 0.5 mg IH [id number] [facility] Last Admin: 09/01/18 07:38 Dose: 0.5 mg Dextrose (Dextrose 50% Inj) 0 ml IV STAT PRN; Protocol PRN Reason: Hypoglycemia Protocol Gabapentin (Neurontin) 300 mg PO BID [facility]; Protocol Last Admin: 09/01/18 17:22 Dose: 300 mg Guaifenesin (Mucinex La) 600 mg PO BID [facility] Last Admin: 09/01/18 17:22 Dose: 600 mg Dextrose (Dextrose 5% In Water 1000 Ml) 1,000 mls @ 0 mls/hr IV .Q0M PRN; Protocol PRN Reason: Hypoglycemia Protocol Ceftriaxone Sodium (Rocephin 1 Gram Ivpb) 1 gm in 100 mls @ 100 mls/hr IVPB DAILY [facility]; Protocol Last Admin: 09/01/18 09:49 Dose: 100 mls/hr Insulin Human Lispro (Humalog Low) 0 units SC ACHS [facility]; Protocol Last Admin: 09/01/18 17:19 Dose: 4 units Lorazepam (Ativan) 1 mg PO 0900,1600,2100 PRN; Protocol PRN Reason: Anxiety Last Admin: 08/30/18 12:38 Dose: 1 mg Mirtazapine (Remeron) 30 mg PO HS [facility] Last Admin: 08/31/18 21:36 Dose: 30 mg Pantoprazole Sodium (Protonix Ec Tab) 40 mg PO 0600 [facility] Last Admin: 09/01/18 06:43 Dose: 40 mg Prednisone (Prednisone Tab) 30 mg PO DAILY [facility] Last Admin: 09/01/18 09:48 Dose: 30 mg Tramadol HCl (Ultram) 50 mg PO BID PRN PRN Reason: Pain, severe (8-10) Last Admin: 08/28/18 12:54 Dose: 50 mg Zolpidem Tartrate (Ambien) 5 mg PO HS PRN; Protocol PRN Reason: Insomnia Last Admin: 08/31/18 21:35 Dose: 5 mg - Labs Labs: 09/01/18 07:20 09/01/18 07:20 PT 11.6 SECONDS (9.4-12.5) 08/27/18 12:15 INR 1.01 08/27/18 12:15 APTT 24.7 Seconds (25.1-36.5) L 08/27/18 12:15 - Constitutional Appears: Non-toxic, No Acute Distress, Chronically Ill - Head Exam Head Exam: ATRAUMATIC, NORMOCEPHALIC - Eye Exam Eye Exam: EOMI, PERRL Pupil Exam: NORMAL ACCOMODATION, PERRL - ENT Exam ENT Exam: Mucous Membranes Moist, Normal External Ear Exam, TM's Normal Bilaterally - Neck Exam Neck Exam: Full ROM, Normal Inspection - Respiratory Exam Respiratory Exam: Decreased Breath Sounds, NORMAL BREATHING PATTERN. absent: Rales, Rhonchi, Wheezes - Cardiovascular Exam Cardiovascular Exam: REGULAR RHYTHM, RRR, +S1, +S2 - GI/Abdominal Exam GI & Abdominal Exam: Soft, Normal Bowel Sounds. absent: Distended, Tenderness - Extremities Exam Extremities Exam: Full ROM, Normal Inspection - Neurological Exam Neurological Exam: Alert, Awake, CN II-XII Intact, Oriented x3 - Psychiatric Exam Psychiatric exam: Normal Affect, Normal Mood - Skin Skin Exam: Intact, Normal Color Assessment and Plan - Assessment and Plan (Free Text) Assessment: 77 yo female known to me from previous hospitalizations who is displaying SOB in setting of pulmonary sarcoidosis, COPD, chronic respiratory failure, and persistent acute cough (cough starting 1 week ago). A procalcitonin value of <0.05 would argue strongly against a bacterial pneumonia. Currently on Rocephin and Azithromycin for antibiotic treatment. Initial leukocytosis of 23.2 that has improved to 14.6. Would consider up to 7 days of antibiotic treatment especially completion of Azithromycin for the patient. The patient may benefit from a prolonged course of Azithromycin orally. Would consider additional 7 days of Azithromycin on discharge orally. Has improved compared to yesterday. Patient feeling comfortable at this time. Patient is less short of breath today. Overall improving. Thank you for allowing me to participate in the care of the patient, we will follow with you.
[2018-09-02] MEDS: Albuterol-Ipratrop 3 mg / 0.5 (3 ml) UD IH SCH ×3 (02:01→13:07)
[2018-09-02] MEDS: Pantoprazole 40 mg EC Tab PO SCH (05:51)
[2018-09-02 07:12] LABS: BASO # 0.01 K/mm3 (0.0-2.0); BASO % 0.1 % (0.0-3.0); EOS # 0.2 (0.0-0.7); EOS % 1.3 % (1.5-5.0); GRAN # 9.52 (1.4-6.5); GRAN % 67.6 % (50.0-68.0); LYMPH # 3.2 (1.2-3.4); LYMPH % 22.8 % (22.0-35.0); MEAN CELL VOLUME 79.8 fl (80.0-105.0); MEAN CORPUSCULAR HEMOGLOBIN 24.5 pg (25.0-35.0); MEAN CORPUSCULAR HGB CONC 30.7 g/dl (31.0-37.0); MEAN PLATELET VOLUME 9.9 fl (7.0-11.0); MONO # 1.2 (0.1-0.6); MONO % 8.2 % (1.0-6.0); RBC 4.9 10^6/uL (3.5-6.1); RED CELL DISTRIBUTION WIDTH 17.3 % (11.5-14.5); WHITE BLOOD COUNT 14.1 10^3/ul (4.5-11.0)
[2018-09-02 07:26] LABS: ALB/GLOB RATIO 1.2 (1.1-1.8); ALBUMIN 3.5 g/dL (3.0-4.8); ALT/SGPT 36 U/L (7-56); AST/SGOT 25 U/L (14-36); BLOOD UREA NITROGEN 23 mg/dL (7-21); CALCIUM 8.5 mg/dL (8.4-10.5); GFR NON-AFRICAN AMERICAN > 60
[2018-09-02 07:38] VITALS: BP 134/76; PULSE 85; TEMP 98; O2SAT 94
[2018-09-02] MEDS: Budesonide 0.5 mg/2 ml Inhal Susp UD IH SCH (07:44)
--- NOTE | 2018-09-02 08:15 | PN ---
DATE: 09/02/2018 PULMONARY NOTE SUBJECTIVE: The patient appears very comfortable this morning. She is not short of breath at rest. PHYSICAL EXAMINATION: VITAL SIGNS: Temperature is 98, pulse 85, respirations 18, blood pressure 134/76. Oxygen saturation on nasal cannula is 94%. HEENT: Normocephalic, atraumatic. No JVD. CARDIOVASCULAR: Systolic ejection murmur at the lower left sternal border. No S3 gallop. LUNGS: Chronic crackles at both bases. Very minimal/much less rhonchi. No wheezing. EXTREMITIES: Mild edema. No cyanosis. No clubbing. Calves are nontender to palpation. GI: Abdomen is soft, nontender and nondistended. Bowel sounds are positive. SKIN: No acute rash. NEUROLOGIC: Limited at the present time. IMPRESSION: 1. Recurrent bronchitis. 2. Advanced chronic obstructive pulmonary disease. 3. Advanced interstitial lung disease. 4. Rule out underlying pneumonia. 5. Mild anemia. PLAN: The patient appears very comfortable this morning. She is not short of breath at rest. She does state to feeling much better overall. On physical exam, her bronchospasm continues to resolve. In addition, the alveolar-arterial gradient is also much less. I will continue with the current nebulizer treatments and low-dose oral steroids for now. The patient remains on antibiotic therapy. Input by Infectious Disease is noted. Clinical status of the patient is significantly improved overall. However, again, the future status/prognosis for this patient remains poor. All are aware. I will discuss the above with the attending physician. Meet Alcaraz MD ADÁN
--- NOTE | 2018-09-02 08:51 | CP.PCM.DIS ---
<Radha Gao - Last Filed: 09/02/18 15:15> Provider - Provider Date of Admission: 08/27/18 13:20 Attending physician: Ha Sterling MD Primary care physician: Omer Walker MD Consults: pulmonology Time Spent in preparation of Discharge (in minutes): 45 Diagnosis - Discharge Diagnosis (1) Mycoplasma pneumonia Status: Acute Priority: High (2) Sarcoidosis Status: Chronic Priority: Medium (3) Chronic obstructive pulmonary disease Status: Chronic Priority: Medium (4) Dementia Status: Chronic Priority: Low Hospital Course - Lab Results Lab Results: Micro Results 08/27/18 12:15 Blood Blood Culture - Final NO GROWTH AFTER 5 DAYS 08/27/18 12:15 Blood Gram Stain - Final TEST NOT PERFORMED 08/27/18 12:15 Blood Blood Culture - Final NO GROWTH AFTER 5 DAYS 08/27/18 12:15 Blood Gram Stain - Final TEST NOT PERFORMED 08/27/18 13:45 Urine Urine Culture - Final No Growth (<1,000 CFU/ML) Most Recent Lab Values WBC 14.1 10^3/ul (4.5-11.0) H 09/02/18 06:30 RBC 4.90 10^6/uL (3.5-6.1) 09/02/18 06:30 Hgb 12.0 g/dL (12.0-16.0) 09/02/18 06:30 Hct 39.1 % (36.0-48.0) 09/02/18 06:30 MCV 79.8 fl (80.0-105.0) L 09/02/18 06:30 MCH 24.5 pg (25.0-35.0) L 09/02/18 06:30 MCHC 30.7 g/dl (31.0-37.0) L 09/02/18 06:30 RDW 17.3 % (11.5-14.5) H 09/02/18 06:30 Plt Count 278 10^3/uL (120.0-450.0) 09/02/18 06:30 MPV 9.9 fl (7.0-11.0) 09/02/18 06:30 Gran % 67.6 % (50.0-68.0) 09/02/18 06:30 Lymph % (Auto) 22.8 % (22.0-35.0) 09/02/18 06:30 Cecil % (Auto) 8.2 % (1.0-6.0) H 09/02/18 06:30 Eos % (Auto) 1.3 % (1.5-5.0) L 09/02/18 06:30 Baso % (Auto) 0.1 % (0.0-3.0) 09/02/18 06:30 Gran # 9.52 (1.4-6.5) H 09/02/18 06:30 Lymph # (Auto) 3.2 (1.2-3.4) 09/02/18 06:30 Cecil # (Auto) 1.2 (0.1-0.6) H 09/02/18 06:30 Eos # (Auto) 0.2 (0.0-0.7) 09/02/18 06:30 Baso # (Auto) 0.01 K/mm3 (0.0-2.0) 09/02/18 06:30 PT 11.6 SECONDS (9.4-12.5) 08/27/18 12:15 INR 1.01 08/27/18 12:15 APTT 24.7 Seconds (25.1-36.5) L 08/27/18 12:15 pO2 60 mm/Hg (30-55) H 08/28/18 00:10 VBG pH 7.40 (7.32-7.43) 08/28/18 00:10 VBG pCO2 35.0 (40-60) L 08/28/18 00:10 VBG HCO3 21.7 mmol/l (21-28) 08/28/18 00:10 VBG Total CO2 22.8 mmol.L (22-28) 08/28/18 00:10 VBG O2 Sat (Calc) 92.5 % (40-65) H 08/28/18 00:10 VBG Base Excess -2.5 mmol/L (0.0-2.0) L 08/28/18 00:10 VBG Potassium 4.2 mmol/L (3.6-5.2) 08/28/18 00:10 Sodium 139.0 mmol/L (132-148) 08/28/18 00:10 Chloride 105.0 mmol/L (98-107) 08/28/18 00:10 Glucose 293 mg/dl (65-105) H 08/28/18 00:10 Lactate 4.3 mmol/L (0.7-2.1) H* 08/28/18 00:10 FiO2 21.0 % 08/28/18 00:10 Sodium 139 mmol/L (132-148) 09/02/18 06:30 Potassium 3.7 mmol/L (3.6-5.0) 09/02/18 06:30 Chloride 107 mmol/L (98-107) 09/02/18 06:30 Carbon Dioxide 26 mmol/L (21-33) 09/02/18 06:30 Anion Gap 10 (10-20) 09/02/18 06:30 BUN 23 mg/dL (7-21) H 09/02/18 06:30 Creatinine 0.7 mg/dl (0.7-1.2) 09/02/18 06:30 Est GFR ( Amer) > 60 09/02/18 06:30 Est GFR (Non-Af Amer) > 60 09/02/18 06:30 POC Glucose (mg/dL) 274 mg/dL (65-110) H 09/01/18 22:20 Random Glucose 152 mg/dL (70-110) H 09/02/18 06:30 Lactic Acid 6.0 mmol/L (0.7-2.1) H* 08/27/18 18:39 Calcium 8.5 mg/dL (8.4-10.5) 09/02/18 06:30 Phosphorus 3.0 mg/dL (2.5-4.5) 09/02/18 06:30 Magnesium 2.1 mg/dL (1.7-2.2) 09/02/18 06:30 Total Bilirubin 0.4 mg/dL (0.2-1.3) 09/02/18 06:30 AST 25 U/L (14-36) 09/02/18 06:30 ALT 36 U/L (7-56) 09/02/18 06:30 Alkaline Phosphatase 123 U/L (38-126) 09/02/18 06:30 Lactate Dehydrogenase 549 U/L (333-699) 08/27/18 12:15 Total Creatine Kinase 110 U/L (35-230) 08/27/18 12:15 Troponin I < 0.01 ng/mL 08/27/18 12:15 NT-Pro-B Natriuret Pep 178 pg/mL (0-450) 08/27/18 12:15 Total Protein 6.5 g/dL (5.8-8.3) 09/02/18 06:30 Albumin 3.5 g/dL (3.0-4.8) 09/02/18 06:30 Globulin 3.0 gm/dL 09/02/18 06:30 Albumin/Globulin Ratio 1.2 (1.1-1.8) 09/02/18 06:30 Procalcitonin < 0.05 NG/ML (0.19-0.49) L 08/27/18 12:15 Venous Blood Potassium 4.2 mmol/L (3.6-5.2) 08/28/18 00:10 Urine Color Yellow (YELLOW) 08/27/18 13:45 Urine Appearance Clear (CLEAR) 08/27/18 13:45 Urine pH 6.5 (4.7-8.0) 08/27/18 13:45 Ur Specific [place] 1.010 (1.005-1.035) 08/27/18 13:45 Urine Protein Trace mg/dL (<30 mg/dL) H 08/27/18 13:45 Urine Glucose (UA) Negative mg/dL (NEGATIVE) 08/27/18 13:45 Urine Ketones Negative mg/dL (NEGATIVE) 08/27/18 13:45 Urine Blood Negative (NEGATIVE) 08/27/18 13:45 Urine Nitrate Negative (NEGATIVE) 08/27/18 13:45 Urine Bilirubin Negative (NEGATIVE) 08/27/18 13:45 Urine Urobilinogen 0.2 E.U./dL (<1 E.U./dL) 08/27/18 13:45 Ur Leukocyte Esterase Trace Janes/uL (NEGATIVE) H 08/27/18 13:45 Urine RBC 0 - 2 /hpf (0-2) 08/27/18 13:45 Urine WBC 2 - 5 /hpf (0-6) 08/27/18 13:45 Ur Epithelial Cells 4 - 5 /hpf (0-5) 08/27/18 13:45 Urine Bacteria Few (NEG) 08/27/18 13:45 Ur L.pneumophila Ag Negative (NEGATIVE) 08/29/18 11:52 Mycoplasma pneumon IgM Positive (NEGATIVE) H 08/28/18 06:30 - Hospital Course Hospital Course: Palma Oglesby is a 77 y/o female with past medical history of pulmonary sarcoidosis, COPD, 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 Patient is accompanied by her brother and at-home visitor home base head start who help provide the history as well. Patient saw her PCP Dr. Walker on Friday who sent her for an outpatient CXR and started her on Cefuroxime 500mg twice a day and Tessalon perles. Patient had the CXR yesterday, and received a call with the results advising her to go to the ED for further evaluation and treatment. This CXR showed worsening b/l infiltrates suggestive of infectious/inflammatory etiology. Patient denies chest pain, fevers, chills, abdominal pain, nausea, vomiting, diarrhea, headaches, dysuria. She complains of shortness of breath and nasal congestion, which is chronic, and bilateral leg pain secondary to peripheral neuropathy, also chronic. Per brother, patient has 4 episodes of pneumonia in the past 5 years. 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 Aide does not note any significant change of patient's health/condition. She uses a cane to ambulate when she leaves home. On admission, her chest x-ray revealed worsening multifocal infiltrates worse to her prior study in March 2018 as well as interstitial and confluent consolidative changes. She tested positive for Mycoplasma pneumonia. She was started on Rocephin and azithromycin as per Infectious Disease consult. She was given solu-medrol, mucinex, duonebs, pulmicort as well. She was also seen by her cut off worker's group. Her O2 saturation on 3L O2 nasal cannula was 93-94% which is baseline. On day 1, a code sepsis due to increasing Lactate from 2.2 to 4.9 to 4.3 and patient was maintained on abx and IVF. Patient reported symptom improvement with this treatment. Her WBC was elevated but stable 2/2 to steroid treatment. Blood Cx remained negative. Upon discharge, patient's cough had significantly improved. Her SOB and O2 sat were at her baseline. She was ambulating at her baseline. She was sleeping and eating well. Infectious disease advised to continue azithromycin 7 days after being discharged. Discharge Exam - Head Exam Head Exam: ATRAUMATIC, NORMOCEPHALIC - Eye Exam Eye Exam: EOMI, Normal appearance, PERRL - ENT Exam ENT Exam: Mucous Membranes Moist, Normal Exam - Neck Exam Neck exam: Normal Inspection - Respiratory Exam Respiratory Exam: Decreased Breath Sounds, NORMAL BREATHING PATTERN Additional comments: O2 3 L via NC - Cardiovascular Exam Cardiovascular Exam: REGULAR RHYTHM, +S1, +S2 - GI/Abdominal Exam GI & Abdominal Exam: Normal Bowel Sounds, Soft, Unremarkable - Rectal Exam Rectal Exam: Deferred - Extremities Exam Extremities exam: normal inspection, pedal pulses present - Back Exam Back exam: NORMAL INSPECTION - Neurological Exam Neurological exam: Alert, CN II-XII Intact Additional comments: oriented to person- baseline - Psychiatric Exam Psychiatric exam: Normal Affect, Normal Mood - Skin Skin Exam: Dry, Intact, Normal Color, Warm Discharge Plan - Discharge Medications Prescriptions: Azithromycin 500 mg PO DAILY #3 tablet guaiFENesin [Mucinex LA] 600 mg PO BID 3 Days tab Pantoprazole [Protonix EC Tab] 40 mg PO 0600 #30 ect Prednisone See Taper PO DAILY 6 Days tab.ds.pk - Follow Up Plan Condition: IMPROVED Disposition: HOME/ ROUTINE Instructions: Pneumonia in Adults, Chronic Obstructive Pulmonary Disease (COPD), Including Emphysema, Exacerbation of COPD (DC) Additional Instructions: You are being discharged from [facility] after being treated for pneumonia. You will be going home with [facility]. Please follow-up with your primary care provider, Dr. Walker, within 3-5 days of discharge. Please follow-up with your cut off worker, Dr. Guevara, within 1 week of discharge. You will be given a prescription for Azithromycin and Mucinex. Please take as instructed for the next 3 days. You will be given a steroid taper. Please take as instructed for 6 days and then you will resume your maintenance dose of prednisolone 4 mg daily. If symptoms return, present to the nearest emergency room. Referrals: Juan Carlos Guevara MD [Staff Provider] - Omer Walker MD [Primary Care Provider] - <Ha Sterling - Last Filed: 09/02/18 18:36> Provider - Provider Date of Admission: 08/27/18 13:20 Attending physician: Ha Sterling MD Primary care physician: Omer Walker MD Hospital Course - Lab Results Lab Results: Micro Results 08/27/18 12:15 Blood Blood Culture - Final NO GROWTH AFTER 5 DAYS 08/27/18 12:15 Blood Gram Stain - Final TEST NOT PERFORMED 08/27/18 12:15 Blood Blood Culture - Final NO GROWTH AFTER 5 DAYS 08/27/18 12:15 Blood Gram Stain - Final TEST NOT PERFORMED 08/27/18 13:45 Urine Urine Culture - Final No Growth (<1,000 CFU/ML) Most Recent Lab Values WBC 14.1 10^3/ul (4.5-11.0) H 09/02/18 06:30 RBC 4.90 10^6/uL (3.5-6.1) 09/02/18 06:30 Hgb 12.0 g/dL (12.0-16.0) 09/02/18 06:30 Hct 39.1 % (36.0-48.0) 09/02/18 06:30 MCV 79.8 fl (80.0-105.0) L 09/02/18 06:30 MCH 24.5 pg (25.0-35.0) L 09/02/18 06:30 MCHC 30.7 g/dl (31.0-37.0) L 09/02/18 06:30 RDW 17.3 % (11.5-14.5) H 09/02/18 06:30 Plt Count 278 10^3/uL (120.0-450.0) 09/02/18 06:30 MPV 9.9 fl (7.0-11.0) 09/02/18 06:30 Gran % 67.6 % (50.0-68.0) 09/02/18 06:30 Lymph % (Auto) 22.8 % (22.0-35.0) 09/02/18 06:30 Cecil % (Auto) 8.2 % (1.0-6.0) H 09/02/18 06:30 Eos % (Auto) 1.3 % (1.5-5.0) L 09/02/18 06:30 Baso % (Auto) 0.1 % (0.0-3.0) 09/02/18 06:30 Gran # 9.52 (1.4-6.5) H 09/02/18 06:30 Lymph # (Auto) 3.2 (1.2-3.4) 09/02/18 06:30 Cecil # (Auto) 1.2 (0.1-0.6) H 09/02/18 06:30 Eos # (Auto) 0.2 (0.0-0.7) 09/02/18 06:30 Baso # (Auto) 0.01 K/mm3 (0.0-2.0) 09/02/18 06:30 PT 11.6 SECONDS (9.4-12.5) 08/27/18 12:15 INR 1.01 08/27/18 12:15 APTT 24.7 Seconds (25.1-36.5) L 08/27/18 12:15 pO2 60 mm/Hg (30-55) H 08/28/18 00:10 VBG pH 7.40 (7.32-7.43) 08/28/18 00:10 VBG pCO2 35.0 (40-60) L 08/28/18 00:10 VBG HCO3 21.7 mmol/l (21-28) 08/28/18 00:10 VBG Total CO2 22.8 mmol.L (22-28) 08/28/18 00:10 VBG O2 Sat (Calc) 92.5 % (40-65) H 08/28/18 00:10 VBG Base Excess -2.5 mmol/L (0.0-2.0) L 08/28/18 00:10 VBG Potassium 4.2 mmol/L (3.6-5.2) 08/28/18 00:10 Sodium 139.0 mmol/L (132-148) 08/28/18 00:10 Chloride 105.0 mmol/L (98-107) 08/28/18 00:10 Glucose 293 mg/dl (65-105) H 08/28/18 00:10 Lactate 4.3 mmol/L (0.7-2.1) H* 08/28/18 00:10 FiO2 21.0 % 08/28/18 00:10 Sodium 139 mmol/L (132-148) 09/02/18 06:30 Potassium 3.7 mmol/L (3.6-5.0) 09/02/18 06:30 Chloride 107 mmol/L (98-107) 09/02/18 06:30 Carbon Dioxide 26 mmol/L (21-33) 09/02/18 06:30 Anion Gap 10 (10-20) 09/02/18 06:30 BUN 23 mg/dL (7-21) H 09/02/18 06:30 Creatinine 0.7 mg/dl (0.7-1.2) 09/02/18 06:30 Est GFR ( Amer) > 60 09/02/18 06:30 Est GFR (Non-Af Amer) > 60 09/02/18 06:30 POC Glucose (mg/dL) 158 mg/dL (65-110) H 09/02/18 11:10 Random Glucose 152 mg/dL (70-110) H 09/02/18 06:30 Lactic Acid 6.0 mmol/L (0.7-2.1) H* 08/27/18 18:39 Calcium 8.5 mg/dL (8.4-10.5) 09/02/18 06:30 Phosphorus 3.0 mg/dL (2.5-4.5) 09/02/18 06:30 Magnesium 2.1 mg/dL (1.7-2.2) 09/02/18 06:30 Total Bilirubin 0.4 mg/dL (0.2-1.3) 09/02/18 06:30 AST 25 U/L (14-36) 09/02/18 06:30 ALT 36 U/L (7-56) 09/02/18 06:30 Alkaline Phosphatase 123 U/L (38-126) 09/02/18 06:30 Lactate Dehydrogenase 549 U/L (333-699) 08/27/18 12:15 Total Creatine Kinase 110 U/L (35-230) 08/27/18 12:15 Troponin I < 0.01 ng/mL 08/27/18 12:15 NT-Pro-B Natriuret Pep 178 pg/mL (0-450) 08/27/18 12:15 Total Protein 6.5 g/dL (5.8-8.3) 09/02/18 06:30 Albumin 3.5 g/dL (3.0-4.8) 09/02/18 06:30 Globulin 3.0 gm/dL 09/02/18 06:30 Albumin/Globulin Ratio 1.2 (1.1-1.8) 09/02/18 06:30 Procalcitonin < 0.05 NG/ML (0.19-0.49) L 08/27/18 12:15 Venous Blood Potassium 4.2 mmol/L (3.6-5.2) 08/28/18 00:10 Urine Color Yellow (YELLOW) 08/27/18 13:45 Urine Appearance Clear (CLEAR) 08/27/18 13:45 Urine pH 6.5 (4.7-8.0) 08/27/18 13:45 Ur Specific [place] 1.010 (1.005-1.035) 08/27/18 13:45 Urine Protein Trace mg/dL (<30 mg/dL) H 08/27/18 13:45 Urine Glucose (UA) Negative mg/dL (NEGATIVE) 08/27/18 13:45 Urine Ketones Negative mg/dL (NEGATIVE) 08/27/18 13:45 Urine Blood Negative (NEGATIVE) 08/27/18 13:45 Urine Nitrate Negative (NEGATIVE) 08/27/18 13:45 Urine Bilirubin Negative (NEGATIVE) 08/27/18 13:45 Urine Urobilinogen 0.2 E.U./dL (<1 E.U./dL) 08/27/18 13:45 Ur Leukocyte Esterase Trace Janes/uL (NEGATIVE) H 08/27/18 13:45 Urine RBC 0 - 2 /hpf (0-2) 08/27/18 13:45 Urine WBC 2 - 5 /hpf (0-6) 08/27/18 13:45 Ur Epithelial Cells 4 - 5 /hpf (0-5) 08/27/18 13:45 Urine Bacteria Few (NEG) 08/27/18 13:45 Ur L.pneumophila Ag Negative (NEGATIVE) 08/29/18 11:52 Mycoplasma pneumon IgM Positive (NEGATIVE) H 08/28/18 06:30 Attending/Attestation - Attestation I have personally seen and examined this patient.: Yes I have fully participated in the care of the patient.: Yes I have reviewed all pertinent clinical information, including history, physical exam and plan: Yes Notes (Text): 09/02/18 18:35 attending note; Patient seen and examined with resident. Patient's attendant by the bedside. patient's mother by the bedside. Patient is on oxygen nasal cannula. Not in any acute distress. Needs assistance with meals. Patient wants to go home. Patient is a 77-year-old female with past medical history significant for pulmonary sarcoidosis, COPD on home oxygen, chronic respiratory failure secondary to COPD and sarcoidosis, CVA with residual cognitive impairment, type 2 diabetes with peripheral neuropathy, hypertension, depression and anxiety, and spinal stenosis that presented to the emergency room with a nonproductive cough for one week. 1. Pneumonia secondary to Mycoplasma. Continue Rocephin and Zithromax. Pulmonary evaluation appreciated. Continue oxygen. Monitor respiratory status closely. Continue Mucinex and nebulizer treatments. Leukocytosis downtrending. Urine for Legionella negative. Blood cultures with no growth. 2. Leukocytosis. Downtrending. Has leukocytosis at baseline which may be secondary to steroid use. Continue to monitor. Blood and urine cultures with no growth. 3. Chronic respiratory failure on home oxygen. COPD. Sarcoidosis. O2 via nasal cannula. Continue IV steroids. 4. Type 2 diabetes with peripheral neuropathy. Continue insulin sliding scale. Continue to monitor Accu-Cheks. Continue home gabapentin and tramadol. 5. Bilateral lower extremity pain. Chronic. Secondary to neuropathy. Continue gabapentin and tramadol. PT recommends TCU. Patient refused TCU admission. 6. Essential hypertension. Continue amlodipine. 7. History of CVAs. With residual right eye visual defect. Continue aspirin. 8. Depression and anxiety. Continue home Remeron and Ativan. 9. Advanced directive. Patient is a DNR/DNI will be discharged home with tapering dose of by mouth prednisone and Zithromax. case discussed with patient's brother in detail. Follow-up with PMD . Follow-up with pulmonary .
[2018-09-02] MEDS: Aspirin 325 mg EC Tablets PO SCH (09:09)
[2018-09-02] MEDS: guaiFENesin 600 mg ER Tab PO SCH (09:09)
[2018-09-02] MEDS: Insulin Lispro (humaLOG) LOW Coverage SC SCH (09:12)
--- NOTE | 2018-09-02 14:38 | CP.PCM.PN ---
Subjective - Date & Time of Evaluation Date of Evaluation: 09/02/18 Time of Evaluation: 12:00 - Subjective Subjective: Infectious Disease Follow Up: September 02, 2018 77 yo female with extensive past medical history that includes sarcoidosis, CVA, HTN, DM, and COPD presenting with prolonged nonproductive cough for 1 week. Given Cefuroxime for treatment as an outpatient. Outpatient chest X-ray showed worsening bilateral pulmonary infiltrates (patient has a history of chronic persistent pulmonary infiltrates.). Patient is visibly short of breath. She also has multiple chronic aches and pains. SOB appears to be resolved. She is able to complete full sentences without catching her breath. Overall improvement. Known history of anxiety. Objective - Vital Signs/Intake and Output Vital Signs (last 24 hours): Temp Pulse Resp BP Pulse Ox 98 F 85 18 134/76 94 L 09/02/18 07:34 09/02/18 07:34 09/02/18 07:34 09/02/18 09:08 09/02/18 07:34 - Labs Labs: 09/02/18 06:30 09/02/18 06:30 PT 11.6 SECONDS (9.4-12.5) 08/27/18 12:15 INR 1.01 08/27/18 12:15 APTT 24.7 Seconds (25.1-36.5) L 08/27/18 12:15 - Constitutional Appears: Non-toxic, No Acute Distress, Chronically Ill - Head Exam Head Exam: ATRAUMATIC, NORMOCEPHALIC - Eye Exam Eye Exam: EOMI, PERRL Pupil Exam: NORMAL ACCOMODATION, PERRL - ENT Exam ENT Exam: Mucous Membranes Moist, Normal External Ear Exam, TM's Normal Bilaterally - Neck Exam Neck Exam: Full ROM, Normal Inspection - Respiratory Exam Respiratory Exam: Clear to Ausculation Bilateral, NORMAL BREATHING PATTERN. absent: Rales, Rhonchi, Wheezes - Cardiovascular Exam Cardiovascular Exam: REGULAR RHYTHM, RRR, +S1, +S2 - GI/Abdominal Exam GI & Abdominal Exam: Soft, Normal Bowel Sounds. absent: Distended, Tenderness - Extremities Exam Extremities Exam: Full ROM, Normal Inspection - Neurological Exam Neurological Exam: Alert, Awake, CN II-XII Intact, Oriented x3 - Psychiatric Exam Psychiatric exam: Normal Affect, Normal Mood - Skin Skin Exam: Intact, Normal Color Assessment and Plan - Assessment and Plan (Free Text) Assessment: 77 yo female known to me from previous hospitalizations who is displaying SOB in setting of pulmonary sarcoidosis, COPD, chronic respiratory failure, and persistent acute cough (cough starting 1 week ago). A procalcitonin value of <0.05 would argue strongly against a bacterial pneumonia. Currently on Rocephin and Azithromycin for antibiotic treatment. Initial leukocytosis of 23.2 that has improved to 14.1. Would consider up to 7 days of antibiotic treatment especially completion of Azithromycin for the patient. The patient may benefit from a prolonged course of Azithromycin orally. Would consider additional 7 days of Azithromycin on discharge orally. Has improved compared to yesterday. Patient feeling comfortable at this time. Patient does not appear short of breath today. Highly anxious patient. Overall improving. Thank you for allowing me to participate in the care of the patient, we will follow with you.
== END 2018-09-02 14:15 | disposition home health service (06) | DRG 194 ==
LOC: ED 11:01 → ERH 13:20 → 2RSO 17:11 → 5RSO 08-28 18:51
PROVIDERS: ADMIT Internal Medicine; ATTEND Internal Medicine
PROC: 3E0F7GC Introduction of Other Therapeutic Substance into Respiratory Tract, Via Natural or Artificial Opening (ICD-10-PCS; principal; 2018-08-27)
DX: J15.7 Pneumonia due to Mycoplasma pneumoniae (principal); J44.1 Chronic obstructive pulmonary disease with (acute) exacerbation; J96.10 Chronic respiratory failure, unspecified whether with hypoxia or hypercapnia; J44.0 Chronic obstructive pulmonary disease with (acute) lower respiratory infection; I10 Essential (primary) hypertension; D86.0 Sarcoidosis of lung; J84.10 Pulmonary fibrosis, unspecified; E11.42 Type 2 diabetes mellitus with diabetic polyneuropathy; J20.9 Acute bronchitis, unspecified; F03.90 Unspecified dementia, unspecified severity, without behavioral disturbance, psychotic disturbance, mood disturbance, and anxiety; M48.07 Spinal stenosis, lumbosacral region; E11.51 Type 2 diabetes mellitus with diabetic peripheral angiopathy without gangrene; F41.9 Anxiety disorder, unspecified; Z66 Do not resuscitate; G47.00 Insomnia, unspecified; I69.398 Other sequelae of cerebral infarction; H54.7 Unspecified visual loss; D64.9 Anemia, unspecified; T38.0X5A Adverse effect of glucocorticoids and synthetic analogues, initial encounter; M81.0 Age-related osteoporosis without current pathological fracture; F32.9 Major depressive disorder, single episode, unspecified; Z79.52 Long term (current) use of systemic steroids; Z99.81 Dependence on supplemental oxygen; Z87.891 Personal history of nicotine dependence

== ENCOUNTER 2019-01-18 11:22 | Inpatient (IN) | payer BC, MEDICARE ==
[2019-01-18 11:28] VITALS: BMI 21.1
[2019-01-18] MEDS ORDERED: Azithromycin 500MG/NS 250ml 500 MG/250 ML BAG IVPB STA (11:39)
[2019-01-18] MEDS: Albuterol-Ipratrop 3 mg / 0.5 (3 ml) UD IH SCH ×4 (11:45→15:36)
[2019-01-18] MEDS ORDERED: cefTRIAXone 1 gm 1 GM/100 ML BAG IVPB SCH (11:45)
--- NOTE | 2019-01-18 11:59 | ED PDOC ---
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 Patient is a poor historian and denies any somatic complaints. Patient has a history of prolonged hospital courses for COPD and pneumonia. As per son, patient is DNR/DNI. ROS limited secondary to patient's clinical presentation. 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 ([place]) Hx Macular Degeneration: Yes - Renal Hx Renal Disorder: No - Endocrine/Metabolic Hx Endocrine Disorders: Yes Hx Diabetes Mellitus Type 2: Yes - Hematological/Oncological Hx Blood Disorders: Yes Hx Cancer: Yes (basal cell) - Integumentary Hx Dermatological Disorder: Yes Hx Basal Cell Carcinoma: Yes Other/Comment: SARCOIDOSIS, b/l arm skin discolorations, rle round 2cm purple skin discoloration - Musculoskeletal/Rheumatological Hx Musculoskeletal Disorders: Yes Hx Arthritis: Yes Hx Falls: Yes (past) Hx Herniated Disk: Yes (L4 L5 S1) Hx Osteoarthritis: Yes Hx Osteoporosis: Yes Hx Rhabdomyolysis: Yes Hx Spinal Stenosis: Yes Hx Unsteady Gait: Yes (cane when out) Other/Comment: chronic right hip pain constant - Gastrointestinal Hx Gastrointestinal Disorders: Yes Hx Gastroesophageal Reflux: Yes - Genitourinary/Gynecological Hx Genitourinary Disorders: Yes (HYSTERECTOMY) Hx Incontinence: (denies uses commode at home) Other/Comment: vaginal rectal fistula repair - Psychiatric Hx Psychophysiologic Disorder: Yes Hx Anxiety: Yes Hx Depression: Yes Hx Substance Use: No - Surgical History Hx Hysterectomy: Yes Other/Comment: laparoscopic sx to dx sarcoidosis - Anesthesia Hx Anesthesia: Yes Hx Anesthesia Reactions: No Hx Malignant Hyperthermia: No - Suicidal Assessment Feels Threatened In Home Enviroment: No Family/Social History - Physician Review Nursing Documentation Reviewed: Yes Family/Social History: No Known Family HX Smoking Status: Former Smoker Hx Alcohol Use: No Hx Substance Use: No Hx Substance Use Treatment: No Allergies/Home Meds Allergies/Adverse Reactions: Allergies No Known Allergies Allergy (Verified 01/18/19 12:28) Home Medications: Home Meds Medication Instructions Recorded Confirmed RX: Mirtazapine [Remeron] 30 mg PO HS 04/10/16 01/18/19 RX: Zolpidem [Ambien] 10 mg PO HS 04/10/16 01/18/19 RX: Gabapentin [Neurontin] 300 mg PO BID 08/21/16 01/18/19 RX: Albuterol HFA [Ventolin HFA 90 2 puff NEB Q4 PRN 01/05/17 01/18/19 mcg/actuation (8 g)] RX: Aspirin [Aspirin EC] 325 mg PO DAILY 01/05/17 01/18/19 RX: Acetaminophen [Tylenol 325mg 325 mg PO QID PRN 07/02/17 01/18/19 tab] RX: Fluticasone/Salmeterol 250/50 1 puff IH Q12 07/02/17 01/18/19 [Advair Diskus 250/50] RX: LORazepam [Ativan] 1 mg PO TID 07/02/17 01/18/19 RX: [place]-3/Dha/Epa/Fish Oil [Fish 500 mg PO BID 07/02/17 01/18/19 Oil 500 mg Softgel] RX: traMADol [Ultram] 50 mg PO DAILY 07/02/17 01/18/19 RX: Lidocaine [Lidocare] 1 patch PRN PRN 08/27/18 01/18/19 RX: Sitagliptin Phos/Metformin HCl 1 tab PO BID 08/27/18 01/18/19 [Janumet 50-500 mg Tablet] QUEtiapine [SEROquel] 50 mg PO DAILY 01/18/19 01/18/19 Quetiapine Fumarate [Seroquel] 100 mg PO HS 01/18/19 01/18/19 Review of Systems - Review of Systems Systems not reviewed;Unavailable: Dementia (mildly) Respiratory: SOB, Cough Cardiovascular: absent: Chest Pain Physical Exam Appearance: Positive for: Well-Appearing, Non-Toxic, Comfortable Pain Distress: None Mental Status: Positive for: other (Alert) - Systems Exam Head: Present: Atraumatic, Normocephalic Pupils: Present: PERRL Extroacular Muscles: Present: EOMI Conjunctiva: Present: Normal Mouth: Present: Moist Mucous Membranes Respiratory/Chest: Present: Accessory Muscle Use (Mild), Decreased Breath Sounds, Tachypneic Cardiovascular: Present: Regular Rate and Rhythm, Normal S1, S2. No: Murmurs Abdomen: No: Tenderness, Distention, Peritoneal Signs Back: Present: Normal Inspection Upper Extremity: Present: Normal Inspection. No: Cyanosis, Edema Lower Extremity: Present: Normal Inspection. No: Edema Neurological: Present: GCS=15, Speech Normal Skin: Present: Warm, Dry, Normal Color. No: Rashes Psychiatric: Present: Alert Medical Decision Making ED Course and Treatment: 01/18/19 11:38 Impression: 78 year old female presents to the ED for evaluation of shortness of breath and cough. bipap iniated on arrival as pt hypoxic. noted long standing h/o of insteritial lung dsiease. Plan: -- VBG -- EKG -- Labs -- CXR -- Duoneb -- Rocephin -- Solumedrol -- Zithromax -- Blood Culture -- Urine Culture -- Influenza A/B -- Urinalysis -- Reassess and disposition Prior Visits: Notes and results from previous visits were reviewed. Progress Notes: 01/18/19 11:38 EKG reviewed, shows sinus tachycardia at 101 bpm, non specific st/t wave changes. 01/18/19 14:40 CXR reviewed by radiologist, shows: Chronic interstitial changes. No focal consolidation. 01/18/19 15:[address] mauricio. antibiotics given as pt febrile in er, tolerating bipap. - RAD Interpretation Radiology Orders: 01/18/19 11:38 CHEST PORTABLE [RAD] Stat - Medication Orders Current Medication Orders: Albuterol/Ipratropium (Duoneb 3 Mg/0.5 Mg (3 Ml) Ud) 3 ml IH Q15M MARLEE Stop: 02/18/19 12:16 Ceftriaxone Sodium (Rocephin 1 Gram Ivpb) 1 gm in 100 mls @ 100 mls/hr IVPB DAILY MARLEE; Protocol Azithromycin (Zithromax 500mg In Ns) 500 mg in 250 mls @ 167 mls/hr IVPB STAT STA; Protocol Stop: 01/18/19 13:08 Discontinued Medications Methylprednisolone (Solu-Medrol) 125 mg IVP STAT STA Stop: 01/18/19 11:41 - Scribe Statement The provider has reviewed the documentation as recorded by the Lalaibmegan Yu. All medical record entries made by the Lalaibmegan were at my direction and personall y dictated by me. I have reviewed the chart and agree that the record accurately reflects my personal performance of the history, physical exam, medical decision making, and the department course for this patient. I have also personally directed, reviewed, and agree with the discharge instructions and disposition. Disposition/Present on Arrival - Present on Arrival Any Indicators Present on Arrival: No History of DVT/PE: No History of Uncontrolled Diabetes: No Urinary Catheter: No History Surgical Site Infection Following: None - Disposition Have Diagnosis and Disposition been Completed?: Yes Diagnosis: COPD (chronic obstructive pulmonary disease), Interstitial lung disease Disposition: HOSPITALIZED Disposition Time: 14:00 Condition: STABLE
[2019-01-18 12:12] LABS: BASO # 0.04 K/mm3 (0.0-2.0); BASO % 0.3 % (0.0-3.0); EOS # 0.3 (0.0-0.7); EOS % 2.1 % (1.5-5.0); HEMOGLOBIN 10.8 g/dL (12.0-16.0); LYMPH # 2.7 (1.2-3.4); LYMPH % 18.8 % (22.0-35.0); MEAN CELL VOLUME 77.9 fl (80.0-105.0); MEAN CORPUSCULAR HEMOGLOBIN 23.2 pg (25.0-35.0); MEAN CORPUSCULAR HGB CONC 29.8 g/dl (31.0-37.0); MEAN PLATELET VOLUME 10.3 fl (7.0-11.0); MONO % 6.7 % (1.0-6.0); RBC 4.66 10^6/uL (3.5-6.1); RED CELL DISTRIBUTION WIDTH 18.3 % (11.5-14.5); WHITE BLOOD COUNT 14.4 10^3/uL (4.5-11.0)
[2019-01-18 12:15] LABS: VENOUS BLOOD GAS BASE EXCESS 1.2 mmol/L (0.0-2.0); VENOUS BLOOD GAS PO2 41 mm/Hg (30-55); VENOUS BLOOD PH 7.41 (7.32-7.43)
[2019-01-18 12:38] LABS: INR 1.15
[2019-01-18 12:41] LABS: ALB/GLOB RATIO 1.1 (1.1-1.8); ALT/SGPT 16 U/L (7-56); AST/SGOT 27 U/L (14-36); BLOOD UREA NITROGEN 20 mg/dL (7-21); CALCIUM 8.9 mg/dL (8.4-10.5); GFR NON-AFRICAN AMERICAN > 60
[2019-01-18 12:52] LABS: B-TYPE NATRIURETIC PEPTIDE 943 pg/mL (0-450); TROPONIN I 0.04 ng/mL
[2019-01-18 13:46] LABS: URINE BILIRUBIN NEGATIVE (NEGATIVE); URINE BLOOD NEGATIVE (NEGATIVE); URINE GLUCOSE (UA) NEGATIVE (NEGATIVE); URINE LEUKOCYTE ESTERASE NEGATIVE Leu/uL (NEGATIVE); URINE PROTEIN TRACE mg/dL (<30 mg/dL); URINE UROBILINOGEN 0.2 E.U./dL (<1 E.U./dL)
[2019-01-18 13:53] LABS: URINE APPEARANCE CLEAR (CLEAR); URINE COLOR YELLOW (YELLOW)
[2019-01-18 14:02] LABS: URINE BACTERIA TRACE /hpf; URINE EPITHELIAL CELLS 0 - 2 /hpf (0-5); URINE RBC 0 - 2 /hpf (0-2); URINE WBC 0 - 2 /hpf (0-6)
[2019-01-18] MEDS ORDERED: Albuterol-Ipratrop 3 mg / 0.5 (3 ml) UD IH PRN (14:21)
[2019-01-18] MEDS ORDERED: Albuterol HFA 90 mcg/actuation (8 g) INH PRN (14:27)
--- NOTE | 2019-01-18 14:33 | RAD ---
Date of service: 01/18/2019 HISTORY: sob COMPARISON: 12/08/2017 FINDINGS: LUNGS: Chronic interstitial changes are seen. No focal consolidation PLEURA: No significant pleural effusion identified, no pneumothorax apparent. CARDIOVASCULAR: No aortic atherosclerotic calcification present. Mild cardiomegaly no pulmonary vascular congestion. OSSEOUS STRUCTURES: No significant abnormalities. VISUALIZED UPPER ABDOMEN: Normal. OTHER FINDINGS: None. IMPRESSION: Chronic interstitial changes. No focal consolidation
--- NOTE | 2019-01-18 15:00 | CARD ---
APPROVED REPORT Date of service: 01/18/2019 EKG Measurement Heart [id number] <Conclusion> Sinus tachycardia with premature atrial complexes Possible Left atrial enlargement Nonspecific ST and T wave abnormality Abnormal ECG
--- NOTE | 2019-01-18 15:06 | CP.PCM.HP ---
<Maxime De Anda - Last Filed: 01/18/19 15:58> History of Present Illness - History of Present Illness History of Present Illness: Internal Medicine History and Physical (Dr. Moreno's Service) CC: Hypoxia/SOB/Cough HPI: Mrs. Oglesby is an 78 year old female with a past medical history signifi cant for COPD, pulmonary sarcoidosis, DM2, diabetic neuropathy, two previous ischemic CVA's (1997 and 2013) with residual cognitive function/vision loss of right eye, HTN, depression, anxiety, OA and spinal stenosis who presents from home after being found to be hypoxic with an oxygen saturation of approximately 55%, SOB and non-productive cough. Patient is alert to person only at this time and HPI information is largely obtained from SHAKE LOADER and patients brother at bedside. According the SHAKE LOADER, patient was difficult to arouse this morning and reportedly SOB. The SHAKE LOADER took the patients pulse ox and discovered it to be in the 50's and called an ambulance. She also reports that the patient has had a non-productive cough for a few days as well. She denies the patient having any fevers at home. Patient denies any complaints. Further ROS questioning limited at this time due to patients mental status. PMH: As stated above PSH: Hysterectomy Family History: Mother-cardiac arrhythmia; Father-ALS Social History: Former smoker with 15 year pack smoking history (quit 50+ years ago), denies any alcohol or illicit drug use; Has 23/06 SHAKE LOADER Allergies: NKDA Home Medications: Reviewed; As per JAN PMD: Dr. Walker Engine Dynamometer Tester: Dr. Guevara Present on Admission - Present on Admission Any Indicators Present on Admission: No Review of Systems - Review of Systems Review of Systems: As stated in HPI, otherwise negative Past Patient History - Infectious Disease Hx of Infectious Diseases: None - Tetanus Immunizations Tetanus Immunization: Unknown - Past Medical History & Family History Past Medical History?: Yes - Past Social History Smoking Status: Former Smoker - CARDIAC Hx Cardiac Disorders: Yes Hx Congestive Heart Failure: Yes Hx Hypertension: Yes Hx Peripheral Vascular Disease: Yes - PULMONARY Hx Chronic Obstructive Pulmonary Disease (COPD): Yes - NEUROLOGICAL HX Cerebrovascular Accident: Yes - HEENT Hx HEENT Problems: Yes (eyeglasses) 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 ([place]) Hx Macular Degeneration: Yes - RENAL Hx Chronic Kidney Disease: No - ENDOCRINE/METABOLIC Hx Endocrine Disorders: Yes Hx Diabetes Mellitus Type 2: Yes - HEMATOLOGICAL/ONCOLOGICAL Hx Blood Disorders: Yes Hx Cancer: Yes (basal cell) - INTEGUMENTARY Hx Dermatological Problems: Yes Hx Basil Cell: Yes Other/Comment: SARCOIDOSIS, b/l arm skin discolorations, rle round 2cm purple skin discoloration - MUSCULOSKELETAL/RHEUMATOLOGICAL Hx Musculoskeletal Disorders: Yes Hx Arthritis: Yes Hx Falls: Yes (past) Hx Herniated Disk: Yes (L4 L5 S1) Hx Osteoarthritis: Yes Hx Osteoporosis: Yes Hx Rhabdomyolysis: Yes Hx Spinal Stenosis: Yes Hx Unsteady Gait: Yes (cane when out) Other/Comment: chronic right hip pain constant - GASTROINTESTINAL Hx Gastrointestinal Disorders: Yes Hx Gastroesophageal Reflux: Yes - GENITOURINARY/GYNECOLOGICAL Hx Genitourinary Disorders: Yes (HYSTERECTOMY) Hx Incontinence: (denies uses commode at home) Other/Comment: vaginal rectal fistula repair - PSYCHIATRIC Hx Psychophysiologic Disorder: Yes Hx Anxiety: Yes Hx Depression: Yes Hx Substance Use: No - SURGICAL HISTORY Hx Hysterectomy: Yes Other/Comment: laparoscopic sx to dx sarcoidosis - ANESTHESIA Hx Anesthesia: Yes Hx Anesthesia Reactions: No Hx Malignant Hyperthermia: No Meds Allergies/Adverse Reactions: Allergies Allergy/AdvReac Type Severity Reaction Status Date / Time No Known Allergies Allergy Verified 01/18/19 12:28 Physical Exam - Constitutional Appears: Non-toxic, No Acute Distress, Chronically Ill - Head Exam Head Exam: ATRAUMATIC, NORMOCEPHALIC - Eye Exam Eye Exam: EOMI, Normal appearance - ENT Exam ENT Exam: Mucous Membranes Moist - Neck Exam Neck exam: Positive for: Full Rom, Normal Inspection. Negative for: Lymphadenopathy - Respiratory Exam Respiratory Exam: Accessory Muscle Use, Decreased Breath Sounds (Bilateral lung bases), Wheezes (Mild end expiratory wheezes diffusely). absent: Chest Wall Tenderness, Clear to Auscultation Bilateral, Prolonged Expiratory Phase, Rales, Rhonchi, Respiratory Distress, Stridor, NORMAL BREATHING PATTERN Additional comments: Noted to have BiPAP on during physical exam - Cardiovascular Exam Cardiovascular Exam: REGULAR RHYTHM, RRR, +S1, +S2 - GI/Abdominal Exam GI & Abdominal Exam: Normal Bowel Sounds, Soft. absent: Tenderness - Extremities Exam Extremities exam: Positive for: full ROM. Negative for: calf tenderness, joint swelling, pedal edema - Neurological Exam Neurological exam: Alert - Psychiatric Exam Psychiatric exam: Normal Affect, Normal Mood - Skin Skin Exam: Dry, Intact, Normal Color, Warm Results - Vital Signs Recent Vital Signs: Last Vital Signs Temp 102.5 F H 01/18/19 11:28 Pulse 84 01/18/19 14:45 Resp 25 H 01/18/19 14:45 BP 134/67 01/18/19 14:45 Pulse Ox 96 01/18/19 14:45 - Labs Result Diagrams: 01/18/19 12:00 01/18/19 12:20 Labs: Laboratory Results - last 24 hr 01/18/19 01/18/19 01/18/19 12:00 12:05 12:20 WBC 14.4 H RBC 4.66 Hgb 10.8 L Hct 36.3 MCV 77.9 L MCH 23.2 L MCHC 29.8 L RDW 18.3 H Plt Count 366 MPV 10.3 Neut % (Auto) 72.1 H Lymph % (Auto) 18.8 L [place] % (Auto) 6.7 H Eos % (Auto) 2.1 Baso % (Auto) 0.3 Lymph # (Auto) 2.7 [place] # (Auto) 1.0 H Eos # (Auto) 0.3 Baso # (Auto) 0.04 Absolute Neuts (auto) 10.39 H PT 13.0 H INR 1.15 APTT 32.0 pO2 41 VBG pH 7.41 VBG pCO2 41.0 VBG HCO3 26.0 VBG Total CO2 27.3 VBG O2 Sat (Calc) 81.5 H VBG Base Excess 1.2 VBG Potassium 6.2 H* Sodium 136.0 Chloride 109.0 H Glucose 145 H Lactate 1.5 FiO2 60.0 Crit Value Called To junior Burciaga md Crit Value Called By [facility] commercial account officer Blood Gas Notified Time 1215 Potassium Carbon Dioxide Anion Gap BUN Creatinine Est GFR ( Amer) Est GFR (Non-Af Amer) Random Glucose Calcium Magnesium Total Bilirubin AST ALT Alkaline Phosphatase Lactate Dehydrogenase Total Creatine Kinase Troponin I NT-Pro-B Natriuret Pep Total Protein Albumin Globulin Albumin/Globulin Ratio Venous Blood Potassium 6.2 H* Urine Color Urine Appearance Urine pH Ur Specific [place] Urine Protein Urine Glucose (UA) Urine Ketones Urine Blood Urine Nitrate Urine Bilirubin Urine Urobilinogen Ur Leukocyte Esterase Urine RBC Urine WBC Ur Epithelial Cells Urine Bacteria Influenza Typ A,B (EIA) 01/18/19 01/18/19 01/18/19 12:20 13:15 13:34 WBC RBC Hgb Hct MCV MCH MCHC RDW Plt Count MPV Neut % (Auto) Lymph % (Auto) [place] % (Auto) Eos % (Auto) Baso % (Auto) Lymph # (Auto) [place] # (Auto) Eos # (Auto) Baso # (Auto) Absolute Neuts (auto) PT INR APTT pO2 VBG pH VBG pCO2 VBG HCO3 VBG Total CO2 VBG O2 Sat (Calc) VBG Base Excess VBG Potassium Sodium 140 Chloride 107 Glucose Lactate FiO2 Crit Value Called To Crit Value Called By Blood Gas Notified Time Potassium 4.2 Carbon Dioxide 26 Anion Gap 11 BUN 20 Creatinine 0.8 Est GFR ( Amer) > 60 Est GFR (Non-Af Amer) > 60 Random Glucose 142 H Calcium 8.9 Magnesium 1.8 Total Bilirubin 0.3 AST 27 ALT 16 Alkaline Phosphatase 130 H Lactate Dehydrogenase 534 Total Creatine Kinase 61 Troponin I 0.04 D NT-Pro-B Natriuret Pep 943 H Total Protein 7.4 Albumin 4.0 Globulin 3.5 Albumin/Globulin Ratio 1.1 Venous Blood Potassium Urine Color Yellow Urine Appearance Clear Urine pH 7.0 Ur Specific [place] 1.020 Urine Protein Trace H Urine Glucose (UA) Negative Urine Ketones Negative Urine Blood Negative Urine Nitrate Negative Urine Bilirubin Negative Urine Urobilinogen 0.2 Ur Leukocyte Esterase Negative Urine RBC 0 - 2 Urine WBC 0 - 2 Ur Epithelial Cells 0 - 2 Urine Bacteria Trace Influenza Typ A,B (EIA) Negative for flu a/b Assessment & Plan - Assessment and Plan (Free Text) Assessment: 78 year old female with a past medical history significant for COPD, pulmonary sarcoidosis, DM2, diabetic neuropathy, two previous ischemic CVA's (1997 and 2013) with residual cognitive function/vision loss of right eye, HTN, depression, anxiety, OA and spinal stenosis who presents from home after being found to be hypoxic with an oxygen saturation of approximately 55%, SOB and non- productive cough. Plan: 1. CAP/COPD Exacerbation -Chest X-Ray shows no focal consolidations -Duonebs Q4 MARLEE and Q2 PRN -Start Zithromax and Rocephin for empiric coverage -Solu-Medrol 40mg IV Q12 -Tylenol PRN for fevers -Continue supplemental oxygen via NC -BiPAP nightly -Legionella and Mycoplasma serologies pending -Pulmonology consulted, all recommendations appreciated 2. History of HTN -Continue home Norvasc 3. History of CAD -Continue home ASA and [place]-3 supplement 4. History of DM2 with Diabetic Neuropathy -SSI-L and Accuchecks ACHS -Continue home Gabapentin PRN 5. History of Depression -Continue home Remeron and Seroquel 6. History of Anxiety -Continue home Ativan PRN 7. History of Chronic Pain -Continue home Lidocaine TD -Continue home Tramadol PRN 8. History of Insomnia -Continue home Ambien GI Prophylaxis: Pepcid DVT Prophylaxis: SCD's Diet: Heart Healthy/Moderate Carbohydrate Consistency Code Status: DNR/DNI Patient seen and case discussed with attending, Dr. Moreno. Maxime De Anda PGY2 - Date & Time Date: 01/18/19 Time: 15:01 Decision To Admit - Pt Status Changed To: Hospital Disposition Of: Inpatient Admission - Admit Certification Admit to Inpatient:: After my assessment, the patient will require hosp italization for at least two midnights. This is because of the severity of symptoms shown, intensity of services needed, and/or the medical risk in this patient being treated as an outpatient. - . Bed Request Type: Remote Telemetry <Michael Moreno - Last Filed: 01/18/19 16:24> Results - Vital Signs Recent Vital Signs: Last Vital Signs Temp 102.5 F H 01/18/19 11:28 Pulse 84 01/18/19 14:45 Resp 25 H 01/18/19 14:45 BP 134/67 01/18/19 14:45 Pulse Ox 96 01/18/19 14:45 - Labs Result Diagrams: 01/18/19 12:00 01/18/19 12:20 Labs: Laboratory Results - last 24 hr 01/18/19 01/18/19 01/18/19 12:00 12:05 12:20 WBC 14.4 H RBC 4.66 Hgb 10.8 L Hct 36.3 MCV 77.9 L MCH 23.2 L MCHC 29.8 L RDW 18.3 H Plt Count 366 MPV 10.3 Neut % (Auto) 72.1 H Lymph % (Auto) 18.8 L [place] % (Auto) 6.7 H Eos % (Auto) 2.1 Baso % (Auto) 0.3 Lymph # (Auto) 2.7 [place] # (Auto) 1.0 H Eos # (Auto) 0.3 Baso # (Auto) 0.04 Absolute Neuts (auto) 10.39 H PT 13.0 H INR 1.15 APTT 32.0 pO2 41 VBG pH 7.41 VBG pCO2 41.0 VBG HCO3 26.0 VBG Total CO2 27.3 VBG O2 Sat (Calc) 81.5 H VBG Base Excess 1.2 VBG Potassium 6.2 H* Sodium 136.0 Chloride 109.0 H Glucose 145 H Lactate 1.5 FiO2 60.0 Crit Value Called To junior Burciaga md Crit Value Called By [facility] Blood Gas Notified Time 1215 Potassium Carbon Dioxide Anion Gap BUN Creatinine Est GFR ( Amer) Est GFR (Non-Af Amer) Random Glucose Calcium Magnesium Total Bilirubin AST ALT Alkaline Phosphatase Lactate Dehydrogenase Total Creatine Kinase Troponin I NT-Pro-B Natriuret Pep Total Protein Albumin Globulin Albumin/Globulin Ratio Venous Blood Potassium 6.2 H* Urine Color Urine Appearance Urine pH Ur Specific [place] Urine Protein Urine Glucose (UA) Urine Ketones Urine Blood Urine Nitrate Urine Bilirubin Urine Urobilinogen Ur Leukocyte Esterase Urine RBC Urine WBC Ur Epithelial Cells Urine Bacteria Influenza Typ A,B (EIA) 01/18/19 01/18/19 01/18/19 12:20 13:15 13:34 WBC RBC Hgb Hct MCV MCH MCHC RDW Plt Count MPV Neut % (Auto) Lymph % (Auto) [place] % (Auto) Eos % (Auto) Baso % (Auto) Lymph # (Auto) [place] # (Auto) Eos # (Auto) Baso # (Auto) Absolute Neuts (auto) PT INR APTT pO2 VBG pH VBG pCO2 VBG HCO3 VBG Total CO2 VBG O2 Sat (Calc) VBG Base Excess VBG Potassium Sodium 140 Chloride 107 Glucose Lactate FiO2 Crit Value Called To Crit Value Called By Blood Gas Notified Time Potassium 4.2 Carbon Dioxide 26 Anion Gap 11 BUN 20 Creatinine 0.8 Est GFR ( Amer) > 60 Est GFR (Non-Af Amer) > 60 Random Glucose 142 H Calcium 8.9 Magnesium 1.8 Total Bilirubin 0.3 AST 27 ALT 16 Alkaline Phosphatase 130 H Lactate Dehydrogenase 534 Total Creatine Kinase 61 Troponin I 0.04 D NT-Pro-B Natriuret Pep 943 H Total Protein 7.4 Albumin 4.0 Globulin 3.5 Albumin/Globulin Ratio 1.1 Venous Blood Potassium Urine Color Yellow Urine Appearance Clear Urine pH 7.0 Ur Specific [place] 1.020 Urine Protein Trace H Urine Glucose (UA) Negative Urine Ketones Negative Urine Blood Negative Urine Nitrate Negative Urine Bilirubin Negative Urine Urobilinogen 0.2 Ur Leukocyte Esterase Negative Urine RBC 0 - 2 Urine WBC 0 - 2 Ur Epithelial Cells 0 - 2 Urine Bacteria Trace Influenza Typ A,B (EIA) Negative for flu a/b Attending/Attestation - Attestation I have personally seen and examined this patient.: Yes I have fully participated in the care of the patient.: Yes I have reviewed all pertinent clinical information: Yes Notes (Text): 01/18/19 16:15 78 year old female with past medical history of COPD, sarcoidosis, diabetes, CVA, and spinal stenosis who presents with acute hypoxic respiratory failure. She was started on bipap with improvement of symptoms. Continue with iv steroids and duonebs. Pulmonary evaluation is requested. Patient was also noted to have fever of 102.5 with leukocytosis 14.4. Consider pneumonia. CXR shows chronic interstitial changes with no acute consolidation. UA was negative. Continue with iv antibiotics while awaiting cultures. Family and health aid are are bedside and questions were answered. Patient is DNR/DNI. Michael Moreno MD Hospitalist.
[2019-01-18] MEDS: Insulin Reg-LOW-Coverage SC SCH ×3 (16:30→21:49)
[2019-01-18] MEDS ORDERED: Insulin Regular 1 UNITS/0.01 ML ML ONE (17:59)
[2019-01-18] MEDS: EPA PO SCH (18:20)
[2019-01-18] MEDS: FISH OIL PO SCH (18:20)
[2019-01-18] MEDS: OMEGA PO SCH (18:20)
[2019-01-18] MEDS: DHA PO SCH (18:20)
[2019-01-18] MEDS: MethylPREDNISolone 40 mg Vial IVP SCH (22:08)
[2019-01-19 08:04] LABS: BASO # 0.01 K/mm3 (0.0-2.0); BASO % 0.1 % (0.0-3.0); HEMOGLOBIN 10.6 g/dL (12.0-16.0); LYMPH # 0.8 (1.2-3.4); LYMPH % 4.9 % (22.0-35.0); MEAN CELL VOLUME 77.7 fl (80.0-105.0); MEAN CORPUSCULAR HEMOGLOBIN 22.9 pg (25.0-35.0); MEAN CORPUSCULAR HGB CONC 29.5 g/dl (31.0-37.0); MEAN PLATELET VOLUME 10.4 fl (7.0-11.0); MONO # 0.8 (0.1-0.6); MONO % 4.7 % (1.0-6.0); PLATELET COUNT 254 10^3/uL (120.0-450.0); RBC 4.62 10^6/uL (3.5-6.1); RED CELL DISTRIBUTION WIDTH 17.6 % (11.5-14.5); WHITE BLOOD COUNT 17.1 10^3/uL (4.5-11.0)
[2019-01-19 08:27] LABS: ALB/GLOB RATIO 1.1 (1.1-1.8); ALBUMIN 4.2 g/dL (3.0-4.8); ALT/SGPT 20 U/L (7-56); AST/SGOT 29 U/L (14-36); BLOOD UREA NITROGEN 23 mg/dL (7-21); CALCIUM 9.2 mg/dL (8.4-10.5); GFR NON-AFRICAN AMERICAN > 60
[2019-01-19] MEDS ORDERED: Insulin Regular 1 UNITS/0.01 ML ML ONE ×3 (09:07→17:29)
[2019-01-19] MEDS: Lidocaine 5% Patch TD SCH (09:41)
[2019-01-19] MEDS: Aspirin 325 mg EC Tablets PO SCH (09:42)
[2019-01-19] MEDS: MethylPREDNISolone 40 mg Vial IVP SCH ×2 (09:42→21:43)
[2019-01-19] MEDS: Azithromycin 500MG/NS 250ml 500 MG/250 ML BAG IVPB SCH (09:43)
[2019-01-19] MEDS: cefTRIAXone 1 gm 1 GM/100 ML BAG IVPB SCH (09:44)
[2019-01-19] MEDS: Budesonide 0.5 mg/2 ml Inhal Susp UD IH SCH ×2 (09:45→21:44)
[2019-01-19] MEDS: Albuterol-Ipratrop 3 mg / 0.5 (3 ml) UD IH SCH ×4 (09:45→23:44)
[2019-01-19] MEDS: Insulin Reg-LOW-Coverage SC SCH ×4 (09:50→22:20)
[2019-01-19 10:10] LABS: LYMPHOCYTE 9 % (22.0-35.0); MONOCYTE 7 % (1.0-6.0); NEUTROPHIL 84 % (50.0-70.0)
--- NOTE | 2019-01-19 11:07 | CP.PCM.PN ---
<Raquel Atkins - Last Filed: 01/19/19 15:48> Subjective - Date & Time of Evaluation Date of Evaluation: 01/19/19 Time of Evaluation: 11:07 - Subjective Subjective: PGY1 Medicine Progress Note for Dr. Moreno Patient was seen and evaluated at bedside this morning. No acute events. No new complaints. Patient otherwise denies chest pain, shortness of breath, headache, abdominal pain, fever, chills, nausea/vomiting. Objective - Vital Signs/Intake and Output Vital Signs (last 24 hours): Temp Pulse Resp BP Pulse Ox 100.2 F H 83 26 H 196/95 H 97 01/18/19 16:40 01/19/19 09:54 01/18/19 16:40 01/19/19 09:42 01/18/19 16:40 - Medications Medications: Current Medications Acetaminophen (Tylenol 325mg Tab) 650 mg PO Q6H PRN PRN Reason: Fever >100.4 F Albuterol/Ipratropium (Duoneb 3 Mg/0.5 Mg (3 Ml) Ud) 3 ml IH Q2H PRN PRN Reason: Shortness of Breath Albuterol/Ipratropium (Duoneb 3 Mg/0.5 Mg (3 Ml) Ud) 3 ml IH [id number] [facility] Last Admin: 01/19/19 09:45 Dose: 3 ml Amlodipine Besylate (Norvasc) 10 mg PO DAILY [facility] Last Admin: 01/19/19 09:42 Dose: 10 mg Aspirin (Ecotrin) 325 mg PO DAILY [facility] Last Admin: 01/19/19 09:42 Dose: 325 mg Budesonide (Pulmicort Respules) 0.5 mg IH [id number] [facility] Last Admin: 01/19/19 09:45 Dose: 0.5 mg Famotidine (Pepcid) 40 mg PO HS [facility] Last Admin: 01/18/19 22:08 Dose: 40 mg Gabapentin (Neurontin) 300 mg PO BID PRN; Protocol PRN Reason: Pain, moderate (4-7) Ceftriaxone Sodium (Rocephin 1 Gram Ivpb) 1 gm in 100 mls @ 100 mls/hr IVPB DAILY [facility]; Protocol Last Admin: 01/19/19 09:44 Dose: 100 mls/hr Azithromycin (Zithromax 500mg In Ns) 500 mg in 250 mls @ 167 mls/hr IVPB DAILY [facility]; Protocol Last Admin: 01/19/19 09:43 Dose: 167 mls/hr Insulin Human Regular (Humulin R Low) 0 units SC ACHS [facility]; Protocol Last Admin: 01/18/19 21:49 Dose: 3 units Lidocaine (Lidoderm) 1 ea TD DAILY [facility] Last Admin: 01/19/19 09:41 Dose: 1 ea Lorazepam (Ativan) 0.5 mg PO TID PRN; Protocol PRN Reason: Anxiety Last Admin: 01/19/19 09:42 Dose: 0.5 mg Methylprednisolone (Solu-Medrol) 40 mg IVP Q12 [facility] Last Admin: 01/19/19 09:42 Dose: 40 mg Mirtazapine (Remeron) 30 mg PO HS [facility] Bethany-3/Dha/Epa/Fish Oil [Fish Oil 500 Mg Softgel] 500 Mg ( Home Med) 500 mg PO BID [facility] Last Admin: 01/18/19 18:20 Dose: Not Given Quetiapine Fumarate (Seroquel) 100 mg PO HS [facility]; Protocol Last Admin: 01/18/19 22:06 Dose: 100 mg Quetiapine Fumarate (Seroquel) 50 mg PO DAILY [facility] Last Admin: 01/19/19 09:42 Dose: 50 mg Tramadol HCl (Ultram) 50 mg PO DAILY PRN PRN Reason: Pain, severe (8-10) Zolpidem Tartrate (Ambien) 5 mg PO HS [facility]; Protocol - Labs Labs: 01/19/19 07:30 01/19/19 07:30 PT 13.0 SECONDS (9.4-12.5) H 01/18/19 12:20 INR 1.15 01/18/19 12:20 APTT 32.0 Seconds (26.9-38.3) 01/18/19 12:20 - Additional Findings Additional findings: - Constitutional Appears: Non-toxic, No Acute Distress, Chronically Ill - Head Exam Head Exam: ATRAUMATIC, NORMOCEPHALIC - Eye Exam Eye Exam: EOMI, Normal appearance - ENT Exam ENT Exam: Mucous Membranes Moist - Neck Exam Neck exam: Positive for: Full Rom, Normal Inspection. Negative for: Lymphadenopathy - Respiratory Exam Respiratory Exam: Decreased Breath Sounds (Bilateral lung bases), Wheezes (Mild end expiratory wheezes diffusely). absent: Chest Wall Tenderness, Clear to Auscultation Bilateral, Prolonged Expiratory Phase, Rales, Rhonchi, Respiratory Distress, Stridor, - Cardiovascular Exam Cardiovascular Exam: REGULAR RHYTHM, RRR, +S1, +S2 - GI/Abdominal Exam GI & Abdominal Exam: Normal Bowel Sounds, Soft. absent: Tenderness - Extremities Exam Extremities exam: Positive for: full ROM. 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 Palliative Care (Antonina Valdivia) consulted; recommendations appreciated Plan: Acute COPD Exacerbation with underlying recurrent bronchitis, Rule-out underlying Pneumonia - Chest X-Ray shows chronic interstitial changes but no focal consolidations - Patient was febrile (102.5) on presentation - Leukocytosis, increased WBC=17.1 from 14.4 - Duonebs Q4 [facility]LEE and Q2 PRN - Start Zithromax and Rocephin for empiric coverage - Solu-Medrol 40mg IV Q12 - Tylenol PRN for fevers - Continue supplemental oxygen via NC - Continue BiPAP nightly - Legionella and Mycoplasma serologies pending - Pulmonology consulted (Dr. Alcaraz) all recommendations appreciated - Palliative Care (Antonina Valdivia) consulted; recommendations appreciated History of HTN -Continue home Norvasc History of CAD -Continue home ASA and Bethany-3 supplement History of DM2 with Diabetic Neuropathy -SSI-L and Accuchecks ACHS -Continue home Gabapentin PRN History of Depression - Continue home Remeron and Seroquel History of Anxiety - Continue home Ativan PRN History of Chronic Pain - Continue home Lidocaine TD - Continue home Tramadol PRN History of Insomnia - Continue home Ambien GI Prophylaxis: Pepcid DVT Prophylaxis: SCD's Diet: Heart Healthy/Moderate Carbohydrate Consistency Code Status: DNR/DNI Patient seen and case discussed with attending, Dr. Josh Atkins PGY1 <Michael Moreno - Last Filed: 01/19/19 18:52> Objective - Vital Signs/Intake and Output Vital Signs (last 24 hours): Temp Pulse Resp BP Pulse Ox 100.2 F H 83 26 H 196/95 H 97 01/18/19 16:40 01/19/19 12:58 01/19/19 12:58 01/19/19 09:42 01/18/19 16:40 - Medications Medications: Current Medications Acetaminophen (Tylenol 325mg Tab) 650 mg PO Q6H PRN PRN Reason: Fever >100.4 F Albuterol/Ipratropium (Duoneb 3 Mg/0.5 Mg (3 Ml) Ud) 3 ml IH Q2H PRN PRN Reason: Shortness of Breath Albuterol/Ipratropium (Duoneb 3 Mg/0.5 Mg (3 Ml) Ud) 3 ml IH [id number] [facility] Last Admin: 01/19/19 12:44 Dose: 3 ml Amlodipine Besylate (Norvasc) 10 mg PO DAILY [facility] Last Admin: 01/19/19 09:42 Dose: 10 mg Aspirin (Ecotrin) 325 mg PO DAILY [facility] Last Admin: 01/19/19 09:42 Dose: 325 mg Budesonide (Pulmicort Respules) 0.5 mg IH [id number] [facility] Last Admin: 01/19/19 09:45 Dose: 0.5 mg Famotidine (Pepcid) 40 mg PO HS [facility] Last Admin: 01/18/19 22:08 Dose: 40 mg Gabapentin (Neurontin) 300 mg PO BID PRN; Protocol PRN Reason: Pain, moderate (4-7) Ceftriaxone Sodium (Rocephin 1 Gram Ivpb) 1 gm in 100 mls @ 100 mls/hr IVPB DAILY [facility]; Protocol Last Admin: 01/19/19 09:44 Dose: 100 mls/hr Azithromycin (Zithromax 500mg In Ns) 500 mg in 250 mls @ 167 mls/hr IVPB DAILY [facility]; Protocol Last Admin: 01/19/19 09:43 Dose: 167 mls/hr Insulin Human Regular (Humulin R Low) 0 units SC ACHS [facility]; Protocol Last Admin: 01/19/19 17:42 Dose: 3 units Lidocaine (Lidoderm) 1 ea TD DAILY [facility] Last Admin: 01/19/19 09:41 Dose: 1 ea Lorazepam (Ativan) 0.5 mg PO TID PRN; Protocol PRN Reason: Anxiety Last Admin: 01/19/19 09:42 Dose: 0.5 mg Methylprednisolone (Solu-Medrol) 40 mg IVP Q12 [facility] Last Admin: 01/19/19 09:42 Dose: 40 mg Mirtazapine (Remeron) 30 mg PO HS [facility] Bethany-3/Dha/Epa/Fish Oil [Fish Oil 500 Mg Softgel] 500 Mg ( Home Med) 500 mg PO BID [facility] Last Admin: 01/19/19 17:24 Dose: Not Given Quetiapine Fumarate (Seroquel) 100 mg PO HS [facility]; Protocol Last Admin: 01/18/19 22:06 Dose: 100 mg Quetiapine Fumarate (Seroquel) 50 mg PO DAILY [facility] Last Admin: 01/19/19 09:42 Dose: 50 mg Tramadol HCl (Ultram) 50 mg PO DAILY PRN PRN Reason: Pain, severe (8-10) Zolpidem Tartrate (Ambien) 5 mg PO HS [facility]; Protocol - Labs Labs: 01/19/19 07:30 01/19/19 07:30 PT 13.0 SECONDS (9.4-12.5) H 01/18/19 12:20 INR 1.15 01/18/19 12:20 APTT 32.0 Seconds (26.9-38.3) 01/18/19 12:20 Attending/Attestation - Attestation I have personally seen and examined this patient.: Yes I have fully participated in the care of the patient.: Yes I have reviewed all pertinent clinical information, including history, physical exam and plan: Yes Notes (Text): 01/19/19 18:47 78 year old female with past medical history of COPD, sarcoidosis, diabetes, CVA, and spinal stenosis who presented with acute hypoxic respiratory failure. Also found to have possible pneumonia with fever and leukocytosis She was start ed on bipap, iv steroids, duonebs and antibiotics with some improvement of symptoms. Pulmonary evaluation was appreciated. Palliative care evaluation was also requested. She is currently off bipap on 5L NC. Family and health aid are are bedside and questions were answered. Patient is DNR/DNI. Michael Moreno MD Hospitalist.
[2019-01-19] MEDS: EPA PO SCH ×2 (12:06→17:24)
[2019-01-19] MEDS: OMEGA PO SCH ×2 (12:06→17:24)
[2019-01-19] MEDS: FISH OIL PO SCH ×2 (12:06→17:24)
[2019-01-19] MEDS: DHA PO SCH ×2 (12:06→17:24)
[2019-01-19] MEDS ORDERED: Albuterol-Ipratrop 3 mg / 0.5 (3 ml) UD ONE (12:51)
[2019-01-19] MEDS ORDERED: Pneumococcal 23-Valent Vaccine IM ONE (13:36)
[2019-01-19] MEDS ORDERED: Influenza Vaccine 60 mcg/0.5 mL SYR (4YR UP) IM ONE (13:36)
--- NOTE | 2019-01-19 14:19 | CON ---
DATE: 11/18/2019 PULMONARY CONSULTATION REASON FOR PULMONARY CONSULTATION: Chronic obstructive pulmonary disease. REFERRING PHYSICIAN: Dr. Moreno. History is obtained via extensive discussion with the nurse. I have also reviewed the chart at length. The patient is not an adequate historian. 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 There is no history of sputum production. There is no history of chest pain, coughing up of blood, or chest pain - brought on with deep respirations. The patient did present to the hospital with fevers. No history of chills or infectious exposure. There is no history of night sweats, weight loss, or appetite change prior to the above events. No history of leg or calf pains. No history of syncope or diaphoresis. No history of recent travel or trauma. REVIEW OF SYSTEMS: No history of nausea, vomiting, or diarrhea. No acute urinary symptoms. The patient was found to be lethargic yesterday. She is awake today. Rest of the review of systems is noncontributory. ALLERGIES: No known demonstrable allergies. SOCIAL HISTORY: Positive for tobacco and negative for alcohol. FAMILY HISTORY: No inheritable diseases. HOME MEDICATIONS: Include Seroquel, Remeron, lidocaine, Ambien, Neurontin, Norvasc, Ativan, Advair, Tylenol, Ultram, Janumet. PHYSICAL EXAMINATION: GENERAL: The patient is mildly short of breath, but in no acute distress. She is restless. VITAL SIGNS: Temperature is 100.2, pulse 83, respirations 22, blood pressure 138/63. Oxygen saturation on BiPAP is 97%. HEENT: Normocephalic and atraumatic. No JVD. CARDIOVASCULAR: Systolic ejection murmur at the lower left sternal border. No S3 gallop. LUNGS: Crackles at both bases - chronic. Mild bilateral rhonchi. No wheezing. EXTREMITIES: Mild edema. No cyanosis, no clubbing. Calves are nontender to palpation. GI: Abdomen is soft, nontender, and nondistended. Bowel sounds are positive. SKIN: No acute rash. NEUROLOGIC: Exam limited at the present time. PERTINENT LABORATORY DATA: Chest x-ray was done yesterday and reviewed. There are chronic extensive interstitial changes noted. I do not appreciate a significant change from the previous films. CBC: White count 14.4K, hemoglobin 10.8, hematocrit 36.3, platelets of 366,000. Complete Metabolic Profile: Glucose 142, alkaline phosphatase 130, B-type natriuretic peptide 943. Rest of the metabolic profile is within normal limits. IMPRESSION: 1. Recurrent bronchitis. 2. Advanced chronic obstructive pulmonary disease. 3. Advanced interstitial lung disease. 4. Rule out underlying pneumonia. PLAN: Again, I did discuss the case with the nurse at length. I have also reviewed the chart at length. The patient is not an adequate historian. The patient presents to [facility] with a 1-day history of worsening pulmonary symptoms. In addition, the patient did present with a 102.5 fever. I did review the chest x-ray as above. The chest x-ray shows no significant change compared to the previous films. However, given the chronic extensive abnormalities, I certainly cannot rule out a small underlying pneumonia. I will order a procalcitonin level - to help us distinguish whether we are dealing with an acute pneumonia or not. The patient has been pancultured and started on antibiotic therapy. The temperatures are now resolving. On physical exam, the patient is in [id number] bronchospasm. However, there is no significant alveolar-arterial gradient. I will continue the current nebulizer treatments and intravenous steroids for now. I will also add inhaled Pulmicort. The patient is on Advair at home. Repeat labs are pending. Clinical status of the patient certainly appears improved - compared to yesterday. However, given the above, the future status/prognosis for this chronically ill elderly patient is poor. I will discuss the above with the entire medical team. Thank you very much for this pulmonary consultation. Meet Alcaraz MD [facility] # [id number] MTDD
[2019-01-19 21:24] LABS: ARTERIAL BLOOD GAS HCO3 20.1 mmol/L (21-28); ARTERIAL BLOOD GAS HEMOGLOBIN 10.3 g/dL (11.7-17.4); ARTERIAL BLOOD GAS O2 SAT 92.7 % (95-98); ARTERIAL BLOOD GAS PCO2 27 mm/Hg (35-45); ARTERIAL BLOOD GAS PH 7.48 (7.35-7.45); ARTERIAL BLOOD GAS TCO2 20.9 mmol.L (22-28)
[2019-01-19 21:55] LABS: TROPONIN I < 0.01 ng/mL
[2019-01-19 21:58] LABS: CK-MB 4.6 ng/mL (0.0-3.6)
[2019-01-20] MEDS: Albuterol-Ipratrop 3 mg / 0.5 (3 ml) UD IH SCH ×6 (03:56→23:39)
[2019-01-20 06:10] LABS: HEMOGLOBIN 10.8 g/dL (12.0-16.0); LYMPH # 0.6 (1.2-3.4); LYMPH % 3.3 % (22.0-35.0); MEAN CORPUSCULAR HGB CONC 29.5 g/dl (31.0-37.0); MEAN PLATELET VOLUME 9.9 fl (7.0-11.0); MONO # 0.6 (0.1-0.6); MONO % 3.1 % (1.0-6.0); RBC 4.69 10^6/uL (3.5-6.1); RED CELL DISTRIBUTION WIDTH 17.8 % (11.5-14.5); WHITE BLOOD COUNT 17.9 10^3/uL (4.5-11.0)
[2019-01-20 06:36] LABS: TROPONIN I 0.01 ng/mL
[2019-01-20 06:47] LABS: ALB/GLOB RATIO 1.1 (1.1-1.8); ALBUMIN 4.1 g/dL (3.0-4.8); ALT/SGPT 17 U/L (7-56); AST/SGOT 35 U/L (14-36); BLOOD UREA NITROGEN 22 mg/dL (7-21); CALCIUM 8.9 mg/dL (8.4-10.5); GFR NON-AFRICAN AMERICAN > 60
[2019-01-20] MEDS: Budesonide 0.5 mg/2 ml Inhal Susp UD IH SCH ×2 (07:53→19:23)
--- NOTE | 2019-01-20 08:35 | PN ---
DATE: 01/20/2019 PULMONARY NOTE SUBJECTIVE: The patient appears much more comfortable this morning. She is not short of breath at rest. She is currently on nasal cannula. PHYSICAL EXAMINATION VITAL SIGNS: Temperature is 98.0, pulse is 88, respiratory rate 18/20, blood pressure is 159/80. Oxygen saturation on nasal cannula is 92%. HEENT: Normocephalic, atraumatic. NECK: No JVD. CARDIOVASCULAR: Systolic ejection murmur at the lower left sternal border. No S3 gallop. LUNGS: Crackles at both bases - chronic. Less rhonchi. No wheezing. EXTREMITIES: Mild edema. No cyanosis. No clubbing. Calves are nontender to palpation. GI: Abdomen is soft, nontender and nondistended. Bowel sound are positive. SKIN: No acute rash. NEUROLOGIC: Limited at the present time. IMPRESSION: 1. Recurrent bronchitis. 2. Advanced chronic obstructive pulmonary disease. 3. Advanced interstitial lung disease. 4. Rule out underlying pneumonia. PLAN: The patient appears much more comfortable this morning. She is not short of breath at rest. She does state to feeling better. I did discuss the case with the night nurse at length. The night nurse stated that the patient had an uneventful night, but kept on taking off her BiPAP. I did discuss this issue with the patient this morning. On physical exam, there is less bronchospasm noted. In addition, the alveolar-arterial gradient is also less. I will continue the current nebulizer treatments and low-dose intravenous steroids for now. The patient remains on antibiotic therapy. The temperatures appear to be resolving. If the patient does re-spike temperatures, Infectious Disease evaluation should be considered. Repeat a.m. labs are also pending. Clinical status of the patient certainly appears improved - compared to yesterday. However, again, the overall/future status for this patient remains poor. All are aware. I will discuss the above with the attending physician. Meet Alcaraz MD ADÁN
--- NOTE | 2019-01-20 10:48 | CP.PCM.CON ---
History of Present Illness - History of Present Illness History of Present Illness: Palliative consult requested by Dr Salud Moreno Reason: Goals of care 78 year old female with history of vascular dementia, COPD who presented to ED on 01/18 with lethargy, non productive cough and increased shortness of breath. Health aide reported 02 sat was in the 50's. CHEN reports the the patient did not have fever,chills, nausea, vomiting, diarrhea or constipation Chest x ray showed chronic interstitial changes, no focal consolidation. EKG: ST with PAC's. Ns T /ST changes. Labs Wbc 14.4, hgb 10.8, na 140, K 4.2, glucose 300, BNP 943, Procalitonin 0.06. Negative H Flu and Legionella Negative blood /urine cultures. PMHx: vascular dementia, DM, COPD, CVA x2, spinal stenosis, pulmonary fibrosis, sarcoidosis, blind in right eye, pneumonia, anxiety/depression. PSH: rectal fistula repair, hysterectomy Social History: Former heavy smoker, no alcohol or drug use. Lives with timers inspector healthcare account manager. Family History: Mother> cardiac arrhythmia, Father> ALS. Advance Care Planning: The patient has POLST; DNR/DNI. Her brother Bhavin Edgar is her health care proxy. Review of Systems: As per HPI, patient is altered unable to obtain ROS Past Patient History - Infectious Disease Hx of Infectious Diseases: None - Tetanus Immunizations Tetanus Immunization: Unknown - Past Medical History & Family History Past Medical History?: Yes - Past Social History Smoking Status: Former Smoker - CARDIAC Hx Cardiac Disorders: Yes Hx Congestive Heart Failure: Yes Hx Hypercholesterolemia: Yes Hx Hypertension: Yes - PULMONARY Hx Respiratory Disorders: Yes (sarcoidosis, pulmonary fibrosis, home o2) Other/Comment: dyspnea - NEUROLOGICAL Hx Neurological Disorder: Yes Hx Transient Ischemic Attacks (TIA): Yes (no deficits) Other/Comment: 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, neuropathy left leg both feet numbness tingling pain - HEENT Hx HEENT Problems: Yes (eyeglasses) 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 (menom[place]) Hx Macular Degeneration: Yes - RENAL Hx Chronic Kidney Disease: No - ENDOCRINE/METABOLIC Hx Diabetes Mellitus Type 2: Yes - HEMATOLOGICAL/ONCOLOGICAL Hx Blood Disorders: Yes Hx Cancer: Yes (basal cell) - INTEGUMENTARY Other/Comment: SARCOIDOSIS, b/l arm skin discolorations, rle round 2cm purple skin discoloration - MUSCULOSKELETAL/RHEUMATOLOGICAL Hx Falls: Yes (past) Hx Unsteady Gait: Yes (cane when out) - GASTROINTESTINAL Hx Gastrointestinal Disorders: Yes Hx Gastroesophageal Reflux: Yes - GENITOURINARY/GYNECOLOGICAL Other/Comment: vaginal rectal fistula repair - PSYCHIATRIC Hx Psychophysiologic Disorder: Yes Hx Anxiety: Yes Hx Depression: Yes Hx Substance Use: No - SURGICAL HISTORY Other/Comment: laparoscopic sx to dx sarcoidosis - ANESTHESIA Hx Anesthesia: Yes Hx Anesthesia Reactions: No Hx Malignant Hyperthermia: No Meds Allergies/Adverse Reactions: Allergies Allergy/AdvReac Type Severity Reaction Status Date / Time No Known Allergies Allergy Verified 01/18/19 12:28 - Medications Medications: Current Medications Acetaminophen (Tylenol 325mg Tab) 650 mg PO Q6H PRN PRN Reason: Fever >100.4 F Albuterol/Ipratropium (Duoneb 3 Mg/0.5 Mg (3 Ml) Ud) 3 ml IH Q2H PRN PRN Reason: Shortness of Breath Albuterol/Ipratropium (Duoneb 3 Mg/0.5 Mg (3 Ml) Ud) 3 ml IH [id number] [facility] [place] Last Admin: 01/20/19 07:53 Dose: 3 ml Amlodipine Besylate (Norvasc) 10 mg PO DAILY [facility] Last Admin: 01/19/19 09:42 Dose: 10 mg Aspirin (Ecotrin) 325 mg PO DAILY [facility] [place] Last Admin: 01/19/19 09:42 Dose: 325 mg Budesonide (Pulmicort Respules) 0.5 mg IH [id number] [facility] [place] Last Admin: 01/20/19 07:53 Dose: 0.5 mg Famotidine (Pepcid) 40 mg PO HS [facility] Last Admin: 01/19/19 22:45 Dose: 40 mg Gabapentin (Neurontin) 300 mg PO BID PRN; Protocol PRN Reason: Pain, moderate (4-7) Ceftriaxone Sodium (Rocephin 1 Gram Ivpb) 1 gm in 100 mls @ 100 mls/hr IVPB DAILY [facility]; Protocol Last Admin: 01/19/19 09:44 Dose: 100 mls/hr Azithromycin (Zithromax 500mg In Ns) 500 mg in 250 mls @ 167 mls/hr IVPB DAILY [facility]; Protocol Last Admin: 02/19/19 09:43 Dose: 167 mls/hr Insulin Human Regular (Humulin R Med) 0 units SC ACHS [facility] [place]; Protocol Lidocaine (Lidoderm) 1 ea TD DAILY [facility] Last Admin: 01/19/19 09:41 Dose: 1 ea Lorazepam (Ativan) 0.5 mg PO TID PRN; Protocol PRN Reason: Anxiety Last Admin: 01/19/19 09:42 Dose: 0.5 mg Methylprednisolone (Solu-Medrol) 40 mg IVP Q12 [facility] [place] Last Admin: 01/19/19 21:43 Dose: 40 mg Mirtazapine (Remeron) 30 mg PO HS [facility] Last Admin: 01/19/19 22:16 Dose: Not Given [place]-3/Dha/Epa/Fish Oil [Fish Oil 500 Mg Softgel] 500 Mg ( Home Med) 500 mg PO BID [facility] [place] Last Admin: 01/19/19 17:24 Dose: Not Given Quetiapine Fumarate (Seroquel) 100 mg PO HS [facility] [place]; Protocol Last Admin: 01/19/19 22:46 Dose: 100 mg Quetiapine Fumarate (Seroquel) 50 mg PO DAILY [facility] [place] Last Admin: 01/19/19 09:42 Dose: 50 mg Tramadol HCl (Ultram) 50 mg PO DAILY PRN PRN Reason: Pain, severe (8-10) Zolpidem Tartrate (Ambien) 5 mg PO HS [facility]; Protocol Physical Exam - Constitutional Appears: No Acute Distress, Chronically Ill - Head Exam Head Exam: NORMOCEPHALIC - Eye Exam Eye Exam: Normal appearance, PERRL - ENT Exam ENT Exam: Mucous Membranes Moist, Normal Oropharynx - Respiratory Exam Respiratory Exam: Decreased Breath Sounds, Wheezes - Cardiovascular Exam Cardiovascular Exam: REGULAR RHYTHM, +S1, +S2 - GI/Abdominal Exam GI & Abdominal Exam: Normal Bowel Sounds, Soft Additional comments: no tenderness - Extremities Exam Extremities exam: Positive for: pedal edema, pedal pulses present - Back Exam Back exam: NORMAL INSPECTION - Neurological Exam Neurological exam: Alert - Skin Skin Exam: Dry, Pallor, Warm - Additional Findings Additional findings: palliative performance scale rating 40 % Results - Vital Signs Recent Vital Signs: Last Vital Signs Temp 98 F 01/20/19 08:58 Pulse 60 01/20/19 08:58 Resp 20 01/20/19 08:58 BP 160/82 H 01/20/19 08:58 Pulse Ox 95 02/20/19 08:58 - Labs Result Diagrams: 01/20/19 05:45 01/20/19 05:45 Labs: Laboratory Results - last 24 hr 01/19/19 01/19/19 01/19/19 06:54 11:49 16:38 WBC RBC Hgb Hct MCV MCH MCHC RDW Plt Count MPV Neut % (Auto) Lymph % (Auto) [place] % (Auto) Eos % (Auto) Baso % (Auto) Lymph # (Auto) [place] # (Auto) Eos # (Auto) Baso # (Auto) Absolute Neuts (auto) pCO2 pO2 HCO3 ABG pH ABG Total CO2 ABG O2 Saturation ABG O2 Content ABG Base Excess ABG Hemoglobin ABG Carboxyhemoglobin POC ABG HHb (Measured) ABG Methemoglobin ABG O2 Capacity Hgb O2 Saturation FiO2 Sodium Potassium Chloride Carbon Dioxide Anion Gap BUN Creatinine Est GFR ( Amer) Est GFR (Non-Af Amer) POC Glucose (mg/dL) 250 H 292 H Random Glucose Calcium Total Bilirubin AST ALT Alkaline Phosphatase Lactate Dehydrogenase Total Creatine Kinase CK-MB (CK-2) CK-MB (CK-2) % Troponin I Total Protein Albumin Globulin Albumin/Globulin Ratio Procalcitonin 0.06 L 01/19/19 01/19/19 01/19/19 21:20 21:20 21:28 WBC RBC Hgb Hct MCV MCH MCHC RDW Plt Count MPV Neut % (Auto) Lymph % (Auto) [place] % (Auto) Eos % (Auto) Baso % (Auto) Lymph # (Auto) [place] # (Auto) Eos # (Auto) Baso # (Auto) Absolute Neuts (auto) pCO2 27 L pO2 57.0 L HCO3 20.1 L ABG pH 7.48 H ABG Total CO2 20.9 L ABG O2 Saturation 92.7 L ABG O2 Content 13.0 L ABG Base Excess -2.5 L ABG Hemoglobin 10.3 L ABG Carboxyhemoglobin 2.5 H POC ABG HHb (Measured) 7.0 H ABG Methemoglobin 1.0 ABG O2 Capacity 14.0 L Hgb O2 Saturation 89.5 L FiO2 32.0 Sodium Potassium Chloride Carbon Dioxide Anion Gap BUN Creatinine Est GFR ( Amer) Est GFR (Non-Af Amer) POC Glucose (mg/dL) 258 H Random Glucose Calcium Total Bilirubin AST ALT Alkaline Phosphatase Lactate Dehydrogenase 575 Total Creatine Kinase 244 H CK-MB (CK-2) 4.6 H CK-MB (CK-2) % Cancelled Troponin I < 0.01 D Total Protein Albumin Globulin Albumin/Globulin Ratio Procalcitonin 01/20/19 01/20/19 01/20/19 05:45 05:45 06:20 WBC 17.9 H RBC 4.69 Hgb 10.8 L Hct 36.6 MCV 78.0 L MCH 23.0 L MCHC 29.5 L RDW 17.8 H Plt Count 281 MPV 9.9 Neut % (Auto) 93.6 H Lymph % (Auto) 3.3 L [place] % (Auto) 3.1 Eos % (Auto) 0.0 L Baso % (Auto) 0.0 Lymph # (Auto) 0.6 L [place] # (Auto) 0.6 Eos # (Auto) 0.0 Baso # (Auto) 0.00 Absolute Neuts (auto) 16.78 H pCO2 pO2 HCO3 ABG pH ABG Total CO2 ABG O2 Saturation ABG O2 Content ABG Base Excess ABG Hemoglobin ABG Carboxyhemoglobin POC ABG HHb (Measured) ABG Methemoglobin ABG O2 Capacity Hgb O2 Saturation FiO2 Sodium 142 Potassium 4.2 Chloride 108 H Carbon Dioxide 24 Anion Gap 14 BUN 22 H Creatinine 0.7 Est GFR ( Amer) > 60 Est GFR (Non-Af Amer) > 60 POC Glucose (mg/dL) 321 H Random Glucose 365 H* Calcium 8.9 Total Bilirubin 0.4 AST 35 ALT 17 Alkaline Phosphatase 139 H Lactate Dehydrogenase Total Creatine Kinase CK-MB (CK-2) CK-MB (CK-2) % Troponin I 0.01 Total Protein 7.7 Albumin 4.1 Globulin 3.6 Albumin/Globulin Ratio 1.1 Procalcitonin Assessment & Plan - Assessment and Plan (Free Text) Assessment: 78 year old female with history of COPD, CVA, sarcoidosis, pulmonary fibrosis, DM, dementia who is admitted with recurring bronchitis, possible pneumonia, Patient's POA, Bhavin Edgar at bedside and affirms that patient is DNR/DNI. He states that patients health has been relatively stable over the past year. He reports her cognitive function about the same. He states that her appetite is fair and that she is able to perform most ADL's with assistance. He indicated that it is getting more difficult to get patient out of the house to doctors appointments. She needs two person assist when going up/down stairs. .. Mr Edgar intends to continue all current medical treatment and will follow up with her school custodian and interactive account manager upon discharge. Gaols of care discussion with family member, 30 minutes Plan: Goals of care PT/OT Continue Duonebs, Pulmicort and Solumedrol Continue Cefepime and Zithromax
[2019-01-20] MEDS: Lidocaine 5% Patch TD SCH (11:20)
[2019-01-20] MEDS: MethylPREDNISolone 40 mg Vial IVP SCH ×2 (11:23→22:39)
[2019-01-20] MEDS: cefTRIAXone 1 gm 1 GM/100 ML BAG IVPB SCH (11:24)
[2019-01-20] MEDS: Insulin Reg-MEDIUM-Coverage SC SCH ×3 (11:26→22:39)
[2019-01-20] MEDS: Aspirin 325 mg EC Tablets PO SCH (11:30)
[2019-01-20] MEDS: EPA PO SCH ×2 (12:29→20:29)
[2019-01-20] MEDS: FISH OIL PO SCH ×2 (12:29→20:29)
[2019-01-20] MEDS: OMEGA PO SCH ×2 (12:29→20:29)
[2019-01-20] MEDS: DHA PO SCH ×2 (12:29→20:29)
--- NOTE | 2019-01-20 13:14 | CP.PCM.PN ---
<Raquel Atkins - Last Filed: 01/20/19 17:16> Subjective - Date & Time of Evaluation Date of Evaluation: 01/20/19 Time of Evaluation: 13:14 - Subjective Subjective: PGY1 Medicine Progress Note for Dr. Moreno Patient was seen and evaluated at bedside this morning. Patient tolerating BiPAP. Overnight, Patient complained of chest pain, however no current complaints of chest pain. Patient otherwise denies headache, abdominal pain, fever, chills, nausea/vomiting. Objective - Vital Signs/Intake and Output Vital Signs (last 24 hours): Temp Pulse Resp BP Pulse Ox 98 F 60 20 173/86 H 95 01/20/19 08:58 01/20/19 08:58 01/20/19 08:58 01/20/19 11:23 01/20/19 08:58 Intake and Output: 01/20/19 01/20/19 06:59 18:59 Intake Total 240 Balance 240 - Medications Medications: Current Medications Acetaminophen (Tylenol 325mg Tab) 650 mg PO Q6H PRN PRN Reason: Fever >100.4 F Albuterol/Ipratropium (Duoneb 3 Mg/0.5 Mg (3 Ml) Ud) 3 ml IH Q2H PRN PRN Reason: Shortness of Breath Albuterol/Ipratropium (Duoneb 3 Mg/0.5 Mg (3 Ml) Ud) 3 ml IH [id number] [facility] Last Admin: 01/20/19 11:16 Dose: 3 ml Amlodipine Besylate (Norvasc) 10 mg PO DAILY [facility] Last Admin: 01/20/19 11:23 Dose: 10 mg Aspirin (Ecotrin) 325 mg PO DAILY [facility] Last Admin: 01/19/19 09:42 Dose: 325 mg Budesonide (Pulmicort Respules) 0.5 mg IH [id number] [facility] Last Admin: 01/20/19 07:53 Dose: 0.5 mg Famotidine (Pepcid) 40 mg PO HS [facility] Last Admin: 01/19/19 22:45 Dose: 40 mg Gabapentin (Neurontin) 300 mg PO BID PRN; Protocol PRN Reason: Pain, moderate (4-7) Ceftriaxone Sodium (Rocephin 1 Gram Ivpb) 1 gm in 100 mls @ 100 mls/hr IVPB DAILY [facility]; Protocol Last Admin: 01/20/19 11:24 Dose: 100 mls/hr Azithromycin (Zithromax 500mg In Ns) 500 mg in 250 mls @ 167 mls/hr IVPB DAILY [facility]; Protocol Last Admin: 01/19/19 09:43 Dose: 167 mls/hr Insulin Human Regular (Humulin R Med) 0 units SC ACHS [facility]; Protocol Last Admin: 01/20/19 11:26 Dose: Not Given Lidocaine (Lidoderm) 1 ea TD DAILY [facility] Last Admin: 01/20/19 11:20 Dose: 1 ea Lorazepam (Ativan) 0.5 mg PO TID PRN; Protocol PRN Reason: Anxiety Last Admin: 01/19/19 09:42 Dose: 0.5 mg Methylprednisolone (Solu-Medrol) 40 mg IVP Q12 [facility] Last Admin: 01/20/19 11:23 Dose: 40 mg Mirtazapine (Remeron) 30 mg PO HS [facility] Last Admin: 01/19/19 22:16 Dose: Not Given [place]-3/Dha/Epa/Fish Oil [Fish Oil 500 Mg Softgel] 500 Mg ( Home Med) 500 mg PO BID [facility] Last Admin: 01/20/19 12:29 Dose: Not Given Quetiapine Fumarate (Seroquel) 100 mg PO HS [facility]; Protocol Last Admin: 01/19/19 22:46 Dose: 100 mg Quetiapine Fumarate (Seroquel) 50 mg PO DAILY [facility] Last Admin: 01/20/19 11:23 Dose: 50 mg Tramadol HCl (Ultram) 50 mg PO DAILY PRN PRN Reason: Pain, severe (8-10) Zolpidem Tartrate (Ambien) 5 mg PO HS [facility]; Protocol - Labs Labs: 01/20/19 05:45 01/20/19 05:45 PT 13.0 SECONDS (9.4-12.5) H 01/18/19 12:20 INR 1.15 01/18/19 12:20 APTT 32.0 Seconds (26.9-38.3) 01/18/19 12:20 - Additional Findings Additional findings: - Constitutional Appears: Non-toxic, No Acute Distress, Chronically Ill - Head Exam Head Exam: ATRAUMATIC, NORMOCEPHALIC - Eye Exam Eye Exam: EOMI, Normal appearance - ENT Exam ENT Exam: Mucous Membranes Moist - Neck Exam Neck exam: Positive for: Full Rom, Normal Inspection. Negative for: Lymphadenopathy - Respiratory Exam Respiratory Exam: Decreased Breath Sounds (Bilateral lung bases), Wheezes (Mild end expiratory wheezes diffusely). absent: Chest Wall Tenderness, Clear to Auscultation Bilateral, Prolonged Expiratory Phase, Rales, Rhonchi, Respiratory Distress, Stridor, - Cardiovascular Exam Cardiovascular Exam: REGULAR RHYTHM, RRR, +S1, +S2 - GI/Abdominal Exam GI & Abdominal Exam: Normal Bowel Sounds, Soft. absent: Tenderness - Extremities Exam Extremities exam: Positive for: full ROM. Negative for: calf tenderness, joint swelling, pedal edema - Neurological Exam Neurological exam: Alert - Psychiatric Exam Psychiatric exam: Normal Affect, Normal Mood - Skin Skin Exam: Dry, Intact, Normal Color, Warm Assessment and Plan - Assessment and Plan (Free Text) Assessment: 78 year old female with a past medical history significant for COPD, pulmonary sarcoidosis, DM2, diabetic neuropathy, two previous ischemic CVA's (1997 and 2013) with residual cognitive function/vision loss of right eye, HTN, depression, anxiety, OA and spinal stenosis who presents from home after being found to be hypoxic with an oxygen saturation of approximately 55%, SOB and non-productive cough. Palliative Care (Antonina Valdivia) consulted; recommendations appreciated Plan: Acute COPD Exacerbation with underlying recurrent bronchitis, Rule-out underlying Pneumonia - Chest X-Ray shows chronic interstitial changes but no focal consolidations - Patient was febrile (102.5) on presentation - Leukocytosis, increased WBC=17.9 - Duonebs Q4 [facility] and Q2 PRN - Continue Zithromax and Rocephin for empiric coverage - Continue Solu-Medrol 40mg IV Q12 - Tylenol PRN for fevers - Continue supplemental oxygen via NC - Continue BiPAP nightly - Legionella and Mycoplasma serologies pending - Pulmonology consulted (Dr. Alcaraz) all recommendations appreciated - Palliative Care (Antonina Valdivia) consulted; recommendations appreciated History of HTN - Continue home Norvasc History of CAD - Continue home ASA and [place]-3 supplement History of DM2 with Diabetic Neuropathy - SSI-L and Accuchecks ACHS - Continue home Gabapentin PRN History of Depression - Continue home Remeron and Seroquel History of Anxiety - Continue home Ativan PRN History of Chronic Pain - Continue home Lidocaine TD - Continue home Tramadol PRN History of Insomnia - Continue home Ambien PPx: - GI Prophylaxis: Pepcid - DVT Prophylaxis: SCD's - Diet: Heart Healthy/Moderate Carbohydrate Consistency - Code Status: DNR/DNI Patient seen and case discussed with attending, Dr. Josh Atkins PGY1 <Michael Moreno - Last Filed: 01/20/19 17:43> Objective - Vital Signs/Intake and Output Vital Signs (last 24 hours): Temp Pulse Resp BP Pulse Ox 98.5 F 111 H 20 156/89 H 90 L 01/20/19 14:00 01/20/19 14:00 01/20/19 14:00 01/20/19 14:00 01/20/19 14:00 Intake and Output: 01/20/19 01/20/19 06:59 18:59 Intake Total 240 Balance 240 - Medications Medications: Current Medications Acetaminophen (Tylenol 325mg Tab) 650 mg PO Q6H PRN PRN Reason: Fever >100.4 F Albuterol/Ipratropium (Duoneb 3 Mg/0.5 Mg (3 Ml) Ud) 3 ml IH Q2H PRN PRN Reason: Shortness of Breath Albuterol/Ipratropium (Duoneb 3 Mg/0.5 Mg (3 Ml) Ud) 3 ml IH [id number] [facility] Last Admin: 01/20/19 15:56 Dose: 3 ml Amlodipine Besylate (Norvasc) 10 mg PO DAILY [facility] Last Admin: 01/20/19 11:23 Dose: 10 mg Aspirin (Ecotrin) 325 mg PO DAILY [facility] Last Admin: 01/20/19 11:30 Dose: 325 mg Budesonide (Pulmicort Respules) 0.5 mg IH [id number] [facility] Last Admin: 01/20/19 07:53 Dose: 0.5 mg Famotidine (Pepcid) 40 mg PO HS [facility] Last Admin: 01/19/19 22:45 Dose: 40 mg Gabapentin (Neurontin) 300 mg PO BID PRN; Protocol PRN Reason: Pain, moderate (4-7) Ceftriaxone Sodium (Rocephin 1 Gram Ivpb) 1 gm in 100 mls @ 100 mls/hr IVPB DAILY [facility]; Protocol Last Admin: 01/20/19 11:24 Dose: 100 mls/hr Azithromycin (Zithromax 500mg In Ns) 500 mg in 250 mls @ 167 mls/hr IVPB DAILY [facility]; Protocol Last Admin: 01/20/19 14:01 Dose: 167 mls/hr Insulin Human Regular (Humulin R Med) 0 units SC ACHS [facility]; Protocol Last Admin: 01/20/19 11:26 Dose: Not Given Lidocaine (Lidoderm) 1 ea TD DAILY [facility] Last Admin: 01/20/19 11:20 Dose: 1 ea Lorazepam (Ativan) 0.5 mg PO TID PRN; Protocol PRN Reason: Anxiety Last Admin: 01/19/19 09:42 Dose: 0.5 mg Methylprednisolone (Solu-Medrol) 40 mg IVP Q12 [facility] Last Admin: 01/20/19 11:23 Dose: 40 mg Mirtazapine (Remeron) 30 mg PO HS [facility] Last Admin: 01/19/19 22:16 Dose: Not Given [place]-3/Dha/Epa/Fish Oil [Fish Oil 500 Mg Softgel] 500 Mg ( Home Med) 500 mg PO BID [facility] Last Admin: 01/20/19 12:29 Dose: Not Given Quetiapine Fumarate (Seroquel) 100 mg PO HS [facility]; Protocol Last Admin: 01/19/19 22:46 Dose: 100 mg Quetiapine Fumarate (Seroquel) 50 mg PO DAILY [facility] Last Admin: 01/20/19 11:23 Dose: 50 mg Tramadol HCl (Ultram) 50 mg PO DAILY PRN PRN Reason: Pain, severe (8-10) Zolpidem Tartrate (Ambien) 5 mg PO HS [facility]; Protocol - Labs Labs: 01/20/19 05:45 01/20/19 05:45 PT 13.0 SECONDS (9.4-12.5) H 01/18/19 12:20 INR 1.15 01/18/19 12:20 APTT 32.0 Seconds (26.9-38.3) 01/18/19 12:20 Attending/Attestation - Attestation I have personally seen and examined this patient.: Yes I have fully participated in the care of the patient.: Yes I have reviewed all pertinent clinical information, including history, physical exam and plan: Yes Notes (Text): 01/20/19 17:40 78 year old female with past medical history of COPD, sarcoidosis, diabetes, CVA, and spinal stenosis who presented with acute hypoxic respiratory failure. Also found to have possible pneumonia with fever and leukocytosis She was started on bipap, iv steroids, duonebs and antibiotics with some improvement of symptoms. Cultures are negative to date. Pulmonary is following. Palliative care evaluation was also appreciated. She is currently off bipap on 5L NC. Family and health aid are are bedside and questions were answered. Patient is DNR/DNI. Michael Moreno MD Hospitalist.
[2019-01-20] MEDS: Azithromycin 500MG/NS 250ml 500 MG/250 ML BAG IVPB SCH (14:01)
--- NOTE | 2019-01-20 16:11 | CARD ---
APPROVED REPORT Date of service: 01/19/2019 EKG Measurement Heart [id number] <Conclusion> Sinus tachycardia Possible Left atrial enlargement Nonspecific T wave abnormality Abnormal ECG
[2019-01-21] MEDS: Albuterol-Ipratrop 3 mg / 0.5 (3 ml) UD IH SCH ×4 (05:00→19:18)
[2019-01-21] MEDS: Budesonide 0.5 mg/2 ml Inhal Susp UD IH SCH ×2 (07:23→19:18)
[2019-01-21 07:27] LABS: HEMOGLOBIN 11.3 g/dL (12.0-16.0); LYMPH # 0.8 (1.2-3.4); LYMPH % 5.7 % (22.0-35.0); MEAN CELL VOLUME 77.1 fl (80.0-105.0); MEAN CORPUSCULAR HEMOGLOBIN 22.9 pg (25.0-35.0); MEAN CORPUSCULAR HGB CONC 29.7 g/dl (31.0-37.0); MEAN PLATELET VOLUME 10.5 fl (7.0-11.0); MONO # 0.8 (0.1-0.6); MONO % 5.2 % (1.0-6.0); RBC 4.94 10^6/uL (3.5-6.1); RED CELL DISTRIBUTION WIDTH 18.2 % (11.5-14.5); WHITE BLOOD COUNT 14.7 10^3/uL (4.5-11.0)
[2019-01-21 07:56] LABS: ALB/GLOB RATIO 1.1 (1.1-1.8); ALBUMIN 4.2 g/dL (3.0-4.8); ALT/SGPT 23 U/L (7-56); AST/SGOT 42 U/L (14-36); BLOOD UREA NITROGEN 23 mg/dL (7-21); CALCIUM 9.2 mg/dL (8.4-10.5); GFR NON-AFRICAN AMERICAN > 60
[2019-01-21] MEDS: Insulin Reg-MEDIUM-Coverage SC SCH ×4 (08:16→22:16)
--- NOTE | 2019-01-21 09:55 | PN ---
DATE: 01/21/2019 SUBJECTIVE: The patient appears comfortable this morning. She is not short of breath at rest. She is somewhat sleepy. PHYSICAL EXAMINATION: VITAL SIGNS: Temperature is 98.7, pulse this morning is approximately 90, respiratory rate 18, blood pressure 156/70. Oxygen saturation on nasal cannula is 92%. HEENT: Normocephalic, atraumatic. No JVD. CARDIOVASCULAR: Systolic ejection murmur at the lower left sternal border. No S3 gallop. LUNGS: Crackles at both bases - chronic. Less rhonchi. No wheezing. EXTREMITIES: Mild edema. No cyanosis, no clubbing. Calves are nontender to palpation. GASTROINTESTINAL: Abdomen is soft, nontender and nondistended. Bowel sounds are positive. SKIN: No acute rash. NEUROLOGIC: Exam limited at the present time. IMPRESSION: 1. Recurrent bronchitis. 2. Advanced chronic obstructive pulmonary disease. 3. Advanced interstitial lung disease. 4. Rule out underlying pneumonia - less likely. PLAN: The patient appears comfortable this morning. She is not short of breath at rest. She does state to feeling better overall. She is somewhat sleepy this morning. On physical exam, there is certainly less bronchospasm noted. There remains an increase in the alveolar-arterial gradient. I will continue the current nebulizer treatments and decrease the intravenous steroids this morning. The patient remains on antibiotic therapy. Her temperatures have now resolved. In addition, the procalcitonin is negative. I would continue with the current antibiotic therapy for now. Clinical status of the patient does appear improved - compared to the initial presentation. However, the future status/prognosis for this patient remains poor. Input by Antonina Valdivia (Palliative Care) is also noted. I will discuss the above with the attending physician. Meet Alcaraz MD ADÁN
[2019-01-21] MEDS: Azithromycin 500MG/NS 250ml 500 MG/250 ML BAG IVPB SCH (10:51)
[2019-01-21] MEDS: Lidocaine 5% Patch TD SCH (10:52)
[2019-01-21] MEDS: Aspirin 325 mg EC Tablets PO SCH (10:52)
[2019-01-21] MEDS: MethylPREDNISolone 40 mg Vial IVP SCH ×2 (10:52→22:12)
[2019-01-21] MEDS: cefTRIAXone 1 gm 1 GM/100 ML BAG IVPB SCH (10:52)
[2019-01-21] MEDS: FISH OIL PO SCH (10:53)
[2019-01-21] MEDS: DHA PO SCH (10:53)
[2019-01-21] MEDS: EPA PO SCH (10:53)
[2019-01-21] MEDS: OMEGA PO SCH (10:53)
--- NOTE | 2019-01-21 12:22 | CP.PCM.PN ---
<Raquel Atkins - Last Filed: 01/21/19 15:13> Subjective - Date & Time of Evaluation Date of Evaluation: 01/21/19 Time of Evaluation: 12:22 - Subjective Subjective: PGY1 Medicine Progress Note for Dr. Clifton Patient was seen and evaluated at bedside this morning. Patient tolerating BiPAP. No acute events overnight. No new complaints. Patient otherwise denies headache, abdominal pain, fever, chills, nausea/vomiting. Objective - Vital Signs/Intake and Output Vital Signs (last 24 hours): Temp Pulse Resp BP Pulse Ox 97.4 F L 103 H 17 164/81 H 94 L 01/21/19 06:00 01/21/19 06:00 01/21/19 06:00 01/21/19 10:51 01/21/19 06:00 Intake and Output: 01/21/19 01/21/19 06:59 18:59 Intake Total 420 Balance 420 - Medications Medications: Current Medications Acetaminophen (Tylenol 325mg Tab) 650 mg PO Q6H PRN PRN Reason: Fever >100.4 F Albuterol/Ipratropium (Duoneb 3 Mg/0.5 Mg (3 Ml) Ud) 3 ml IH Q2H PRN PRN Reason: Shortness of Breath Albuterol/Ipratropium (Duoneb 3 Mg/0.5 Mg (3 Ml) Ud) 3 ml IH [id number] [facility] Last Admin: 01/21/19 11:12 Dose: 3 ml Amlodipine Besylate (Norvasc) 10 mg PO DAILY [facility] Last Admin: 01/21/19 10:51 Dose: 10 mg Aspirin (Ecotrin) 325 mg PO DAILY [facility] Last Admin: 01/21/19 10:52 Dose: 325 mg Azithromycin (Zithromax) 500 mg PO DAILY [facility] Budesonide (Pulmicort Respules) 0.5 mg IH [id number] [facility] Last Admin: 01/21/19 07:23 Dose: 0.5 mg Famotidine (Pepcid) 40 mg PO HS [facility] Last Admin: 01/20/19 22:38 Dose: 40 mg Gabapentin (Neurontin) 300 mg PO BID PRN; Protocol PRN Reason: Pain, moderate (4-7) Ceftriaxone Sodium (Rocephin 1 Gram Ivpb) 1 gm in 100 mls @ 100 mls/hr IVPB DAILY [facility]; Protocol Last Admin: 01/21/19 10:52 Dose: 100 mls/hr Insulin Human Regular (Humulin R Med) 0 units SC ACHS [facility]; Protocol Last Admin: 01/21/19 08:16 Dose: 7 units Lidocaine (Lidoderm) 1 ea TD DAILY [facility] Last Admin: 01/21/19 10:52 Dose: 1 ea Lorazepam (Ativan) 0.5 mg PO TID PRN; Protocol PRN Reason: Anxiety Last Admin: 01/19/19 09:42 Dose: 0.5 mg Methylprednisolone (Solu-Medrol) 30 mg IVP Q12 [facility] Last Admin: 01/21/19 10:52 Dose: 30 mg Mirtazapine (Remeron) 30 mg PO HS [facility] Last Admin: 01/20/19 22:39 Dose: 30 mg [place]-3/Dha/Epa/Fish Oil [Fish Oil 500 Mg Softgel] 500 Mg ( Home Med) 500 mg PO BID [facility] Last Admin: 01/21/19 10:53 Dose: Not Given Quetiapine Fumarate (Seroquel) 100 mg PO HS [facility]; Protocol Last Admin: 01/20/19 22:37 Dose: 100 mg Quetiapine Fumarate (Seroquel) 50 mg PO DAILY [facility] Last Admin: 01/21/19 10:51 Dose: 50 mg Tramadol HCl (Ultram) 50 mg PO DAILY PRN PRN Reason: Pain, severe (8-10) Zolpidem Tartrate (Ambien) 5 mg PO HS [facility]; Protocol - Labs Labs: 01/21/19 07:00 01/21/19 07:00 PT 13.0 SECONDS (9.4-12.5) H 01/18/19 12:20 INR 1.15 01/18/19 12:20 APTT 32.0 Seconds (26.9-38.3) 01/18/19 12:20 - Additional Findings Additional findings: - Constitutional Appears: Non-toxic, No Acute Distress, Chronically Ill - Head Exam Head Exam: ATRAUMATIC, NORMOCEPHALIC - Eye Exam Eye Exam: EOMI, Normal appearance - ENT Exam ENT Exam: Mucous Membranes Moist - Neck Exam Neck exam: Positive for: Full Rom, Normal Inspection. Negative for: Lymphadenopathy - Respiratory Exam Respiratory Exam: CTAB, decreased breath sounds bilaterally. absent: Chest Wall Tenderness, Clear to Auscultation Bilateral, Prolonged Expiratory Phase, Rales, Rhonchi, Respiratory Distress, Stridor, - Cardiovascular Exam Cardiovascular Exam: REGULAR RHYTHM, RRR, +S1, +S2 - GI/Abdominal Exam GI & Abdominal Exam: Normal Bowel Sounds, Soft. absent: Tenderness - Extremities Exam Extremities exam: Positive for: full ROM. 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 Palliative Care (Antonina Valdivia) consulted; recommendations appreciated Plan: Acute COPD Exacerbation with underlying recurrent bronchitis, Rule-out underlying Pneumonia - Chest X-Ray shows chronic interstitial changes but no focal consolidations - Patient was febrile (102.5) on presentation - Leukocytosis, increased WBC=17.9 - Duonebs Q4 [facility] and Q2 PRN - Continue Zithromax and Rocephin for empiric coverage - Tapered Solu-Medrol 40mg IV Q12 --> Now: 30mg IV Q12 - Tylenol PRN for fevers - Continue supplemental oxygen via [place] - Continue BiPAP nightly - Legionella and Mycoplasma serologies pending - Pulmonology consulted (Dr. Alcaraz) all recommendations appreciated - Palliative Care (Antonina Valdivia) consulted; recommendations appreciated History of HTN - Continue home Norvasc History of CAD - Continue home ASA and [place]-3 supplement History of DM2 with Diabetic Neuropathy - SSI-L and Accuchecks ACHS - Continue home Gabapentin PRN History of Depression - Continue home Remeron and Seroquel History of Anxiety - Continue home Ativan PRN History of Chronic Pain - Continue home Lidocaine TD - Continue home Tramadol PRN History of Insomnia - Continue home Ambien PPx: - GI Prophylaxis: Pepcid - DVT Prophylaxis: SCD's - Diet: Heart Healthy/Moderate Carbohydrate Consistency - Code Status: DNR/DNI Patient seen and case discussed with attending, Dr. Etienne Atkins PGY1 <Juice Clifton - Last Filed: 01/24/19 16:45> Objective - Vital Signs/Intake and Output Vital Signs (last 24 hours): Temp Pulse Resp BP Pulse Ox 98.3 F 90 22 168/89 H 96 01/23/19 07:28 01/23/19 07:28 01/22/19 22:00 01/23/19 09:05 01/23/19 07:28 - Labs Labs: 01/23/19 06:00 01/23/19 06:00 PT 13.0 SECONDS (9.4-12.5) H 01/18/19 12:20 INR 1.15 01/18/19 12:20 APTT 32.0 Seconds (26.9-38.3) 01/18/19 12:20 Attending/Attestation - Attestation I have personally seen and examined this patient.: Yes I have fully participated in the care of the patient.: Yes I have reviewed all pertinent clinical information, including history, physical exam and plan: Yes Notes (Text): 01/24/19 16:45 Medical record note made by the resident after discussion with my direction and input after the patient was personally seen and examined by me. I have reviewed the chart and agree that the record accurately reflects by personal performance of the history, physical exam, data review, and medical decision-making, in the course for the patient. I have also personally directed the plan of care.
[2019-01-22] MEDS: Albuterol-Ipratrop 3 mg / 0.5 (3 ml) UD IH SCH ×6 (00:34→20:36)
[2019-01-22 06:44] LABS: HEMOGLOBIN 11.7 g/dL (12.0-16.0); LYMPH # 0.8 (1.2-3.4); MEAN CELL VOLUME 77.3 fl (80.0-105.0); MEAN CORPUSCULAR HEMOGLOBIN 22.9 pg (25.0-35.0); MEAN CORPUSCULAR HGB CONC 29.6 g/dl (31.0-37.0); MEAN PLATELET VOLUME 10.9 fl (7.0-11.0); MONO # 0.6 (0.1-0.6); MONO % 4.2 % (1.0-6.0); RBC 5.11 10^6/uL (3.5-6.1); RED CELL DISTRIBUTION WIDTH 18.3 % (11.5-14.5)
[2019-01-22] MEDS ORDERED: Dextrose 50% SYRINGE Inj (50 ml) IV PRN (07:51)
[2019-01-22 09:03] LABS: ALB/GLOB RATIO 1.1 (1.1-1.8); ALT/SGPT 25 U/L (7-56); AST/SGOT 27 U/L (14-36); BLOOD UREA NITROGEN 32 mg/dL (7-21); CALCIUM 8.9 mg/dL (8.4-10.5); GFR NON-AFRICAN AMERICAN > 60
--- NOTE | 2019-01-22 10:01 | CP.PCM.PN ---
<Raquel Atkins - Last Filed: 01/22/19 13:48> Subjective - Date & Time of Evaluation Date of Evaluation: 01/22/19 Time of Evaluation: 09:59 - Subjective Subjective: PGY1 Medicine Progress Note for Dr. Clifton Patient was seen and evaluated at bedside this morning. Patient says that she feels "not herself." No acute events overnight. No new complaints. Patient otherwise denies headache, abdominal pain, fever, chills, nausea/vomiting. Of note, per Patient's family, the Patient's home O2 is not working properly. Objective - Vital Signs/Intake and Output Vital Signs (last 24 hours): Temp Pulse Resp BP Pulse Ox 98.2 F 109 H 17 176/89 H 93 L 01/22/19 06:00 01/22/19 06:00 01/22/19 06:00 01/22/19 06:00 01/22/19 06:00 Intake and Output: 01/22/19 01/22/19 06:59 18:59 Intake Total 540 Balance 540 - Medications Medications: Current Medications Acetaminophen (Tylenol 325mg Tab) 650 mg PO Q6H PRN PRN Reason: Fever >100.4 F Albuterol/Ipratropium (Duoneb 3 Mg/0.5 Mg (3 Ml) Ud) 3 ml IH Q2H PRN PRN Reason: Shortness of Breath Albuterol/Ipratropium (Duoneb 3 Mg/0.5 Mg (3 Ml) Ud) 3 ml IH [id number] [facility] Last Admin: 01/22/19 07:25 Dose: 3 ml Amlodipine Besylate (Norvasc) 10 mg PO DAILY [facility] Last Admin: 01/21/19 10:51 Dose: 10 mg Aspirin (Ecotrin) 325 mg PO DAILY [facility] Last Admin: 01/21/19 10:52 Dose: 325 mg Azithromycin (Zithromax) 500 mg PO DAILY [facility] Budesonide (Pulmicort Respules) 0.5 mg IH [id number] [facility] Last Admin: 01/21/19 19:18 Dose: 0.5 mg Cefpodoxime Proxetil (Vantin) 200 mg PO Q12 [facility] Dextrose (Dextrose 50% Inj) 0 ml IV STAT PRN; Protocol PRN Reason: Hypoglycemia Protocol Famotidine (Pepcid) 40 mg PO HS [facility] Last Admin: 01/21/19 22:14 Dose: 40 mg Gabapentin (Neurontin) 300 mg PO BID PRN; Protocol PRN Reason: Pain, moderate (4-7) Dextrose (Dextrose 5% In Water 1000 Ml) 1,000 mls @ 0 mls/hr IV .Q0M PRN; Protocol PRN Reason: Hypoglycemia Protocol Insulin Human Regular (Humulin R High) 0 units SC ACHS [facility]; Protocol Lidocaine (Lidoderm) 1 ea TD DAILY [facility] Last Admin: 01/21/19 10:52 Dose: 1 ea Lorazepam (Ativan) 0.5 mg PO TID PRN; Protocol PRN Reason: Anxiety Last Admin: 01/19/19 09:42 Dose: 0.5 mg Methylprednisolone (Solu-Medrol) 30 mg IVP Q12 [facility] Last Admin: 01/21/19 22:12 Dose: 30 mg Mirtazapine (Remeron) 30 mg PO HS [facility] Last Admin: 01/21/19 22:14 Dose: 30 mg [place]-3/Dha/Epa/Fish Oil [Fish Oil 500 Mg Softgel] 500 Mg ( Home Med) 500 mg PO BID [facility] Last Admin: 01/21/19 10:53 Dose: Not Given Quetiapine Fumarate (Seroquel) 100 mg PO HS [facility]; Protocol Last Admin: 01/21/19 22:14 Dose: 100 mg Quetiapine Fumarate (Seroquel) 50 mg PO DAILY [facility] Last Admin: 01/21/19 10:51 Dose: 50 mg Tramadol HCl (Ultram) 50 mg PO DAILY PRN PRN Reason: Pain, severe (8-10) Zolpidem Tartrate (Ambien) 5 mg PO HS [facility]; Protocol - Labs Labs: 01/22/19 06:20 01/22/19 08:00 PT 13.0 SECONDS (9.4-12.5) H 01/18/19 12:20 INR 1.15 01/18/19 12:20 APTT 32.0 Seconds (26.9-38.3) 01/18/19 12:20 - Additional Findings Additional findings: - Constitutional Appears: Non-toxic, No Acute Distress, Chronically Ill - Head Exam Head Exam: ATRAUMATIC, NORMOCEPHALIC - Eye Exam Eye Exam: EOMI, Normal appearance - ENT Exam ENT Exam: Mucous Membranes Moist - Neck Exam Neck exam: Positive for: Full Rom, Normal Inspection. Negative for: Lymphadenopathy - Respiratory Exam Respiratory Exam: CTAB, decreased breath sounds bilaterally. absent: Chest Wall Tenderness, Clear to Auscultation Bilateral, Prolonged Expiratory Phase, Rales, Rhonchi, Respiratory Distress, Stridor, - Cardiovascular Exam Cardiovascular Exam: REGULAR RHYTHM, RRR, +S1, +S2 - GI/Abdominal Exam GI & Abdominal Exam: Normal Bowel Sounds, Soft. absent: Tenderness - Extremities Exam Extremities exam: Positive for: full ROM. Negative for: calf tenderness, joint swelling, pedal edema - Neurological Exam Neurological exam: Alert - Psychiatric Exam Psychiatric exam: Normal Affect, Normal Mood - Skin Skin Exam: Dry, Intact, Normal Color, Warm Assessment and Plan - Assessment and Plan (Free Text) Assessment: 78 year old female with a past medical history significant for COPD, pulmonary sarcoidosis, DM2, diabetic neuropathy, two previous ischemic CVA's (1997 and 2013) with residual cognitive function/vision loss of right eye, HTN, depression, anxiety, OA and spinal stenosis who presents from home after being found to be hypoxic with an oxygen saturation of approximately 55%, SOB and non-productive cough. Palliative Care (Antonina Valdivia) consulted; recommendations appreciated. Per Patient's Family, her HOME O2 is not working properly. Requested Patient to call for assistance given O2 supplementation is necessary for the Patient in order to be discharged to home. Translator Deaf consulted recommendations appreciated. Plan: Acute COPD Exacerbation with underlying recurrent bronchitis, Rule-out underlying Pneumonia - Chest X-Ray shows chronic interstitial changes but no focal consolidations - Patient was febrile (102.5) on presentation - Leukocytosis improved --> 14 - Duonebs Q4 [facility] and Q2 PRN - Continue Zithromax and Rocephin for empiric coverage - Tapered Solu-Medrol 30mg IV Q12 --> 20mg IVQ12 - Tylenol PRN for fevers - Continue supplemental oxygen via NC - Continue BiPAP nightly - Legionella and Mycoplasma serologies pending - Pulmonology consulted (Dr. Alcaraz) all recommendations appreciated - Palliative Care (Antonina Valdivia) consulted; recommendations appreciated History of HTN - Continue home Norvasc History of CAD - Continue home ASA and [place]-3 supplement History of DM2 with Diabetic Neuropathy - Increased SSI-M --> SSI-H and Accuchecks ACHS - Continue home Gabapentin PRN History of Depression - Continue home Remeron and Seroquel History of Anxiety - Continue home Ativan PRN History of Chronic Pain - Continue home Lidocaine TD - Continue home Tramadol PRN History of Insomnia - Continue home Ambien PPx: - GI Prophylaxis: Pepcid - DVT Prophylaxis: SCD's - Diet: Heart Healthy/Moderate Carbohydrate Consistency - Code Status: DNR/DNI Patient seen and case discussed with attending, Dr. Etienne Atkins PGY1 <Juice Clifton - Last Filed: 01/24/19 16:31> Objective - Vital Signs/Intake and Output Vital Signs (last 24 hours): Temp Pulse Resp BP Pulse Ox 98.3 F 90 22 168/89 H 96 01/23/19 07:28 01/23/19 07:28 01/22/19 22:00 01/23/19 09:05 01/23/19 07:28 - Labs Labs: 01/23/19 06:00 01/23/19 06:00 PT 13.0 SECONDS (9.4-12.5) H 01/18/19 12:20 INR 1.15 01/18/19 12:20 APTT 32.0 Seconds (26.9-38.3) 01/18/19 12:20 Attending/Attestation - Attestation I have personally seen and examined this patient.: Yes I have fully participated in the care of the patient.: Yes I have reviewed all pertinent clinical information, including history, physical exam and plan: Yes Notes (Text): 01/24/19 16:30 Medical record note made by the resident after discussion with my direction and input after the patient was personally seen and examined by me. I have reviewed the chart and agree that the record accurately reflects by personal performance of the history, physical exam, data review, and medical decision-making, in the course for the patient. I have also personally directed the plan of care. 78 year old female with past medical history of COPD on home oxygen, sarcoidosis, diabetes, CVA, and spinal stenosis was admitted with acute on chronic hypoxic respiratory failure. She was also found to have possible pneumonia with fever and leukocytosis . Patient cough and dyspnea is better, wheezing is improving.Patient is on oxygen via nasal canula. We will decrease dose of steroid to 20 mg IVPB BID. Patient case was discussed with Pulmonary.She will be discharged home on t apering dose of Prednisone and opral antibiotics. She will follow up with PCP and her Paleontologist. Patient is DNR/DNI. Prognosis is guarded. Family and health aid are are bedside and questions were answered.
[2019-01-22] MEDS: MethylPREDNISolone 40 mg Vial IVP SCH ×2 (10:24→21:49)
[2019-01-22] MEDS: Lidocaine 5% Patch TD SCH (10:26)
[2019-01-22] MEDS: Cefpodoxime (Vantin) 200 mg Tab PO SCH ×2 (10:27→21:48)
[2019-01-22] MEDS: Budesonide 0.5 mg/2 ml Inhal Susp UD IH SCH ×2 (10:27→20:36)
[2019-01-22] MEDS: Aspirin 325 mg EC Tablets PO SCH (10:28)
[2019-01-22] MEDS: EPA PO SCH ×2 (10:29→18:32)
[2019-01-22] MEDS: DHA PO SCH ×2 (10:29→18:32)
[2019-01-22] MEDS: FISH OIL PO SCH ×2 (10:29→18:32)
[2019-01-22] MEDS: Insulin Reg-MEDIUM-Coverage SC SCH (10:29)
[2019-01-22] MEDS: OMEGA PO SCH ×2 (10:29→18:32)
--- NOTE | 2019-01-22 11:24 | PN ---
DATE: 01/22/2019 PULMONARY NOTE SUBJECTIVE: The patient appears much more comfortable this morning. She is not short of breath at rest. She is awake and alert. PHYSICAL EXAMINATION: VITAL SIGNS: Temperature is 97.8, pulse 88, respirations 18/20, blood pressure 152/74. Oxygen saturation on nasal cannula is 91%. HEENT: Normocephalic, atraumatic. NECK: No JVD. CARDIOVASCULAR: Systolic ejection murmur at the lower left sternal border. No S3 gallop. LUNGS: Crackles at both bases - chronic. Much less rhonchi. No wheezing. EXTREMITIES: Mild edema. No cyanosis. No clubbing. Calves are nontender to palpation. GI: Abdomen is soft, nontender and nondistended. Bowel sounds are positive. SKIN: No acute rash. NEUROLOGIC: Limited at the present time. IMPRESSION: 1. Recurrent bronchitis. 2. Advanced chronic obstructive pulmonary disease. 3. Advanced interstitial lung disease. 4. Rule out underlying pneumonia - less likely. PLAN: The patient appears very comfortable this morning. She is not short of breath at rest. She is much more awake and alert. She does state to feeling much better overall. On physical exam, there is certainly less bronchospasm noted. In addition, the alveolar-arterial gradient is also less. I will continue the current nebulizer treatments and low-dose intravenous steroids (decreased yesterday) for now. The patient remains on antibiotic therapy. Temperatures have resolved. The leukocytosis is resolving. Clinical status of the patient is certainly improved - compared to the initial presentation. However, given the above, the future status/prognosis for this patient remains poor. All are aware. I will discuss the above with the medical team. Meet Alcaraz MD ADÁN
[2019-01-22] MEDS: Insulin Reg-HIGH-Coverage SC SCH ×3 (12:22→23:32)
[2019-01-22 23:08] VITALS: RESP 22
[2019-01-23] MEDS: Albuterol-Ipratrop 3 mg / 0.5 (3 ml) UD IH SCH ×4 (00:24→13:00)
[2019-01-23 07:26] LABS: HEMOGLOBIN 11.2 g/dL (12.0-16.0); LYMPH # 0.9 (1.2-3.4); LYMPH % 6.7 % (22.0-35.0); MEAN CELL VOLUME 78.1 fl (80.0-105.0); MEAN CORPUSCULAR HEMOGLOBIN 22.7 pg (25.0-35.0); MEAN CORPUSCULAR HGB CONC 29.1 g/dl (31.0-37.0); MEAN PLATELET VOLUME 10.4 fl (7.0-11.0); MONO # 0.6 (0.1-0.6); MONO % 4.4 % (1.0-6.0); RBC 4.93 10^6/uL (3.5-6.1); RED CELL DISTRIBUTION WIDTH 18.1 % (11.5-14.5); WHITE BLOOD COUNT 13.5 10^3/uL (4.5-11.0)
[2019-01-23 07:30] VITALS: PULSE 90; TEMP 98.3; O2SAT 96
[2019-01-23 07:37] LABS: ALB/GLOB RATIO 1.2 (1.1-1.8); ALBUMIN 3.7 g/dL (3.0-4.8); ALT/SGPT 26 U/L (7-56); AST/SGOT 25 U/L (14-36); BLOOD UREA NITROGEN 30 mg/dL (7-21); CALCIUM 8.7 mg/dL (8.4-10.5); GFR NON-AFRICAN AMERICAN > 60
--- NOTE | 2019-01-23 07:52 | PN ---
DATE: 01/23/2019 PULMONARY NOTE DICTATION SUBJECTIVE: The patient appears comfortable this morning. She is not short of breath at rest. She is awake and alert. OBJECTIVE: VITALS: Temperature is 98, pulse 88, respirations 20, blood pressure 171/92. Oxygen saturation on BiPAP is 93%. HEENT: Normocephalic, atraumatic. No JVD. CARDIOVASCULAR: Systolic ejection murmur at the lower left sternal border. No S3 gallop. LUNGS: Crackles at both bases - chronic. Minimal/less rhonchi. No wheezing. EXTREMITIES: Mild edema. No cyanosis, no clubbing. Calves are nontender to palpation. GASTROINTESTINAL: Abdomen is soft, nontender, and nondistended. Bowel sounds are positive. SKIN: No acute rash. NEUROLOGIC: Limited at the present time. IMPRESSION: 1. Recurrent bronchitis. 2. Advanced chronic obstructive pulmonary disease. 3. Advanced interstitial lung disease. 4. Rule out underlying pneumonia - less likely. PLAN: The patient appears comfortable this morning. She is not short of breath at rest. She is awake and alert. She is wearing her BiPAP. She does state to feeling better. I did discuss the case with the night nurse at length. The night nurse stated the patient had a very good night. On physical exam, her bronchospasm continues to resolve. In addition, the alveolar-arterial gradient is also decreased. I will continue the current nebulizer treatments and low-dose intravenous steroids (decreased yesterday) for now. The patient remains on antibiotic therapy. Temperatures have fully resolved. The leukocytosis is resolving. CLINICAL STATUS: The patient is certainly improved - compared to the initial presentation. However, unfortunately, the future status/prognosis for this patient remains poor. All are aware. I will discuss the above with the medical team this morning. Meet Alcaraz MD MTDKalli
[2019-01-23] MEDS: Insulin Reg-HIGH-Coverage SC SCH ×2 (08:19→11:59)
[2019-01-23] MEDS: Budesonide 0.5 mg/2 ml Inhal Susp UD IH SCH (08:27)
[2019-01-23] MEDS: Cefpodoxime (Vantin) 200 mg Tab PO SCH (09:01)
[2019-01-23] MEDS: MethylPREDNISolone 40 mg Vial IVP SCH (09:01)
[2019-01-23] MEDS: Aspirin 325 mg EC Tablets PO SCH (09:02)
[2019-01-23] MEDS: Lidocaine 5% Patch TD SCH (09:02)
[2019-01-23] MEDS: FISH OIL PO SCH (09:03)
[2019-01-23] MEDS: OMEGA PO SCH (09:03)
[2019-01-23] MEDS: EPA PO SCH (09:03)
[2019-01-23] MEDS: DHA PO SCH (09:03)
[2019-01-23 09:14] VITALS: BP 168/89
--- NOTE | 2019-01-23 12:30 | CP.PCM.DIS ---
<Raquel Atkins - Last Filed: 01/23/19 12:22> Provider - Provider Date of Admission: 01/18/19 12:57 Attending physician: Juice Clifton MD Primary care physician: Dr. Walker Consults: 01/18/19 14:23 Pulmonology Consult Routine Comment: Consulting Provider: Meet Alcaraz Consulting Physician: Meet Alcaraz Reason for Consult: CAP; COPD; Clinic patient 01/19/19 10:14 Palliative Care Consult Routine Comment: Consulting Provider: Antonina Valdivia Physician Instructions: Reason For Exam: Goals of care 01/19/19 13:02 Social Work Referral Routine Comment: d/c plan Physician Instructions: Reason For Exam: assess 01/19/19 13:36 Case Management Referral Routine Comment: Physician Instructions: Reason For Exam: Reason for Referral: Discharge Planning Inpatient TECHNOLOGY SPECIALIST Core Measures Referral Routine Comment: copd/lung disease Physician Instructions: Reason For Exam: assess Transition In Care/Readmission Reduction Routine Comment: copd/lung disease Physician Instructions: Reason For Exam: assess 01/22/19 13:58 Case Management Referral Routine Comment: Physician Instructions: cannot discharged until home-O2 machine is fixed Reason For Exam: Problem with home O2, per Pt's family Reason for Referral: Discharge Planning Time Spent in preparation of Discharge (in minutes): 45 Diagnosis - Discharge Diagnosis (1) COPD (chronic obstructive pulmonary disease) Status: Acute Priority: Medium (2) Interstitial lung disease Status: Acute Priority: Medium (3) COPD exacerbation Status: Acute Priority: Medium (4) Chest pain Status: Acute Priority: Medium Hospital Course - Lab Results Lab Results: Micro Results 01/18/19 12:00 Blood Blood Culture - Final NO GROWTH AFTER 5 DAYS 01/18/19 12:00 Blood Gram Stain - Final TEST NOT PERFORMED 01/18/19 12:15 Blood Blood Culture - Preliminary NO GROWTH AFTER 4 DAYS 01/18/19 13:33 Urine Random Urine Culture - Final No Growth (<1,000 CFU/ML) Most Recent Lab Values WBC 13.5 10^3/uL (4.5-11.0) H 01/23/19 06:00 RBC 4.93 10^6/uL (3.5-6.1) 01/23/19 06:00 Hgb 11.2 g/dL (12.0-16.0) L 01/23/19 06:00 Hct 38.5 % (36.0-48.0) 01/23/19 06:00 MCV 78.1 fl (80.0-105.0) L 01/23/19 06:00 MCH 22.7 pg (25.0-35.0) L 01/23/19 06:00 MCHC 29.1 g/dl (31.0-37.0) L 01/23/19 06:00 RDW 18.1 % (11.5-14.5) H 01/23/19 06:00 Plt Count 259 10^3/uL (120.0-450.0) 01/23/19 06:00 MPV 10.4 fl (7.0-11.0) 01/23/19 06:00 Neut % (Auto) 88.9 % (50.0-68.0) H 01/23/19 06:00 Lymph % (Auto) 6.7 % (22.0-35.0) L 01/23/19 06:00 Storey % (Auto) 4.4 % (1.0-6.0) 01/23/19 06:00 Eos % (Auto) 0.0 % (1.5-5.0) L 01/23/19 06:00 Baso % (Auto) 0.0 % (0.0-3.0) 01/23/19 06:00 Lymph # (Auto) 0.9 (1.2-3.4) L 01/23/19 06:00 Storey # (Auto) 0.6 (0.1-0.6) 01/23/19 06:00 Eos # (Auto) 0.0 (0.0-0.7) 01/23/19 06:00 Baso # (Auto) 0.00 K/mm3 (0.0-2.0) 01/23/19 06:00 Absolute Neuts (auto) 12.03 (1.4-6.5) H 01/23/19 06:00 Neutrophils % (Manual) 84 % (50.0-70.0) H 01/19/19 07:30 Lymphocytes % (Manual) 9 % (22.0-35.0) L 01/19/19 07:30 Monocytes % (Manual) 7 % (1.0-6.0) H 01/19/19 07:30 PT 13.0 SECONDS (9.4-12.5) H 01/18/19 12:20 INR 1.15 01/18/19 12:20 APTT 32.0 Seconds (26.9-38.3) 01/18/19 12:20 pCO2 27 mm/Hg (35-45) L 01/19/19 21:20 pO2 57.0 mm/Hg (80-100) L 01/19/19 21:20 HCO3 20.1 mmol/L (21-28) L 01/19/19 21:20 ABG pH 7.48 (7.35-7.45) H 01/19/19 21:20 ABG Total CO2 20.9 mmol.L (22-28) L 01/19/19 21:20 ABG O2 Saturation 92.7 % (95-98) L 01/19/19 21:20 ABG O2 Content 13.0 ML/dl (15-23) L 01/19/19 21:20 ABG Base Excess -2.5 mmol/L (-2.0-3.0) L 01/19/19 21:20 ABG Hemoglobin 10.3 g/dL (11.7-17.4) L 01/19/19 21:20 ABG Carboxyhemoglobin 2.5 % (0.5-1.5) H 01/19/19 21:20 POC ABG HHb (Measured) 7.0 % (0-5) H 01/19/19 21:20 ABG Methemoglobin 1.0 % (0.0-3.0) 01/19/19 21:20 ABG O2 Capacity 14.0 mL/dl (16-24) L 01/19/19 21:20 VBG pH 7.41 (7.32-7.43) 01/18/19 12:05 VBG pCO2 41.0 (40-60) 01/18/19 12:05 VBG HCO3 26.0 mmol/l (21-28) 01/18/19 12:05 VBG Total CO2 27.3 mmol.L (22-28) 01/18/19 12:05 VBG O2 Sat (Calc) 81.5 % (40-65) H 01/18/19 12:05 VBG Base Excess 1.2 mmol/L (0.0-2.0) 01/18/19 12:05 VBG Potassium 6.2 mmol/L (3.6-5.2) H* 01/18/19 12:05 Hgb O2 Saturation 89.5 % (95.0-98.0) L 01/19/19 21:20 Sodium 136.0 mmol/L (132-148) 01/18/19 12:05 Chloride 109.0 mmol/L (98-107) H 01/18/19 12:05 Glucose 145 mg/dl (65-105) H 01/18/19 12:05 Lactate 1.5 mmol/L (0.7-2.1) 01/18/19 12:05 FiO2 32.0 % 01/19/19 21:20 Crit Value Called To junior Burciaga md 01/18/19 12:05 Crit Value Called By Sahra brennan 01/18/19 12:05 Blood Gas Notified Time 1215 01/18/19 12:05 Sodium 139 mmol/L (132-148) 01/23/19 06:00 Potassium 4.5 mmol/L (3.6-5.0) 01/23/19 06:00 Chloride 108 mmol/L (98-107) H 01/23/19 06:00 Carbon Dioxide 22 mmol/L (21-33) 01/23/19 06:00 Anion Gap 13 (10-20) 01/23/19 06:00 BUN 30 mg/dL (7-21) H 01/23/19 06:00 Creatinine 0.7 mg/dl (0.7-1.2) 01/23/19 06:00 Est GFR ( Amer) > 60 01/23/19 06:00 Est GFR (Non-Af Amer) > 60 01/23/19 06:00 POC Glucose (mg/dL) 339 mg/dL (65-110) H 01/23/19 11:04 Random Glucose 360 mg/dL (70-110) H* 01/23/19 06:00 Calcium 8.7 mg/dL (8.4-10.5) 01/23/19 06:00 Phosphorus 3.0 mg/dL (2.5-4.5) 01/19/19 07:30 Magnesium 2.0 mg/dL (1.7-2.2) 01/19/19 07:30 Total Bilirubin 0.4 mg/dL (0.2-1.3) 01/23/19 06:00 AST 25 U/L (14-36) 01/23/19 06:00 ALT 26 U/L (7-56) 01/23/19 06:00 Alkaline Phosphatase 114 U/L (38-126) 01/23/19 06:00 Lactate Dehydrogenase 575 U/L (333-699) 01/19/19 21:28 Total Creatine Kinase 244 U/L (35-230) H 01/19/19 21:28 CK-MB (CK-2) 4.6 ng/mL (0.0-3.6) H 01/19/19 21:28 CK-MB (CK-2) % Cancelled 01/19/19 21:28 Troponin I 0.01 ng/mL 01/20/19 05:45 NT-Pro-B Natriuret Pep 943 pg/mL (0-450) H 01/18/19 12:20 Total Protein 6.9 g/dL (5.8-8.3) 01/23/19 06:00 Albumin 3.7 g/dL (3.0-4.8) 01/23/19 06:00 Globulin 3.2 gm/dL 01/23/19 06:00 Albumin/Globulin Ratio 1.2 (1.1-1.8) 01/23/19 06:00 Procalcitonin 0.06 NG/ML (0.19-0.49) L 01/19/19 06:54 Venous Blood Potassium 6.2 mmol/L (3.6-5.2) H* 01/18/19 12:05 Urine Color Yellow (YELLOW) 01/18/19 13:34 Urine Appearance Clear (CLEAR) 01/18/19 13:34 Urine pH 7.0 (4.7-8.0) 01/18/19 13:[address] 1.020 (1.005-1.035) 01/18/19 13:34 Urine Protein Trace mg/dL (<30 mg/dL) H 01/18/19 13:34 Urine Glucose (UA) Negative mg/dL (NEGATIVE) 01/18/19 13:34 Urine Ketones Negative mg/dL (NEGATIVE) 01/18/19 13:34 Urine Blood Negative (NEGATIVE) 01/18/19 13:34 Urine Nitrate Negative (NEGATIVE) 01/18/19 13:34 Urine Bilirubin Negative (NEGATIVE) 01/18/19 13:34 Urine Urobilinogen 0.2 E.U./dL (<1 E.U./dL) 01/18/19 13:34 Ur Leukocyte Esterase Negative Janes/uL (NEGATIVE) 01/18/19 13:34 Urine RBC 0 - 2 /hpf (0-2) 01/18/19 13:34 Urine WBC 0 - 2 /hpf (0-6) 01/18/19 13:34 Ur Epithelial Cells 0 - 2 /hpf (0-5) 01/18/19 13:34 Urine Bacteria Trace /hpf (NONE) 01/18/19 13:34 Influenza Typ A,B (EIA) Negative for flu a/b (NEGATIVE) 01/18/19 13:15 Ur L.pneumophila Ag Negative (NEGATIVE) 01/18/19 14:30 Mycoplasma pneumon IgM Negative (NEGATIVE) 01/18/19 15:20 - Hospital Course Hospital Course: PGY1 Discharge Summary and Hospital Course for Dr. Clifton On Admission: Mrs. 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 Patient was alert to person only at the time and HPI information was largely obtained from FACING GRINDER and patients brother at bedside. According the FACING GRINDER, patient was difficult to arouse in the morning and reportedly SOB. The FACING GRINDER took the patient's pulse ox and discovered it to be in the 50's and called an ambulance. FACING GRINDER also reported that the patient has had a non-productive cough for a few days as well. FACING GRINDER denied the patient having any fevers at home. Patient was subsequently admitted for hypoxia in the setting of COPD exacerbation. For complete history, please see chart for details. Hospital Course: CXR was obtained and revealed no focal consolidations. Patient was febrile on presentation (102.5) and was treated with Tylenol PRN. Patient was started on zithromax and rocephin for empiric coverage. Patient was treated with duonebs, and IV solumedrol taper. Patient continued to received supplemental oxygen via NC and with BiPAP at night. Pulmonology was consulted (Dr. Alcaraz). Patient was started on her home medications for her chronic diseases. Palliative care was consulted for gaols of care. For complete summary, please see chart for detail. Day of Discharge: Patient had no acute events overnight. Patient without new complaints. Patient able to ambulate with assistance. Patient was no longer wheezing. Patient denied pain. Patient's stated that the home oxygen was working properly. Patient is medically optimized and clinically stable for discharge to home. Patient to continue all home medications as prescribed. Patient was provided with detailed discharge instructions provided both in writing and verbally to the level of Patient's comprehension. Patient both understands and agrees to all instructions. Please see chart for details. New Medications: - Norvasc 10mg PO daily - Zithromax 500mg PO daily x 2 days - Vantin 200mg Q12 x 2 days - Zestril 10mg PO Daily #15 - Prednisone taper (see instructions) Patient seen and case discussed in detail with Dr. Etienne Atkins Discharge Exam - Head Exam Head Exam: NORMOCEPHALIC Discharge Plan - Discharge Medications Prescriptions: RX: Azithromycin [Zithromax] 500 mg PO DAILY 2 Days tab RX: Cefpodoxime [Vantin] 200 mg PO Q12 2 Days tab RX: Lisinopril [Zestril] 10 mg PO DAILY #15 tab RX: predniSONE [predniSONE Tab] See Taper PO DAILY #26 tab - Follow Up Plan Condition: STABLE Disposition: HOME/ ROUTINE Instructions: High Blood Pressure in Adults, Oxygen Therapy, Adult (DC), Exacerbation of COPD, Medicines for Chronic Obstructive Pulmonary Disease (COPD) Additional Instructions: - Follow up with primary care doctor within 3-5 days - Resume home medications as prescribed - Complete 2 day course of antibiotics (Vantin and Zithromax) - Complete Prednisone taper as following: - Take 4 pills (40 mg) per day for 2 days - Take 3 pills (30 mg) per day for 3 days - Take 2 pills (20 mg) per day for 3 days - Take 1 pills (10 mg) per day for 3 days - Continue home oxygen use as instructed - Proceed to ED if symptoms return <Juice Clifton - Last Filed: 01/24/19 16:29> Provider - Provider Date of Admission: 01/18/19 12:57 Attending physician: Juice Clifton MD Consults: 01/18/19 14:23 Pulmonology Consult Routine Comment: Consulting Provider: Meet Alcaraz Consulting Physician: Meet Alcaraz Reason for Consult: CAP; COPD; Clinic patient 01/19/19 10:14 Palliative Care Consult Routine Comment: Consulting Provider: Antonina Valdivia Physician Instructions: Reason For Exam: Goals of care 01/19/19 13:02 Social Work Referral Routine Comment: d/c plan Physician Instructions: Reason For Exam: assess 01/19/19 13:36 Case Management Referral Routine Comment: Physician Instructions: Reason For Exam: Reason for Referral: Discharge Planning Inpatient TECHNOLOGY SPECIALIST Core Measures Referral Routine Comment: copd/lung disease Physician Instructions: Reason For Exam: assess Transition In Care/Readmission Reduction Routine Comment: copd/lung disease Physician Instructions: Reason For Exam: assess 01/22/19 13:58 Case Management Referral Routine Comment: Physician Instructions: cannot discharged until home-O2 machine is fixed Reason For Exam: Problem with home O2, per Pt's family Reason for Referral: Discharge Planning Hospital Course - Lab Results Lab Results: Micro Results 01/18/19 12:15 Blood Blood Culture - Final NO GROWTH AFTER 5 DAYS 01/18/19 12:15 Blood Gram Stain - Final TEST NOT PERFORMED 01/18/19 12:00 Blood Blood Culture - Final NO GROWTH AFTER 5 DAYS 01/18/19 12:00 Blood Gram Stain - Final TEST NOT PERFORMED 01/18/19 13:33 Urine Random Urine Culture - Final No Growth (<1,000 CFU/ML) Most Recent Lab Values WBC 13.5 10^3/uL (4.5-11.0) H 01/23/19 06:00 RBC 4.93 10^6/uL (3.5-6.1) 01/23/19 06:00 Hgb 11.2 g/dL (12.0-16.0) L 01/23/19 06:00 Hct 38.5 % (36.0-48.0) 01/23/19 06:00 MCV 78.1 fl (80.0-105.0) L 01/23/19 06:00 MCH 22.7 pg (25.0-35.0) L 01/23/19 06:00 MCHC 29.1 g/dl (31.0-37.0) L 01/23/19 06:00 RDW 18.1 % (11.5-14.5) H 01/23/19 06:00 Plt Count 259 10^3/uL (120.0-450.0) 01/23/19 06:00 MPV 10.4 fl (7.0-11.0) 01/23/19 06:00 Neut % (Auto) 88.9 % (50.0-68.0) H 01/23/19 06:00 Lymph % (Auto) 6.7 % (22.0-35.0) L 01/23/19 06:00 Storey % (Auto) 4.4 % (1.0-6.0) 01/23/19 06:00 Eos % (Auto) 0.0 % (1.5-5.0) L 01/23/19 06:00 Baso % (Auto) 0.0 % (0.0-3.0) 01/23/19 06:00 Lymph # (Auto) 0.9 (1.2-3.4) L 01/23/19 06:00 Storey # (Auto) 0.6 (0.1-0.6) 01/23/19 06:00 Eos # (Auto) 0.0 (0.0-0.7) 01/23/19 06:00 Baso # (Auto) 0.00 K/mm3 (0.0-2.0) 01/23/19 06:00 Absolute Neuts (auto) 12.03 (1.4-6.5) H 01/23/19 06:00 Neutrophils % (Manual) 84 % (50.0-70.0) H 01/19/19 07:30 Lymphocytes % (Manual) 9 % (22.0-35.0) L 01/19/19 07:30 Monocytes % (Manual) 7 % (1.0-6.0) H 01/19/19 07:30 PT 13.0 SECONDS (9.4-12.5) H 01/18/19 12:20 INR 1.15 01/18/19 12:20 APTT 32.0 Seconds (26.9-38.3) 01/18/19 12:20 pCO2 27 mm/Hg (35-45) L 01/19/19 21:20 pO2 57.0 mm/Hg (80-100) L 01/19/19 21:20 HCO3 20.1 mmol/L (21-28) L 01/19/19 21:20 ABG pH 7.48 (7.35-7.45) H 01/19/19 21:20 ABG Total CO2 20.9 mmol.L (22-28) L 01/19/19 21:20 ABG O2 Saturation 92.7 % (95-98) L 01/19/19 21:20 ABG O2 Content 13.0 ML/dl (15-23) L 01/19/19 21:20 ABG Base Excess -2.5 mmol/L (-2.0-3.0) L 01/19/19 21:20 ABG Hemoglobin 10.3 g/dL (11.7-17.4) L 01/19/19 21:20 ABG Carboxyhemoglobin 2.5 % (0.5-1.5) H 01/19/19 21:20 POC ABG HHb (Measured) 7.0 % (0-5) H 01/19/19 21:20 ABG Methemoglobin 1.0 % (0.0-3.0) 01/19/19 21:20 ABG O2 Capacity 14.0 mL/dl (16-24) L 01/19/19 21:20 VBG pH 7.41 (7.32-7.43) 01/18/19 12:05 VBG pCO2 41.0 (40-60) 01/18/19 12:05 VBG HCO3 26.0 mmol/l (21-28) 01/18/19 12:05 VBG Total CO2 27.3 mmol.L (22-28) 01/18/19 12:05 VBG O2 Sat (Calc) 81.5 % (40-65) H 01/18/19 12:05 VBG Base Excess 1.2 mmol/L (0.0-2.0) 01/18/19 12:05 VBG Potassium 6.2 mmol/L (3.6-5.2) H* 01/18/19 12:05 Hgb O2 Saturation 89.5 % (95.0-98.0) L 01/19/19 21:20 Sodium 136.0 mmol/L (132-148) 01/18/19 12:05 Chloride 109.0 mmol/L (98-107) H 01/18/19 12:05 Glucose 145 mg/dl (65-105) H 01/18/19 12:05 Lactate 1.5 mmol/L (0.7-2.1) 01/18/19 12:05 FiO2 32.0 % 01/19/19 21:20 Crit Value Called To junior Burciaga md 01/18/19 12:05 Crit Value Called By Sahra brennan 01/18/19 12:05 Blood Gas Notified Time 1215 01/18/19 12:05 Sodium 139 mmol/L (132-148) 01/23/19 06:00 Potassium 4.5 mmol/L (3.6-5.0) 01/23/19 06:00 Chloride 108 mmol/L (98-107) H 01/23/19 06:00 Carbon Dioxide 22 mmol/L (21-33) 01/23/19 06:00 Anion Gap 13 (10-20) 01/23/19 06:00 BUN 30 mg/dL (7-21) H 01/23/19 06:00 Creatinine 0.7 mg/dl (0.7-1.2) 01/23/19 06:00 Est GFR ( Amer) > 60 01/23/19 06:00 Est GFR (Non-Af Amer) > 60 01/23/19 06:00 POC Glucose (mg/dL) 339 mg/dL (65-110) H 01/23/19 11:04 Random Glucose 360 mg/dL (70-110) H* 01/23/19 06:00 Calcium 8.7 mg/dL (8.4-10.5) 01/23/19 06:00 Phosphorus 3.0 mg/dL (2.5-4.5) 01/19/19 07:30 Magnesium 2.0 mg/dL (1.7-2.2) 01/19/19 07:30 Total Bilirubin 0.4 mg/dL (0.2-1.3) 01/23/19 06:00 AST 25 U/L (14-36) 01/23/19 06:00 ALT 26 U/L (7-56) 01/23/19 06:00 Alkaline Phosphatase 114 U/L (38-126) 01/23/19 06:00 Lactate Dehydrogenase 575 U/L (333-699) 01/19/19 21:28 Total Creatine Kinase 244 U/L (35-230) H 01/19/19 21:28 CK-MB (CK-2) 4.6 ng/mL (0.0-3.6) H 01/19/19 21:28 CK-MB (CK-2) % Cancelled 01/19/19 21:28 Troponin I 0.01 ng/mL 01/20/19 05:45 NT-Pro-B Natriuret Pep 943 pg/mL (0-450) H 01/18/19 12:20 Total Protein 6.9 g/dL (5.8-8.3) 01/23/19 06:00 Albumin 3.7 g/dL (3.0-4.8) 01/23/19 06:00 Globulin 3.2 gm/dL 01/23/19 06:00 Albumin/Globulin Ratio 1.2 (1.1-1.8) 01/23/19 06:00 Procalcitonin 0.06 NG/ML (0.19-0.49) L 01/19/19 06:54 Venous Blood Potassium 6.2 mmol/L (3.6-5.2) H* 01/18/19 12:05 Urine Color Yellow (YELLOW) 01/18/19 13:34 Urine Appearance Clear (CLEAR) 01/18/19 13:34 Urine pH 7.0 (4.7-8.0) 01/18/19 13:[address] 1.020 (1.005-1.035) 01/18/19 13:34 Urine Protein Trace mg/dL (<30 mg/dL) H 01/18/19 13:34 Urine Glucose (UA) Negative mg/dL (NEGATIVE) 01/18/19 13:34 Urine Ketones Negative mg/dL (NEGATIVE) 01/18/19 13:34 Urine Blood Negative (NEGATIVE) 01/18/19 13:34 Urine Nitrate Negative (NEGATIVE) 01/18/19 13:34 Urine Bilirubin Negative (NEGATIVE) 01/18/19 13:34 Urine Urobilinogen 0.2 E.U./dL (<1 E.U./dL) 01/18/19 13:34 Ur Leukocyte Esterase Negative Janes/uL (NEGATIVE) 01/18/19 13:34 Urine RBC 0 - 2 /hpf (0-2) 01/18/19 13:34 Urine WBC 0 - 2 /hpf (0-6) 01/18/19 13:34 Ur Epithelial Cells 0 - 2 /hpf (0-5) 01/18/19 13:34 Urine Bacteria Trace /hpf (NONE) 01/18/19 13:34 Influenza Typ A,B (EIA) Negative for flu a/b (NEGATIVE) 01/18/19 13:15 Ur L.pneumophila Ag Negative (NEGATIVE) 01/18/19 14:30 Mycoplasma pneumon IgM Negative (NEGATIVE) 01/18/19 15:20 Attending/Attestation - Attestation I have personally seen and examined this patient.: Yes I have fully participated in the care of the patient.: Yes I have reviewed all pertinent clinical information, including history, physical exam and plan: Yes Notes (Text): 01/24/19 16:24 Medical record note made by the resident after discussion with my direction and input after the patient was personally seen and examined by me. I have reviewed the chart and agree that the record accurately reflects by personal performance of the history, physical exam, data review, and medical decision-making, in the course for the patient. I have also personally directed the plan of care. 78 year old female with past medical history of COPD on home oxygen, sarcoidosis, diabetes, CVA, and spinal stenosis was admitted with acute on chronic hypoxic respiratory failure. She was also found to have possible pneumonia with fever and leukocytosis .Patient was treated with IV antibiotics, steroid and nebulization.She was seen in consultation with Pulmonary. Patient has responded well, cough and dyspnea is improved.Hypoxia is at base line. Patient case was discussed with Pulmonary.She will be discharged home on tapering dose of Prednisone and opral antibiotics. She will follow up with PCP and her Paleontologist. Patient is DNR/DNI. Prognosis is guarded. Family and health aid are are bedside and questions were answered.
== END 2019-01-23 13:08 | disposition home or self-care (01) | DRG 190 ==
LOC: ED 11:22 → ERH 12:57 → 5RNO 01-19 19:40
PROVIDERS: ADMIT Internal Medicine; ATTEND Internal Medicine
PROC: 5A09457 Assistance with Respiratory Ventilation, 24-96 Consecutive Hours, Continuous Positive Airway Pressure (ICD-10-PCS; principal; 2019-01-18)
DX: J44.1 Chronic obstructive pulmonary disease with (acute) exacerbation (principal); J96.01 Acute respiratory failure with hypoxia; I11.0 Hypertensive heart disease with heart failure; I50.9 Heart failure, unspecified; E11.40 Type 2 diabetes mellitus with diabetic neuropathy, unspecified; E11.51 Type 2 diabetes mellitus with diabetic peripheral angiopathy without gangrene; D86.0 Sarcoidosis of lung; I25.10 Atherosclerotic heart disease of native coronary artery without angina pectoris; J84.10 Pulmonary fibrosis, unspecified; F32.9 Major depressive disorder, single episode, unspecified; M48.00 Spinal stenosis, site unspecified; M81.0 Age-related osteoporosis without current pathological fracture; F41.9 Anxiety disorder, unspecified; F01.50 Vascular dementia, unspecified severity, without behavioral disturbance, psychotic disturbance, mood disturbance, and anxiety; G47.00 Insomnia, unspecified; H35.30 Unspecified macular degeneration; Z66 Do not resuscitate; I69.398 Other sequelae of cerebral infarction; H54.61 Unqualified visual loss, right eye, normal vision left eye; I69.318 Other symptoms and signs involving cognitive functions following cerebral infarction; Z87.891 Personal history of nicotine dependence; Z99.81 Dependence on supplemental oxygen; Z79.84 Long term (current) use of oral hypoglycemic drugs

== ENCOUNTER 2019-01-30 14:48 | Inpatient (IN) | payer MEDICARE ==
[2019-01-30] MEDS ORDERED: Sodium Chloride 0.9% 1,000 ML IV SCH (15:15)
[2019-01-30] MEDS ORDERED: Sodium Chloride 0.9% 1,000 ML IV STA ×2 (15:15)
[2019-01-30] MEDS ORDERED: Piperacillin/Tazobact 3.375 gm 100 ML IVPB STA (15:16)
[2019-01-30 15:31] LABS: BASO # 0.03 K/mm3 (0.0-2.0); BASO % 0.1 % (0.0-3.0); EOS # 0.1 (0.0-0.7); EOS % 0.6 % (1.5-5.0); HEMOGLOBIN 11.8 g/dL (12.0-16.0); LYMPH # 2.4 (1.2-3.4); LYMPH % 11.2 % (22.0-35.0); MEAN CELL VOLUME 78.4 fl (80.0-105.0); MEAN CORPUSCULAR HEMOGLOBIN 23.6 pg (25.0-35.0); MEAN CORPUSCULAR HGB CONC 30.2 g/dl (31.0-37.0); MEAN PLATELET VOLUME 10.7 fl (7.0-11.0); MONO % 9.4 % (1.0-6.0); RBC 4.99 10^6/uL (3.5-6.1); WHITE BLOOD COUNT 21.6 10^3/uL (4.5-11.0)
--- NOTE | 2019-01-30 15:33 | ED PDOC ---
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 Patient was recently admitted for pneumonia. Patient denies any fever, chills, chest pain, shortness of breath, nausea, vomiting, diarrhea, urinary symptoms, back pain, neck pain, headache, dizziness, or any other complaints. PMD: Dr. 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 ([place]) Hx Macular Degeneration: Yes - Renal Hx Renal Disorder: No - Endocrine/Metabolic Hx Diabetes Mellitus Type 2: Yes - Hematological/Oncological Hx Blood Disorders: Yes Hx Cancer: Yes (basal cell) - Integumentary Other/Comment: SARCOIDOSIS, b/l arm skin discolorations, rle round 2cm purple skin discoloration - Musculoskeletal/Rheumatological Hx Falls: Yes (past) Hx Unsteady Gait: Yes (cane when out) - Gastrointestinal Hx Gastrointestinal Disorders: Yes Hx Gastroesophageal Reflux: Yes - Genitourinary/Gynecological Other/Comment: vaginal rectal fistula repair - Psychiatric Hx Psychophysiologic Disorder: Yes Hx Anxiety: Yes Hx Depression: Yes Hx Substance Use: No - Surgical History Other/Comment: laparoscopic sx to dx sarcoidosis - Anesthesia Hx Anesthesia: Yes Hx Anesthesia Reactions: No Hx Malignant Hyperthermia: No - Suicidal Assessment Feels Threatened In Home Enviroment: No Family/Social History Family/Social History: No Known Family HX Smoking Status: Former Smoker Hx Alcohol Use: No Hx Substance Use: No Hx Substance Use Treatment: No Allergies/Home Meds Allergies/Adverse Reactions: Allergies No Known Allergies Allergy (Verified 01/30/19 14:57) Home Medications: Home Meds Medication Instructions Recorded Confirmed Mirtazapine [Remeron] 30 mg PO HS 04/10/16 02/04/19 Zolpidem [Ambien] 10 mg PO HS 04/10/16 01/30/19 Gabapentin [Neurontin] 300 mg PO BID 08/21/16 02/04/19 LORazepam [Ativan] 1 mg PO TID 07/02/17 02/04/19 traMADol [Ultram] 50 mg PO DAILY 07/02/17 02/04/19 Lidocaine [Lidocare] 1 patch PRN PRN 08/27/18 01/30/19 Glimepiride [Amaryl] 1 mg PO BID 01/30/19 01/30/19 Methylprednisolone [Medrol Dose 4 mg PO DAILY 01/30/19 01/30/19 Pack (21 tabs)] Sitagliptin Phos/Metformin HCl 1 tab PO BID 01/30/19 01/30/19 [Janumet 50-500 mg Tablet] Physical Exam - Physical Exam Narrative Physical Exam (Text): Gen: VS reviewed, alert, well developed, well nourished, nontoxic, mild distress. Drowsy ENT: Dry mucus membrane. normal pharynx. Eye: EOMI, PERRL. Neck: no JVD, supple, no adenopathy. CV: regular rate, regular rhythm, no rubs, no murmur, no gallops, S1, S2, pulses equal and strong. Pulm: Tachypneic, no distress, clear to auscultation, no wheeze, no rhonchi, no rales. Abd: soft, nontender, no guarding, no rebound, no rigidity, normal bowel sounds. Ext: Moving all extremities, but sluggish to move. no edema. Skin: good color, no rash, no cyanosis. Psych: responds appropriately to questions, normal affect. Neuro: difficult to fully access neuro exam because lethargic. Vital Signs Reviewed: Yes Vital Signs Temp Pulse Resp BP Pulse Ox 01/30/19 15:15 100.9 F H 84 18 97/56 L 86 L Temperature: Febrile Blood Pressure: Hypotensive Pulse: Regular Respiratory Rate: Tachypneic Finger Stick Blood Glucose: 229 Medical Decision Making ED Course and Treatment: 01/30/19 15: 15:14 Impression: 78 year old female presents for evaluation s/p fall and not behaving like her self as per family member. Plan: -- ABG -- Head CT without Contrast -- Labs -- EKG -- CXR -- IV Fluids, Zosyn -- Blood Culture, Urine Culture -- Fingerstick, Urinary straight cath -- O2 Nasal Cannula -- Procalcitonin Serum -- Urinalysis -- Reassess and disposition Prior Visits: Notes and results from previous visits were reviewed. Progress Notes: 01/30/19 15:15 Code sepsis called 01/30/19 18:22 admit accepted by the hospitalist . patient to be admitted for pneumonia. strong clinical suspicion for pneumonia in light of fever, leukocytosis and abnormal cxr. 01/30/19 18:48 patient hypoxic but is hypoventilating, will initiate bipap, appears stable for tele - Lab Interpretations I have reviewed the lab results: Yes - RAD Interpretation Narrative RAD Interpretations (Text): Chest X-Ray Dictator : Zena Xie MD Report Date : 01/30/2019 16:08:15 IMPRESSION: Stable appearance of the chest. Chronic interstitial changes. Mild superimposed infection or edema suspected. Correlate clinically. Marked cardiomegaly. Elevation of the right hemidiaphragm. Radiology Orders: 01/30/19 15:05 CHEST PORTABLE [RAD] Stat 01/30/19 15:11 HEAD W/O CONTRAST [CT] Stat Technician Helper Instrument: Radiologist - EKG Interpretation EKG Interpretation (Text): 01/30/19 14:03 EKG shows NSR at 84 BPM with normal QRS, normal axis, no acute ST/T wave abnormalities. Interpreted by me. Interpreted by ED Physician: Yes Type: 12 lead EKG - Medication Orders Current Medication Orders: Sodium Chloride (Sodium Chloride 0.9%) 1,000 mls @ 999 mls/hr IV .Q1H1M STA Stop: 01/30/19 16:15 Sodium Chloride (Sodium Chloride 0.9%) 1,000 mls @ 999 mls/hr IV .Q1H1M STA Stop: 01/30/19 16:15 Piperacillin Sod/Tazobactam Sod (Zosyn 3.375 In Ns 100ml) 100 mls @ 200 mls/hr IVPB STAT STA; Protocol Stop: 01/30/19 15:45 - Scribe Statement The provider has reviewed the documentation as recorded by the Timbo Fritz Provider Scribe Attestation: All medical record entries made by the Scribe were at my direction and personally dictated by me. I have reviewed the chart and agree that the record accurately reflects my personal performance of the history, physical exam, [facility] decision making, and the department course for this patient. I have also personally directed, reviewed, and agree with the discharge instructions and disposition. Disposition/Present on Arrival - Present on Arrival Any Indicators Present on Arrival: No History of DVT/PE: No History of Uncontrolled Diabetes: No Urinary Catheter: No History of Decub. Ulcer: No History Surgical Site Infection Following: None - Disposition Have Diagnosis and Disposition been Completed?: Yes Diagnosis: Pneumonia Disposition: HOSPITALIZED Disposition Time: 18:23 Patient Plan: Admission Condition: GUARDED
[2019-01-30 15:37] LABS: ARTERIAL BLOOD GAS HCO3 24.2 mmol/L (21-28); ARTERIAL BLOOD GAS O2 SAT 88.6 % (95-98); ARTERIAL BLOOD GAS PCO2 40 mm/Hg (35-45); ARTERIAL BLOOD GAS PH 7.39 (7.35-7.45); ARTERIAL BLOOD GAS TCO2 25.4 mmol.L (22-28)
[2019-01-30 15:42] LABS: INR 1.13; PROTHROMBIN TIME 12.5 SECONDS (9.4-12.5)
[2019-01-30 15:50] LABS: ALB/GLOB RATIO 1.1 (1.1-1.8); ALBUMIN 3.4 g/dL (3.0-4.8); ALT/SGPT 29 U/L (7-56); AST/SGOT 41 U/L (14-36); BLOOD UREA NITROGEN 27 mg/dL (7-21); CALCIUM 8.8 mg/dL (8.4-10.5); GFR NON-AFRICAN AMERICAN 53
[2019-01-30 15:52] LABS: TROPONIN I 0.06 ng/mL
--- NOTE | 2019-01-30 16:11 | RAD ---
HISTORY: chest pain COMPARISON: Chest x-ray performed 01/18/19 TECHNIQUE: Chest, one view. FINDINGS: Examination limited by habitus. LUNGS: Chronic interstitial markings. Suspect mild superimposed infection edema. Please note that chest x-ray has limited sensitivity for the detection of pulmonary masses. PLEURA: No significant pleural effusion identified. No definite pneumothorax . CARDIOVASCULAR: Cardiomegaly. Dense atherosclerotic calcifications. OSSEOUS STRUCTURES: Degenerative changes. VISUALIZED UPPER ABDOMEN: Elevation of the right hemidiaphragm. OTHER FINDINGS: None. IMPRESSION: Stable appearance of the chest. Chronic interstitial changes. Mild superimposed infection or edema suspected. Correlate clinically. Marked cardiomegaly. Elevation of the right hemidiaphragm.
[2019-01-30 16:56] LABS: URINE APPEARANCE CLEAR (CLEAR); URINE BILIRUBIN NEGATIVE (NEGATIVE); URINE BLOOD NEGATIVE (NEGATIVE); URINE COLOR YELLOW (YELLOW); URINE GLUCOSE (UA) NEGATIVE (NEGATIVE); URINE LEUKOCYTE ESTERASE NEGATIVE Leu/uL (NEGATIVE); URINE PROTEIN 30 mg/dL (<30 mg/dL); URINE UROBILINOGEN 0.2 E.U./dL (<1 E.U./dL)
[2019-01-30 17:01] LABS: URINE EPITHELIAL CELLS 0 - 2 /hpf (0-5)
--- NOTE | 2019-01-30 17:06 | CT ---
Date of service: 01/30/2019 PROCEDURE: CT HEAD WITHOUT CONTRAST. HISTORY: trauma COMPARISON: Noncontrast head CT performed 01/05/17 TECHNIQUE: Axial computed tomography images were obtained through the head/brain without intravenous contrast. Radiation dose: Total exam DLP = 902.18 mGy-cm. This CT exam was performed using one or more of the following dose reduction techniques: Automated exposure control, adjustment of the mA and/or kV according to patient size, and/or use of iterative reconstruction technique. FINDINGS: HEMORRHAGE: No intracranial hemorrhage. BRAIN: Diffuse atrophy with prominence of the ventricles and sulci noted. No mass effect or edema. Intracranial atherosclerosis. Bilateral basal ganglia calcifications. Left posterior parietal occipital encephalomalacia. Ex vacuo dilatation of the occipital horn left lateral ventricle. Scattered periventricular and subcortical white matter hypodensities, which are nonspecific, but often seen with chronic microvascular ischemic disease. Please note that MRI with diffusion imaging is more sensitive in the detection of acute ischemic event. VENTRICLES: No hydrocephalus. Ex vacuo dilatation of the occipital horn left lateral ventricle. CALVARIUM: Unremarkable. PARANASAL SINUSES: Unremarkable as visualized. No significant inflammatory changes. MASTOID AIR CELLS: Unremarkable as visualized. No inflammatory changes. OTHER FINDINGS: None. IMPRESSION: Left posterior parietal occipital encephalomalacia. Ex vacuo dilatation of the occipital horn left lateral ventricle. Nonspecific white matter changes. Generalized atrophy.
[2019-01-30] MEDS ORDERED: Vancomycin 500 mg Inj IVPB STA (18:23)
[2019-01-30] MEDS ORDERED: Vancomycin 1gm in NS 250ml 1 GM/250 ML BAG IVPB STA (18:35)
[2019-01-30] MEDS ORDERED: Lidocaine 5% Patch TD PRN (19:13)
--- NOTE | 2019-01-30 19:20 | CP.PCM.HP ---
History of Present Illness - History of Present Illness History of Present Illness: Ziggy Del Rosario, PGY-1, Internal Medicine History and Physical for Dr. Martin 78 year old female with past medical history of COPD, pulmonary sarcoidosis, diabetes mellitus type II, diabetic neuropathy, CVA with residual cognitive function loss, hypertension, depression, anxiety, osteoarthritis, and spinal stenosis presented status post fall and not behaving like herself, as per emergency department. Patient reported shortness of breath, but denied any other symptoms including nausea, vomiting, diarrhea, urinary symptoms, back pain, neck pain, headache, dizziness, or any other complaints. 12-point ROS was unreliable due to patient's mental status. 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 Walker Maintenance Superintendent: Dr. Guevara Present on Admission - Present on Admission Any Indicators Present on Admission: No Review of Systems - Review of Systems Systems not reviewed;Unavailable: Altered Mental Status Review of Systems: except for as noted in HPI Past Patient History - Infectious Disease Hx of Infectious Diseases: None - Tetanus Immunizations Tetanus Immunization: Unknown - Past Medical History & Family History Past Medical History?: Yes - Past Social History Smoking Status: Former Smoker - CARDIAC Hx Cardiac Disorders: Yes Hx Congestive Heart Failure: Yes Hx Hypertension: Yes - PULMONARY Hx Respiratory Disorders: Yes (sarcoidosis, pulmonary fibrosis, home o2) Other/Comment: dyspnea - NEUROLOGICAL Hx Neurological Disorder: Yes Hx Transient Ischemic Attacks (TIA): Yes (no deficits) Other/Comment: 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, neuropathy left leg both feet numbness tingling pain - HEENT Hx HEENT Problems: Yes (eyeglasses) 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 ([place]) Hx Macular Degeneration: Yes - RENAL Hx Chronic Kidney Disease: No - ENDOCRINE/METABOLIC Hx Diabetes Mellitus Type 2: Yes - HEMATOLOGICAL/ONCOLOGICAL Hx Blood Disorders: Yes Hx Cancer: Yes (basal cell) - INTEGUMENTARY Other/Comment: SARCOIDOSIS, b/l arm skin discolorations, rle round 2cm purple sk in discoloration - MUSCULOSKELETAL/RHEUMATOLOGICAL Hx Falls: Yes (past) Hx Unsteady Gait: Yes (cane when out) - GASTROINTESTINAL Hx Gastrointestinal Disorders: Yes Hx Gastroesophageal Reflux: Yes - GENITOURINARY/GYNECOLOGICAL Other/Comment: vaginal rectal fistula repair - PSYCHIATRIC Hx Psychophysiologic Disorder: Yes Hx Anxiety: Yes Hx Depression: Yes Hx Substance Use: No - SURGICAL HISTORY Other/Comment: laparoscopic sx to dx sarcoidosis - ANESTHESIA Hx Anesthesia: Yes Hx Anesthesia Reactions: No Hx Malignant Hyperthermia: No Meds Allergies/Adverse Reactions: Allergies Allergy/AdvReac Type Severity Reaction Status Date / Time No Known Allergies Allergy Verified 01/30/19 14:57 Physical Exam - Constitutional Appears: Non-toxic, In Acute Distress - Head Exam Head Exam: ATRAUMATIC, NORMAL INSPECTION, NORMOCEPHALIC - Eye Exam Eye Exam: EOMI, PERRL - ENT Exam ENT Exam: Mucous Membranes Dry Additional comments: bipap in place - Respiratory Exam Respiratory Exam: Wheezes - Cardiovascular Exam Cardiovascular Exam: REGULAR RHYTHM, RRR - GI/Abdominal Exam GI & Abdominal Exam: Normal Bowel Sounds, Soft. absent: Tenderness - Extremities Exam Extremities exam: Positive for: full ROM - Neurological Exam Neurological exam: Alert, CN II-XII Intact Additional comments: AAOx2 but confused Results - Vital Signs Recent Vital Signs: Last Vital Signs Temp 99.0 F 01/30/19 19:08 Pulse 85 01/30/19 19:08 Resp 12 01/30/19 19:08 BP 105/53 L 01/30/19 19:08 Pulse Ox 96 01/30/19 19:08 - Labs Result Diagrams: 01/30/19 15:25 01/30/19 15:25 Labs: Laboratory Results - last 24 hr 01/30/19 01/30/19 01/30/19 15:25 15:25 15:25 WBC 21.6 H D RBC 4.99 Hgb 11.8 L Hct 39.1 MCV 78.4 L MCH 23.6 L MCHC 30.2 L RDW 19.0 H Plt Count 293 MPV 10.7 Neut % (Auto) 78.7 H Lymph % (Auto) 11.2 L [place] % (Auto) 9.4 H Eos % (Auto) 0.6 L Baso % (Auto) 0.1 Lymph # (Auto) 2.4 [place] # (Auto) 2.0 H Eos # (Auto) 0.1 Baso # (Auto) 0.03 Absolute Neuts (auto) 16.95 H PT 12.5 INR 1.13 APTT 28.0 pCO2 pO2 HCO3 ABG pH ABG Total CO2 ABG O2 Saturation ABG Base Excess ABG Potassium Glucose Lactate FiO2 Crit Value Called To Crit Value Called By Blood Gas Notified Time Sodium 134 Potassium 4.8 Chloride 100 Carbon Dioxide 25 Anion Gap 14 BUN 27 H Creatinine 1.0 Est GFR ( Amer) > 60 Est GFR (Non-Af Amer) 53 Random Glucose 255 H Calcium 8.8 Phosphorus 4.5 Magnesium 1.7 Total Bilirubin 0.4 AST 41 H D ALT 29 Alkaline Phosphatase 222 H D Troponin I 0.06 D Total Protein 6.5 Albumin 3.4 Globulin 3.1 Albumin/Globulin Ratio 1.1 TSH 3rd Generation Arterial Blood Potassium Urine Color Urine Appearance Urine pH Ur Specific [place] Urine Protein Urine Glucose (UA) Urine Ketones Urine Blood Urine Nitrate Urine Bilirubin Urine Urobilinogen Ur Leukocyte Esterase Urine RBC Urine WBC Ur Epithelial Cells 01/30/19 01/30/19 01/30/19 15:25 15:32 15:51 WBC RBC Hgb Hct MCV MCH MCHC RDW Plt Count MPV Neut % (Auto) Lymph % (Auto) [place] % (Auto) Eos % (Auto) Baso % (Auto) Lymph # (Auto) [place] # (Auto) Eos # (Auto) Baso # (Auto) Absolute Neuts (auto) PT INR APTT pCO2 40 pO2 52.0 L HCO3 24.2 ABG pH 7.39 ABG Total CO2 25.4 ABG O2 Saturation 88.6 L ABG Base Excess -0.7 ABG Potassium 3.8 Glucose 245 H Lactate 2.3 H FiO2 40.0 Crit Value Called To Dr malone Crit Value Called By Solomon lopez Blood Gas Notified Time 1538 Sodium 136.0 Potassium Chloride 104.0 Carbon Dioxide Anion Gap BUN Creatinine Est GFR ( Amer) Est GFR (Non-Af Amer) Random Glucose Calcium Phosphorus Magnesium Total Bilirubin AST ALT Alkaline Phosphatase Troponin I Total Protein Albumin Globulin Albumin/Globulin Ratio TSH 3rd Generation 1.72 Arterial Blood Potassium 3.8 Urine Color Yellow Urine Appearance Clear Urine pH 6.0 Ur Specific [place] 1.020 Urine Protein 30 H Urine Glucose (UA) Negative Urine Ketones Negative Urine Blood Negative Urine Nitrate Negative Urine Bilirubin Negative Urine Urobilinogen 0.2 Ur Leukocyte Esterase Negative Urine RBC None Urine WBC None Ur Epithelial Cells 0 - 2 Assessment & Plan - Assessment and Plan (Free Text) Assessment: 78 year old female with a past medical history significant for COPD, pulmonary sarcoidosis, DM2, diabetic neuropathy, 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 Patient was also found to have shortness of breath on exam with hypoxic respiratory failure. Plan: Hypoxic respiratory secondary to CHF exacerbation vs. COPD exacerbation vs. pneumonia -ABG: pH: 7.39, pO2: 52 from 57 from last admisssion 2 weeks ago, pCO2: 40 -CXR: showed left lower lobe infiltrate vs. effusion -Follow up blood culture, urine culture, procalcitonin. Lactate was 2.3 in the emergency department -As patient's blood pressure is low and pulse is within normal limits, will hold off on beta blockers and clari inhibitors for CHF exacerbation -Continue patient on BiPap -For COPD, started duonebs scheduled and PRN -Started vancomycin and zosyn for suspected HCAP in the emergency department -Dr. Padilla, ID, consulted for recommendations. Please follow recommendations. Rule out trauma status post fall -Head CT: left posterior parietal occipital encephalomalacia. Ex vacuo dilatation of the occiptal horn left lateral ventricle. Nonspecific white matter changes. Generalized atrophy -Follow up spine X ray to rule out spine fracture -Started lidoderm patch and tylenol for pain Altered mental status -Head CT: left posterior parietal occipital encephalomalacia. Ex vacuo dilatation of the occiptal horn left lateral ventricle. Nonspecific white matter changes. Generalized atrophy -Follow up spine X ray to rule out spine fracture -Neuro checks Q4 -Dr. Joshua, consulted for recommendations. Please follow neurology recommendations. Diabetes mellitus type II -Follow up hemoglobin A1c -Continue medium SSI -Continue home neurontin for diabetic neuropathy History of CVA -Continue with home aspirin and lipitor Hypertension -Patient is borderline hypotensive at this time -Will hold all antihypertensives -Will consider beta sierra once blood pressure improves Depression and anxiety -Continue home xanax Osteoarthritis -Follow up spine X ray to rule out spine fracture -Started lidoderm patch and tylenol for pain Elevated transaminases -Continue to monitor Chronic normocytic anemia -Hgb: 11.8 -Patient currently at baseline -Continue to monitor. GI prophylaxis: protonix 40 mg daily DVT prophylaxis: lovenox 40 mg daily Patient plan discussed with attending. - Date & Time Date: 01/30/19 Time: 19:32
[2019-01-30 19:57] LABS: VENOUS BLOOD GAS BASE EXCESS 2.2 mmol/L (0.0-2.0); VENOUS BLOOD GAS PO2 281 mm/Hg (30-55); VENOUS BLOOD PH 7.48 (7.32-7.43)
[2019-01-30] MEDS: Albuterol-Ipratrop 3 mg / 0.5 (3 ml) UD IH SCH (20:15)
--- NOTE | 2019-01-30 20:24 | PCM.SEPTIC ---
<Ziggy Del Rosario - Last Filed: 01/30/19 20:23> Sepsis Progress Note - Reassessment Type Date of Evaluation: 01/30/19 Time of Evaluation: 06:30 Reassessment Type: Non-invasive reassessment - Non Invasive Reassessment Were the most recent vital sign reviewed: Yes Vital Sign (Latest): Temp Pulse Resp BP Pulse Ox 99.0 F 85 12 105/53 L 96 01/30/19 19:08 01/30/19 19:08 01/30/19 19:08 01/30/19 19:08 01/30/19 19:08 Cardiovascular: Yes: Regular Rate, Rhythm Respiratory: Yes: Wheezing Capillary Refill: Normal (Less than 2 sec) Pulses: Normal Radial, Normal Dorsalis Pedis, Normal Posterior Tibialis Skin: Warm, Dry, Pale <Lai Martin - Last Filed: 02/01/19 06:21> Sepsis Progress Note - Non Invasive Reassessment Vital Sign (Latest): Temp Pulse Resp BP Pulse Ox 98.9 F 96 H 19 111/67 98 02/01/19 05:52 02/01/19 05:52 02/01/19 05:52 02/01/19 05:52 02/01/19 05:52 Attending/Attestation - Attestation I have personally seen and examined this patient.: Yes I have fully participated in the care of the patient.: Yes I have reviewed all pertinent clinical information, including history, physical exam and plan: Yes
[2019-01-30] MEDS: Insulin Reg-MEDIUM-Coverage SC SCH (22:58)
[2019-01-31 00:11] VITALS: BMI 25.4
[2019-01-31] MEDS: Albuterol-Ipratrop 3 mg / 0.5 (3 ml) UD IH SCH ×4 (02:45→22:00)
[2019-01-31] MEDS ORDERED: Piperacillin/Tazobact 3.375 gm 100 ML IVPB STA (07:47)
[2019-01-31] MEDS: Insulin Reg-MEDIUM-Coverage SC SCH ×4 (08:00→23:12)
--- NOTE | 2019-01-31 08:02 | CP.PCM.PN ---
<Ziggy Del Rosario - Last Filed: 01/31/19 10:53> Subjective - Date & Time of Evaluation Date of Evaluation: 01/31/19 Time of Evaluation: 10:53 - Subjective Subjective: Ziggy Del Rosario, PGY-1, Internal Medicine Progress Note for Dr. Moreno Patient was seen and evaluated at bedside. Patient had no acute events overnight. Patient was on nasal cannula at bedside. Patient was AAOx1 at bedside and reported no complaints at this time. Patient had mild respiratory distress. Patient had no other acute complaints. 12-point ROS was unremarkable except for what was mentioned above. Objective - Vital Signs/Intake and Output Vital Signs (last 24 hours): Temp Pulse Resp BP Pulse Ox 98.5 F 97 H 18 121/72 98 01/31/19 05:51 01/31/19 05:51 01/31/19 05:51 01/31/19 05:51 01/31/19 05:51 Intake and Output: 01/31/19 01/31/19 06:59 18:59 Intake Total 480 Balance 480 - Medications Medications: Current Medications Acetaminophen (Tylenol 325mg Tab) 650 mg PO Q6H PRN PRN Reason: Pain, moderate (4-7) Albuterol/Ipratropium (Duoneb 3 Mg/0.5 Mg (3 Ml) Ud) 3 ml IH [id number] [facility] Last Admin: 01/31/19 07:42 Dose: 3 ml Albuterol/Ipratropium (Duoneb 3 Mg/0.5 Mg (3 Ml) Ud) 3 ml IH Q2H PRN PRN Reason: Shortness of Breath Aspirin (Ecotrin) 325 mg PO DAILY [facility] Atorvastatin Calcium (Lipitor) 40 mg PO DAILY [facility] Enoxaparin Sodium (Lovenox) 40 mg SC DAILY [facility]; Protocol Furosemide (Lasix) 40 mg IVP DAILY [facility] Gabapentin (Neurontin) 300 mg PO BID [facility]; Protocol Vancomycin HCl (Vancomycin 1gm) 1 gm in 250 mls @ 167 mls/hr IVPB DAILY [facility]; Protocol Piperacillin Sod/Tazobactam Sod (Zosyn 3.375 In Ns 100ml) 100 mls @ 200 mls/hr IVPB STAT ST[facility]; Protocol Stop: 01/31/19 08:16 Insulin Human Regular (Humulin R Med) 0 units SC ACHS [facility]; Protocol Last Admin: 01/30/19 22:58 Dose: Not Given Lidocaine (Lidoderm) 1 ea TD DAILY PRN PRN Reason: Pain, Mild (1-3) Lorazepam (Ativan) 1 mg PO TID [facility]; Protocol Mirtazapine (Remeron) 30 mg PO HS [facility] Last Admin: 01/30/19 22:51 Dose: 30 mg Non-Formulary Medication ([place]-3/Dha/Epa/Fish Oil [Fish Oil 500 Mg Softgel]) 500 mg PO BID [facility] Pantoprazole Sodium (Protonix Inj) 40 mg IVP DAILY [facility] Tramadol HCl (Ultram) 50 mg PO DAILY [facility] Zolpidem Tartrate (Ambien) 5 mg PO HS [facility]; Protocol Last Admin: 01/31/19 02:03 Dose: Not Given - Labs Labs: 01/30/19 15:25 01/30/19 15:25 PT 12.5 SECONDS (9.4-12.5) 01/30/19 15:25 INR 1.13 01/30/19 15:25 APTT 28.0 Seconds (26.9-38.3) 01/30/19 15:25 - Constitutional Appears: Well, Non-toxic, No Acute Distress - Head Exam Head Exam: ATRAUMATIC, NORMAL INSPECTION, NORMOCEPHALIC - Eye Exam Eye Exam: EOMI, PERRL - Respiratory Exam Respiratory Exam: Clear to Ausculation Bilateral - Cardiovascular Exam Cardiovascular Exam: REGULAR RHYTHM, RRR - GI/Abdominal Exam GI & Abdominal Exam: Soft, Normal Bowel Sounds. 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 Patient was also found to have shortness of breath on exam with hypoxic respiratory failure. Plan: Hypoxic respiratory secondary to CHF exacerbation vs. COPD exacerbation vs. pneumonia -ABG 01/30: pH: 7.39, pO2: 52 from 57 from last admission 2 weeks ago, pCO2: 40 -CXR 3/2: showed left lower lobe infiltrate vs. effusion -Follow up blood culture, urine culture, sputum culture, procalcitonin. Lactate was 2.3 in the emergency department trending down to 0.9 -As patient's blood pressure is low and pulse is within normal limits, will hold off on beta blockers and clari inhibitors for CHF exacerbation -Continue patient on BiPap as needed -For COPD, continue duonebs scheduled and PRN -Continue vancomycin and zosyn for suspected HCAP in the emergency department -Dr. Padilla, ID, consulted for recommendations. Please follow recommendations. -Dr. Alcaraz, ID, consulted for further recommendations. Rule out trauma status post fall -Head CT 01/30: left posterior parietal occipital encephalomalacia. Ex vacuo dilatation of the occiptal horn left lateral ventricle. Nonspecific white matter changes. Generalized atrophy -Follow up spine X ray to rule out spine fracture -Continue lidoderm patch and tramadol for pain Altered mental status -Head CT 01/30: left posterior parietal occipital encephalomalacia. Ex vacuo dilatation of the occiptal horn left lateral ventricle. Nonspecific white matter changes. Generalized atrophy -Follow up spine X ray to rule out spine fracture -Neuro checks Q4 -Dr. Joshua, consulted for recommendations. Please follow neurology recommendations. Diabetes mellitus type II -Follow up hemoglobin A1c -Continue medium SSI -Continue home neurontin for diabetic neuropathy History of CVA -Continue with home aspirin and lipitor Hypertension -Patient is borderline hypotensive at this time -Will hold all antihypertensives -Will consider beta sierra once blood pressure improves Depression and anxiety -Continue home xanax Osteoarthritis -Follow up spine X ray to rule out spine fracture -Started lidoderm patch and tylenol for pain Elevated transaminases -Continue to monitor Chronic normocytic anemia-resolved -Hgb: 12.3 -Patient currently at baseline -Continue to monitor. GI prophylaxis: protonix 40 mg daily DVT prophylaxis: lovenox 40 mg daily Patient plan discussed with attending. <Michael Moreno - Last Filed: 01/31/19 12:41> Objective - Vital Signs/Intake and Output Vital Signs (last 24 hours): Temp Pulse Resp BP Pulse Ox 99 F 101 H 18 124/68 98 01/31/19 12:00 01/31/19 12:00 01/31/19 12:00 01/31/19 12:34 01/31/19 05:51 Intake and Output: 01/31/19 01/31/19 06:59 18:59 Intake Total 480 Balance 480 - Medications Medications: Current Medications Acetaminophen (Tylenol 325mg Tab) 650 mg PO Q6H PRN PRN Reason: Pain, moderate (4-7) Albuterol/Ipratropium (Duoneb 3 Mg/0.5 Mg (3 Ml) Ud) 3 ml IH [id number] [facility] Last Admin: 01/31/19 07:42 Dose: 3 ml Albuterol/Ipratropium (Duoneb 3 Mg/0.5 Mg (3 Ml) Ud) 3 ml IH Q2H PRN PRN Reason: Shortness of Breath Aspirin (Ecotrin) 325 mg PO DAILY [facility] Last Admin: 01/31/19 10:37 Dose: 325 mg Atorvastatin Calcium (Lipitor) 40 mg PO DAILY [facility] Last Admin: 01/31/19 10:36 Dose: 40 mg Doxycycline Hyclate (Doryx) 100 mg PO Q12 [facility]; Protocol Stop: 02/09/19 22:01 Enoxaparin Sodium (Lovenox) 40 mg SC DAILY [facility]; Protocol Last Admin: 01/31/19 10:37 Dose: 40 mg Furosemide (Lasix) 80 mg PO DAILY [facility] Last Admin: 01/31/19 12:34 Dose: 80 mg Gabapentin (Neurontin) 300 mg PO BID [facility]; Protocol Last Admin: 01/31/19 10:37 Dose: 300 mg Meropenem (Merrem Iv 1 Gm Premix) 1 gm in 50 mls @ 100 mls/hr IVPB Q8 [facility]; Protocol Stop: 02/09/19 14:01 Insulin Human Regular (Humulin R Med) 0 units SC ACHS [facility]; Protocol Last Admin: 01/31/19 12:30 Dose: 5 unit Lidocaine (Lidoderm) 1 ea TD DAILY PRN PRN Reason: Pain, Mild (1-3) Lorazepam (Ativan) 1 mg PO TID [facility]; Protocol Last Admin: 01/31/19 10:36 Dose: 1 mg Mirtazapine (Remeron) 30 mg PO HS [facility] Last Admin: 01/30/19 22:51 Dose: 30 mg Non-Formulary Medication ([place]-3/Dha/Epa/Fish Oil [Fish Oil 500 Mg Softgel]) 500 mg PO BID [facility] Pantoprazole Sodium (Protonix Ec Tab) 40 mg PO 0600 [facility] Tramadol HCl (Ultram) 50 mg PO DAILY [facility] Last Admin: 01/31/19 10:37 Dose: 50 mg Zolpidem Tartrate (Ambien) 5 mg PO HS [facility]; Protocol Last Admin: 01/31/19 02:03 Dose: Not Given - Labs Labs: 01/31/19 09:00 01/31/19 09:00 PT 12.5 SECONDS (9.4-12.5) 01/30/19 15:25 INR 1.13 01/30/19 15:25 APTT 28.0 Seconds (26.9-38.3) 01/30/19 15:25 Attending/Attestation - Attestation I have personally seen and examined this patient.: Yes I have fully participated in the care of the patient.: Yes I have reviewed all pertinent clinical information, including history, physical exam and plan: Yes Notes (Text): 01/31/19 12:36 78 year old female with past medical history of COPD, pulmonary sarcoidosis, CVA, and diabetes who presented with altered mental status s/p fall at home. Also found to have acute on chronic respiratory failure. Ct head and CXR reviewed as above. Mental status has improved to baseline. She is on iv antibiotics. Bipap HS. Duonebs prn. ID and pulmonary are following. Leukocyt osis present may be also contributed to recent steroids. Neurology evaluation was requested as well. Patient will need PT evaluation prior to discharge at well. Overall prognosis is guarded. Patient is DNR/DNI. Home health aid is at bedside and questions were answered. Michael Moreno MD Hospitalist.
[2019-01-31 09:30] LABS: BASO # 0.02 K/mm3 (0.0-2.0); BASO % 0.1 % (0.0-3.0); EOS # 0.2 (0.0-0.7); EOS % 0.7 % (1.5-5.0); HEMOGLOBIN 12.3 g/dL (12.0-16.0); LYMPH # 2.2 (1.2-3.4); LYMPH % 10.4 % (22.0-35.0); MEAN CELL VOLUME 78.5 fl (80.0-105.0); MEAN CORPUSCULAR HEMOGLOBIN 23.2 pg (25.0-35.0); MEAN CORPUSCULAR HGB CONC 29.6 g/dl (31.0-37.0); MEAN PLATELET VOLUME 10.3 fl (7.0-11.0); MONO # 1.3 (0.1-0.6); MONO % 6.1 % (1.0-6.0); RBC 5.3 10^6/uL (3.5-6.1); RED CELL DISTRIBUTION WIDTH 19.2 % (11.5-14.5); WHITE BLOOD COUNT 21.1 10^3/uL (4.5-11.0)
[2019-01-31 09:48] LABS: ALB/GLOB RATIO 1.1 (1.1-1.8); ALBUMIN 3.3 g/dL (3.0-4.8); ALT/SGPT 38 U/L (7-56); AST/SGOT 37 U/L (14-36); BLOOD UREA NITROGEN 27 mg/dL (7-21); CALCIUM 8.7 mg/dL (8.4-10.5); GFR NON-AFRICAN AMERICAN 53
[2019-01-31] MEDS ORDERED: Enoxaparin 40 mg Syringe SC SCH (10:00)
[2019-01-31] MEDS ORDERED: Vancomycin 1gm in NS 250ml 1 GM/250 ML BAG IVPB SCH (10:00)
[2019-01-31] MEDS: Aspirin 325 mg EC Tablets PO SCH (10:37)
[2019-01-31] MEDS ORDERED: Barium Sulfate Susp 2.1% w/v, 2.0% w/w 450 mL Bottle PO ONE (12:36)
[2019-01-31] MEDS: Meropenem IV 1 gm in NS 1 GM/50 ML BAG IVPB SCH ×3 (14:02→21:58)
--- NOTE | 2019-01-31 14:50 | CP.PCM.CON ---
History of Present Illness - History of Present Illness History of Present Illness: Neurology Consultation Note: Consult requested by Dr. Moreno Mrs. Juarez is an 78-year-old woman with a past medical history of COPD, pulmonary sarcoidosis, diabetes mellitus type II, diabetic neuropathy, CVA with residual cognitive function loss, hypertension, depression, anxiety, osteoarthritis, and spinal stenosis presented status post fall and not behaving like herself. Labs demonstrated a WBC of 21,000, chest X-ray was suspicious for infection, CT head showed chronic left parietal-occipital lobe infarct, but no acute findings. Review of Systems - Review of Systems Systems not reviewed;Unavailable: Altered Mental Status Past Patient History - Infectious Disease Hx of Infectious Diseases: None - Tetanus Immunizations Tetanus Immunization: Unknown - Past Medical History & Family History Past Medical History?: Yes - Past Social History Smoking Status: Former Smoker - CARDIAC Hx Cardiac Disorders: Yes Hx Congestive Heart Failure: Yes Hx Hypertension: Yes - PULMONARY Hx Respiratory Disorders: Yes (sarcoidosis, pulmonary fibrosis, home o2) Hx Chronic Obstructive Pulmonary Disease (COPD): Yes Hx Pneumonia: Yes Other/Comment: dyspnea - NEUROLOGICAL Hx Neurological Disorder: Yes Hx Transient Ischemic Attacks (TIA): Yes (no deficits) Other/Comment: 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, neuropathy left leg both feet numbness tingling pain - HEENT Hx HEENT Problems: Yes (eyeglasses) 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 ([place]) Hx Macular Degeneration: Yes - RENAL Hx Chronic Kidney Disease: No - ENDOCRINE/METABOLIC Hx Diabetes Mellitus Type 2: Yes - HEMATOLOGICAL/ONCOLOGICAL Hx Blood Disorders: Yes Hx Cancer: Yes (basal cell) - INTEGUMENTARY Other/Comment: SARCOIDOSIS, b/l arm skin discolorations, rle round 2cm purple skin discoloration - MUSCULOSKELETAL/RHEUMATOLOGICAL Hx Falls: No - GASTROINTESTINAL Hx Gastrointestinal Disorders: Yes Hx Gastroesophageal Reflux: Yes - GENITOURINARY/GYNECOLOGICAL Other/Comment: vaginal rectal fistula repair - PSYCHIATRIC Hx Psychophysiologic Disorder: Yes Hx Anxiety: Yes Hx Depression: Yes Hx Substance Use: No - SURGICAL HISTORY Other/Comment: laparoscopic sx to dx sarcoidosis - ANESTHESIA Hx Anesthesia: Yes Hx Anesthesia Reactions: No Hx Malignant Hyperthermia: No Meds Allergies/Adverse Reactions: Allergies Allergy/AdvReac Type Severity Reaction Status Date / Time No Known Allergies Allergy Verified 01/30/19 14:57 - Medications Medications: Current Medications Acetaminophen (Tylenol 325mg Tab) 650 mg PO Q6H PRN PRN Reason: Pain, moderate (4-7) Albuterol/Ipratropium (Duoneb 3 Mg/0.5 Mg (3 Ml) Ud) 3 ml IH [id number] [facility] Last Admin: 01/31/19 13:33 Dose: 3 ml Albuterol/Ipratropium (Duoneb 3 Mg/0.5 Mg (3 Ml) Ud) 3 ml IH Q2H PRN PRN Reason: Shortness of Breath Aspirin (Ecotrin) 325 mg PO DAILY [facility] Last Admin: 01/31/19 10:37 Dose: 325 mg Atorvastatin Calcium (Lipitor) 40 mg PO DAILY [facility] Last Admin: 01/31/19 10:36 Dose: 40 mg Doxycycline Hyclate (Doryx) 100 mg PO Q12 [facility]; Protocol Stop: 02/09/19 22:01 Enoxaparin Sodium (Lovenox) 40 mg SC DAILY [facility]; Protocol Last Admin: 01/31/19 10:37 Dose: 40 mg Furosemide (Lasix) 80 mg PO DAILY [facility] Last Admin: 01/31/19 12:34 Dose: 80 mg Gabapentin (Neurontin) 300 mg PO BID [facility]; Protocol Last Admin: 01/31/19 10:37 Dose: 300 mg Meropenem (Merrem Iv 1 Gm Premix) 1 gm in 50 mls @ 100 mls/hr IVPB Q8 [facility]; Protocol Stop: 02/09/19 14:01 Last Admin: 01/31/19 14:02 Dose: Not Given Insulin Human Regular (Humulin R Med) 0 units SC ACHS [facility]; Protocol Last Admin: 01/31/19 12:30 Dose: 5 unit Lidocaine (Lidoderm) 1 ea TD DAILY PRN PRN Reason: Pain, Mild (1-3) Lorazepam (Ativan) 1 mg PO TID [facility]; Protocol Last Admin: 01/31/19 14:35 Dose: Not Given Mirtazapine (Remeron) 30 mg PO HS [facility] Last Admin: 01/30/19 22:51 Dose: 30 mg Non-Formulary Medication ([place]-3/Dha/Epa/Fish Oil [Fish Oil 500 Mg Softgel]) 500 mg PO BID [facility] Pantoprazole Sodium (Protonix Ec Tab) 40 mg PO 0600 [facility] Tramadol HCl (Ultram) 50 mg PO DAILY [facility] Last Admin: 01/31/19 10:37 Dose: 50 mg Zolpidem Tartrate (Ambien) 5 mg PO HS [facility]; Protocol Last Admin: 01/31/19 02:03 Dose: Not Given Physical Exam - Constitutional Appears: Chronically Ill - Head Exam Head Exam: ATRAUMATIC, NORMAL INSPECTION, NORMOCEPHALIC - Eye Exam Eye Exam: EOMI, Normal appearance, PERRL - Neck Exam Neck exam: Positive for: Normal Inspection - Respiratory Exam Respiratory Exam: Decreased Breath Sounds, Respiratory Distress - Cardiovascular Exam Cardiovascular Exam: REGULAR RHYTHM, +S1, +S2 - GI/Abdominal Exam GI & Abdominal Exam: Normal Bowel Sounds, Soft. absent: Tenderness - Neurological Exam Neurological exam: Altered, CN II-XII Intact Additional comments: Confused, generalized weakness, some visual deficits on the right, follows simple commands, moves all extremities, sensation is intact throughout. Results - Vital Signs Recent Vital Signs: Last Vital Signs Temp 99 F 01/31/19 12:00 Pulse 109 H 01/31/19 13:45 Resp 18 01/31/19 12:00 BP 124/68 01/31/19 12:34 Pulse Ox 98 01/31/19 05:51 - Labs Result Diagrams: 01/31/19 09:00 01/31/19 09:00 Labs: Laboratory Results - last 24 hr 01/30/19 01/30/19 01/30/19 15:25 15:25 15:25 WBC 21.6 H D RBC 4.99 Hgb 11.8 L Hct 39.1 MCV 78.4 L MCH 23.6 L MCHC 30.2 L RDW 19.0 H Plt Count 293 MPV 10.7 Neut % (Auto) 78.7 H Lymph % (Auto) 11.2 L [place] % (Auto) 9.4 H Eos % (Auto) 0.6 L Baso % (Auto) 0.1 Lymph # (Auto) 2.4 [place] # (Auto) 2.0 H Eos # (Auto) 0.1 Baso # (Auto) 0.03 Absolute Neuts (auto) 16.95 H PT 12.5 INR 1.13 APTT 28.0 pCO2 pO2 HCO3 ABG pH ABG Total CO2 ABG O2 Saturation ABG Base Excess ABG Potassium VBG pH VBG pCO2 VBG HCO3 VBG Total CO2 VBG O2 Sat (Calc) VBG Base Excess VBG Potassium Glucose Lactate FiO2 Crit Value Called To Crit Value Called By Blood Gas Notified Time Sodium 134 Potassium 4.8 Chloride 100 Carbon Dioxide 25 Anion Gap 14 BUN 27 H Creatinine 1.0 Est GFR ( Amer) > 60 Est GFR (Non-Af Amer) 53 POC Glucose (mg/dL) Random Glucose 255 H Hemoglobin A1c Calcium 8.8 Phosphorus 4.5 Magnesium 1.7 Total Bilirubin 0.4 AST 41 H D ALT 29 Alkaline Phosphatase 222 H D Troponin I 0.06 D Total Protein 6.5 Albumin 3.4 Globulin 3.1 Albumin/Globulin Ratio 1.1 Procalcitonin TSH 3rd Generation Arterial Blood Potassium Venous Blood Potassium Urine Color Urine Appearance Urine pH Ur Specific [place] Urine Protein Urine Glucose (UA) Urine Ketones Urine Blood Urine Nitrate Urine Bilirubin Urine Urobilinogen Ur Leukocyte Esterase Urine RBC Urine WBC Ur Epithelial Cells 01/30/19 01/30/19 01/30/19 15:25 15:25 15:32 WBC RBC Hgb Hct MCV MCH MCHC RDW Plt Count MPV Neut % (Auto) Lymph % (Auto) [place] % (Auto) Eos % (Auto) Baso % (Auto) Lymph # (Auto) [place] # (Auto) Eos # (Auto) Baso # (Auto) Absolute Neuts (auto) PT INR APTT pCO2 40 pO2 52.0 L HCO3 24.2 ABG pH 7.39 ABG Total CO2 25.4 ABG O2 Saturation 88.6 L ABG Base Excess -0.7 ABG Potassium 3.8 VBG pH VBG pCO2 VBG HCO3 VBG Total CO2 VBG O2 Sat (Calc) VBG Base Excess VBG Potassium Glucose 245 H Lactate 2.3 H FiO2 40.0 Crit Value Called To Dr malone Crit Value Called By Solomon lopez Blood Gas Notified Time 1538 Sodium 136.0 Potassium Chloride 104.0 Carbon Dioxide Anion Gap BUN Creatinine Est GFR ( Amer) Est GFR (Non-Af Amer) POC Glucose (mg/dL) Random Glucose Hemoglobin A1c Calcium Phosphorus Magnesium Total Bilirubin AST ALT Alkaline Phosphatase Troponin I Total Protein Albumin Globulin Albumin/Globulin Ratio Procalcitonin 0.29 TSH 3rd Generation 1.72 Arterial Blood Potassium 3.8 Venous Blood Potassium Urine Color Urine Appearance Urine pH Ur Specific [place] Urine Protein Urine Glucose (UA) Urine Ketones Urine Blood Urine Nitrate Urine Bilirubin Urine Urobilinogen Ur Leukocyte Esterase Urine RBC Urine WBC Ur Epithelial Cells 01/30/19 01/30/19 01/30/19 15:51 17:00 19:50 WBC RBC Hgb Hct MCV MCH MCHC RDW Plt Count MPV Neut % (Auto) Lymph % (Auto) [place] % (Auto) Eos % (Auto) Baso % (Auto) Lymph # (Auto) [place] # (Auto) Eos # (Auto) Baso # (Auto) Absolute Neuts (auto) PT INR APTT pCO2 pO2 281 H HCO3 ABG pH ABG Total CO2 ABG O2 Saturation ABG Base Excess ABG Potassium VBG pH 7.48 H VBG pCO2 34.0 L VBG HCO3 25.3 VBG Total CO2 26.3 VBG O2 Sat (Calc) 99.8 H VBG Base Excess 2.2 H VBG Potassium 3.9 Glucose 168 H Lactate 0.9 FiO2 21.0 Crit Value Called To Crit Value Called By Blood Gas Notified Time Sodium 137.0 Potassium Chloride 105.0 Carbon Dioxide Anion Gap BUN Creatinine Est GFR ( Amer) Est GFR (Non-Af Amer) POC Glucose (mg/dL) Random Glucose Hemoglobin A1c 8.5 H D Calcium Phosphorus Magnesium Total Bilirubin AST ALT Alkaline Phosphatase Troponin I Total Protein Albumin Globulin Albumin/Globulin Ratio Procalcitonin TSH 3rd Generation Arterial Blood Potassium Venous Blood Potassium 3.9 Urine Color Yellow Urine Appearance Clear Urine pH 6.0 Ur Specific [place] 1.020 Urine Protein 30 H Urine Glucose (UA) Negative Urine Ketones Negative Urine Blood Negative Urine Nitrate Negative Urine Bilirubin Negative Urine Urobilinogen 0.2 Ur Leukocyte Esterase Negative Urine RBC None Urine WBC None Ur Epithelial Cells 0 - 2 01/30/19 01/31/19 01/31/19 22:17 07:15 09:00 WBC 21.1 H RBC 5.30 Hgb 12.3 Hct 41.6 MCV 78.5 L MCH 23.2 L MCHC 29.6 L RDW 19.2 H Plt Count 259 MPV 10.3 Neut % (Auto) 82.7 H Lymph % (Auto) 10.4 L [place] % (Auto) 6.1 H Eos % (Auto) 0.7 L Baso % (Auto) 0.1 Lymph # (Auto) 2.2 [place] # (Auto) 1.3 H Eos # (Auto) 0.2 Baso # (Auto) 0.02 Absolute Neuts (auto) 17.43 H PT INR APTT pCO2 pO2 HCO3 ABG pH ABG Total CO2 ABG O2 Saturation ABG Base Excess ABG Potassium VBG pH VBG pCO2 VBG HCO3 VBG Total CO2 VBG O2 Sat (Calc) VBG Base Excess VBG Potassium Glucose Lactate FiO2 Crit Value Called To Crit Value Called By Blood Gas Notified Time Sodium Potassium Chloride Carbon Dioxide Anion Gap BUN Creatinine Est GFR ( Amer) Est GFR (Non-Af Amer) POC Glucose (mg/dL) 145 H 180 H Random Glucose Hemoglobin A1c Calcium Phosphorus Magnesium Total Bilirubin AST ALT Alkaline Phosphatase Troponin I Total Protein Albumin Globulin Albumin/Globulin Ratio Procalcitonin TSH 3rd Generation Arterial Blood Potassium Venous Blood Potassium Urine Color Urine Appearance Urine pH Ur Specific [place] Urine Protein Urine Glucose (UA) Urine Ketones Urine Blood Urine Nitrate Urine Bilirubin Urine Urobilinogen Ur Leukocyte Esterase Urine RBC Urine WBC Ur Epithelial Cells 01/31/19 01/31/19 09:00 11:02 WBC RBC Hgb Hct MCV MCH MCHC RDW Plt Count MPV Neut % (Auto) Lymph % (Auto) [place] % (Auto) Eos % (Auto) Baso % (Auto) Lymph # (Auto) [place] # (Auto) Eos # (Auto) Baso # (Auto) Absolute Neuts (auto) PT INR APTT pCO2 pO2 HCO3 ABG pH ABG Total CO2 ABG O2 Saturation ABG Base Excess ABG Potassium VBG pH VBG pCO2 VBG HCO3 VBG Total CO2 VBG O2 Sat (Calc) VBG Base Excess VBG Potassium Glucose Lactate FiO2 Crit Value Called To Crit Value Called By Blood Gas Notified Time Sodium 137 Potassium 4.2 Chloride 100 Carbon Dioxide 29 Anion Gap 13 BUN 27 H Creatinine 1.0 Est GFR ( Amer) > 60 Est GFR (Non-Af Amer) 53 POC Glucose (mg/dL) 269 H Random Glucose 248 H Hemoglobin A1c Calcium 8.7 Phosphorus Magnesium Total Bilirubin 0.4 AST 37 H ALT 38 Alkaline Phosphatase 185 H Troponin I Total Protein 6.4 Albumin 3.3 Globulin 3.1 Albumin/Globulin Ratio 1.1 Procalcitonin TSH 3rd Generation Arterial Blood Potassium Venous Blood Potassium Urine Color Urine Appearance Urine pH Ur Specific [place] Urine Protein Urine Glucose (UA) Urine Ketones Urine Blood Urine Nitrate Urine Bilirubin Urine Urobilinogen Ur Leukocyte Esterase Urine RBC Urine WBC Ur Epithelial Cells Assessment & Plan (1) Toxic metabolic encephalopathy Assessment and Plan: Likely due to underlying infection along with chronic brain injury and low cognitive reserve. I recommend treating the underlying cause and reconsult neurology if the patient does not return to baseline once medical issues are addressed. Thank you for this consultation. Status: Acute
--- NOTE | 2019-01-31 16:39 | CARD ---
APPROVED REPORT Date of service: 01/30/2019 EKG Measurement Heart [id number] <Conclusion> Normal sinus rhythm Nonspecific ST abnormality Abnormal ECG
--- NOTE | 2019-01-31 16:44 | CON ---
DATE OF CONSULTATION: 01/31/2019 The patient is seen in room 276, bed 1. CHIEF COMPLAINT: Fever x1 day duration. 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 The patient was seen in the emergency room by Dr. Octavio Tello. The patient had complained of weakness, neurological deficit, and was found to have a temperature of 100.9. Infectious Disease consultation requested. The patient is unable to communicate well, and information is gathered from the nurse caring for the patient. There has been no diarrhea or constipation reported. The patient was presented to the emergency room by family for evaluation of a fall and not behaving like herself, and the patient was recently admitted for pneumonia. There have been no fevers in the emergency room. There has been mild shortness of breath, but no chest pain has been reported. No nausea, vomiting, and unclear regarding urinary symptoms. PAST MEDICAL HISTORY: Significant for congestive heart failure, chronic obstructive lung disease, pulmonary sarcoidosis, diabetes mellitus, diabetic neuropathy, cerebrovascular accident x2, hypertension, depression, anxiety, osteoarthritis, and spinal stenosis. REVIEW OF SYSTEMS: Twelve-point review of systems was performed. PAST SURGICAL HISTORY: Significant for vaginal rectal fistula repair, hysterectomy, and laparoscopic surgery for diagnosis of sarcoidosis. ALLERGIES: THE PATIENT HAS NO KNOWN ALLERGIES TO ANY ANTIBIOTICS. MEDICATIONS: Medications at home include Solu-Medrol, omega, aspirin, Ativan, Lipitor. PHYSICAL EXAMINATION: VITAL SIGNS: The patient's temperature is 100.9, a heart rate of 108, respiratory rate of 20, blood pressure of 120/70, it was as low as 97/56. HEENT: Examination of HEENT is unremarkable. NECK: Supple. LUNGS: Have decreased breath sounds. HEART: Normal S1, S2. ABDOMEN: Soft, nontender. LABORATORY DATA: Laboratory examination reveals a white count of 21,000 with a hemoglobin of 11, MCV of 78, with a platelets of 293. The patient's coagulation is noted with an INR of 1.13. Blood gases are reviewed. Chemistries revealed a BUN of 27, creatinine of 1, glucose is 248, alk phos is 185. Urinalysis is unremarkable. The patient had a chest x-ray, there is a questionable infiltrate and chronic interstitial markings. The patient had a CT scan of the head, which is unremarkable, left posterior parietooccipital encephalomalacia and nonspecific white matter. History and physical examination is reviewed.. ASSESSMENT AND PLAN: An 78-year-old female with significant past medical history, admitted with sepsis with healthcare-associated pneumonia, must rule out gastrointestinal/gallbladder disease. We will treat the patient with meropenem and doxy pending blood cultures, urine cultures, and we will discontinue the Zosyn because of the congestive heart failure. We will order a CT scan of the abdomen and pelvis. The patient was given vancomycin. We will check on the cultures and pancultures. Because of the GFR of 53, we will discontinue the vancomycin, order a CT scan of the abdomen and pelvis, specifically looking for gallbladder disease, meropenem and doxycycline for both gastrointestinal and healthcare-associated pneumonia in a patient with sepsis. We will follow closely with you. Jose Manuel Rebollar MD
--- NOTE | 2019-01-31 19:03 | CON ---
DATE: 01/31/2019 PULMONARY CONSULTATION We were asked by the unit control worker to evaluate and treat this 78-year-old woman, who is known to us from previous admissions. HISTORY OF PRESENT ILLNESS: The patient was admitted via emergency room with chief complaint of shortness of breath. Her past medical history is positive for pulmonary sarcoidosis, diabetes mellitus type 2, CVA with residual cognitive function loss, hypertension, depression, anxiety, osteoarthritis, and spinal stenosis. The patient started complaining shortness of breath 24 hours prior to admission. She denied additional cough, sputum production, hemoptysis, or the respiratory complaints. She also complained of extreme weakness. PAST MEDICAL HISTORY: As above in HPI. FAMILY HISTORY: Mother with cardiac arrhythmia. Father with ALS. SOCIAL HISTORY: She is a former smoker, quit many years ago. No alcohol. No drugs. ALLERGIES: NO KNOWN ALLERGIES. MEDICATIONS: Home medications reviewed as per MAR. REVIEW OF SYSTEMS: Conducted by reviewing all sources. Her 12 points ROS was reviewed. RESPIRATORY: See history of present illness. CARDIOVASCULAR: No complaints of chest pain or palpitations. GASTROINTESTINAL: No nausea, vomiting, or diarrhea. GENITOURINARY: No dysuria or hematuria. The rest of the systems were reviewed and found to be negative. PHYSICAL EXAMINATION GENERAL: The patient is awake, alert, on BiPAP. Breathing with BiPAP well. HEENT: Head is normocephalic and atraumatic. NECK: Supple with no jugular vein distentions. CARDIOVASCULAR: S1 and S2. No S3. Regular. PULMONARY: Diminished breath sounds bilaterally with scattered rhonchi. No wheezing. GASTROINTESTINAL: Soft and nontender. No organomegaly. GENITOURINARY: No costovertebral angle tenderness. EXTREMITIES: No pedal edema. No cyanosis. SKIN: Clear with no skin rashes. NEUROLOGIC: Deferred at present time. ASSESSMENT 1. Exacerbation of severe chronic obstructive pulmonary disease. 2. Hypoxia. 3. Sarcoidosis. 4. Status post cerebrovascular accident. PLAN: I have reviewed additional data on this patient. Her temperature was maximum 99.5, pulse 85, respirations 26, blood pressure 105/53, pulse oxymetry on nasal cannula was only 88%. Other laboratory data reveals increased white count to 21,000 and hemoglobin of 11.8. Also reviewed chest x-ray showing chronic interstitial changes. Blood gas with normal pH at 7.39, pCO2 of 57, and pO2 of 52. Chest x-ray; chronic left lower lobe infiltrate versus small plural effusions due to elevated white count. The patient was cultured up and procalcitonin was sent. Antibiotic therapy was initiated. We will observe on bilevel positive airway pressure, which will be initiated any time her saturation drops below 88%, but also p.r.n. for shortness of breath and at bedtime. Jann Sanchez MD MTDKalli
[2019-02-01] MEDS: Albuterol-Ipratrop 3 mg / 0.5 (3 ml) UD IH SCH ×4 (03:04→20:26)
[2019-02-01] MEDS: Meropenem IV 1 gm in NS 1 GM/50 ML BAG IVPB SCH ×2 (06:16→17:56)
[2019-02-01 07:57] LABS: BASO # 0.01 K/mm3 (0.0-2.0); BASO % 0.1 % (0.0-3.0); EOS # 0.3 (0.0-0.7); EOS % 2.6 % (1.5-5.0); HEMOGLOBIN 11.4 g/dL (12.0-16.0); LYMPH # 1.8 (1.2-3.4); LYMPH % 15.3 % (22.0-35.0); MEAN CELL VOLUME 78.6 fl (80.0-105.0); MEAN CORPUSCULAR HEMOGLOBIN 23.4 pg (25.0-35.0); MEAN CORPUSCULAR HGB CONC 29.8 g/dl (31.0-37.0); MEAN PLATELET VOLUME 10.9 fl (7.0-11.0); MONO # 0.8 (0.1-0.6); RBC 4.87 10^6/uL (3.5-6.1); RED CELL DISTRIBUTION WIDTH 19.2 % (11.5-14.5); WHITE BLOOD COUNT 11.8 10^3/uL (4.5-11.0)
[2019-02-01 08:27] LABS: CALCIUM 8.2 mg/dL (8.4-10.5)
[2019-02-01] MEDS: Budesonide 0.5 mg/2 ml Inhal Susp UD IH SCH ×2 (08:29→20:26)
--- NOTE | 2019-02-01 08:49 | PN ---
DATE: 02/01/2019 SUBJECTIVE: The patient appears comfortable this morning. She is not short of breath at rest. She is sleepy, but easily arousable. PHYSICAL EXAMINATION: VITAL SIGNS: Temperature is 98.9, pulse 96, respirations 19, blood pressure 111/67. Oxygen saturation on BiPap is 98%. HEENT: Normocephalic, atraumatic. No JVD. CARDIOVASCULAR: Systolic ejection murmur at the lower left sternal border. No S3 gallop. LUNGS: Crackles at both bases - chronic. Minimal rhonchi. No wheezing. EXTREMITIES: Mild edema. No cyanosis, no clubbing. Calves are nontender to palpation. GASTROINTESTINAL: Abdomen is soft, nontender and nondistended. Bowel sounds are positive. SKIN: No acute rash. NEUROLOGIC: Exam limited at the present time. IMPRESSION: 1. Recurrent bronchitis. 2. Advanced chronic obstructive pulmonary disease. 3. Advanced interstitial lung disease. 4. Leukocytosis. PLAN: The patient appears comfortable this morning. She is not short of breath at rest. She is sleepy, but easily arousable. I did discuss the case with the night nurse at length. The night nurse stated the patient was better this morning - compared to last night. On physical exam, there is no significant bronchospasm noted. In addition, the oxygen saturation on BiPap is 98%. I will continue the current nebulizer treatments and add inhaled Pulmicort (in this patient with advanced chronic obstructive pulmonary disease). The patient remains on antibiotic therapy - as per Infectious Disease. Repeat a.m. labs are pending. Input by Dr. Rebollar is noted. The temperatures have again resolved. Clinical status of the patient is certainly improved - compared to the initial presentation. However, unfortunately, the future status/prognosis for this patient remains very poor. Consultation with Antonina Valdivia (Palliative Care) has been ordered. I will discuss the above with the attending physician. Meet Alcaraz MD [facility]
--- NOTE | 2019-02-01 08:58 | CP.PCM.PN ---
<Ziggy Del Rosario - Last Filed: 02/01/19 13:18> Subjective - Date & Time of Evaluation Date of Evaluation: 02/01/19 Time of Evaluation: 08:53 - Subjective Subjective: Ziggy Del Rosario, PGY-1, Internal Medicine Progress Note for Dr. Clifton Patient was seen and evaluated at bedside. Patient had no acute overnight events. Patient was AAOx1 at bedside and complained about the BiPap, but had no other complaints. 12-point ROS was unremarkable except for what was mentioned above. Objective - Vital Signs/Intake and Output Vital Signs (last 24 hours): Temp Pulse Resp BP Pulse Ox 98.9 F 96 H 19 111/67 98 02/01/19 05:52 02/01/19 05:52 02/01/19 05:52 02/01/19 05:52 02/01/19 05:52 Intake and Output: 02/01/19 02/01/19 06:59 18:59 Intake Total 0 Balance 0 - Medications Medications: Current Medications Acetaminophen (Tylenol 325mg Tab) 650 mg PO Q6H PRN PRN Reason: Pain, moderate (4-7) Albuterol/Ipratropium (Duoneb 3 Mg/0.5 Mg (3 Ml) Ud) 3 ml IH [id number] [facility] Last Admin: 02/01/19 08:29 Dose: 3 ml Albuterol/Ipratropium (Duoneb 3 Mg/0.5 Mg (3 Ml) Ud) 3 ml IH Q2H PRN PRN Reason: Shortness of Breath Aspirin (Ecotrin) 325 mg PO DAILY [facility] Last Admin: 01/31/19 10:37 Dose: 325 mg Atorvastatin Calcium (Lipitor) 40 mg PO DAILY [facility] Last Admin: 01/31/19 10:36 Dose: 40 mg Budesonide (Pulmicort Respules) 0.5 mg IH [id number] [facility] Last Admin: 02/01/19 08:29 Dose: 0.5 mg Doxycycline Hyclate (Doryx) 100 mg PO Q12 [facility]; Protocol Stop: 02/09/19 22:01 Last Admin: 01/31/19 21:58 Dose: 100 mg Enoxaparin Sodium (Lovenox) 40 mg SC DAILY [facility]; Protocol Last Admin: 01/31/19 10:37 Dose: 40 mg Furosemide (Lasix) 80 mg PO DAILY [facility] Last Admin: 01/31/19 12:34 Dose: 80 mg Gabapentin (Neurontin) 300 mg PO BID [facility]; Protocol Last Admin: 01/31/19 17:32 Dose: Not Given Meropenem (Merrem Iv 1 Gm Premix) 1 gm in 50 mls @ 100 mls/hr IVPB Q8 [facility]; Protocol Stop: 02/09/19 14:01 Last Admin: 02/01/19 06:16 Dose: 100 mls/hr Insulin Human Regular (Humulin R Med) 0 units SC ACHS [facility]; Protocol Last Admin: 01/31/19 23:12 Dose: Not Given Lidocaine (Lidoderm) 1 ea TD DAILY PRN PRN Reason: Pain, Mild (1-3) Lorazepam (Ativan) 1 mg PO TID [facility]; Protocol Last Admin: 01/31/19 17:32 Dose: Not Given Mirtazapine (Remeron) 30 mg PO HS [facility] Last Admin: 01/31/19 23:15 Dose: Not Given ([place]-3/Dha/Epa/Fish Oil 500 Mg 500 Mg) Home Med 500 mg PO BID [facility] Pantoprazole Sodium (Protonix Ec Tab) 40 mg PO 0600 [facility] Tramadol HCl (Ultram) 50 mg PO DAILY [facility] Last Admin: 01/31/19 10:37 Dose: 50 mg Zolpidem Tartrate (Ambien) 5 mg PO HS [facility]; Protocol Last Admin: 01/31/19 21:58 Dose: 5 mg - Labs Labs: 02/01/19 07:00 02/01/19 07:00 PT 12.5 SECONDS (9.4-12.5) 01/30/19 15:25 INR 1.13 01/30/19 15:25 APTT 28.0 Seconds (26.9-38.3) 01/30/19 15:25 - Constitutional Appears: Well, Non-toxic, No Acute Distress - Head Exam Head Exam: ATRAUMATIC, NORMAL INSPECTION, NORMOCEPHALIC - Eye Exam Eye Exam: EOMI, PERRL - ENT Exam ENT Exam: Mucous Membranes Dry Additional comments: Facemask on - Respiratory Exam Respiratory Exam: Clear to Ausculation Bilateral, NORMAL BREATHING PATTERN - Cardiovascular Exam Cardiovascular Exam: REGULAR RHYTHM, RRR Additional comments: systolic ejection murmur at RUSB - GI/Abdominal Exam GI & Abdominal Exam: Soft, Normal Bowel Sounds. absent: Tenderness - Extremities Exam Extremities Exam: Full ROM, Normal Capillary Refill, Normal Inspection - Neurological Exam Neurological Exam: Alert, Awake, CN II-XII Intact. absent: Oriented x3 - Skin Skin Exam: Dry, Intact Additional comments: right sacral decubitus ulcer Assessment and Plan - Assessment and Plan (Free Text) Assessment: 78 year old female with a past medical history significant for COPD, pulmonary sarcoidosis, DM2, diabetic neuropathy, 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 Patient was also found to have shortness of breath on exam with hypoxic respiratory failure. Plan: Hypoxic respiratory secondary to CHF exacerbation vs. COPD exacerbation vs. pneumonia -ABG 01/30: pH: 7.39, pO2: 52 from 57 from last admission 2 weeks ago, pCO2: 40 -CXR 01/30: showed left lower lobe infiltrate vs. effusion -Leukocytosis improved -Blood culture negative after 24 hours -Urine culture: negative -Awaiting sputum culture results -Procalcitonin: 0.2 -Lactate was 2.3 in the emergency department trending down to 0.9 -As patient's blood pressure is low and pulse is within normal limits, will hold off on beta blockers and clari inhibitors for CHF exacerbation -Will stop BiPap and only give if needed -Continue lasix 80 mg PO daily -For COPD, continue duonebs scheduled and PRN. Inhaled pulmicort added. -Continue doxycycline and merrem day 2 for suspected HCAP in the emergency department -Will repeat CXR to follow up left lower lobe infiltrate vs. effusion. Will consider repeating ABG at a later time if patient's respiratory status deteriorates. If patient is hypoxic and hypocapneic at that time, will consider CTA to rule out PE due to patient's immobility. At this time, we will obtain a venous doppler of bilateral lower extremities to rule out DVT Rule out trauma status post fall -Head CT 01/30: left posterior parietal occipital encephalomalacia. Ex vacuo dilatation of the occipital horn left lateral ventricle. Nonspecific white matter changes. Generalized atrophy -Follow up spine X ray to rule out spine fracture -Continue lidoderm patch, tramadol, and tylenol PRN for pain Altered mental status -Head CT 01/30: left posterior parietal occipital encephalomalacia. Ex vacuo dilatation of the occipital horn left lateral ventricle. Nonspecific white matter changes. Generalized atrophy -Follow up spine X ray to rule out spine fracture -Neuro checks Q4 -As per neurology, likely 2/2 to dementia vs. delirium from infection Diabetes mellitus type II -HgbA1c: 8.5 -Continue medium SSI -Continue home neurontin for diabetic neuropathy History of CVA -Continue with home aspirin and lipitor Hypertension -Patient is borderline hypotensive at this time -Will hold all antihypertensives -Will consider beta sierra once blood pressure improves Depression and anxiety -Continue home xanax Osteoarthritis -Follow up spine X ray to rule out spine fracture -Started lidoderm patch, tramadol, and tylenol PRN for pain Elevated transaminases -Improved today -Continue to monitor Chronic normocytic anemia -Hgb: 11.4 -Patient currently at baseline -Continue to monitor. GI prophylaxis: protonix 40 mg daily DVT prophylaxis: lovenox 40 mg daily Patient plan discussed with attending. <Juice Clifton - Last Filed: 02/05/19 07:56> Objective - Vital Signs/Intake and Output Vital Signs (last 24 hours): Temp Pulse Resp BP Pulse Ox 98.3 F 95 H 18 132/62 94 L 02/04/19 12:00 02/04/19 12:00 02/04/19 12:00 02/04/19 12:00 02/04/19 06:00 - Labs Labs: 02/04/19 08:30 02/04/19 08:30 PT 12.5 SECONDS (9.4-12.5) 01/30/19 15:25 INR 1.13 01/30/19 15:25 APTT 28.0 Seconds (26.9-38.3) 01/30/19 15:25 Attending/Attestation - Attestation I have personally seen and examined this patient.: Yes I have fully participated in the care of the patient.: Yes I have reviewed all pertinent clinical information, including history, physical exam and plan: Yes Notes (Text): 02/05/19 07:56 Medical record note made by the resident after discussion with my direction and input after the patient was personally seen and examined by me. I have reviewed the chart and agree that the record accurately reflects by personal performance of the history, physical exam, data review, and medical decision-making, in the course for the patient. I have also personally directed the plan of care.
[2019-02-01] MEDS: Insulin Reg-MEDIUM-Coverage SC SCH ×3 (09:32→17:43)
[2019-02-01] MEDS: Aspirin 325 mg EC Tablets PO SCH (10:32)
[2019-02-01] MEDS: Enoxaparin 30 mg Syringe SC SCH (10:32)
[2019-02-01] MEDS: Pantoprazole 40 mg EC Tab PO SCH (10:33)
--- NOTE | 2019-02-01 12:27 | PN ---
DATE: 02/01/2019 SUBJECTIVE: The patient is in bed in no acute distress, nontoxic. PHYSICAL EXAMINATION: VITAL SIGNS: Temperature is 98, blood pressure is 111/60, respiratory rate of 18. HEENT: Unremarkable. NECK: Supple. LUNGS: Decreased breath sounds. HEART: Normal, S1 and S2. ABDOMEN: Soft. LABORATORY DATA: Examination reveals white count of 11,800, hemoglobin of 11, BUN of 32. Blood cultures are negative. ASSESSMENT AND PLAN: An 78-year-old female with history of chronic obstructive lung disease, congestive heart failure, pulmonary sarcoidosis, diabetes mellitus, diabetic neuropathy, cerebrovascular accident x2 with residual cognitive function and vision loss, right eye with sepsis, healthcare-associated pneumonia, on meropenem, and concern about gallbladder disease. The patient is also on doxycycline day #2. White count appears to be improving. Alkaline phosphatase appeared to be improving. Dr. Alcaraz's notes from today is appreciated. Jose Manuel Rebollar MD
[2019-02-01] MEDS: DHA PO SCH (14:41)
[2019-02-01] MEDS: OMEGA PO SCH (14:41)
[2019-02-01] MEDS: EPA PO SCH (14:41)
[2019-02-01] MEDS: FISH OIL PO SCH (14:41)
--- NOTE | 2019-02-01 14:50 | RAD ---
Date of service: 02/01/2019 HISTORY: PAIN COMPARISON: No prior. FINDINGS: BONES: Mild curvature of the thoracic spine convex to the right with a Caballero angle of 8 degrees. DISC SPACES: Normal. SOFT TISSUES: Normal. OTHER FINDINGS: None. IMPRESSION: No acute findings
--- NOTE | 2019-02-01 14:51 | RAD ---
Date of service: 02/01/2019 PROCEDURE: Radiographs of the Lumbar Spine. HISTORY: nonspecific back pain status post fall COMPARISON: No prior. FINDINGS: BONES: Scoliosis convex to the left with a Caballero angle of 18 degrees. DISC SPACES: Severe disc degeneration a multiple levels especially L3-4 OTHER FINDINGS: None. IMPRESSION: Severe disc degeneration. Levoscoliosis
--- NOTE | 2019-02-01 14:53 | RAD ---
Date of service: 02/01/2019 HISTORY: reevaluation of lll infiltrate COMPARISON: 01/18/2019 FINDINGS: LUNGS: Chronic interstitial changes. No focal consolidation PLEURA: No significant pleural effusion identified, no pneumothorax apparent. CARDIOVASCULAR: Aortic calcification Normal cardiac size. No pulmonary vascular congestion. OSSEOUS STRUCTURES: No significant abnormalities. VISUALIZED UPPER ABDOMEN: Normal. OTHER FINDINGS: None. IMPRESSION: Chronic interstitial changes. No focal consolidation
--- NOTE | 2019-02-01 16:18 | CP.PCM.CON ---
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 She had shortness of breath. She was discharged from [facility] [place] [facility] one week ago after being treated for CHF/COPD exacerbation. She denied fever, chills, nausea, vomiting, chest or abdominal pain, dizziness, headache,dysuria. X ray of thoracic spine: negative X ray lumbar spine: showing severe disc degeneration and levoscoliosis Chest x ray: Chronic intestinal changes, no focal consolidation Head CT: Left posterior parietal occipital encephalomalacia. Ex vacuo dilatation of the occipital horn lateral ventricle. Non specific white matter changes PMHx: vascular dementia, DM, COPD, HTN, CVA's X 2, anxiety/depression, spinal stenosis, visual loss right eye PSH: hysterectomy Social History: Former smoker, no alcohol or dug use. 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 Her brother Bhavin Edgar is POA. 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 ([place]) Hx Macular Degeneration: Yes - RENAL Hx Chronic Kidney Disease: No - ENDOCRINE/METABOLIC Hx Diabetes Mellitus Type 2: Yes - HEMATOLOGICAL/ONCOLOGICAL Hx Blood Disorders: Yes Hx Cancer: Yes (basal cell) - INTEGUMENTARY Other/Comment: SARCOIDOSIS, b/l arm skin discolorations, rle round 2cm purple skin discoloration - MUSCULOSKELETAL/RHEUMATOLOGICAL Hx Arthritis: Yes - GASTROINTESTINAL Hx Gastrointestinal Disorders: Yes Hx Gastroesophageal Reflux: Yes - GENITOURINARY/GYNECOLOGICAL Other/Comment: vaginal rectal fistula repair - PSYCHIATRIC Hx Psychophysiologic Disorder: Yes Hx Anxiety: Yes Hx Depression: Yes Hx Substance Use: No - SURGICAL HISTORY Other/Comment: laparoscopic sx to dx sarcoidosis - ANESTHESIA Hx Anesthesia: Yes Hx Anesthesia Reactions: No Hx Malignant Hyperthermia: No Meds Allergies/Adverse Reactions: Allergies Allergy/AdvReac Type Severity Reaction Status Date / Time No Known Allergies Allergy Verified 01/30/19 14:57 - Medications Medications: Current Medications Acetaminophen (Tylenol 325mg Tab) 650 mg PO Q6H PRN PRN Reason: Pain, moderate (4-7) Albuterol/Ipratropium (Duoneb 3 Mg/0.5 Mg (3 Ml) Ud) 3 ml IH [id number] [facility] Last Admin: 02/01/19 14:30 Dose: 3 ml Albuterol/Ipratropium (Duoneb 3 Mg/0.5 Mg (3 Ml) Ud) 3 ml IH Q2H PRN PRN Reason: Shortness of Breath Aspirin (Ecotrin) 325 mg PO DAILY [facility] Last Admin: 02/01/19 10:32 Dose: 325 mg Atorvastatin Calcium (Lipitor) 40 mg PO DAILY [facility] Last Admin: 02/01/19 10:33 Dose: 40 mg Budesonide (Pulmicort Respules) 0.5 mg IH [id number] [facility] Last Admin: 02/01/19 08:29 Dose: 0.5 mg Doxycycline Hyclate (Doryx) 100 mg PO Q12 [facility]; Protocol Stop: 02/09/19 22:01 Last Admin: 02/01/19 10:32 Dose: 100 mg Enoxaparin Sodium (Lovenox) 30 mg SC DAILY [facility]; Protocol Last Admin: 02/01/19 10:32 Dose: 30 mg Furosemide (Lasix) 80 mg PO DAILY [facility] Last Admin: 02/01/19 10:33 Dose: 80 mg Gabapentin (Neurontin) 300 mg PO BID [facility]; Protocol Last Admin: 02/01/19 10:33 Dose: 300 mg Meropenem (Merrem Iv 1 Gm Premix) 1 gm in 50 mls @ 100 mls/hr IVPB 0600,1800 [facility]; Protocol Stop: 02/09/19 14:01 Insulin Human Regular (Humulin R Med) 0 units SC ACHS [facility]; Protocol Last Admin: 02/01/19 12:44 Dose: 1 unit Lidocaine (Lidoderm) 1 ea TD DAILY PRN PRN Reason: Pain, Mild (1-3) Lorazepam (Ativan) 1 mg PO TID [facility]; Protocol Last Admin: 02/01/19 14:52 Dose: Not Given Mirtazapine (Remeron) 30 mg PO [facility] Last Admin: 01/31/19 23:15 Dose: Not Given ([place]-3/Dha/Epa/Fish Oil 500 Mg 500 Mg) Home Med 500 mg PO BID [facility] Last Admin: 02/01/19 14:41 Dose: Not Given Pantoprazole Sodium (Protonix Ec Tab) 40 mg PO 0600 [facility] Last Admin: 02/01/19 10:33 Dose: 40 mg Prednisone (Prednisone Tab) 5 mg PO DAILY [facility] Tramadol HCl (Ultram) 50 mg PO DAILY [facility] Last Admin: 02/01/19 10:32 Dose: 50 mg Zolpidem Tartrate (Ambien) 5 mg PO [facility]; Protocol Last Admin: 01/31/19 21:58 Dose: 5 mg Physical Exam - Constitutional Appears: Chronically Ill - Head Exam Head Exam: NORMOCEPHALIC - Eye Exam Eye Exam: Normal appearance, PERRL - ENT Exam ENT Exam: Mucous Membranes Moist, Normal Oropharynx - Neck Exam Neck exam: Positive for: Normal Inspection - Respiratory Exam Respiratory Exam: Decreased Breath Sounds, Wheezes Additional comments: dyspnea on exertion - Cardiovascular Exam Cardiovascular Exam: REGULAR RHYTHM, +S1, +S2 - GI/Abdominal Exam GI & Abdominal Exam: Normal Bowel Sounds, Soft - Extremities Exam Extremities exam: Positive for: pedal edema, pedal pulses present - Neurological Exam Neurological exam: Altered - Skin Skin Exam: Dry, Pallor - Additional Findings Additional findings: Palliative performance scale rating 30 % Results - Vital Signs Recent Vital Signs: Last Vital Signs Temp 98.2 F 02/01/19 12:00 Pulse 95 H 02/01/19 12:11 Resp 20 02/01/19 12:00 BP 107/67 02/01/19 12:00 Pulse Ox 98 02/01/19 05:52 - Labs Result Diagrams: 02/02/19 06:30 02/02/19 06:30 Labs: Laboratory Results - last 24 hr 01/31/19 01/31/19 01/31/19 13:19 18:08 21:44 WBC RBC Hgb Hct MCV MCH MCHC RDW Plt Count MPV Neut % (Auto) Lymph % (Auto) [place] % (Auto) Eos % (Auto) Baso % (Auto) Lymph # (Auto) [place] # (Auto) Eos # (Auto) Baso # (Auto) Absolute Neuts (auto) Sodium Potassium Chloride Carbon Dioxide Anion Gap BUN Creatinine Est GFR ( Amer) Est GFR (Non-Af Amer) POC Glucose (mg/dL) 142 H Random Glucose Calcium Total Bilirubin AST ALT Alkaline Phosphatase Total Protein Albumin Globulin Albumin/Globulin Ratio Procalcitonin 0.20 Ur L.pneumophila Ag Negative 02/01/19 02/01/19 02/01/19 07:00 07:00 07:36 WBC 11.8 H D RBC 4.87 Hgb 11.4 L Hct 38.3 MCV 78.6 L MCH 23.4 L MCHC 29.8 L RDW 19.2 H Plt Count 225 MPV 10.9 Neut % (Auto) 75.0 H Lymph % (Auto) 15.3 L [place] % (Auto) 7.0 H Eos % (Auto) 2.6 Baso % (Auto) 0.1 Lymph # (Auto) 1.8 [place] # (Auto) 0.8 H Eos # (Auto) 0.3 Baso # (Auto) 0.01 Absolute Neuts (auto) 8.85 H Sodium 138 Potassium 3.5 L Chloride 97 L Carbon Dioxide 33 Anion Gap 11 BUN 32 H Creatinine 1.1 Est GFR ( Amer) 58 Est GFR (Non-Af Amer) 48 POC Glucose (mg/dL) 123 H Random Glucose 139 H Calcium 8.2 L Total Bilirubin 0.4 AST 37 H ALT 29 Alkaline Phosphatase 135 H D Total Protein 6.1 Albumin 3.0 Globulin 3.1 Albumin/Globulin Ratio 1.0 L Procalcitonin Ur L.pneumophila Ag 02/01/19 02/01/19 11:52 16:07 WBC RBC Hgb Hct MCV MCH MCHC RDW Plt Count MPV Neut % (Auto) Lymph % (Auto) [place] % (Auto) Eos % (Auto) Baso % (Auto) Lymph # (Auto) [place] # (Auto) Eos # (Auto) Baso # (Auto) Absolute Neuts (auto) Sodium Potassium Chloride Carbon Dioxide Anion Gap BUN Creatinine Est GFR ( Amer) Est GFR (Non-Af Amer) POC Glucose (mg/dL) 191 H 132 H Random Glucose Calcium Total Bilirubin AST ALT Alkaline Phosphatase Total Protein Albumin Globulin Albumin/Globulin Ratio Procalcitonin Ur L.pneumophila Ag Assessment & Plan - Assessment and Plan (Free Text) Assessment: 78 year old female with history of dementia, COPD,CHF, spinal stenosis who is admitted with leukocytosis, CHF/COPD exacerbation,respiratory insufficiency /hypoxia Patient's brother Bhavin Edgar at bedside. Goals of care discussed at length. Brother expressed interest in hospice care. Hospice services explained in detail. Brother recognizes overall decline in his sisters health but not sure if she is "terminally ill". Time spent with family in goals of care discussion, 30 minutes Plan: Goals of care Hypoxia: Pulmonary following, as per recs. Continue nebulizers, Pulmicort. Lasix daily. Monitor ABG/ chest x ray Sepsis: blood /urine cultures negative, sputum culture pending.Continue Doxycycline and Merrem. Doppler of LE's pending. Continue DVT prophylaxis
[2019-02-01] MEDS ORDERED: Potassium Chloride 20 mEq ER Tab PO STA (19:00)
[2019-02-02] MEDS: Insulin Reg-MEDIUM-Coverage SC SCH ×5 (00:07→22:00)
[2019-02-02] MEDS: Albuterol-Ipratrop 3 mg / 0.5 (3 ml) UD IH SCH ×5 (01:54→23:40)
[2019-02-02] MEDS: Pantoprazole 40 mg EC Tab PO SCH (05:40)
[2019-02-02] MEDS: Meropenem IV 1 gm in NS 1 GM/50 ML BAG IVPB SCH ×2 (05:40→17:05)
[2019-02-02 07:11] LABS: BASO # 0.01 K/mm3 (0.0-2.0); BASO % 0.1 % (0.0-3.0); EOS # 0.2 (0.0-0.7); EOS % 1.9 % (1.5-5.0); HEMOGLOBIN 10.7 g/dL (12.0-16.0); LYMPH # 2.1 (1.2-3.4); LYMPH % 18.7 % (22.0-35.0); MEAN CELL VOLUME 78.1 fl (80.0-105.0); MEAN CORPUSCULAR HGB CONC 29.4 g/dl (31.0-37.0); MEAN PLATELET VOLUME 10.8 fl (7.0-11.0); MONO # 0.8 (0.1-0.6); RBC 4.66 10^6/uL (3.5-6.1); RED CELL DISTRIBUTION WIDTH 19.1 % (11.5-14.5); WHITE BLOOD COUNT 11.4 10^3/uL (4.5-11.0)
[2019-02-02 07:36] LABS: ALB/GLOB RATIO 0.9 (1.1-1.8); ALBUMIN 2.9 g/dL (3.0-4.8); ALT/SGPT 34 U/L (7-56); AST/SGOT 42 U/L (14-36); BLOOD UREA NITROGEN 31 mg/dL (7-21); CALCIUM 8.2 mg/dL (8.4-10.5); GFR NON-AFRICAN AMERICAN > 60
--- NOTE | 2019-02-02 07:40 | CP.PCM.PN ---
<Ziggy Del Rosario - Last Filed: 02/02/19 12:59> Subjective - Date & Time of Evaluation Date of Evaluation: 02/02/19 Time of Evaluation: 07:29 - Subjective Subjective: Ziggy Del Rosario, PGY-1, Internal Medicine Progress Note for Dr. Clifton Patient seen and evaluated at bedside. Patient had no acute events overnight. Patient was restarted on BiPap after O2 saturation decreased to 78% while on nasal cannula and while being moved. Patient is AAOx1 at bedside and pleasantly demented. Patient was tachypneic at bedside. 12-point ROS was unreliable due to patient's mental status. Objective - Vital Signs/Intake and Output Vital Signs (last 24 hours): Temp Pulse Resp BP Pulse Ox 98.0 F 92 H 20 108/59 L 96 02/02/19 06:00 02/02/19 06:00 02/02/19 06:00 02/02/19 06:00 02/02/19 06:00 Intake and Output: 02/02/19 02/02/19 06:59 18:59 Intake Total 1314 Balance 1314 - Medications Medications: Current Medications Acetaminophen (Tylenol 325mg Tab) 650 mg PO Q6H PRN PRN Reason: Pain, moderate (4-7) Albuterol/Ipratropium (Duoneb 3 Mg/0.5 Mg (3 Ml) Ud) 3 ml IH [id number] [facility] Last Admin: 02/02/19 01:54 Dose: 3 ml Albuterol/Ipratropium (Duoneb 3 Mg/0.5 Mg (3 Ml) Ud) 3 ml IH Q2H PRN PRN Reason: Shortness of Breath Aspirin (Ecotrin) 325 mg PO DAILY [facility] Last Admin: 02/01/19 10:32 Dose: 325 mg Atorvastatin Calcium (Lipitor) 40 mg PO DAILY [facility] Last Admin: 02/01/19 10:33 Dose: 40 mg Budesonide (Pulmicort Respules) 0.5 mg IH [id number] [facility] Last Admin: 02/01/19 20:26 Dose: 0.5 mg Doxycycline Hyclate (Doryx) 100 mg PO Q12 [facility]; Protocol Stop: 02/09/19 22:01 Last Admin: 02/01/19 21:57 Dose: 100 mg Enoxaparin Sodium (Lovenox) 30 mg SC DAILY [facility]; Protocol Last Admin: 02/01/19 10:32 Dose: 30 mg Furosemide (Lasix) 80 mg PO DAILY [facility] Last Admin: 02/01/19 10:33 Dose: 80 mg Gabapentin (Neurontin) 300 mg PO BID [facility]; Protocol Last Admin: 02/01/19 17:52 Dose: 300 mg Meropenem (Merrem Iv 1 Gm Premix) 1 gm in 50 mls @ 100 mls/hr IVPB 0600,1800 [facility] ; Protocol Stop: 02/09/19 14:01 Last Admin: 02/02/19 05:40 Dose: 100 mls/hr Insulin Human Regular (Humulin R Med) 0 units SC ACHS [facility]; Protocol Last Admin: 02/02/19 00:07 Dose: Not Given Lidocaine (Lidoderm) 1 ea TD DAILY PRN PRN Reason: Pain, Mild (1-3) Lorazepam (Ativan) 1 mg PO TID [facility]; Protocol Last Admin: 02/01/19 17:52 Dose: 1 mg Mirtazapine (Remeron) 30 mg PO [facility] Last Admin: 02/01/19 21:57 Dose: 30 mg ([place]-3/Dha/Epa/Fish Oil 500 Mg 500 Mg) Home Med 500 mg PO BID [facility] Last Admin: 02/01/19 14:41 Dose: Not Given Pantoprazole Sodium (Protonix Ec Tab) 40 mg PO 0600 [facility] Last Admin: 02/02/19 05:40 Dose: 40 mg Prednisone (Prednisone Tab) 5 mg PO DAILY [facility] Tramadol HCl (Ultram) 50 mg PO DAILY [facility] Last Admin: 02/01/19 10:32 Dose: 50 mg Zolpidem Tartrate (Ambien) 5 mg PO HS [facility]; Protocol Last Admin: 02/01/19 21:56 Dose: 5 mg - Labs Labs: 02/02/19 06:30 02/01/19 07:00 PT 12.5 SECONDS (9.4-12.5) 01/30/19 15:25 INR 1.13 01/30/19 15:25 APTT 28.0 Seconds (26.9-38.3) 01/30/19 15:25 - Constitutional Appears: Well, Non-toxic, In Acute Distress - Head Exam Head Exam: ATRAUMATIC, NORMAL INSPECTION, NORMOCEPHALIC - Eye Exam Eye Exam: EOMI, PERRL - ENT Exam ENT Exam: Mucous Membranes Moist - Respiratory Exam Respiratory Exam: Wheezes - Cardiovascular Exam Cardiovascular Exam: Tachycardia, REGULAR RHYTHM - GI/Abdominal Exam GI & Abdominal Exam: Soft, Normal Bowel Sounds. absent: Tenderness - Extremities Exam Extremities Exam: Full ROM - Neurological Exam Neurological Exam: Alert, Awake, CN II-XII Intact. absent: Oriented x3 - Skin Skin Exam: Dry, Intact Assessment and Plan - Assessment and Plan (Free Text) Assessment: 78 year old female with a past medical history significant for COPD, pulmonary sarcoidosis, DM2, diabetic neuropathy, two previous ischemic CVA's (1997 and 2013) with residual cognitive function/vision loss of right eye, HTN, depressio n, anxiety, OA and spinal stenosis presented status post fall causing altered mental status. Patient was also found to have shortness of breath on exam with hypoxic respiratory failure. Plan: Hypoxic respiratory secondary to CHF exacerbation vs. COPD exacerbation vs. pne umonia -ABG /: pH: 7.39, pO2: 52 from 57 from last admission 2 weeks ago, pCO2: 40 -CXR /: showed left lower lobe infiltrate vs. effusion. BNP was 477 -Repeat CXR showed chronic interstitial changes. no focal consolidation -Venous doppler: no DVT -Leukocytosis improved -Blood culture negative after 48 hours -Urine culture: negative -Awaiting sputum culture results -Procalcitonin: 0.2 -Lactate was 2.3 in the emergency department trending down to 0.9 -As patient's blood pressure is low and pulse is within normal limits, will hold off on beta blockers and clari inhibitors for CHF exacerbation -Bipap was restarted overnight due to low O2 saturation. Currently on nasal cannula. Consider high flow oxygen -Continue lasix 80 mg PO daily -For COPD, continue duonebs and pulmicort. Continue prednisone 5 mg daily -Started robitussin PRN for cough. -Continue doxycycline and merrem day 3 for suspected HCAP in the emergency department MRSA in nares -Will start mupirocin for 5 days -Will start contact precautions Rule out trauma status post fall -Head CT 01/30: left posterior parietal occipital encephalomalacia. Ex vacuo dilatation of the occipital horn left lateral ventricle. Nonspecific white matter changes. Generalized atrophy -Lumbar spine X ray: severe disc degeneration, levoscoliosis. no acute findings -Continue lidoderm patch, tramadol, and tylenol PRN for pain Altered mental status -Head CT 01/30: left posterior parietal occipital encephalomalacia. Ex vacuo dilatation of the occipital horn left lateral ventricle. Nonspecific white matter changes. Generalized atrophy -Lumbar spine X ray: severe disc degeneration, levoscoliosis. no acute findings -Neuro checks Q4 -As per neurology, likely 2/2 to dementia vs. delirium from infection Isolated increased alkaline phosphatase -Abdominal ultrasound 01/05: unremarkable Diabetes mellitus type II -HgbA1c: 8.5 -Continue medium SSI -Continue home neurontin for diabetic neuropathy History of CVA -Continue with home aspirin and lipitor Hypertension -Patient is borderline hypotensive at this time -Will hold all antihypertensives -Will consider beta sierra once blood pressure improves Depression and anxiety -Continue home xanax Osteoarthritis -Lumbar spine X ray: severe disc degeneration, levoscoliosis. no acute findings -Continue lidoderm patch, tramadol, and tylenol PRN for pain Chronic normocytic anemia -Patient currently at baseline -Continue to monitor. Hypomagnesia -Replete as needed GI prophylaxis: protonix 40 mg daily DVT prophylaxis: lovenox 40 mg daily Disposition: After extensive discussion with family, patient was made hospice today. Patient plan discussed with attending. <Juice Clifton - Last Filed: 02/05/19 07:56> Objective - Vital Signs/Intake and Output Vital Signs (last 24 hours): Temp Pulse Resp BP Pulse Ox 98.3 F 95 H 18 132/62 94 L 02/04/19 12:00 02/04/19 12:00 02/04/19 12:00 02/04/19 12:00 02/04/19 06:00 - Labs Labs: 02/04/19 08:30 02/04/19 08:30 PT 12.5 SECONDS (9.4-12.5) 01/30/19 15:25 INR 1.13 01/30/19 15:25 APTT 28.0 Seconds (26.9-38.3) 01/30/19 15:25 Attending/Attestation - Attestation I have personally seen and examined this patient.: Yes I have fully participated in the care of the patient.: Yes I have reviewed all pertinent clinical information, including history, physical exam and plan: Yes Notes (Text): 02/05/19 07:56 Medical record note made by the resident after discussion with my direction and input after the patient was personally seen and examined by me. I have reviewed the chart and agree that the record accurately reflects by personal performance of the history, physical exam, data review, and medical decision-making, in the course for the patient. I have also personally directed the plan of care.
[2019-02-02] MEDS ORDERED: Magnesium Oxide 400 mg Tab UD PO ONE (08:05)
--- NOTE | 2019-02-02 08:51 | US ---
Date of service: 02/02/2019 HISTORY: high alk phos COMPARISON: None. TECHNIQUE: Sonographic evaluation of the abdomen. FINDINGS: LIVER: Measures 13.8 cm. Normal echogenicity of the liver parenchyma. No mass. No intrahepatic bile duct dilatation. GALLBLADDER: Unremarkable. No gallstones. COMMON BILE DUCT: Measures 3.3 mm. No stones. No dilatation. PANCREAS: Unremarkable as visualized. No mass. No ductal dilatation. RIGHT KIDNEY: Measures 8.6 x 4.2 x 5.6cm. Normal echogenicity. No calculus, mass, or hydronephrosis. LEFT KIDNEY: Measures 9.0 x 4.2 x 6.1cm. Normal echogenicity. No calculus, mass, or hydronephrosis. SPLEEN: Normal in size and contour. No mass. 10.7 x 3.0 x 3.0 cm AORTA: Not visualized IVC: Not visualized OTHER FINDINGS: None. IMPRESSION: Unremarkable abdominal sonogram.
[2019-02-02] MEDS: Budesonide 0.5 mg/2 ml Inhal Susp UD IH SCH (09:02)
[2019-02-02] MEDS ORDERED: Magnesium Sulfate 2 gm/50 ml 2 GM/50 ML BAG IVPB ONE (09:09)
[2019-02-02] MEDS: FISH OIL PO SCH ×2 (09:16→18:21)
[2019-02-02] MEDS: EPA PO SCH ×2 (09:16→18:21)
[2019-02-02] MEDS: OMEGA PO SCH ×2 (09:16→18:21)
[2019-02-02] MEDS: DHA PO SCH ×2 (09:16→18:21)
[2019-02-02] MEDS: Enoxaparin 30 mg Syringe SC SCH (10:20)
[2019-02-02] MEDS: Aspirin 325 mg EC Tablets PO SCH (10:21)
[2019-02-02] MEDS ORDERED: Benzocaine/Menthol (Cepacol) Lozenge MT PRN (10:39)
[2019-02-02] MEDS ORDERED: guaiFENesin DM 100 mg-10 mg/5 ml UD PO PRN (10:39)
--- NOTE | 2019-02-02 11:41 | PN ---
DATE: 02/02/2019 PULMONARY NOTE SUBJECTIVE: The patient appears comfortable this morning. She is not short of breath at rest. She does appear very weak. PHYSICAL EXAMINATION: VITAL SIGNS: Temperature is 98, pulse is 92, respirations 20, blood pressure 108/59. Oxygen saturation on BiPAP 96-98%. HEENT: Normocephalic, atraumatic. No JVD. CARDIOVASCULAR: Systolic ejection murmur at the lower left sternal border. No S3 gallop. LUNGS: Crackles at both bases - chronic. Minimal/less rhonchi. No wheezing. GI: Abdomen is soft, nontender and nondistended. Bowel sounds are positive. EXTREMITIES: Mild edema. No cyanosis, no clubbing. Calves are nontender to palpation. SKIN: No acute rash. NEUROLOGIC: Exam limited at the present time. IMPRESSION: 1. Recurrent bronchitis. 2. Advanced chronic obstructive pulmonary disease. 3. Advanced interstitial lung disease. 4. Leukocytosis - resolving. PLAN: The patient appears comfortable this morning. She is not short of breath at rest. She does appear very weak. I did discuss the case with the night nurse at length. The night nurse stated the patient is not doing well overall. The night nurse also informed me that the patient does desaturate when she is off the BiPAP. We will still try her on nasal cannula (possibly high-flow delivery) this morning. On physical exam, there is no significant bronchospasm noted. In addition, there is no significant alveolar-arterial gradient. I will continue the current nebulizer treatments and inhaled steroids for now. The patient is also on very low-dose oral prednisone. I would continue with the antibiotic coverage as per Infectious Disease. Input by Dr. Rebollar is noted. The leukocytosis is resolving. Clinical status of the patient has certainly improved - compared to the initial presentation. However, again, the future status/prognosis for this chronically ill patient remains very poor. All are aware. Input by Antonina Valdivia is noted. The patient is for possible hospice transfer in the near future. I will discuss the above with the attending physician. Meet Alcaraz MD [facility] # [id number] MTDD
[2019-02-02] MEDS: Mupirocin 2% Ointment 15 GM TUBE NS SCH ×2 (14:15→17:35)
--- NOTE | 2019-02-02 14:18 | CP.PCM.PN ---
Subjective - Date & Time of Evaluation Date of Evaluation: 02/02/19 Time of Evaluation: 11:00 - Subjective Subjective: Alert, confused at times. Offers no complaints. Objective - Vital Signs/Intake and Output Vital Signs (last 24 hours): Temp Pulse Resp BP Pulse Ox 97.9 F 97 H 20 106/64 96 02/02/19 12:00 02/02/19 12:00 02/02/19 12:00 02/02/19 12:00 02/02/19 06:00 Intake and Output: 02/02/19 02/02/19 06:59 18:59 Intake Total 1314 Balance 1314 - Medications Medications: Current Medications Acetaminophen (Tylenol 325mg Tab) 650 mg PO Q6H PRN PRN Reason: Pain, moderate (4-7) Albuterol/Ipratropium (Duoneb 3 Mg/0.5 Mg (3 Ml) Ud) 3 ml IH Q2H PRN PRN Reason: Shortness of Breath Albuterol/Ipratropium (Duoneb 3 Mg/0.5 Mg (3 Ml) Ud) 3 ml IH [id number] [facility] Last Admin: 02/02/19 11:05 Dose: 3 ml Aspirin (Ecotrin) 325 mg PO DAILY [facility] Last Admin: 02/02/19 10:21 Dose: 325 mg Atorvastatin Calcium (Lipitor) 40 mg PO DAILY [facility] Last Admin: 02/02/19 10:21 Dose: 40 mg Benzocaine/Menthol (Cepacol Sore Throat) 1 cuong MT Q2H PRN PRN Reason: Sore Throat Benzonatate (Tessalon Perles) 100 mg PO TID [facility] Budesonide (Pulmicort Respules) 0.5 mg IH [id number] [facility] Last Admin: 02/02/19 09:02 Dose: 0.5 mg Doxycycline Hyclate (Doryx) 100 mg PO Q12 [facility]; Protocol Stop: 02/09/19 22:01 Last Admin: 02/02/19 10:20 Dose: 100 mg Enoxaparin Sodium (Lovenox) 30 mg SC DAILY [facility]; Protocol Last Admin: 02/02/19 10:20 Dose: 30 mg Furosemide (Lasix) 80 mg PO DAILY [facility] Last Admin: 02/02/19 10:21 Dose: 80 mg Gabapentin (Neurontin) 300 mg PO BID [facility]; Protocol Last Admin: 02/02/19 10:21 Dose: 300 mg Guaifenesin/Dextromethorphan (Robitussin Dm) 5 ml PO Q4H PRN PRN Reason: Cough Meropenem (Merrem Iv 1 Gm Premix) 1 gm in 50 mls @ 100 mls/hr IVPB 0600,1800 [facility]; Protocol Stop: 02/09/19 14:01 Last Admin: 02/02/19 05:40 Dose: 100 mls/hr Insulin Human Regular (Humulin R Med) 0 units SC ACHS [facility]; Protocol Last Admin: 02/02/19 12:27 Dose: Not Given Lidocaine (Lidoderm) 1 ea TD DAILY PRN PRN Reason: Pain, Mild (1-3) Lorazepam (Ativan) 1 mg PO TID [facility]; Protocol Last Admin: 02/02/19 10:21 Dose: 1 mg Mirtazapine (Remeron) 30 mg PO [facility] Last Admin: 02/01/19 21:57 Dose: 30 mg Mupirocin (Bactroban Ointment) 0 gm NS BID [facility] Stop: 02/06/19 18:01 ([place]-3/Dha/Epa/Fish Oil 500 Mg 500 Mg) Home Med 500 mg PO BID [facility] Last Admin: 02/02/19 09:16 Dose: Not Given Pantoprazole Sodium (Protonix Ec Tab) 40 mg PO 0600 [facility] Last Admin: 02/02/19 05:40 Dose: 40 mg Prednisone (Prednisone Tab) 5 mg PO DAILY [facility] Last Admin: 02/02/19 10:21 Dose: 5 mg Tramadol HCl (Ultram) 50 mg PO DAILY [facility] Last Admin: 02/02/19 10:21 Dose: 50 mg Zolpidem Tartrate (Ambien) 5 mg PO HS [facility]; Protocol Last Admin: 02/01/19 21:56 Dose: 5 mg - Labs Labs: 02/02/19 06:30 02/02/19 06:30 PT 12.5 SECONDS (9.4-12.5) 01/30/19 15:25 INR 1.13 01/30/19 15:25 APTT 28.0 Seconds (26.9-38.3) 01/30/19 15:25 - Constitutional Appears: Chronically Ill - Eye Exam Eye Exam: Normal appearance, PERRL - ENT Exam ENT Exam: Mucous Membranes Moist - Respiratory Exam Respiratory Exam: Decreased Breath Sounds - Cardiovascular Exam Cardiovascular Exam: REGULAR RHYTHM, +S1, +S2 - GI/Abdominal Exam GI & Abdominal Exam: Soft, Normal Bowel Sounds - Extremities Exam Extremities Exam: Normal Capillary Refill - Neurological Exam Neurological Exam: Alert - Skin Skin Exam: Dry, Pallor Assessment and Plan - Assessment and Plan (Free Text) Assessment: 78 year old female with history of vascular dementia, COPD,CHF who is admitted with CPD /CHF exacerbation, shortness of breath, deconditioning. Patients brother, Bhavin Edgar aware that her prognosis is poor. He has decided to transition to home hospice care. Patients brother met with [facility] outreach liaison. Hospice services explained. Mr Edgar agreeable to plan. Discharge to home hospice scheduled for morning. Gao of care, end of life counseling, 20 minutes Plan: Hospice evaluation COPD/CHF: Continue Duonebs, Pulmicort, Solumedrol, lasix DVT prophylaxis DM: fingersticks ACHS, Humulin as ordered
--- NOTE | 2019-02-02 15:57 | PN ---
DATE: 02/02/2019 SUBJECTIVE: The patient was seen earlier today in 276, in no acute distress. She is comfortable, uneventful night. PHYSICAL EXAMINATION: VITAL SIGNS: Temperature is 98, blood pressure is 108/50, respiratory rate of 18. HEENT: Unremarkable. NECK: Supple. LUNGS: Have decreased breath sounds. HEART: Normal S1 and S2. ABDOMEN: Soft, nontender. LABORATORY DATA: Reveals a white count of 11,400, hemoglobin of 10, BUN of 31, creatinine of 0.9. Procalcitonin is negative x2. Urinalysis is noted; and serology, urine for Legionella antigen is negative. Microbiology reveals the blood cultures negative. Urine cultures negative. The patient had a chest x-ray yesterday, no focal consolidation. MEDICATIONS: Review of orders reveals the patient is on p.o. doxycycline, prednisone, and meropenem. 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 The patient is on doxycycline and meropenem day #3, would complete 4-7 days of antibiotics. The patient also had an abdominal ultrasound which reveals the common bile duct to be normal, unremarkable gallstones, gallbladder. Discontinue the antibiotics in the next 24 hours and complete with p.o. doxycycline in 5-7 days. Jose Manuel Rebollar MD
[2019-02-03] MEDS: Albuterol-Ipratrop 3 mg / 0.5 (3 ml) UD IH SCH ×5 (05:19→19:43)
[2019-02-03] MEDS: Meropenem IV 1 gm in NS 1 GM/50 ML BAG IVPB SCH (05:53)
[2019-02-03] MEDS: Pantoprazole 40 mg EC Tab PO SCH (05:53)
[2019-02-03 07:07] LABS: BASO # 0.01 K/mm3 (0.0-2.0); BASO % 0.1 % (0.0-3.0); EOS # 0.2 (0.0-0.7); EOS % 1.3 % (1.5-5.0); HEMOGLOBIN 10.4 g/dL (12.0-16.0); LYMPH % 16.9 % (22.0-35.0); MEAN CELL VOLUME 78.4 fl (80.0-105.0); MEAN CORPUSCULAR HEMOGLOBIN 23.1 pg (25.0-35.0); MEAN CORPUSCULAR HGB CONC 29.5 g/dl (31.0-37.0); MEAN PLATELET VOLUME 10.5 fl (7.0-11.0); MONO # 0.8 (0.1-0.6); MONO % 6.9 % (1.0-6.0); RBC 4.5 10^6/uL (3.5-6.1); RED CELL DISTRIBUTION WIDTH 19.1 % (11.5-14.5)
[2019-02-03 07:10] LABS: ALT/SGPT 34 U/L (7-56); AST/SGOT 40 U/L (14-36); BLOOD UREA NITROGEN 30 mg/dL (7-21); CALCIUM 8.2 mg/dL (8.4-10.5); GFR NON-AFRICAN AMERICAN > 60
[2019-02-03] MEDS: Budesonide 0.5 mg/2 ml Inhal Susp UD IH SCH ×2 (08:04→19:43)
[2019-02-03] MEDS: Insulin Reg-MEDIUM-Coverage SC SCH ×5 (08:20→22:00)
--- NOTE | 2019-02-03 10:14 | PN ---
DATE: 02/03/2019 PULMONARY NOTE SUBJECTIVE: The patient appears comfortable this morning. She is mildly short of breath, but in no acute distress. She remains very weak appearing. PHYSICAL EXAMINATION: VITAL SIGNS: Temperature is 98, pulse 70, respirations 20/22, blood pressure 128/78. Oxygen saturation on nasal cannula - 95%. HEENT: Normocephalic, atraumatic. No JVD. CARDIOVASCULAR: Systolic ejection murmur at the lower left sternal border. No S3 gallop. LUNGS: Crackles at both bases - chronic. Minimal/less rhonchi. No wheezing. GI: Abdomen is soft, nontender and nondistended. Bowel sounds are positive. EXTREMITIES: Mild edema. No cyanosis, no clubbing. Calves are nontender to palpation. SKIN: No acute rash. NEUROLOGIC: Exam limited at the present time. IMPRESSION: 1. Recurrent bronchitis. 2. Advanced chronic obstructive pulmonary disease. 3. Advanced interstitial lung disease. 4. Leukocytosis - resolving. PLAN: The patient appears comfortable this morning. She is mildly short of breath, but in no acute distress. She remains very weak appearing. I did discuss the case with the night nurse at length. The night nurse stated that the patient is not doing well overall. She has refused BiPAP throughout the night. We will continue her on nasal cannula, and possibly high-flow delivery if needed. On physical exam, there is no significant bronchospasm noted. In addition, the alveolar-arterial gradient is less this morning. I will continue the current nebulizer treatments and low-dose oral steroids for now. The patient remains on antibiotic therapy - as per Infectious Disease. Input by Dr. Rebollar is noted. Temperatures have fully resolved. The leukocytosis is resolving. The patient's clinical status has somewhat improved - compared to the initial presentation. However, her future status/prognosis remains very poor. I did have a long discussion with the brother yesterday. I also had a long discussion with Antonina Valdivia ([facility]). Since her last admission, the patient has not gotten out of bed. She is primarily bedridden at this point in her life. The choice was made to proceed with hospice placement - and I certainly agree with this decision. I will discuss the above with the medical team this morning. Meet Alcaraz MD Ed # [id number] ADÁN
[2019-02-03] MEDS: Aspirin 325 mg EC Tablets PO SCH (10:35)
[2019-02-03] MEDS: FISH OIL PO SCH ×2 (10:36→18:47)
[2019-02-03] MEDS: DHA PO SCH ×2 (10:36→18:47)
[2019-02-03] MEDS: Enoxaparin 30 mg Syringe SC SCH (10:36)
[2019-02-03] MEDS: EPA PO SCH ×2 (10:36→18:47)
[2019-02-03] MEDS: Mupirocin 2% Ointment 15 GM TUBE NS SCH ×2 (10:36→18:46)
[2019-02-03] MEDS: OMEGA PO SCH ×2 (10:36→18:47)
[2019-02-03] MEDS: Albuterol-Ipratrop 3 mg / 0.5 (3 ml) UD IH PRN (10:42)
--- NOTE | 2019-02-03 11:07 | PN ---
DATE: 02/03/2019 SUBJECTIVE: The patient is in bed in no acute distress, nontoxic. PHYSICAL EXAMINATION: VITAL SIGNS: Temperature is 98, blood pressure is 120/70, respiratory rate of 22, heart rate of 99. HEENT: Unremarkable. NECK: Supple. LUNGS: Have decreased breath sounds. HEART: Normal S1, S2. ABDOMEN: Soft. LABORATORY EXAMINATION: Reveals a white count of 12,000, hemoglobin of 10. Chemistries reveals a BUN of 30, creatinine of 0.7. Urinalysis is noted. Serology reveals urine Legionella antigens negative. MRSA nares is not detected. Urine cultures, no growth. Blood cultures, no growth. Antonina Valdivia's note is reviewed from yesterday and appreciated and possible home hospice care is being entertained. Review of orders reveals the patient to be on doxycycline and meropenem. ASSESSMENT AND PLAN: This is an 78-year-old female seen earlier today in [facility], bed 1 with chronic obstructive lung disease, congestive heart failure, pulmonary sarcoidosis, diabetes mellitus, diabetic neuropathy, cerebrovascular accident with x2 residual cognitive visual loss function in right eye, admitted with sepsis, healthcare-associated pneumonia on day #4 of meropenem and doxycycline. The patient for possible discharge to Hospice tomorrow. The patient has had adequate antibiotics. We will discontinue the antibiotics. No further antibiotics necessary. The patient being discharged to hospice. We will follow with you. We will discontinue the antibiotics. Jose Manuel Rebollar MD
--- NOTE | 2019-02-03 11:37 | CP.PCM.PN ---
<Ziggy Del Rosario - Last Filed: 02/03/19 12:51> Subjective - Date & Time of Evaluation Date of Evaluation: 02/03/19 Time of Evaluation: 11:35 - Subjective Subjective: Ziggy Del Rosario, PGY-1, Internal Medicine Progress Note for Dr. Clifton Patient was seen and evaluated at bedside. Patient desaturated to 75% as she tried to remove O2 mask. After patient's agitation resolved, patient's oxygen saturation improved to more than 90%. In addition, patient was started on high flow oxygen by Dr. Alcaraz this morning. Patient is AAOx1 at bedside and agitated. 12-point ROS was unattainable due to patient's mental status. Objective - Vital Signs/Intake and Output Vital Signs (last 24 hours): Temp Pulse Resp BP Pulse Ox 98.0 F 70 20 124/61 95 02/03/19 06:00 02/03/19 06:00 02/03/19 06:00 02/03/19 10:34 02/03/19 06:00 Intake and Output: 02/03/19 02/03/19 06:59 18:59 Intake Total 120 Balance 120 - Medications Medications: Current Medications Acetaminophen (Tylenol 325mg Tab) 650 mg PO Q6H PRN PRN Reason: Pain, moderate (4-7) Albuterol/Ipratropium (Duoneb 3 Mg/0.5 Mg (3 Ml) Ud) 3 ml IH Q2H PRN PRN Reason: Shortness of Breath Last Admin: 02/03/19 10:42 Dose: 3 ml Albuterol/Ipratropium (Duoneb 3 Mg/0.5 Mg (3 Ml) Ud) 3 ml IH [id number] [facility] Last Admin: 02/03/19 08:04 Dose: 3 ml Aspirin (Ecotrin) 325 mg PO DAILY [facility] Last Admin: 02/03/19 10:35 Dose: 325 mg Atorvastatin Calcium (Lipitor) 40 mg PO DAILY [facility] Last Admin: 02/03/19 10:34 Dose: 40 mg Benzocaine/Menthol (Cepacol Sore Throat) 1 cuong MT Q2H PRN PRN Reason: Sore Throat Benzonatate (Tessalon Perles) 100 mg PO TID [facility] Last Admin: 02/03/19 10:34 Dose: 100 mg Budesonide (Pulmicort Respules) 0.5 mg IH [id number] [facility] Last Admin: 02/03/19 08:04 Dose: 0.5 mg Enoxaparin Sodium (Lovenox) 30 mg SC DAILY [facility]; Protocol Last Admin: 02/03/19 10:36 Dose: 30 mg Furosemide (Lasix) 80 mg PO DAILY [facility] Last Admin: 02/03/19 10:34 Dose: 80 mg Gabapentin (Neurontin) 300 mg PO BID [facility]; Protocol Last Admin: 02/03/19 10:35 Dose: 300 mg Guaifenesin/Dextromethorphan (Robitussin Dm) 5 ml PO Q4H PRN PRN Reason: Cough Last Admin: 02/02/19 17:06 Dose: 5 ml Insulin Human Regular (Humulin R Med) 0 units SC ACHS [facility]; Protocol Last Admin: 02/03/19 08:20 Dose: Not Given Lidocaine (Lidoderm) 1 ea TD DAILY PRN PRN Reason: Pain, Mild (1-3) Lorazepam (Ativan) 1 mg PO TID [facility]; Protocol Last Admin: 02/03/19 08:28 Dose: 1 mg Mirtazapine (Remeron) 30 mg PO [facility] Last Admin: 02/02/19 21:17 Dose: 30 mg Mupirocin (Bactroban Ointment) 0 gm NS BID [facility] Stop: 02/06/19 18:01 Last Admin: 02/03/19 10:36 Dose: 1 applic ([place]-3/Dha/Epa/Fish Oil 500 Mg 500 Mg) Home Med 500 mg PO BID [facility] Last Admin: 02/03/19 10:36 Dose: Not Given Pantoprazole Sodium (Protonix Ec Tab) 40 mg PO 0600 [facility] Last Admin: 02/03/19 05:53 Dose: 40 mg Prednisone (Prednisone Tab) 5 mg PO DAILY [facility] Last Admin: 02/03/19 10:35 Dose: 5 mg Tramadol HCl (Ultram) 50 mg PO DAILY [facility] Last Admin: 02/03/19 10:34 Dose: 50 mg Zolpidem Tartrate (Ambien) 5 mg PO HS [facility]; Protocol Last Admin: 02/02/19 21:27 Dose: 5 mg - Labs Labs: 02/03/19 06:40 02/03/19 06:40 PT 12.5 SECONDS (9.4-12.5) 01/30/19 15:25 INR 1.13 01/30/19 15:25 APTT 28.0 Seconds (26.9-38.3) 01/30/19 15:25 - Constitutional Appears: Non-toxic, Agitated - Head Exam Head Exam: ATRAUMATIC, NORMAL INSPECTION, NORMOCEPHALIC - Eye Exam Eye Exam: EOMI, PERRL - ENT Exam ENT Exam: Mucous Membranes Moist - Neck Exam Neck Exam: Full ROM - Respiratory Exam Respiratory Exam: Clear to Ausculation Bilateral, NORMAL BREATHING PATTERN. absent: Respiratory Distress - Cardiovascular Exam Cardiovascular Exam: REGULAR RHYTHM, RRR - GI/Abdominal Exam GI & Abdominal Exam: Soft, Normal Bowel Sounds. absent: Tenderness - Extremities Exam Extremities Exam: Full ROM. absent: Pedal Edema - Neurological Exam Neurological Exam: Alert, Awake, CN II-XII Intact. absent: Oriented x3 - Skin Skin Exam: Dry, Intact Assessment and Plan - Assessment and Plan (Free Text) Assessment: 78 year old female with a past medical history significant for COPD, pulmonary sarcoidosis, DM2, diabetic neuropathy, 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 Patient was also found to have shortness of breath on exam with hypoxic respiratory failure. Plan: Hypoxic respiratory secondary to CHF exacerbation vs. COPD exacerbation vs. pneumonia -ABG 3/: pH: 7.39, pO2: 52 from 57 from last admission 2 weeks ago, pCO2: 40 -CXR 3/2: showed left lower lobe infiltrate vs. effusion. BNP was 477 -Repeat CXR showed chronic interstitial changes. no focal consolidation -Venous doppler: no DVT -Leukocytosis improved -Blood culture negative after 3 days. -Urine culture: negative -Awaiting sputum culture results -Procalcitonin: 0.2 -Lactate was 2.3 in the emergency department trending down to 0.9 -Patient is currently on high flow nasal cannula. We will try to wean patient off of high flow oxygen onto nasal cannula. -Continue lasix 80 mg PO daily -For COPD, continue duonebs and pulmicort. Continue prednisone 5 mg daily -Continue robitussin PRN, tessalon perles, and cepacol for cough. -Stopped antibiotics as per infectious disease. MRSA in nares -Mupirocin day 2 of 5 -Continue contact precautions Rule out trauma status post fall -Head CT 01/30: left posterior parietal occipital encephalomalacia. Ex vacuo dilatation of the occipital horn left lateral ventricle. Nonspecific white matter changes. Generalized atrophy -Lumbar spine X ray: severe disc degeneration, levoscoliosis. no acute findings -Continue lidoderm patch, tramadol, and tylenol PRN for pain Altered mental status -Head CT 01/30: left posterior parietal occipital encephalomalacia. Ex vacuo dilatation of the occipital horn left lateral ventricle. Nonspecific white matter changes. Generalized atrophy -Lumbar spine X ray: severe disc degeneration, levoscoliosis. no acute findings -Neuro checks Q4 -As per neurology, likely 2/2 to dementia vs. delirium from infection Isolated increased alkaline phosphatase -Abdominal ultrasound 01/05: unremarkable Diabetes mellitus type II -HgbA1c: 8.5 -Continue medium SSI -Continue home neurontin for diabetic neuropathy History of CVA -Continue with home aspirin and lipitor Hypertension -Will hold all antihypertensives Depression and anxiety -Continue home xanax Osteoarthritis -Lumbar spine X ray: severe disc degeneration, levoscoliosis. no acute findings -Continue lidoderm patch, tramadol, and tylenol PRN for pain Chronic normocytic anemia -Patient currently at baseline -Continue to monitor. GI prophylaxis: protonix 40 mg daily DVT prophylaxis: lovenox 30 mg daily Disposition: Patient is now hospice. Patient plan discussed with attending. <Juice Clifton - Last Filed: 02/05/19 07:55> Objective - Vital Signs/Intake and Output Vital Signs (last 24 hours): Temp Pulse Resp BP Pulse Ox 98.3 F 95 H 18 132/62 94 L 02/04/19 12:00 02/04/19 12:00 02/04/19 12:00 02/04/19 12:00 02/04/19 06:00 - Labs Labs: 02/04/19 08:30 02/04/19 08:30 PT 12.5 SECONDS (9.4-12.5) 01/30/19 15:25 INR 1.13 01/30/19 15:25 APTT 28.0 Seconds (26.9-38.3) 01/30/19 15:25 Attending/Attestation - Attestation I have personally seen and examined this patient.: Yes I have fully participated in the care of the patient.: Yes I have reviewed all pertinent clinical information, including history, physical exam and plan: Yes Notes (Text): 02/05/19 07:55 Medical record note made by the resident after discussion with my direction and input after the patient was personally seen and examined by me. I have reviewed the chart and agree that the record accurately reflects by personal performance of the history, physical exam, data review, and medical decision-making, in the course for the patient. I have also personally directed the plan of care.
[2019-02-04 00:27] VITALS: O2SAT 94
[2019-02-04] MEDS: Albuterol-Ipratrop 3 mg / 0.5 (3 ml) UD IH SCH ×4 (01:17→11:06)
[2019-02-04] MEDS: Albuterol-Ipratrop 3 mg / 0.5 (3 ml) UD IH PRN (05:58)
[2019-02-04] MEDS: Pantoprazole 40 mg EC Tab PO SCH (05:59)
[2019-02-04] MEDS: Insulin Reg-MEDIUM-Coverage SC SCH ×2 (07:55→12:33)
[2019-02-04] MEDS: Budesonide 0.5 mg/2 ml Inhal Susp UD IH SCH (08:30)
[2019-02-04 08:38] LABS: BASO # 0.01 K/mm3 (0.0-2.0); BASO % 0.1 % (0.0-3.0); EOS # 0.2 (0.0-0.7); EOS % 1.7 % (1.5-5.0); LYMPH # 2.1 (1.2-3.4); LYMPH % 16.9 % (22.0-35.0); MEAN CELL VOLUME 79.1 fl (80.0-105.0); MEAN CORPUSCULAR HEMOGLOBIN 23.8 pg (25.0-35.0); MEAN PLATELET VOLUME 10.4 fl (7.0-11.0); MONO # 0.7 (0.1-0.6); MONO % 5.7 % (1.0-6.0); RBC 5.26 10^6/uL (3.5-6.1); RED CELL DISTRIBUTION WIDTH 19.4 % (11.5-14.5); WHITE BLOOD COUNT 12.1 10^3/uL (4.5-11.0)
[2019-02-04 08:44] LABS: HEMOGLOBIN 12.5 g/dL (12.0-16.0)
--- NOTE | 2019-02-04 08:47 | PN ---
DATE: 02/04/2019 PULMONARY NOTE SUBJECTIVE: The patient appears comfortable this morning. She is not short of breath at rest. She does remain very weak appearing. OBJECTIVE: VITAL SIGNS: Temperature is 97.2, pulse is 91, respirations 18, blood pressure 145/76. Oxygen saturation on high-flow delivery is 96% (discussed with nurse). HEENT: Normocephalic, atraumatic. NECK: No JVD. CARDIOVASCULAR: Systolic ejection murmur at the lower left sternal border. No S3 gallop. LUNGS: Crackles at both bases - chronic. Minimal/less rhonchi. No wheezing. EXTREMITIES: Mild edema. No cyanosis, no clubbing. Calves are nontender to palpation. GASTROINTESTINAL: Abdomen is soft, nontender and nondistended. Bowel sounds are positive. SKIN: No acute rash. NEUROLOGIC: Limited at the present time. IMPRESSION: 1. Recurrent bronchitis. 2. Advanced chronic obstructive pulmonary disease. 3. Advanced interstitial lung disease. 4. Leukocytosis - resolving. PLAN: The patient appears comfortable this morning. She is not short of breath at rest. She is awake and alert. However, she does remain very weak appearing. I did discuss the case with the night nurse at length. The night nurse stated that the patient did desaturate on nasal cannula. She is now on high-flow delivery. The patient has consistently refused BIPAP. We will see if we can transition her back to regular nasal cannula later this morning. On physical exam, there is no significant bronchospasm noted. There is a moderately severe alveolar-arterial gradient. I will continue the current nebulizer treatments and oral steroids for now. Antibiotics have been discontinued as per Infectious Disease. Input by Dr. Rebollar is noted. His temperatures have fully resolved. There remains a mild leukocytosis. Repeat a.m. labs are pending. The patient remains critically ill overall with very, very poor prognosis. All are aware. Again, I did discuss the case with the nurse at length. The patient is for probable home hospice transfer later today. I will discuss the above with the attending physician. Meet Alcaraz MD ADÁN
[2019-02-04 08:49] LABS: ALBUMIN 3.6 g/dL (3.0-4.8); ALT/SGPT 39 U/L (7-56); AST/SGOT 44 U/L (14-36); BLOOD UREA NITROGEN 29 mg/dL (7-21); GFR NON-AFRICAN AMERICAN > 60
[2019-02-04] MEDS: Enoxaparin 30 mg Syringe SC SCH (10:26)
[2019-02-04] MEDS: Aspirin 325 mg EC Tablets PO SCH (10:27)
[2019-02-04] MEDS: EPA PO SCH (10:28)
[2019-02-04] MEDS: FISH OIL PO SCH (10:28)
[2019-02-04] MEDS: Mupirocin 2% Ointment 15 GM TUBE NS SCH (10:28)
[2019-02-04] MEDS: OMEGA PO SCH (10:28)
[2019-02-04] MEDS: DHA PO SCH (10:28)
[2019-02-04 12:39] VITALS: BP 132/62; PULSE 95; RESP 18; TEMP 98.3
--- NOTE | 2019-02-04 13:42 | PN ---
DATE: 02/04/2019 SUBJECTIVE: The patient is seen in bed, in no acute distress. PHYSICAL EXAMINATION: VITAL SIGNS: Temperature 97, blood pressure 140/70 and respiratory rate 19. HEENT: Unremarkable. NECK: Supple. LUNGS: Decreased breath sounds. HEART: Normal, S1 and S2. ABDOMEN: Soft and nontender. LABORATORY DATA: Reveals a white count of 12,000. Chemistries are noted. Dr. Alcaraz's note is reviewed. ASSESSMENT AND PLAN: This is 78-year-old female in room 276, bed 1, who has end-stage chronic obstructive lung disease, congestive heart failure, pulmonary sarcoidosis, diabetes mellitus, diabetic neuropathy, cerebrovascular accident with x2 with a residual cognitive dysfunction and visual function loss in right eye. She was admitted with sepsis, healthcare-associated pneumonia on day #4 of antibiotics, meropenem and doxycycline. The patient is possible discharge to Hospice today. No further antibiotics recommended now, off antibiotics. We will possible discharge today. The patient is on prednisone and risk for developing nosocomial infections. Jose Manuel Rebollar MD
--- NOTE | 2019-02-04 14:40 | CP.PCM.PN ---
Subjective - Date & Time of Evaluation Date of Evaluation: 02/03/19 Time of Evaluation: 10:00 - Subjective Subjective: No acute events, offers no complaints Objective - Vital Signs/Intake and Output Vital Signs (last 24 hours): Temp Pulse Resp BP Pulse Ox 98.3 F 95 H 18 132/62 94 L 02/04/19 12:00 02/04/19 12:00 02/04/19 12:00 02/04/19 12:00 02/04/19 06:00 Intake and Output: 02/04/19 02/04/19 06:59 18:59 Intake Total 1440 Balance 1440 - Medications Medications: Current Medications Acetaminophen (Tylenol 325mg Tab) 650 mg PO Q6H PRN PRN Reason: Pain, moderate (4-7) Albuterol/Ipratropium (Duoneb 3 Mg/0.5 Mg (3 Ml) Ud) 3 ml IH Q2H PRN PRN Reason: Shortness of Breath Last Admin: 02/04/19 05:58 Dose: 3 ml Albuterol/Ipratropium (Duoneb 3 Mg/0.5 Mg (3 Ml) Ud) 3 ml IH [id number] [facility] Last Admin: 02/04/19 11:06 Dose: 3 ml Aspirin (Ecotrin) 325 mg PO DAILY [facility] Last Admin: 02/04/19 10:27 Dose: 325 mg Atorvastatin Calcium (Lipitor) 40 mg PO DAILY [facility] Last Admin: 02/04/19 10:27 Dose: 40 mg Benzocaine/Menthol (Cepacol Sore Throat) 1 cuong MT Q2H PRN PRN Reason: Sore Throat Benzonatate (Tessalon Perles) 100 mg PO TID [facility] Last Admin: 02/04/19 13:52 Dose: 100 mg Budesonide (Pulmicort Respules) 0.5 mg IH [id number] [facility] Last Admin: 02/04/19 08:30 Dose: 0.5 mg Enoxaparin Sodium (Lovenox) 30 mg SC DAILY [facility]; Protocol Last Admin: 02/04/19 10:26 Dose: 30 mg Furosemide (Lasix) 80 mg PO DAILY [facility] Last Admin: 02/04/19 10:26 Dose: 80 mg Gabapentin (Neurontin) 300 mg PO BID [facility]; Protocol Last Admin: 02/04/19 10:27 Dose: 300 mg Guaifenesin/Dextromethorphan (Robitussin Dm) 5 ml PO Q4H PRN PRN Reason: Cough Last Admin: 02/02/19 17:06 Dose: 5 ml Insulin Human Regular (Humulin R Med) 0 units SC [facility]; Protocol Last Admin: 02/04/19 12:33 Dose: Not Given Lidocaine (Lidoderm) 1 ea TD DAILY PRN PRN Reason: Pain, Mild (1-3) Lorazepam (Ativan) 1 mg PO TID [facility]; Protocol Last Admin: 02/04/19 13:52 Dose: 1 mg Magnesium Oxide (Mag-Ox) 400 mg PO ONCE ONE Stop: 02/05/19 14:34 Mirtazapine (Remeron) 30 mg PO [facility] Last Admin: 02/03/19 22:01 Dose: 30 mg Mupirocin (Bactroban Ointment) 0 gm NS BID [facility] Stop: 02/06/19 18:01 Last Admin: 02/04/19 10:28 Dose: 1 applic ([place]-3/Dha/Epa/Fish Oil 500 Mg 500 Mg) Home Med 500 mg PO BID [facility] Last Admin: 02/04/19 10:28 Dose: Not Given Pantoprazole Sodium (Protonix Ec Tab) 40 mg PO 0600 [facility] Last Admin: 02/04/19 05:59 Dose: 40 mg Prednisone (Prednisone Tab) 5 mg PO DAILY [facility] Last Admin: 02/04/19 10:27 Dose: 5 mg Tramadol HCl (Ultram) 50 mg PO DAILY [facility] Last Admin: 02/04/19 10:27 Dose: 50 mg Zolpidem Tartrate (Ambien) 5 mg PO [facility]; Protocol Last Admin: 02/03/19 22:01 Dose: 5 mg - Labs Labs: 02/04/19 08:30 02/04/19 08:30 PT 12.5 SECONDS (9.4-12.5) 01/30/19 15:25 INR 1.13 01/30/19 15:25 APTT 28.0 Seconds (26.9-38.3) 01/30/19 15:25 - Constitutional Appears: Chronically Ill - ENT Exam ENT Exam: Mucous Membranes Moist - Respiratory Exam Respiratory Exam: Decreased Breath Sounds, Rhonchi - Cardiovascular Exam Cardiovascular Exam: REGULAR RHYTHM, +S1, +S2 - GI/Abdominal Exam GI & Abdominal Exam: Soft, Normal Bowel Sounds - Extremities Exam Extremities Exam: Pedal Edema - Neurological Exam Neurological Exam: Alert - Skin Skin Exam: Dry, Pallor Assessment and Plan - Assessment and Plan (Free Text) Assessment: 78 year old female with history of COPD,sarcoidosis, vascular dementia, DM who is admitted with POLYSOM TECH/CHF exacerbation, HTN, anemia,sepsis. Patient is aware that she will be transitioning home to hospice care. She is an agreement with plan. Plan for transitioning home tomorrow Plan: Goals of care COPD/CHF/Hypoxia: On high flow O2. Continue nebulizers, Lasix,Pulmicort DM: fingertsicks,Humulin as ordered
[2019-02-04] MEDS ORDERED: Magnesium Oxide 400 mg Tab UD PO ONE (15:12)
--- NOTE | 2019-02-04 15:16 | CP.PCM.PN ---
Subjective - Date & Time of Evaluation Date of Evaluation: 02/04/19 Time of Evaluation: 12:00 - Subjective Subjective: High flow oxygen in use, no acute events Objective - Vital Signs/Intake and Output Vital Signs (last 24 hours): Temp Pulse Resp BP Pulse Ox 98.3 F 95 H 18 132/62 94 L 02/04/19 12:00 02/04/19 12:00 02/04/19 12:00 02/04/19 12:00 02/04/19 06:00 Intake and Output: 02/04/19 02/04/19 06:59 18:59 Intake Total 1440 Balance 1440 - Medications Medications: Current Medications Acetaminophen (Tylenol 325mg Tab) 650 mg PO Q6H PRN PRN Reason: Pain, moderate (4-7) Albuterol/Ipratropium (Duoneb 3 Mg/0.5 Mg (3 Ml) Ud) 3 ml IH Q2H PRN PRN Reason: Shortness of Breath Last Admin: 02/04/19 05:58 Dose: 3 ml Albuterol/Ipratropium (Duoneb 3 Mg/0.5 Mg (3 Ml) Ud) 3 ml IH [id number] [facility] Last Admin: 02/04/19 11:06 Dose: 3 ml Aspirin (Ecotrin) 325 mg PO DAILY [facility] Last Admin: 02/04/19 10:27 Dose: 325 mg Atorvastatin Calcium (Lipitor) 40 mg PO DAILY [facility] Last Admin: 02/04/19 10:27 Dose: 40 mg Benzocaine/Menthol (Cepacol Sore Throat) 1 cuong MT Q2H PRN PRN Reason: Sore Throat Benzonatate (Tessalon Perles) 100 mg PO TID [facility] Last Admin: 02/04/19 13:52 Dose: 100 mg Budesonide (Pulmicort Respules) 0.5 mg IH [id number] [facility] Last Admin: 02/04/19 08:30 Dose: 0.5 mg Enoxaparin Sodium (Lovenox) 30 mg SC DAILY [facility]; Protocol Last Admin: 02/04/19 10:26 Dose: 30 mg Furosemide (Lasix) 80 mg PO DAILY [facility] Last Admin: 02/04/19 10:26 Dose: 80 mg Gabapentin (Neurontin) 300 mg PO BID [facility]; Protocol Last Admin: 02/04/19 10:27 Dose: 300 mg Guaifenesin/Dextromethorphan (Robitussin Dm) 5 ml PO Q4H PRN PRN Reason: Cough Last Admin: 02/02/19 17:06 Dose: 5 ml Insulin Human Regular (Humulin R Med) 0 units SC ACHS [facility]; Protocol Last Admin: 02/04/19 12:33 Dose: Not Given Lidocaine (Lidoderm) 1 ea TD DAILY PRN PRN Reason: Pain, Mild (1-3) Lorazepam (Ativan) 1 mg PO TID [facility]; Protocol Last Admin: 02/04/19 13:52 Dose: 1 mg Magnesium Oxide (Mag-Ox) 400 mg PO ONCE ONE Stop: 02/05/19 14:34 Mirtazapine (Remeron) 30 mg PO [facility] Last Admin: 02/03/19 22:01 Dose: 30 mg Mupirocin (Bactroban Ointment) 0 gm NS BID [facility] Stop: 02/06/19 18:01 Last Admin: 02/04/19 10:28 Dose: 1 applic ([place]-3/Dha/Epa/Fish Oil 500 Mg 500 Mg) Home Med 500 mg PO BID [facility] Last Admin: 02/04/19 10:28 Dose: Not Given Pantoprazole Sodium (Protonix Ec Tab) 40 mg PO 0600 [facility] Last Admin: 02/04/19 05:59 Dose: 40 mg Prednisone (Prednisone Tab) 5 mg PO DAILY [facility] Last Admin: 02/04/19 10:27 Dose: 5 mg Tramadol HCl (Ultram) 50 mg PO DAILY [facility] Last Admin: 02/04/19 10:27 Dose: 50 mg Zolpidem Tartrate (Ambien) 5 mg PO [facility]; Protocol Last Admin: 02/03/19 22:01 Dose: 5 mg - Labs Labs: 02/04/19 08:30 02/04/19 08:30 PT 12.5 SECONDS (9.4-12.5) 01/30/19 15:25 INR 1.13 01/30/19 15:25 APTT 28.0 Seconds (26.9-38.3) 01/30/19 15:25 - Constitutional Appears: Chronically Ill - Eye Exam Eye Exam: Normal appearance, PERRL - ENT Exam ENT Exam: Normal Exam - Respiratory Exam Respiratory Exam: Decreased Breath Sounds, Rhonchi - Cardiovascular Exam Cardiovascular Exam: +S1, +S2 - GI/Abdominal Exam GI & Abdominal Exam: Soft, Normal Bowel Sounds - Extremities Exam Extremities Exam: Pedal Edema - Neurological Exam Neurological Exam: Awake - Skin Skin Exam: Pallor Assessment and Plan - Assessment and Plan (Free Text) Assessment: 78 year old female with history of vascular dementia, COPD/CHF, DM who is admitted with COPD/CHF exacerbation, hypoxia. Remains on high flow 02 . Desaturating when placed on nasal cannula at 5 liters. Saturation levels acceptable when on BIPap, however the patient does not like the mask. Ambulance unable to supply high flow 02 for transport home. Patient is agreeable to use BiPap for transport home. End of life counseling provided to family and care takers. Time spent in end of life counseling, 30 minutes Plan: Bipap for transport home [facility]
--- NOTE | 2019-02-04 15:38 | CP.PCM.DIS ---
<Ziggy Del Rosario - Last Filed: 02/04/19 16:11> Provider - Provider Date of Admission: 01/30/19 18:25 Attending physician: Juice Clifton MD Primary care physician: Omer Walker MD Consults: 01/30/19 21:08 Neurology Consult Routine Comment: Consulting Provider: Addi Joshua Consulting Physician: Addi Joshua Reason for Consult: altered mental status 01/30/19 23:54 Nursing Referral for Palliative Care Routine Comment: Physician Instructions: Reason For Exam: eval 01/30/19 23:58 Social Work Referral Routine Comment: discharge Physician Instructions: Reason For Exam: eval 01/31/19 00:11 Inpatient PRE SALES TECHNICAL CONSULTANT Core Measures Referral Routine Comment: Physician Instructions: Reason For Exam: eval Transition In Care/Readmission Reduction Routine Comment: Physician Instructions: Reason For Exam: eval 01/31/19 07:22 Infectious Disease Consult Routine Comment: Consulting Provider: Willie Padilla Consulting Physician: Willie Padilla Reason for Consult: pneumonia recurrent 01/31/19 07:49 Wound Care [Nursing Referral for Wound Care] Routine Comment: Physician Instructions: Reason For Exam: sacral wounds 01/31/19 07:51 Pulmonology Consult Routine Comment: Consulting Provider: Meet Alcaraz Consulting Physician: Meet Alcaraz Reason for Consult: hypoxic respiratory failure 01/31/19 13:09 Palliative Care Consult Routine Comment: Consulting Provider: Antonina Valdivia Physician Instructions: Reason For Exam: reevaluation of patient's DNR/DNI 02/02/19 10:13 Hospice [Case Management Referral] Routine Comment: Physician Instructions: Reason For Exam: [facility] Reason for Referral: Hospice Eval Time Spent in preparation of Discharge (in minutes): 60 Diagnosis - Discharge Diagnosis (1) Acute respiratory failure with hypoxia Status: Acute Hospital Course - Lab Results Lab Results: Micro Results 01/30/19 15:25 Blood-Venous Blood Culture - Final NO GROWTH AFTER 5 DAYS 01/30/19 15:25 Blood-Venous Gram Stain - Final TEST NOT PERFORMED 01/30/19 15:45 Blood-Venous Blood Culture - Preliminary NO GROWTH AFTER 4 DAYS 01/31/19 20:06 Naris MRSA Culture (Admit) - Final MRSA DETECTED 01/30/19 15:51 Urine,Catheterized Urine Culture - Final No Growth (<1,000 CFU/ML) Most Recent Lab Values WBC 12.1 10^3/uL (4.5-11.0) H 02/04/19 08:30 RBC 5.26 10^6/uL (3.5-6.1) 02/04/19 08:30 Hgb 12.5 g/dL (12.0-16.0) D 02/04/19 08:30 Hct 41.6 % (36.0-48.0) 02/04/19 08:30 MCV 79.1 fl (80.0-105.0) L 02/04/19 08:30 MCH 23.8 pg (25.0-35.0) L 02/04/19 08:30 MCHC 30.0 g/dl (31.0-37.0) L 02/04/19 08:30 RDW 19.4 % (11.5-14.5) H 02/04/19 08:30 Plt Count 213 10^3/uL (120.0-450.0) 02/04/19 08:30 MPV 10.4 fl (7.0-11.0) 02/04/19 08:30 Neut % (Auto) 75.6 % (50.0-68.0) H 02/04/19 08:30 Lymph % (Auto) 16.9 % (22.0-35.0) L 02/04/19 08:30 [place] % (Auto) 5.7 % (1.0-6.0) 02/04/19 08:30 Eos % (Auto) 1.7 % (1.5-5.0) 02/04/19 08:30 Baso % (Auto) 0.1 % (0.0-3.0) 02/04/19 08:30 Lymph # (Auto) 2.1 (1.2-3.4) 02/04/19 08:30 [place] # (Auto) 0.7 (0.1-0.6) H 02/04/19 08:30 Eos # (Auto) 0.2 (0.0-0.7) 02/04/19 08:30 Baso # (Auto) 0.01 K/mm3 (0.0-2.0) 02/04/19 08:30 Absolute Neuts (auto) 9.17 (1.4-6.5) H 02/04/19 08:30 PT 12.5 SECONDS (9.4-12.5) 01/30/19 15:25 INR 1.13 01/30/19 15:25 APTT 28.0 Seconds (26.9-38.3) 01/30/19 15:25 pCO2 40 mm/Hg (35-45) 01/30/19 15:32 pO2 281 mm/Hg (30-55) H 01/30/19 19:50 HCO3 24.2 mmol/L (21-28) 01/30/19 15:32 ABG pH 7.39 (7.35-7.45) 01/30/19 15:32 ABG Total CO2 25.4 mmol.L (22-28) 01/30/19 15:32 ABG O2 Saturation 88.6 % (95-98) L 01/30/19 15:32 ABG Base Excess -0.7 mmol/L (-2.0-3.0) 01/30/19 15:32 ABG Potassium 3.8 mmol/L (3.6-5.2) 01/30/19 15:32 VBG pH 7.48 (7.32-7.43) H 01/30/19 19:50 VBG pCO2 34.0 (40-60) L 01/30/19 19:50 VBG HCO3 25.3 mmol/l (21-28) 01/30/19 19:50 VBG Total CO2 26.3 mmol.L (22-28) 01/30/19 19:50 VBG O2 Sat (Calc) 99.8 % (40-65) H 01/30/19 19:50 VBG Base Excess 2.2 mmol/L (0.0-2.0) H 01/30/19 19:50 VBG Potassium 3.9 mmol/L (3.6-5.2) 01/30/19 19:50 Sodium 137.0 mmol/L (132-148) 01/30/19 19:50 Chloride 105.0 mmol/L (98-107) 01/30/19 19:50 Glucose 168 mg/dl (65-105) H 01/30/19 19:50 Lactate 0.9 mmol/L (0.7-2.1) 01/30/19 19:50 FiO2 21.0 % 01/30/19 19:50 Crit Value Called To Dr malone 01/30/19 15:32 Crit Value Called By Solomon lopez 01/30/19 15:32 Blood Gas Notified Time 1538 01/30/19 15:32 Sodium 138 mmol/L (132-148) 02/04/19 08:30 Potassium 3.8 mmol/L (3.6-5.0) 02/04/19 08:30 Chloride 96 mmol/L (98-107) L 02/04/19 08:30 Carbon Dioxide 35 mmol/L (21-33) H 02/04/19 08:30 Anion Gap 12 (10-20) 02/04/19 08:30 BUN 29 mg/dL (7-21) H 02/04/19 08:30 Creatinine 0.8 mg/dl (0.7-1.2) 02/04/19 08:30 Est GFR ( Amer) > 60 02/04/19 08:30 Est GFR (Non-Af Amer) > 60 02/04/19 08:30 POC Glucose (mg/dL) 231 mg/dL (65-110) H 02/04/19 11:11 Random Glucose 113 mg/dL (70-110) H 02/04/19 08:30 Hemoglobin A1c 8.5 % (4.2-6.5) H D 01/30/19 17:00 Calcium 9.0 mg/dL (8.4-10.5) 02/04/19 08:30 Phosphorus 4.5 mg/dL (2.5-4.5) 01/30/19 15:25 Magnesium 1.6 mg/dL (1.7-2.2) L 02/02/19 06:30 Total Bilirubin 0.4 mg/dL (0.2-1.3) 02/04/19 08:30 AST 44 U/L (14-36) H 02/04/19 08:30 ALT 39 U/L (7-56) 02/04/19 08:30 Alkaline Phosphatase 143 U/L (38-126) H 02/04/19 08:30 Troponin I 0.06 ng/mL D 01/30/19 15:25 NT-Pro-B Natriuret Pep 477 pg/mL (0-450) H 02/01/19 07:00 Total Protein 7.4 g/dL (5.8-8.3) 02/04/19 08:30 Albumin 3.6 g/dL (3.0-4.8) 02/04/19 08:30 Globulin 3.8 gm/dL 02/04/19 08:30 Albumin/Globulin Ratio 1.0 (1.1-1.8) L 02/04/19 08:30 Procalcitonin 0.20 NG/ML (0.19-0.49) 01/31/19 13:19 TSH 3rd Generation 1.72 mIU/mL (0.46-4.68) 01/30/19 15:25 Arterial Blood Potassium 3.8 mmol/L (3.6-5.2) 01/30/19 15:32 Venous Blood Potassium 3.9 mmol/L (3.6-5.2) 01/30/19 19:50 Urine Color Yellow (YELLOW) 01/30/19 15:51 Urine Appearance Clear (CLEAR) 01/30/19 15:51 Urine pH 6.0 (4.7-8.0) 01/30/19 15:51 Ur Specific Ola 1.020 (1.005-1.035) 01/30/19 15:51 Urine Protein 30 mg/dL (<30 mg/dL) H 01/30/19 15:51 Urine Glucose (UA) Negative mg/dL (NEGATIVE) 01/30/19 15:51 Urine Ketones Negative mg/dL (NEGATIVE) 01/30/19 15:51 Urine Blood Negative (NEGATIVE) 01/30/19 15:51 Urine Nitrate Negative (NEGATIVE) 01/30/19 15:51 Urine Bilirubin Negative (NEGATIVE) 01/30/19 15:51 Urine Urobilinogen 0.2 E.U./dL (<1 E.U./dL) 01/30/19 15:51 Ur Leukocyte Esterase Negative Janes/uL (NEGATIVE) 01/30/19 15:51 Urine RBC None /hpf (0-2) 01/30/19 15:51 Urine WBC None /hpf (0-6) 01/30/19 15:51 Ur Epithelial Cells 0 - 2 /hpf (0-5) 01/30/19 15:51 Ur L.pneumophila Ag Negative (NEGATIVE) 01/31/19 18:08 - Hospital Course Hospital Course: Ziggy Del Rosario, PGY-1, Internal Medicine Discharge Summary for Dr. 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 Patient was also found to have shortness of breath on exam with hypoxic respiratory failure on ABG on admission. Head CT on presentation showed no acute changes. In addition, Lumbar Spine X ray showed no acute findings. For patient's hypoxic respiratory failure, patient was started on vancomycin and zosyn due to patient's recent hospital visit for coverage of HCAP since there was a left lower lobe infiltrate on CXR. ID changed the antibiotics to doxycycline and merrem before stopping the antibiotics prior to discharge. Patient had negative blood cultures throughout the admission. Procalcitonin was unremarkable and lactate trended down to 0.9 from 2.3 on admission. Patient was also diuresed with lasix 80 mg daily due to patient's wheezes upon presentation to the hospital and bilateral lower extremity pitting edema. Patient was also initially on Bipap for covering for CHF exacerbation. Patient was also started on duonebs and pulmicort. Low dose home steroids was restarted later during the admission. Patient has home oxygen at 3 L and has been saturating around 84-86% at home. Patient was initially on BiPap and started on nasal cannula. However, patient desaturated on nasal cannula and was restarted on BiPap at night. Patient was started on high flow oxygen subsequently with improvement in oxygenation multiple times. After speaking with palliative, family decided that patient should be made hospise due to patient's poor prognosis from severe COPD and other comorbid conditions. As a result, high flow oxygen was titrated off but patient desaturated to less than 88%. As a result, plan was made for patient to be made comfortable with goal of comfort rather than maintaining O2 saturation more than 88%. Patient was discharged home with all appropriate medications for comfort. Patient was also found to have MRSA in the nares and treated with mupirocin for 5 days. Patient is day 3 of 5 today. Patient was stable and ready for discharge. Patient was told to take all of her medications as prescribed for comfort. Patient was told to elevate head of bed to 30 degrees to prevent aspiration. Patient was told to contact hospise services if she had any issues. Goal of care was now comfort. This is a brief summary of the events that occurred during this hospital visit. Please refer to hospital documentation for more information - Date & Time of H&P Date of H&P: 01/30/19 Time of H&P: 19:17 Discharge Exam - Head Exam Head Exam: ATRAUMATIC, NORMAL INSPECTION, NORMOCEPHALIC - Eye Exam Eye Exam: EOMI, PERRL - ENT Exam ENT Exam: Mucous Membranes Dry - Respiratory Exam Respiratory Exam: Clear to PA & Lateral, NORMAL BREATHING PATTERN - Cardiovascular Exam Cardiovascular Exam: REGULAR RHYTHM, RRR - GI/Abdominal Exam GI & Abdominal Exam: Normal Bowel Sounds, Soft. absent: Tenderness - Extremities Exam Extremities exam: pedal pulses present - Neurological Exam Neurological exam: Alert, CN II-XII Intact Additional comments: AAOx1 - Skin Skin Exam: Dry, Intact Discharge Plan - Discharge Medications Prescriptions: Albuterol/Ipratropium [Duoneb 3 mg/0.5 mg (3 ml) UD] 3 ml IH [id number] 14 Days #1 neb Aspirin 81 mg PO 14 #14 tab.chew Benzocaine/Menthol [Cepacol Sore Throat] 1 cuong MT Q2H PRN 5 Days #30 cuong PRN Reason: Sore Throat Benzonatate [Tessalon Perles] 100 mg PO TID 14 Days #42 sgl Budesonide [Pulmicort Respules] 0.5 mg IH [id number] 14 Days #1 neb Furosemide [Lasix] 80 mg PO DAILY 14 Days #14 tab guaiFENesin/Dextromethorphan [Robitussin DM] 5 ml PO Q4H PRN 14 Days #1 udc PRN Reason: Cough Mupirocin 2% Ointment [Bactroban Ointment] 1 oz NS BID 2 Days #1 tube - Follow Up Plan Condition: GUARDED Disposition: HOME/ ROUTINE Instructions: Preventing Falls in the Older Adult, MRSA (DC), Pneumonia, Adult (DC), Diabetes Diet , Medical Care During Advanced Illness, How to Use a CPAP or BPAP Machine, Palliative Care Additional Instructions: Please take all of your medications as prescribed. Elevate head of bed to 30 degrees to prevent aspiration. Please contact your hospise services if you have any issues. Goal of care is now comfort. Please make Mrs. Juarez as comfortable as possible. Referrals: Omer Walker MD [Primary Care Provider] - <Juice Clifton - Last Filed: 02/05/19 07:54> Provider - Provider Date of Admission: 01/30/19 18:25 Attending physician: Juice Clifton MD Primary care physician: Omer Walker MD Consults: 01/30/19 21:08 Neurology Consult Routine Comment: Consulting Provider: Addi Joshua Consulting Physician: Addi Joshua Reason for Consult: altered mental status 01/30/19 23:54 Nursing Referral for Palliative Care Routine Comment: Physician Instructions: Reason For Exam: eval 01/30/19 23:58 Social Work Referral Routine Comment: discharge Physician Instructions: Reason For Exam: eval 01/31/19 00:11 Inpatient PRE SALES TECHNICAL CONSULTANT Core Measures Referral Routine Comment: Physician Instructions: Reason For Exam: eval Transition In Care/Readmission Reduction Routine Comment: Physician Instructions: Reason For Exam: eval 01/31/19 07:22 Infectious Disease Consult Routine Comment: Consulting Provider: Willie Padilla Consulting Physician: Willie Padilla Reason for Consult: pneumonia recurrent 01/31/19 07:49 Wound Care [Nursing Referral for Wound Care] Routine Comment: Physician Instructions: Reason For Exam: sacral wounds 01/31/19 07:51 Pulmonology Consult Routine Comment: Consulting Provider: Meet Alcaraz Consulting Physician: Meet Alcaraz Reason for Consult: hypoxic respiratory failure 01/31/19 13:09 Palliative Care Consult Routine Comment: Consulting Provider: Antonina Valdivia Physician Instructions: Reason For Exam: reevaluation of patient's DNR/DNI 02/02/19 10:13 Hospice [Case Management Referral] Routine Comment: Physician Instructions: Reason For Exam: [facility] Reason for Referral: Hospice Eval Hospital Course - Lab Results Lab Results: Micro Results 01/30/19 15:45 Blood-Venous Blood Culture - Final NO GROWTH AFTER 5 DAYS 01/30/19 15:45 Blood-Venous Gram Stain - Final TEST NOT PERFORMED 01/30/19 15:25 Blood-Venous Blood Culture - Final NO GROWTH AFTER 5 DAYS 01/30/19 15:25 Blood-Venous Gram Stain - Final TEST NOT PERFORMED 01/31/19 20:06 Naris MRSA Culture (Admit) - Final MRSA DETECTED 01/30/19 15:51 Urine,Catheterized Urine Culture - Final No Growth (<1,000 CFU/ML) Most Recent Lab Values WBC 12.1 10^3/uL (4.5-11.0) H 02/04/19 08:30 RBC 5.26 10^6/uL (3.5-6.1) 02/04/19 08:30 Hgb 12.5 g/dL (12.0-16.0) D 02/04/19 08:30 Hct 41.6 % (36.0-48.0) 02/04/19 08:30 MCV 79.1 fl (80.0-105.0) L 02/04/19 08:30 MCH 23.8 pg (25.0-35.0) L 02/04/19 08:30 MCHC 30.0 g/dl (31.0-37.0) L 02/04/19 08:30 RDW 19.4 % (11.5-14.5) H 02/04/19 08:30 Plt Count 213 10^3/uL (120.0-450.0) 02/04/19 08:30 MPV 10.4 fl (7.0-11.0) 02/04/19 08:30 Neut % (Auto) 75.6 % (50.0-68.0) H 02/04/19 08:30 Lymph % (Auto) 16.9 % (22.0-35.0) L 02/04/19 08:30 [place] % (Auto) 5.7 % (1.0-6.0) 02/04/19 08:30 Eos % (Auto) 1.7 % (1.5-5.0) 02/04/19 08:30 Baso % (Auto) 0.1 % (0.0-3.0) 02/04/19 08:30 Lymph # (Auto) 2.1 (1.2-3.4) 02/04/19 08:30 [place] # (Auto) 0.7 (0.1-0.6) H 02/04/19 08:30 Eos # (Auto) 0.2 (0.0-0.7) 02/04/19 08:30 Baso # (Auto) 0.01 K/mm3 (0.0-2.0) 02/04/19 08:30 Absolute Neuts (auto) 9.17 (1.4-6.5) H 02/04/19 08:30 PT 12.5 SECONDS (9.4-12.5) 01/30/19 15:25 INR 1.13 01/30/19 15:25 APTT 28.0 Seconds (26.9-38.3) 01/30/19 15:25 pCO2 40 mm/Hg (35-45) 01/30/19 15:32 pO2 281 mm/Hg (30-55) H 01/30/19 19:50 HCO3 24.2 mmol/L (21-28) 01/30/19 15:32 ABG pH 7.39 (7.35-7.45) 01/30/19 15:32 ABG Total CO2 25.4 mmol.L (22-28) 01/30/19 15:32 ABG O2 Saturation 88.6 % (95-98) L 01/30/19 15:32 ABG Base Excess -0.7 mmol/L (-2.0-3.0) 01/30/19 15:32 ABG Potassium 3.8 mmol/L (3.6-5.2) 01/30/19 15:32 VBG pH 7.48 (7.32-7.43) H 01/30/19 19:50 VBG pCO2 34.0 (40-60) L 01/30/19 19:50 VBG HCO3 25.3 mmol/l (21-28) 01/30/19 19:50 VBG Total CO2 26.3 mmol.L (22-28) 01/30/19 19:50 VBG O2 Sat (Calc) 99.8 % (40-65) H 01/30/19 19:50 VBG Base Excess 2.2 mmol/L (0.0-2.0) H 01/30/19 19:50 VBG Potassium 3.9 mmol/L (3.6-5.2) 01/30/19 19:50 Sodium 137.0 mmol/L (132-148) 01/30/19 19:50 Chloride 105.0 mmol/L (98-107) 01/30/19 19:50 Glucose 168 mg/dl (65-105) H 01/30/19 19:50 Lactate 0.9 mmol/L (0.7-2.1) 01/30/19 19:50 FiO2 21.0 % 01/30/19 19:50 Crit Value Called To Dr malone 01/30/19 15:32 Crit Value Called By Solomon lopez 01/30/19 15:32 Blood Gas Notified Time 1538 01/30/19 15:32 Sodium 138 mmol/L (132-148) 02/04/19 08:30 Potassium 3.8 mmol/L (3.6-5.0) 02/04/19 08:30 Chloride 96 mmol/L (98-107) L 02/04/19 08:30 Carbon Dioxide 35 mmol/L (21-33) H 02/04/19 08:30 Anion Gap 12 (10-20) 02/04/19 08:30 BUN 29 mg/dL (7-21) H 02/04/19 08:30 Creatinine 0.8 mg/dl (0.7-1.2) 02/04/19 08:30 Est GFR ( Amer) > 60 02/04/19 08:30 Est GFR (Non-Af Amer) > 60 02/04/19 08:30 POC Glucose (mg/dL) 231 mg/dL (65-110) H 02/04/19 11:11 Random Glucose 113 mg/dL (70-110) H 02/04/19 08:30 Hemoglobin A1c 8.5 % (4.2-6.5) H D 01/30/19 17:00 Calcium 9.0 mg/dL (8.4-10.5) 02/04/19 08:30 Phosphorus 4.5 mg/dL (2.5-4.5) 01/30/19 15:25 Magnesium 1.6 mg/dL (1.7-2.2) L 02/02/19 06:30 Total Bilirubin 0.4 mg/dL (0.2-1.3) 02/04/19 08:30 AST 44 U/L (14-36) H 02/04/19 08:30 ALT 39 U/L (7-56) 02/04/19 08:30 Alkaline Phosphatase 143 U/L (38-126) H 02/04/19 08:30 Troponin I 0.06 ng/mL D 01/30/19 15:25 NT-Pro-B Natriuret Pep 477 pg/mL (0-450) H 02/01/19 07:00 Total Protein 7.4 g/dL (5.8-8.3) 02/04/19 08:30 Albumin 3.6 g/dL (3.0-4.8) 02/04/19 08:30 Globulin 3.8 gm/dL 02/04/19 08:30 Albumin/Globulin Ratio 1.0 (1.1-1.8) L 02/04/19 08:30 Procalcitonin 0.20 NG/ML (0.19-0.49) 01/31/19 13:19 TSH 3rd Generation 1.72 mIU/mL (0.46-4.68) 01/30/19 15:25 Arterial Blood Potassium 3.8 mmol/L (3.6-5.2) 01/30/19 15:32 Venous Blood Potassium 3.9 mmol/L (3.6-5.2) 01/30/19 19:50 Urine Color Yellow (YELLOW) 01/30/19 15:51 Urine Appearance Clear (CLEAR) 01/30/19 15:51 Urine pH 6.0 (4.7-8.0) 01/30/19 15:51 Ur Specific Ola 1.020 (1.005-1.035) 01/30/19 15:51 Urine Protein 30 mg/dL (<30 mg/dL) H 01/30/19 15:51 Urine Glucose (UA) Negative mg/dL (NEGATIVE) 01/30/19 15:51 Urine Ketones Negative mg/dL (NEGATIVE) 01/30/19 15:51 Urine Blood Negative (NEGATIVE) 01/30/19 15:51 Urine Nitrate Negative (NEGATIVE) 01/30/19 15:51 Urine Bilirubin Negative (NEGATIVE) 01/30/19 15:51 Urine Urobilinogen 0.2 E.U./dL (<1 E.U./dL) 01/30/19 15:51 Ur Leukocyte Esterase Negative Janes/uL (NEGATIVE) 01/30/19 15:51 Urine RBC None /hpf (0-2) 01/30/19 15:51 Urine WBC None /hpf (0-6) 01/30/19 15:51 Ur Epithelial Cells 0 - 2 /hpf (0-5) 01/30/19 15:51 Ur L.pneumophila Ag Negative (NEGATIVE) 01/31/19 18:08 Attending/Attestation - Attestation I have personally seen and examined this patient.: Yes I have fully participated in the care of the patient.: Yes I have reviewed all pertinent clinical information, including history, physical exam and plan: Yes Notes (Text): 02/05/19 07:45 Patient was seen and examined with medical office technician.Family is at bed side.. 78 year old female with past medical history of COPD on home oxygen, sarcoidosis, diabetes, CVA, and spinal stenosis was admitted with change of mental status, s/p fall at home. She was also found to have acute on chronic hypoxic RF. Patient was febrile and has leukocytosis. She was treated with IV antibiotics for HCAP , she was also found to be fluid overloadedand was treated with diuretic for acute on chtonic diastolic CHF. Patient condition was improved but she was still hypoxic and intermittently require higher oxygen and quality of life has deteriorated. Hospice and Palliative care consult was obtained after discussion with family Patient family has decided for home hospice.She will be discharged home with home Hospice. Patient is DNR/DNI. Prognosis is guarded. Management plan was discussed in detail with patient and family. Education was provided
--- NOTE | 2019-02-05 13:57 | PQF ---
PROVIDER RESPONSE TEXT: 78 year old female with past medical history of COPD on home oxygen, sarcoidosis, diabetes, CVA, and spinal stenosis was admitted with change of mental status, s/p fall at home. She was also found to torre ve acute on chronic hypoxic RF.At the time of admission,Patient was found to be febrile ,tachycardiac and has leukocytosis.Etiology is possible Pneumonia .Cultures were negative. Patient was treated wit h antibiotics and mental status improved to base line. REVIEWER QUERY TEXT: Rule Out Sepsis Clarification Rule out Sepsis is documented in the Medical Record. Please clarify whether: -- Patient has sepsis - Please document confirmed, suspected or probable causative organism - Please document confirmed, suspected or probable localized infection - Please clarify if sepsis is related to a device - Please clarify if sepsis was present on admission -- Sepsis was ruled out (include corresponding diagnosis for patient?s clinical picture and treatment ) -- Patient had sepsis which is resolved -- Other, please specify The patient's Clinical Indicators include: ID noted Sepsis with HCAP. Please verify if Sepsis is present on admission. Query created by: Eda Bowman on 02/05/2019 12:10 PM Electronically signed by: Juice Clifton MD 02/05/2019 1:54 PM
[2019-02-05] MEDS ORDERED: Magnesium Oxide 400 mg Tab UD PO ONE (14:33)
== END 2019-02-04 16:10 | disposition hospice, home (50) | DRG 193 ==
LOC: ED 14:48 → ERH 18:25 → 2RSO 21:47
PROVIDERS: ADMIT Hospitalist; ATTEND Internal Medicine
PROC: 5A09557 Assistance with Respiratory Ventilation, Greater than 96 Consecutive Hours, Continuous Positive Airway Pressure (ICD-10-PCS; principal; 2019-01-30)
PROC: 3E0F7GC Introduction of Other Therapeutic Substance into Respiratory Tract, Via Natural or Artificial Opening (ICD-10-PCS; 2019-01-31)
DX: J18.9 Pneumonia, unspecified organism (principal); J96.21 Acute and chronic respiratory failure with hypoxia; G92 Toxic encephalopathy; I50.33 Acute on chronic diastolic (congestive) heart failure; J44.0 Chronic obstructive pulmonary disease with (acute) lower respiratory infection; J44.1 Chronic obstructive pulmonary disease with (acute) exacerbation; M51.36 Other intervertebral disc degeneration, lumbar region; I69.312 Visuospatial deficit and spatial neglect following cerebral infarction; I11.0 Hypertensive heart disease with heart failure; E11.40 Type 2 diabetes mellitus with diabetic neuropathy, unspecified; D86.0 Sarcoidosis of lung; J84.10 Pulmonary fibrosis, unspecified; F01.50 Vascular dementia, unspecified severity, without behavioral disturbance, psychotic disturbance, mood disturbance, and anxiety; G93.89 Other specified disorders of brain; K21.9 Gastro-esophageal reflux disease without esophagitis; M41.9 Scoliosis, unspecified; F32.9 Major depressive disorder, single episode, unspecified; F41.9 Anxiety disorder, unspecified; H54.61 Unqualified visual loss, right eye, normal vision left eye; M19.90 Unspecified osteoarthritis, unspecified site; M48.00 Spinal stenosis, site unspecified; Z51.5 Encounter for palliative care; Z66 Do not resuscitate; Y95 Nosocomial condition; H91.90 Unspecified hearing loss, unspecified ear; Z99.81 Dependence on supplemental oxygen; Z79.84 Long term (current) use of oral hypoglycemic drugs; Z87.891 Personal history of nicotine dependence